=== PATIENT | female | born 1960 | race Caucasian/White ===

== ENCOUNTER → 2017-05-26 | Outpatient (CLI) | payer OTHER ==
--- NOTE | 2017-05-26 08:22 | CT ---
EXAMINATION TYPE: CT abdomen pelvis wo con DATE OF EXAM: 05/26/2017 COMPARISON: NONE HISTORY: Unspecified Abdominal Pain CT DLP: 274.90 mGycm Examination of the solid and hollow viscera is limited given the lack of contrast. FINDINGS: LUNG BASES: No evidence for nodule. No evidence for infiltrate. LIVER/GB: The gallbladder is unremarkable. No space-occupying hepatic lesion. PANCREAS: No pancreatic mass identified. No inflammatory process seen. SPLEEN: No evidence for splenomegaly. No intrasplenic lesions seen. ADRENALS: No adrenal nodules identified. No evidence for thickening. KIDNEYS: No evidence for renal mass. No nephrolithiasis. No hydronephrosis. BOWEL: Appendix has a normal appearance. There is sigmoid diverticulosis. Minimal stranding adjacent to the sigmoid colon may reflect mild diverticulitis versus epiploic appendagitis. No evidence of pe rforation or abscess. Small and large bowel are otherwise unremarkable. Lymph nodes: No evidence for adenopathy greater than 1 cm. Abdominal aorta: Atheromatous changes seen. No evidence for aneurysm. Genital organs: No significant abnormality. Other: No significant abnormality. IMPRESSION: Minimal stranding adjacent to the sigmoid colon may reflect mild diverticulitis versus epiploic appen dagitis.
== END | disposition home or self-care (01) ==
LOC: RADCTMAIN 07:19
PROVIDERS: ATTEND Family Medicine
DX: K63.9 Disease of intestine, unspecified (principal); R10.9 Unspecified abdominal pain
CPT/HCPCS: 74176

== ENCOUNTER → 2023-03-29 | Outpatient (CLI) | payer OTHER ==
[2023-03-30 03:06] LABS: HCT 41.9 % (37.2-46.3); MCHC 33.4 g/dL (32.0-37.0); MCV 95.9 fL (80.0-97.0); Mean Platelet Volume 10.9 fL (9.5-12.2); NRBC Per 100 WBC 0 /100 WBCS (0.0-0.0); Platelet Count 206 X 10*3/uL (140-440); RBC 4.37 X 10*6/uL (4.10-5.20); WBC 5.68 X 10*3/uL (4.50-10.00)
[2023-03-30 03:09] LABS: African American GFR (CKD) 101.3 (60.0-200.0); Anion Gap 12.2 mmol/L (10.00-18.00); Blood Urea Nitrogen 9.9 mg/dL (9.0-27.0); Carbon Dioxide 25.2 mmol/L (20.0-27.5); Non-African American GFR(CKD) 87.4 (60.0-200.0); Potassium 4.4 mmol/L (3.5-5.5)
== END | disposition home or self-care (01) ==
LOC: LABPAT 15:08
PROVIDERS: ATTEND Internal Medicine Cardiovascular Disease
DX: Z01.812 Encounter for preprocedural laboratory examination (principal); I35.0 Nonrheumatic aortic (valve) stenosis
CPT/HCPCS: 80051; 82565; 84520; 85027

== ENCOUNTER → 2023-04-11 | Day surgery (SDC) | payer OTHER ==
[~2023-04-11] MED LIST: ALPRAZolam 0.25 MG TAB PO PRN; ALPRAZolam 0.5 MG TAB PO PRN; ASPIRIN 325 MG TAB PO STA; BENZOCAINE SPRAY 1 CAN MUCOUS MEM ONE; HEPARIN SODIUM 1,000 UN/ML (10ML VL) IVP ONE; HEPARIN SODIUM 1,000 UN/ML (10ML VL) ONE; IOPAMIDOL-370 100ML BTL INJ ONE; IV FLUID CONTINUATION 300 ML IV ONE; LIDOCAINE 1% INJ 10MG/ML (5 ML VIAL-PF) SQ ONE; MIDAZOLAM 2 MG/2 ML VIAL IVP ONE; NITROGLYCERIN SL TABS 0.4 MG TAB SUBLINGUAL PRN; SODIUM CHLORIDE 0.9% 1,000 ML in EMPTY BAG 1 BAG IV SCH; VERAPAMIL 2.5 MG/ML 2 ML AMP ONE; VERAPAMIL SYRINGE (5 MG/10 ML) INTRAARTER ONE; fentaNYL (PF) 50 MCG/ML 2 ML AMP IV ONE; fentaNYL (PF) 50 MCG/ML 2 ML AMP IVP ONE; fentaNYL (PF) 50 MCG/ML 2 ML AMP ONE
[2023-04-11 07:19] VITALS: TEMP 97.9
[2023-04-11] MEDS: BENZOCAINE SPRAY 1 CAN MUCOUS MEM ONE (07:29)
[2023-04-11] MEDS: MIDAZOLAM 2 MG/2 ML VIAL IVP ONE ×2 (07:30→07:33)
--- NOTE | 2023-04-11 08:00 | CA ---
CARDIOLOGY REPORT STUDY PERFORMED: Transesophageal echocardiogram. INDICATION: Aortic stenosis. PROCEDURE NOTE: After obtaining informed consent, transesophageal echocardiogram was performed in left lateral position using an Omniplane probe. Local and IV sedation were obtained with Xylocaine spray, 2 mg of Versed, and 25 mcg of fentanyl. The patient tolerated the procedure well without any obvious immediate complications. Total sedation time was 10 minutes. FINDINGS: 1. Aortic valve is a bicuspid valve that is calcified and shows severe restriction in leaflet mobility with residual valve area of 0.5 square centimeters by planimetry. There is moderate aortic regurgitation noted. Mitral valve is anatomically normal. There is moderate central mitral regurgitation noted. Tricuspid valve appears normal. 2. Left atrium appears enlarged. Right atrium and right ventricle seen, within normal limits. 3. Left ventricle has normal size, shows concentric left ventricular hypertrophy with normal LV systolic function. 4. Interatrial septum, there is evidence of gbcu-ef-fsapw shunt by color-flow Doppler. There is no evidence of nsmyv-pl-wvrw shunt by agitated saline contrast study. 5. Aorta shows mild to moderate atherosclerotic changes. CONCLUSIONS: 1. Severe aortic stenosis involving a bicuspid aortic valve with moderate aortic regurgitation. 2. Moderate mitral regurgitation. 3. Left ventricular hypertrophy with normal LV systolic function. 4. Left atrial enlargement. 5. Moderate mitral regurgitation. 6. PFO with [id number]-xu-nkefv shunt across the interatrial septum. MMODL / IJN: [id number] /
--- NOTE | 2023-04-11 08:36 | CC ---
CARDIAC CATHETERIZATION REPORT INDICATION: Aortic stenosis. PROCEDURE NOTE: After obtaining informed consent, left heart catheterization, coronary angiogram, and aortogram were performed via the right radial artery using standard Seth catheters. The patient tolerated the procedure well without any obvious immediate complications. Received moderate conscious sedation. Total sedation time was 17 minutes. Right radial artery access was obtained using Seldinger technique. A 6-Serbian sheath was placed. Catheters and wires were floated into the ascending aorta under fluoroscopic guidance. The patient received 5 mg of verapamil and heparin per protocol and a TR band was used for hemostasis at the end. FINDINGS: 1. HEMODYNAMICS: Central aortic pressure is 126/76 mm. 2. LEFT VENTRICULOGRAM: Left ventriculogram is not performed. 3. AORTOGRAM: Aortogram was performed to evaluate the ascending aorta in a patient with known bicuspid aortic valve. Ascending aorta appears aneurysmally dilated. ANGIOGRAPHIC DATA: 1. Left main coronary artery: Left main coronary artery is a normal-sized vessel and is free of stenosis. Divides into left anterior descending coronary artery, ramus intermedius, and circumflex coronary artery. LAD shows mild nonobstructive CAD involving mid LAD. 2. Ramus intermedius and circ appears free of significant disease. Right coronary artery is a large dominant vessel and is free of significant stenosis. CONCLUSIONS: 1. Mild nonobstructive coronary artery disease. 2. Aneurysmal dilatation of the ascending aorta. 3. 3+ aortic regurgitation. 4. Severe aortic stenosis based on BRENDA. PLAN: I am going to refer the patient to Dr. Tipton for aortic valve replacement with or without repair of the ascending aorta. MMODL / IJN: [id number] /
--- NOTE | 2023-04-11 08:44 | LTR ---
Dear Karan: I performed a BRENDA and cardiac catheterization on Olamide Moran. Detailed reports are enclosed for your records. The patient has severe aortic stenosis with moderate to severe aortic regurgitation with normal coronary arteries. There is also a PFO. She will need surgical aortic valve replacement with or without repair of the ascending aorta. I am going to refer her to a cardiothoracic surgeon for further evaluation. Thank you for giving me the privilege to participate in the care of this pleasant lady. MMNEO / FREDDYN: [id number] /
[2023-04-11 18:42] VITALS: RESP 16
[2023-04-11 18:45] VITALS: BP 112/62; PULSE 62
== END | disposition home or self-care (01) ==
LOC: CATHCVL 12:13
PROVIDERS: ATTEND Internal Medicine Cardiovascular Disease
DX: I25.10 Atherosclerotic heart disease of native coronary artery without angina pectoris (principal); I08.0 Rheumatic disorders of both mitral and aortic valves; I71.21 Aneurysm of the ascending aorta, without rupture; I70.0 Atherosclerosis of aorta; Q21.12 Patent foramen ovale; E78.2 Mixed hyperlipidemia; Z87.891 Personal history of nicotine dependence; Z82.49 Family history of ischemic heart disease and other diseases of the circulatory system; Z79.899 Other long term (current) drug therapy
CPT/HCPCS: 93454; 93312; 93320; 93325; 99152 ×2; 93567; C1769; C1894; J2250; J2001; J3010; J1644; Q9967

== ENCOUNTER → 2023-04-26 | Outpatient (CLI) | payer OTHER ==
--- NOTE | 2023-04-26 09:42 | US ---
EXAMINATION TYPE: US vein mapping BIL DATE OF EXAM: 04/26/2023 9:04 AM COMPARISON: NONE CLINICAL INDICATION: Female, 62 years old with history of I71.20; open heart surgery SIDE PERFORMED: Bilateral TECHNIQUE: Lower extremity saphenous vein is examined and measured utilizing real time linear array sonography. Patient History: Previous DVT: No Vascular Surgery: No Discoloration: No Hypertension: Yes Diabetes: No Paralysis: No Varicosities: No Edema: No DUPLEX FINDINGS: Greater Saphenous: Color flow seen Lesser Saphenous: Color flow seen Measurements in mm: Right Greater Saphenous: Groin: 4.6 x 3.1 mm High Thigh: 2.1 x 2.0 mm Mid Thigh: 2.2 x 2.0 mm Above Knee: 2.0 x 1.5 mm Knee: 1.9 x 2.1 mm Below Knee: 1.9 x 1.9 mm Mid Calf: 1.6 x 1.6 mm At Ankle: 2.1 x 1.4 mm Left Greater Saphenous: Groin: 5.0 x 3.2 mm High Thigh: 2.6 x 2.2 mm Mid Thigh: 2.6 x 2.5 mm Above Knee: 3.2 x 2.8 mm Knee: 3.5 x 3.7 mm Below Knee: 2.2 x 1.1 mm Mid Calf: 2.1 x 1.3 mm At Ankle: 1.7 x 1.7 mm IMPRESSION: 1. Bilateral GSV measurements listed above. 2. Performing surgeon to determine viability as conduit.
--- NOTE | 2023-04-26 10:02 | CT ---
EXAMINATION TYPE: CT chest wo con DATE OF EXAM: 04/26/2023 COMPARISON: NONE HISTORY: PRE OP heart valve replacement CT DLP: 261.2 mGycm. Automated Exposure Control for Dose Reduction was Utilized. TECHNIQUE: CT scan of the thorax is performed without IV contrast. FINDINGS: LUNGS: The lungs are grossly clear, there is no concerning parenchymal mass or nodule identified. T here is no pleural effusion or pneumothorax seen. The tracheobronchial tree is patent. MEDIASTINUM: Lack of IV contrast is noted to limit evaluation for mediastinal and especially hilar ad enopathy. There are no definitive greater than 1 cm mediastinal lymph nodes. No cardiomegaly or per icardial effusion is seen. Prominent calcification at level of the aortic valve. Coronary artery calc ification is present which is noted marker for underlying coronary artery disease. Ascending aorta me asures up to 3.6 cm in diameter axial image 27. OTHER: Mild haziness in the upper to mid abdominal central mesentery is partially imaged raising conc lucille for mesenteric panniculitis. IMPRESSION: No acute pulmonary process.
== END | disposition home or self-care (01) ==
LOC: RADCTMAIN 08:15
PROVIDERS: ATTEND Surgery
DX: Z01.810 Encounter for preprocedural cardiovascular examination (principal); I71.20 Thoracic aortic aneurysm, without rupture, unspecified; I35.1 Nonrheumatic aortic (valve) insufficiency; I10 Essential (primary) hypertension; Z95.2 Presence of prosthetic heart valve
CPT/HCPCS: 71250; 93970; 94150

== ENCOUNTER → 2023-05-05 | Outpatient (CLI) | payer OTHER ==
[2023-05-05 11:27] LABS: INR 0.9 (<1.2); Partial Thromboplastin Time 23.4 sec (22.0-30.0); Prothrombin Time 9.7 sec (9.0-12.0)
--- NOTE | 2023-05-05 11:32 | P.PN ---
Progress Note - Text Progress Note Date: 05/05/23 5 meter walk completed without difficulty: #1 3.5 sec #2 3.15 sec #3 3.35 sec STS risk score calculated and discussed with the patient
--- NOTE | 2023-05-05 11:46 | XR ---
EXAMINATION TYPE: XR chest 2V DATE OF EXAM: 05/05/2023 11:37 AM COMPARISON: None TECHNIQUE: XR chest 2V Frontal and lateral views of the chest. CLINICAL INDICATION:Female, 62 years old with history of previous surgery planning for open heart yara danna. FINDINGS: Lungs/Pleura: There is no evidence of pleural effusion, focal consolidation, or pneumothorax. Pulmonary vascularity: Unremarkable. Heart/mediastinum: Cardiomediastinal silhouette is unremarkable. Musculoskeletal: No acute osseous pathology. IMPRESSION: No acute cardiopulmonary disease/process.
[2023-05-05 16:31] LABS: HCT 45.3 % (37.2-46.3); HGB 14.8 d/dL (12.0-15.0); MCH 31.4 pg (27.0-32.0); MCHC 32.7 d/dL (32.0-37.0); MCV 96.2 FL (80.0-97.0); Mean Platelet Volume 11.2 FL (9.5-12.2); NRBC Per 100 WBC 0 X 10*3/uL (0.00-0.01); Platelet Count 235 X 10*3/uL (140-440); RBC 4.71 X 10*6/uL (4.10-5.20); WBC 4.86 X 10*3/uL (4.50-10.00)
[2023-05-05 16:39] LABS: Blood Urea Nitrogen 15.6 mg/dL (9.0-27.0); Chol/HDL Ratio 2.56 Ratio; Glucose 116 mg/dL (70-110); LDL Cholesterol,Calculated 97.9 mg/dL (0.0-131.0); Magnesium 2.1 mg/dL (1.5-2.4)
[2023-05-05 16:40] LABS: ALT 33 U/L (8-44); AST 23 U/L (13-35); Albumin/Globulin Ratio 1.79 Ratio (1.60-3.17); Alkaline Phosphatase 62 U/L (41-126); Calcium 10.3 mg/dL (8.7-10.3); Carbon Dioxide 26.2 mmol/L (21.6-31.8); Chloride 102 mmol/L (96-109); Globulin 2.8 d/dL (1.6-3.3); Potassium 5.2 mmol/L (3.5-5.5); Sodium 139 mmol/L (135-145); Total Bilirubin 1.3 mg/dL (0.3-1.2); Total Protein 7.8 d/dL (6.2-8.2)
[2023-05-05 19:42] LABS: Hepatitis A Antibody IgM Nonreactive; Hepatitis B Core IgM Nonreactive; Hepatitis B Surface Antigen Nonreactive; Hepatitis C IgG Antibody Nonreactive
== END | disposition home or self-care (01) ==
LOC: LABWHC1 10:03
PROVIDERS: ATTEND Surgery
DX: Z01.818 Encounter for other preprocedural examination (principal); I35.0 Nonrheumatic aortic (valve) stenosis
CPT/HCPCS: 71046; 80053; 80061; 80074; 83036; 83735; 84443; 85027; 85610; 85730; 87070; 87086

== ENCOUNTER 2023-05-10 08:00 | Inpatient (IN) | payer OTHER ==
[2023-05-16] MEDS ORDERED: MUPIROCIN 2% OINT 22 GM TUBE NASAL ONE (02:30)
[2023-05-16] MEDS ORDERED: MAGNESIUM SULFATE 16.24 MEQ in EMPTY SYRINGE 1 SYR IV ONE (05:00)
[2023-05-16] MEDS ORDERED: LACTATED RINGERS 1,000 ML IV ONE (05:00)
[2023-05-16] MEDS ORDERED: TRANEXAMIC ACID 2,000 MG in SODIUM CHLORIDE 0.9% 80 ML IV ONE (05:00)
[2023-05-16] MEDS ORDERED: ATORVASTATIN 10 MG TAB PO ONE (05:00)
[2023-05-16] MEDS ORDERED: PHENYLEPHRINE 40 MG in SODIUM CHLORIDE 0.9% 250 ML IV ONE (05:00)
[2023-05-16] MEDS ORDERED: CALCIUM CHLORIDE 100 MG/ML 10 ML SYRINGE IV ONE (05:00)
[2023-05-16] MEDS ORDERED: HEPARIN SODIUM 1,000 UN/ML (10ML VL) IV ONE (05:00)
[2023-05-16] MEDS ORDERED: ALBUMIN HUMAN 25% 50 ML IV ONE (05:00)
[2023-05-16] MEDS ORDERED: ELECTROLYTE-A SOLUTION 1,000 ML with POTASSIUM CHLORIDE 100 MEQ, MAGNESIUM SULFATE 16 M... IV ONE ×5 (05:00)
[2023-05-16] MEDS ORDERED: SODIUM BICARB 8.4% 50 ML SYR (1 MEQ/ML) IV ONE (05:00)
[2023-05-16] MEDS ORDERED: CLEVIDIPINE BUTYRATE 25 MG in EMPTY BAG 1 BAG IV ONE (05:00)
[2023-05-16] MEDS ORDERED: ELECTROLYTE-A SOLUTION 1,000 ML with POTASSIUM CHLORIDE 40 MEQ, MAGNESIUM SULFATE 16 ME... IV ONE ×5 (05:00)
[2023-05-16] MEDS ORDERED: MANNITOL 25% 12.5 GM/50 ML VIAL IV ONE (05:00)
[2023-05-16] MEDS ORDERED: INSULIN REGULAR 100 UNIT in SODIUM CHLORIDE 0.9% 100 ML IV ONE (05:00)
[2023-05-16] MEDS ORDERED: PAPAVERINE 360 MG in SODIUM CHLORIDE 0.9% 90 ML IV ONE (05:00)
[2023-05-16] MEDS ORDERED: PHENYLEPHRINE 10 MG/ML VIAL IV ONE (05:00)
[2023-05-16] MEDS ORDERED: PROTAMINE SULFATE 250 MG in EMPTY BAG 1 BAG IV ONE (05:00)
[2023-05-16] MEDS ORDERED: NITROGLYCERIN-D5W PMX 25 MG/250 ML BTL IV ONE (05:00)
[2023-05-16] MEDS ORDERED: NOREPINEPHRINE 4 MG in SODIUM CHLORIDE 0.9% 250 ML IV ONE (05:00)
[2023-05-16] MEDS ORDERED: ceFAZolin 1,000 MG in SODIUM CHLORIDE 0.9% IRRIGATIO 1,000 ML IRRIGATION ONE (05:00)
[2023-05-16] MEDS ORDERED: PROTAMINE SULFATE 10 MG/ML 25 ML VIAL IV ONE (05:00)
[2023-05-16] MEDS ORDERED: ASPIRIN 325 MG TAB PO ONE (05:00)
[2023-05-16] MEDS ORDERED: propofoL 1,000 MG/100 ML VIAL IV ONE (05:00)
[2023-05-16] MEDS ORDERED: CHLORHEXIDINE GLUCONATE 15 ML CUP MUCOUS MEM ONE (05:00)
[2023-05-16] MEDS ORDERED: HEPARIN SODIUM,PORCINE (1 ML) 5,000 UNIT in SODIUM CHLORIDE 0.9% 500 ML 500 ML IV ONE (05:00)
[2023-05-16] MEDS ORDERED: SODIUM CHLORIDE 0.9% 1,000 ML IV ONE (05:00)
[2023-05-16] MEDS ORDERED: METOPROLOL TARTRATE 12.5 MG TAB PO ONE (05:00)
[2023-05-16] MEDS ORDERED: ONDANSETRON 4 MG/2 ML VIAL IVP PRN (05:52)
[2023-05-16] MEDS ORDERED: LACTATED RINGERS 1,000 ML IV SCH (05:52)
[2023-05-16] MEDS ORDERED: DEXAMETHASONE SOD PHOSPHATE 4 MG/ML 1 ML VIAL IV ONE (05:52)
[2023-05-16] MEDS ORDERED: HYDROmorphone 0.5 MG/0.5 ML SYRINGE IVP PRN (05:52)
[2023-05-16] MEDS ORDERED: LIDOCAINE 1% (10MG/ML) FOR IV START INTRADERMA PRN (05:52)
[2023-05-16] MEDS ORDERED: droPERidol 5 MG/2 ML VIAL IVP ONE (05:52)
[2023-05-16] MEDS ORDERED: DEXAMETHASONE SOD PHOSPHATE 10 MG/ML 1 ML VIAL ONE (07:57)
[2023-05-16] MEDS ORDERED: CALCIUM CHLORIDE 100 MG/ML 10 ML SYRINGE ONE (07:57)
[2023-05-16] MEDS ORDERED: diphenhydrAMINE 50 MG/ML 1 ML VIAL ONE (07:57)
[2023-05-16] MEDS ORDERED: MIDAZOLAM HCL 10 MG/10 ML VIAL ONE (07:57)
[2023-05-16] MEDS ORDERED: HEPARIN SODIUM,PORCINE 5,000 UNIT/ML 1 ML VIAL ONE (07:57)
[2023-05-16] MEDS ORDERED: PROPOFOL 10 MG/ML 20 ML VIAL IV ONE (07:57)
[2023-05-16] MEDS ORDERED: HEPARIN SODIUM,PORCINE 10,000 UNIT/ML 1 ML VIAL ONE (07:57)
[2023-05-16] MEDS ORDERED: fentaNYL (PF) 50 MCG/ML 50 ML VIAL ONE (07:57)
[2023-05-16] MEDS ORDERED: VECURONIUM 10 MG VIAL IV ONE (07:57)
[2023-05-16] MEDS ORDERED: TRANEXAMIC 1,000 MG/100ML-NACL PREMIX BAG ONE (07:57)
[2023-05-16] MEDS ORDERED: PROTAMINE SULFATE 10 MG/ML 5 ML VIAL IV ONE (07:57)
[2023-05-16] MEDS ORDERED: PHENYLEPHRINE 10 MG/ML VIAL ONE (07:57)
[2023-05-16] MEDS ORDERED: LIDOCAINE 2% INJ 20 MG/ML (2 ML VIAL) ONE (07:57)
[2023-05-16] MEDS ORDERED: GLYCOPYRROLATE 0.2 MG/ML 2 ML VIAL ONE (07:57)
[2023-05-16 08:50] LABS: ABG Base Excess -2.4 mmol/L; ABG Glucose Whole Blood 122 mg/dL (75-99); ABG HCO3 23 mmol/L (21-25); ABG Hematocrit 38 % (34.0-46.0); ABG Ionized Calcium 4.9 mg/dL (4.5-5.3); ABG Lactic Acid Whole Blood 1.7 mmol/L (0.5-1.6); ABG Oxygen Saturation 99.5 % (94-97); ABG PCO2 43 mmHg (35-45); ABG PH 7.35 (7.35-7.45); ABG Potassium Whole Blood 4.4 mmol/L (3.4-4.5); ABG Sodium Whole Blood 138 mmol/L (135-146); ABG TCO2 25 mmol/L (19-24)
[2023-05-16 09:24] LABS: ABG Base Excess -1.6 mmol/L; ABG Glucose Whole Blood 114 mg/dL (75-99); ABG HCO3 23 mmol/L (21-25); ABG Hematocrit 37 % (34.0-46.0); ABG Ionized Calcium 4.7 mg/dL (4.5-5.3); ABG Lactic Acid Whole Blood 1.3 mmol/L (0.5-1.6); ABG Oxygen Saturation 99.1 % (94-97); ABG PCO2 39 mmHg (35-45); ABG PH 7.39 (7.35-7.45); ABG PO2 266 mmHg (83-108); ABG Potassium Whole Blood 4.5 mmol/L (3.4-4.5); ABG Sodium Whole Blood 138 mmol/L (135-146); ABG TCO2 24 mmol/L (19-24)
[2023-05-16 10:01] LABS: ABG Glucose Whole Blood 139 mg/dL (75-99); ABG HCO3 23 mmol/L (21-25); ABG Hematocrit 25 % (34.0-46.0); ABG Ionized Calcium 3.8 mg/dL (4.5-5.3); ABG Oxygen Saturation 99.6 % (94-97); ABG PCO2 38 mmHg (35-45); ABG PH 7.39 (7.35-7.45); ABG Sodium Whole Blood 132 mmol/L (135-146); ABG TCO2 24 mmol/L (19-24)
[2023-05-16 10:23] LABS: ABG Base Excess -0.7 mmol/L; ABG Glucose Whole Blood 151 mg/dL (75-99); ABG HCO3 24 mmol/L (21-25); ABG Hematocrit 27 % (34.0-46.0); ABG Ionized Calcium 4.1 mg/dL (4.5-5.3); ABG Oxygen Saturation 99.5 % (94-97); ABG PCO2 41 mmHg (35-45); ABG PH 7.38 (7.35-7.45); ABG PO2 377 mmHg (83-108); ABG Potassium Whole Blood 6.1 mmol/L (3.4-4.5); ABG Sodium Whole Blood 134 mmol/L (135-146); ABG TCO2 26 mmol/L (19-24)
--- NOTE | 2023-05-16 10:37 | P.ANPRN ---
Procedure Note - Anesthesia - Invasive Line Right Central Line Time Out Performed: Yes ([id number]) Date of Procedure: 05/16/23 Time of Procedure: 07:50 Location of Patient: PreOp Preparation: Sterile Prep, Sterile Dressing Arterial Line Location: Radial (placed prior) Central Line Location: Internal Jugular (right) Ultrasound Used: Yes Purpose - Visualization and Identification of Vasculature: Yes Needle Guage: 18g angio Image Stored and Saved: Yes Narrative: Central line placement per sterile protocol utilized. +sterile prep +local +angio +jwire +uneventful dilation and introduction right IJ Cordis
--- NOTE | 2023-05-16 10:39 | P.ANPRN ---
Procedure Note - Anesthesia - Invasive Line Right [place] Time Out Performed: Yes ([id number]) Date of Procedure: 05/16/23 Time of Procedure: 07:57 Location of Patient: Phase I Preparation: Sterile Prep, Sterile Dressing [place] Line Location: Internal Jugular Ultrasound Used: No Purpose - Visualization and Identification of Vasculature: No Image Stored and Saved: No Narrative: Central line placement per sterile protocol utilized. swan sterilely floated in sheath in one attempt to wedge at 48cm. b/d. w/d 5cm to 43cm
--- NOTE | 2023-05-16 10:44 | P.ANPRN ---
Procedure Note - Anesthesia - BRENDA Intraop Pre Bypass BRENDA Intraop - Anesthesia Indication: avr Date of Procedure: 05/16/23 Pre-operative Diagnosis: bicuspid aortic stenosis Post-operative Diagnosis: same Surgeon: Dane Tipton Left Ventricle: mild lvh Ejection Fraction: Normal Regional Wall Motion Abnormalities: None Left Ventricle Hypertrophy: Yes R. Ventricle Function: Normal Aortic Valve: bicuspid. peak 91, mean 44. valve area 0.5-0.6cm2 Anatomy: Other (bicuspid) Aortic Stenosis: Severe Aortic Regurgitation: Mild (1+) Mitral Stenosis: None Mitral Regurgitation: Mild Tricuspid Stenosis: None Tricuspid Regurgitation: Trace Pulmonic Stenosis: None Pulmonic Regurgitation: None R. Atrial Dilation: No R. Atrial PFO: Yes (left to right shunt) L. Atrial Dilation: No Aortic Dissection: No Aortic Calcification: Mild Plural Effusion: None
[2023-05-16 10:47] LABS: ABG Base Excess -3.7 mmol/L; ABG Glucose Whole Blood 165 mg/dL (75-99); ABG HCO3 22 mmol/L (21-25); ABG Hematocrit 27 % (34.0-46.0); ABG Ionized Calcium 3.9 mg/dL (4.5-5.3); ABG Oxygen Saturation 99.5 % (94-97); ABG PCO2 41 mmHg (35-45); ABG PH 7.33 (7.35-7.45); ABG PO2 377 mmHg (83-108); ABG Potassium Whole Blood 5.5 mmol/L (3.4-4.5); ABG Sodium Whole Blood 137 mmol/L (135-146); ABG TCO2 23 mmol/L (19-24)
[2023-05-16 11:18] LABS: ABG Glucose Whole Blood 153 mg/dL (75-99); ABG HCO3 25 mmol/L (21-25); ABG Hematocrit 26 % (34.0-46.0); ABG Lactic Acid Whole Blood 1.4 mmol/L (0.5-1.6); ABG Oxygen Saturation 99.4 % (94-97); ABG PCO2 48 mmHg (35-45); ABG PH 7.33 (7.35-7.45); ABG PO2 355 mmHg (83-108); ABG Potassium Whole Blood 5.5 mmol/L (3.4-4.5); ABG Sodium Whole Blood 138 mmol/L (135-146); ABG TCO2 27 mmol/L (19-24)
[2023-05-16] MEDS: NITROGLYCERIN-D5W PMX 50 MG in DEXTROSE/WATER 1 250ML.BAG IV ONE ×2 (11:21→16:56)
[2023-05-16 11:47] LABS: ABG Base Excess -2.4 mmol/L; ABG Glucose Whole Blood 139 mg/dL (75-99); ABG HCO3 23 mmol/L (21-25); ABG Hematocrit 27 % (34.0-46.0); ABG Lactic Acid Whole Blood 1.8 mmol/L (0.5-1.6); ABG Oxygen Saturation 99.4 % (94-97); ABG PCO2 44 mmHg (35-45); ABG PH 7.33 (7.35-7.45); ABG PO2 415 mmHg (83-108); ABG Sodium Whole Blood 140 mmol/L (135-146); ABG TCO2 25 mmol/L (19-24)
[2023-05-16 12:17] LABS: ABG Base Excess -2.3 mmol/L; ABG Glucose Whole Blood 141 mg/dL (75-99); ABG HCO3 23 mmol/L (21-25); ABG Hematocrit 26 % (34.0-46.0); ABG Oxygen Saturation 99.5 % (94-97); ABG PCO2 40 mmHg (35-45); ABG PH 7.37 (7.35-7.45); ABG Potassium Whole Blood 5.1 mmol/L (3.4-4.5); ABG Sodium Whole Blood 140 mmol/L (135-146); ABG TCO2 24 mmol/L (19-24)
[2023-05-16 13:23] LABS: ABG Glucose Whole Blood 337 mg/dL (75-99); ABG HCO3 20 mmol/L (21-25); ABG Hematocrit 25 % (34.0-46.0); ABG Ionized Calcium 4.5 mg/dL (4.5-5.3); ABG Oxygen Saturation 98.2 % (94-97); ABG PCO2 52 mmHg (35-45); ABG PO2 143 mmHg (83-108); ABG Potassium Whole Blood 4.7 mmol/L (3.4-4.5); ABG Sodium Whole Blood 141 mmol/L (135-146); ABG TCO2 21 mmol/L (19-24)
[2023-05-16 13:26] LABS: ABG Base Excess -7.5 mmol/L; ABG Glucose Whole Blood 335 mg/dL (75-99); ABG HCO3 20 mmol/L (21-25); ABG Hematocrit 25 % (34.0-46.0); ABG Ionized Calcium 4.5 mg/dL (4.5-5.3); ABG Oxygen Saturation 98.4 % (94-97); ABG PCO2 48 mmHg (35-45); ABG PH 7.22 (7.35-7.45); ABG PO2 157 mmHg (83-108); ABG Potassium Whole Blood 4.7 mmol/L (3.4-4.5); ABG Sodium Whole Blood 140 mmol/L (135-146); ABG TCO2 21 mmol/L (19-24)
[2023-05-16 14:06] LABS: ABG Base Excess -1.1 mmol/L; ABG Glucose Whole Blood 253 mg/dL (75-99); ABG HCO3 25 mmol/L (21-25); ABG Hematocrit 27 % (34.0-46.0); ABG Ionized Calcium 4.7 mg/dL (4.5-5.3); ABG Oxygen Saturation 97.3 % (94-97); ABG PCO2 49 mmHg (35-45); ABG PH 7.32 (7.35-7.45); ABG PO2 98 mmHg (83-108); ABG Potassium Whole Blood 3.5 mmol/L (3.4-4.5); ABG Sodium Whole Blood 145 mmol/L (135-146); ABG TCO2 27 mmol/L (19-24)
[2023-05-16 14:25] LABS: ABG PO2 >420 mmHg (83-108)
[2023-05-16 14:30] LABS: ABG PO2 >420 mmHg (83-108)
[2023-05-16 14:31] LABS: ABG Potassium Whole Blood 6.2 mmol/L (3.4-4.5)
[2023-05-16 14:42] LABS: ABG Lactic Acid Whole Blood 2.6 mmol/L (0.5-1.6); ABG PO2 >420 mmHg (83-108)
[2023-05-16 14:43] LABS: ABG Lactic Acid Whole Blood 3.9 mmol/L (0.5-1.6); ABG PH 7.19 (7.35-7.45)
[2023-05-16 14:44] LABS: ABG Lactic Acid Whole Blood 3.7 mmol/L (0.5-1.6)
[2023-05-16 14:46] LABS: ABG Lactic Acid Whole Blood 3.2 mmol/L (0.5-1.6)
[2023-05-16 14:46] LABS: ABG Base Excess -3.2 mmol/L; ABG Glucose Whole Blood 209 mg/dL (75-99); ABG HCO3 24 mmol/L (21-25); ABG Hematocrit 33 % (34.0-46.0); ABG Ionized Calcium 4.5 mg/dL (4.5-5.3); ABG Oxygen Saturation 93.3 % (94-97); ABG PCO2 55 mmHg (35-45); ABG PH 7.26 (7.35-7.45); ABG PO2 74 mmHg (83-108); ABG Potassium Whole Blood 5.3 mmol/L (3.4-4.5); ABG Sodium Whole Blood 143 mmol/L (135-146); ABG TCO2 26 mmol/L (19-24)
[2023-05-16 14:51] LABS: ABG Lactic Acid Whole Blood 2.7 mmol/L (0.5-1.6)
[2023-05-16] MEDS ORDERED: Magnesium Replacement Protocol 1 EACH MISC MISCELLANE PRN (14:58)
[2023-05-16] MEDS ORDERED: CALCIUM GLUCONATE IN NACL 2 GM in SALINE 1 100ML.BAG IVPB PRN (14:58)
[2023-05-16] MEDS ORDERED: BENZOCAINE/MENTHOL LOZENG 1 EACH LOZENGE MUCOUS MEM PRN (14:58)
[2023-05-16] MEDS ORDERED: AMIODARONE 450 MG in DEXTROSE 5% IN WATER 250 ML IV PRN ×2 (14:58)
[2023-05-16] MEDS ORDERED: Potassium Replacement Protocol 1 EACH MISC MISCELLANE PRN (14:58)
[2023-05-16] MEDS ORDERED: IPRATROPIUM-ALBUTEROL 3 ML NEB INHALATION PRN (14:58)
[2023-05-16] MEDS ORDERED: hydrALAZINE HCL 20 MG/ML 1 ML VIAL IVP PRN (14:58)
[2023-05-16] MEDS ORDERED: METOCLOPRAMIDE 5 MG/ML 2 ML VIAL IVP PRN (14:58)
[2023-05-16] MEDS ORDERED: DEXTROSE 50% SYRINGE 50 ML IVP PRN ×2 (14:58)
[2023-05-16] MEDS ORDERED: ALBUMIN HUMAN 5% 500 ML IVPB ONE (15:02)
[2023-05-16] MEDS ORDERED: DEXMEDETOMIDINE/0.9% NACL(PMX) 400 MCG in EMPTY BAG 1 BAG IV SCH (15:15)
--- NOTE | 2023-05-16 15:16 | P.ANPRN ---
Procedure Note - Anesthesia - BRENDA Intraop Post Bypass BRENDA Intraop Post Bypass Procedure Performed: avr Left Ventricle: unchanged Ejection Fraction: Normal Regional Wall Motion Abnormalities: None Right Ventricle: wnl R. Ventricle Function: Normal Aortic Valve: peak 12/mean 8. Trileaflet. Opens well. No perivalvular leak. Mitral Valve: Unchanged Mitral Valve: initially post bypass MVR appeared to be increased. After resuscitation with fluids and pressors, MR returned to 1+. Tricuspid: Unchanged Pulmonic: Unchanged Aortic Dissection: No
[2023-05-16] MEDS ORDERED: EPINEPHrine 4 MG in DEXTROSE 5% IN WATER 250 ML IV SCH ×2 (15:30)
[2023-05-16 15:37] LABS: Glucose,Whole Blood 172 mg/dL (70-110)
[2023-05-16] MEDS: IPRATROPIUM-ALBUTEROL 3 ML NEB INHALATION SCH ×2 (15:38→19:49)
[2023-05-16] MEDS: LACTATED RINGERS 1,000 ML IV SCH (15:54)
[2023-05-16] MEDS: INSULIN REGULAR 100 UNIT in SODIUM CHLORIDE 0.9% 100 ML IV SCH (15:55)
[2023-05-16] MEDS: PHENYLEPHRINE 40 MG in SODIUM CHLORIDE 0.9% 250 ML IV SCH (15:57)
[2023-05-16 15:59] LABS: ABG Base Excess -2.5 mmol/L; ABG HCO3 24 mmol/L (21-25); ABG PCO2 48 mmHg (35-45); ABG PO2 86 mmHg (83-108); ABG TCO2 25 mmol/L (19-24)
[2023-05-16 16:03] LABS: Basophils % (A) 0 %; Eosinophils % (A) 0 %; HCT 30.9 % (34.0-46.0); HGB 10.5 gm/dL (11.4-16.0); Lymphocytes # (A) 1.1 k/uL (1.0-4.8); Lymphocytes % (A) 7 %; MCH 33.5 pg (25.0-35.0); MCV 98.5 fL (80.0-100.0); Mean Platelet Volume 8.4; Monocytes # (A) 0.5 k/uL (0-1.0); Monocytes % (A) 3 %; Neutrophils # (A) 14.2 k/uL (1.3-7.7); Neutrophils % (A) 89 %; Platelet Count 109 k/uL (150-450); RBC 3.13 m/uL (3.80-5.40); RDW 12.5 % (11.5-15.5)
[2023-05-16 16:05] LABS: Ionized Calcium 4.7 mg/dL (4.5-5.3)
[2023-05-16] MEDS: MILRINONE-D5W PMX 20 MG in DEXTROSE/WATER 1 100ML.BAG IV SCH (16:05)
--- NOTE | 2023-05-16 16:07 | XR ---
EXAMINATION TYPE: XR chest 1V portable DATE OF EXAM: 05/16/2023 COMPARISON: NONE HISTORY: Post Operative Cardiac Surgery FINDINGS: Endotracheal tube is in place with its distal tip 4 cm from the yehuda. NG tube is noted coursing into the stomach with the side port at the GE junction. This should be adva nced. Left-sided chest tube and mediastinal drain are in place. Left atrial clip is identified. Aortic valvular prosthesis is in place. Sternotomy wires noted. Perihilar and basilar infiltrates noted. Stable appearance of the cardio-mediastinal structures at this time. Pleural effusion unchanged. IMPRESSION: 1. Post Operative Cardiac Surgery changes as noted.
[2023-05-16 16:14] LABS: INR 1.3 (<1.2); Partial Thromboplastin Time 28.5 sec (22.0-30.0); Prothrombin Time 13.6 sec (9.0-12.0)
[2023-05-16 16:44] LABS: ALT 28 U/L (4-34); AST 175 U/L (14-36); African American GFR (CKD) >90 (>60 ml/min/1.73 sqM); Albumin 3.1 g/dL (3.5-5.0); Alkaline Phosphatase 25 U/L (38-126); Anion Gap 4 mmol/L; Blood Urea Nitrogen 14 mg/dL (7-17); Calcium 7.3 mg/dL (8.4-10.2); Carbon Dioxide 24 mmol/L (22-30); Chloride 113 mmol/L (98-107); Glucose 163 mg/dL (74-99); Magnesium 2.6 mg/dL (1.6-2.3); Non-African American GFR(CKD) >90 (>60 ml/min/1.73 sqM); Sodium 141 mmol/L (137-145); Total Bilirubin 1.5 mg/dL (0.2-1.3); Total Protein 4.8 g/dL (6.3-8.2)
[2023-05-16 16:45] LABS: Potassium 4.4 mmol/L (3.5-5.1)
[2023-05-16] MEDS ORDERED: NITROGLYCERIN-D5W PMX 50 MG in DEXTROSE/WATER 1 250ML.BAG IV SCH (16:45)
[2023-05-16 16:56] LABS: Glucose,Whole Blood 166 mg/dL (70-110)
[2023-05-16] MEDS: CLEVIDIPINE BUTYRATE 25 MG in EMPTY BAG 1 BAG IV SCH ×2 (17:03→17:44)
[2023-05-16] MEDS: HEPARIN SODIUM,PORCINE/PF 5,000 UNIT/0.5 ML SYRINGE SQ SCH (17:08)
[2023-05-16 18:03] LABS: Glucose,Whole Blood 176 mg/dL (70-110)
[2023-05-16] MEDS: ACETAMINOPHEN IV (For NPO) 1,000 MG in EMPTY BAG 1 BAG IVPB SCH ×2 (18:45→23:22)
[2023-05-16 18:54] LABS: Basophils % (A) 0 %; Eosinophils # (A) 0.1 k/uL (0-0.7); Eosinophils % (A) 1 %; HCT 33.1 % (34.0-46.0); HGB 11.2 gm/dL (11.4-16.0); Lymphocytes # (A) 0.4 k/uL (1.0-4.8); Lymphocytes % (A) 3 %; MCH 32.2 pg (25.0-35.0); MCHC 33.8 g/dL (31.0-37.0); MCV 95.3 fL (80.0-100.0); Mean Platelet Volume 8.5; Monocytes # (A) 0.5 k/uL (0-1.0); Monocytes % (A) 4 %; Neutrophils # (A) 12.3 k/uL (1.3-7.7); Neutrophils % (A) 92 %; Platelet Count 116 k/uL (150-450); RBC 3.47 m/uL (3.80-5.40); WBC 13.4 k/uL (3.8-10.6)
[2023-05-16 19:11] LABS: Glucose,Whole Blood 194 mg/dL (70-110)
[2023-05-16 19:56] LABS: Glucose,Whole Blood 205 mg/dL (70-110)
[2023-05-16 21:05] LABS: Glucose,Whole Blood 213 mg/dL (70-110)
[2023-05-16] MEDS: MUPIROCIN 2% OINT 22 GM TUBE NASAL SCH (21:15)
[2023-05-16] MEDS: ALBUMIN HUMAN 5% 250 ML in EMPTY BAG 1 BAG IVPB PRN (21:16)
[2023-05-16 21:17] LABS: ABG Base Excess -3.2 mmol/L; ABG HCO3 22 mmol/L (21-25); ABG Oxygen Saturation 99.1 % (94-97); ABG PCO2 38 mmHg (35-45); ABG PH 7.38 (7.35-7.45); ABG PO2 259 mmHg (83-108); ABG TCO2 23 mmol/L (19-24)
[2023-05-16 22:02] LABS: Glucose,Whole Blood 155 mg/dL (70-110)
[2023-05-16] MEDS ORDERED: SODIUM BICARB 8.4% 50 ML SYR (1 MEQ/ML) IV STA (22:05)
[2023-05-16 22:35] LABS: Basophils % (A) 0 %; Eosinophils % (A) 0 %; HCT 30.2 % (34.0-46.0); HGB 10.2 gm/dL (11.4-16.0); Lymphocytes # (A) 0.4 k/uL (1.0-4.8); Lymphocytes % (A) 4 %; MCH 32.4 pg (25.0-35.0); MCV 95.4 fL (80.0-100.0); Mean Platelet Volume 9.2; Monocytes # (A) 0.3 k/uL (0-1.0); Monocytes % (A) 3 %; Neutrophils % (A) 93 %; RBC 3.16 m/uL (3.80-5.40); RDW 12.9 % (11.5-15.5); WBC 8.7 k/uL (3.8-10.6)
[2023-05-16 23:02] LABS: Glucose,Whole Blood 132 mg/dL (70-110)
[2023-05-16 23:03] LABS: Polychromasia Present
[2023-05-16 23:04] LABS: Platelet Count 90 k/uL (150-450)
[2023-05-16 23:05] LABS: Basophilic Stippling Present
[2023-05-16 23:58] LABS: Glucose,Whole Blood 117 mg/dL (70-110)
[2023-05-17] MEDS: MILRINONE-D5W PMX 20 MG in DEXTROSE/WATER 1 100ML.BAG IV SCH ×2 (00:05→14:18)
--- NOTE | 2023-05-17 00:06 | OP ---
OPERATIVE REPORT DATE OF SERVICE : 05/16/2023 PREOPERATIVE DIAGNOSIS: Severe aortic valve stenosis. POSTOPERATIVE DIAGNOSIS: Severe aortic valve stenosis. PROCEDURES: 1. Aortic valve replacement using 23 mm Kent Inspiris bioprosthetic valve and Abdiaziz Islas annular enlargement technique. 2. Ligation of left atrial appendage using 35 mm AtriClip. 3. Epiaortic ultrasound. 4. Transesophageal echocardiogram. ASSISTANTS: 1. DANISH Jernigan. 2. Jayson Ramos NP. ANESTHESIA: General. SPECIMEN: Aortic valve leaflets. COMPLICATIONS: None. INDICATION: The patient is a 62-year-old female with a past medical history significant for psoriatic arthritis, hypercholesterolemia, and heartburn, who reports worsening fatigue and intermittent chest discomfort over the past 1 year. Workup revealed severe aortic valve stenosis. Aortic valve replacement was recommended. The risks, benefits, and alternatives to the procedure were discussed with the patient. All of her questions were answered. Consent was obtained. FINDINGS: The aortic valve was heavily calcified and trileaflet in nature. The aortic root was small and needed to be enlarged to accommodate an appropriate sized bioprosthetic valve. PROCEDURE IN DETAIL: The patient was taken to the operating room and placed supine on the operating table. After the induction of general anesthesia, she was prepped and draped in the usual sterile fashion. Preoperative transesophageal echocardiogram confirmed a preserved ejection fraction with severe aortic valve stenosis. The LV outflow tract measured 1.7 cm. She also had mild to moderate central mitral regurgitation with no structural pathology. A median sternotomy was performed. A pericardial cradle was created. Intravenous heparin was administered. The ascending aorta was palpated. There was no significant calcific plaque noted. Epiaortic ultrasound was then performed on the ascending aorta. Again, no calcific plaque or atheromatous disease was identified in the mid to distal ascending aorta. An arterial cannula was placed in the distal ascending aorta. A venous cannula was placed through the right atrial appendage and directed into the IVC. Both antegrade and retrograde catheters were placed as well. The patient was then placed on cardiopulmonary bypass with good decompression of the heart. The aortic cross- clamp was applied. The LV sump was placed via the right superior pulmonary vein and directed into the LV. Cold blood potassium cardioplegia was delivered in both antegrade and retrograde fashion to achieve arrest of the heart. Of note, cardioplegia was delivered every 15 to 20 minutes while the patient remained under crossclamp. I began by identifying the left atrial appendage. A 35 mm AtriClip was placed across its base to ensure ligation. Next, a standard hockey-stick incision was created in the proximal ascending aorta. Of note, CO2 was delivered across the operative field. Upon initial inspection, the aortic valve appeared to be trileaflet in nature and heavily calcified. Both the left and right coronary ostia were identified. The aortic valve leaflets were then sharply excised using scissors. The leaflets were then sent to Pathology. Residual calcium was removed using a rongeur. The aortic root was copiously irrigated with cold saline solution. Using an Kent Inspiris bioprosthetic valve sizing device, I began with a 19 mm sizing device. This instrument could barely pass through the aortic root. A 21 mm sizing device could not at all. For this reason, I elected to enlarge the aortic annulus. I intended to use the Abdiaziz Islas technique. The aortotomy was continued down through the commissure between the left and non coronary cusps. The incision was carried out beneath the annulus of the left coronary cusp and as well to the right beneath the annulus of the noncoronary cusp. An appropriate sized Hemashield graft was then fashioned. Using a running 4-0 Prolene suture, the graft was placed in the defect to enlarge the root. At this point, I re-sized the annulus and could now fit a 23 mm Sizer comfortably. Interrupted pledget sutures were placed along the annulus of the left and right coronary cusps. The pledget suture was continued up the new patch of the enlarged area. A 23 mm Kent bioprosthetic Inspiris valve was chosen. The sutures were passed through the sewing ring. The valve was then carefully lowered into place. The sutures were tied using Cor knots, taking care to make sure both coronary ostia were not obstructed. The leaflets appear to open and close well. The aortotomy was then closed using a running Prolene suture and the Hemashield patch. 1 L of warm blood was delivered in retrograde fashion. Lidocaine and magnesium were administered as well. The heart was de-aired in the standard fashion. The aortic cross-clamp was removed. Followup transesophageal echocardiogram confirmed no evidence of intracardiac air. There was no obvious perivalvular leak and the leaflets appeared to open and close without difficulty. At this point, the pulmonary artery pressures increased to systolic pressures of approximately 74 mmHg. Upon induction, they were more like 35 to 40 mmHg. The right ventricle appeared to be moving well and did not appear to be hypokinetic. The pre-existing mitral regurgitation that was initially noted did get worse. At this point, we allowed the heart to rest. We started milrinone, epinephrine, and Evaristo- Synephrine. We also inserted a femoral arterial monitoring line via the left common femoral artery using standard Seldinger technique. This monitoring device appeared to work better than the upper extremity line placed preoperatively, which appeared to be dampened. We began to wean the patient off bypass. Her PA pressures started to come down into the 50s. The patient at that point. Followup transesophageal echocardiogram, which was evaluated on many occasions, revealed a preserved ejection fraction. All castillo of the left ventricle were moving well. The right ventricle was moving well. The patient had mild mitral regurgitation, which was her baseline. The mitral valve leaflets were both moving without difficulty. There was no valvular pathology. The anterior leaflet was not restricted. The new bioprosthetic valve was seated nicely. There was no evidence of perivalvular leak. The leaflets opened and closed without difficulty. There was flow noted in the left main coronary artery. Protamine was administered. There were no adverse reactions. The remaining cannulas were removed. The mediastinum was copiously irrigated with warm saline solution. Again, all surgical sites were inspected and appeared to be hemostatic. Soft tissues were reapproximated over the ascending aorta as well as over the apex of the heart. Chest tubes were placed in the left pleural space and mediastinum. A Bairon drain was placed in the right pleural space. These were all secured to the skin using sutures. The sternum was then reapproximated using [place] cables. The cables were placed in a [id number] fashion. At the completion of closure, the sternum was well aligned. The remainder of the wound was closed in layers. A sterile dressing was applied. At the completion of the case, the patient's pulmonary artery pressures were back down to 30 mmHg. There was only trace to mild central mitral regurgitation. Her blood pressure was approximately 90 to 100 mmHg. She did not receive any intraoperative blood products. MMODL / IJN: [id number] / [facility]
[2023-05-17] MEDS: PHENYLEPHRINE 40 MG in SODIUM CHLORIDE 0.9% 250 ML IV SCH (00:45)
[2023-05-17] MEDS: ALBUMIN HUMAN 5% 250 ML in EMPTY BAG 1 BAG IVPB PRN ×4 (00:52→12:51)
[2023-05-17 01:01] LABS: Glucose,Whole Blood 110 mg/dL (70-110)
[2023-05-17] MEDS: HEPARIN SODIUM,PORCINE/PF 5,000 UNIT/0.5 ML SYRINGE SQ SCH ×3 (01:10→16:17)
[2023-05-17 02:11] LABS: Glucose,Whole Blood 154 mg/dL (70-110)
[2023-05-17] MEDS ORDERED: HYDROcodone/APAP 5-325MG 1 EACH TAB PO PRN (02:28)
--- NOTE | 2023-05-17 02:37 | P.CNPUL ---
History of Present Illness Consult date: 05/17/23 Requesting physician: Oksana Richard Reason for consult: other (ICU management post open-heart surgery and aortic valve replacement) Chief complaint: Elective aortic valve replacement History of present illness: I am seeing this patient in consultation today 05/17/2023 status postoperative day #1 following an aortic valve replacement with aortic root enlargement and left atrial appendage ligation. Patient is a 62-year-old white female with past medical history significant for severe aortic stenosis, hyperlipidemia, psoriatic arthritis, GERD, and is a remote ex-smoker. Patient did have a p reoperative spirometry which showed moderate obstructive disease with an FEV1 61% of predicted. FEV1 to FVC ratio was 64%. 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 Patient had been reporting ongoing and intermittent chest discomfort over the last year. She did have a recent heart catheterization and BRENDA on April 11 which showed mild nonobstructive coronary artery disease, aneurysmal dilation of ascending aorta, 3+ aortic regurgitation, and severe aortic stenosis. The patient was scheduled for an elective open-heart which took place yesterday. The patient underwent aortic valve replacement with aortic root enlargement and left atrial appendage ligation. This was complicated by some perioperative hypotension and increased pulmonary artery pressures. The patient was given 2.7 L of crystalloid, 2 albumin, and 450 ML's of Cell Saver intraoperatively. The patient was initially placed on a combination of milrinone, epinephrine, and Evaristo-Synephrine. The patient was then transferred to the intensive care unit. Patient is currently lying in bed, intubated to the mechanical ventilator, and appears fairly comfortable. Current ventilator settings are assist control, respiratory rate 22, tidal volume 400, FiO2 50%, and a PEEP of 10. Postoperatively, the patient had combined respiratory and metabolic acidosis. Respiratory rate was then increased to 22, and the patient was given one amp of sodium bicarb. Most recent ABGs after ventilator changes show a pO2 of 259, pCO2 of 38, and pH of 7.38. This was done on a FiO2 of 80%. Patient is currently synchronous with the mechanical ventilator and sedated on propofol infusing at 10 mcg/kg/m. This is being weaned off. Currently, the patient will open her eyes to verbal stimulation, but does not follow any commands. Peak pressure is 27 and plateau pressure is 20. Postoperative chest x-ray shows endotracheal tube 4 cm from the yehuda, NG tube with a side port at the GE junction and could be advanced approximately 5 cm, bilateral pleural chest tubes, a mediastinal chest tube, and other postsurgical changes. No pneumothoraces. Patient's blood pressure is normotensive, and the Evaristo-Synephrine and epinephrine were weaned off. Actually, clevidipine had to be temporarily started for hypertension. Currently, the patient has milrinone infusing at 0.375 mcg/kg/m. Most recent CO/CI are 3.3 and 2 respectively. PA pressures are 30 /19. Lactate Ringer's is also infusing at 50 ML's per hour. Urine output has been adequate in the order of 80-100 ML's per hour. Insulin is infusing per protocol. Most recent CBC has a WBC count of 8.7, hemoglobin 10.2, hematocrit 30.2, platelets 90. Mediastinal chest tube has 250 ML's of serosanguineous output. There is no air leak. Right and left pleural chest tubes are Y-d together and have 190 ML's of serosanguineous output. There is a small intermittent air leak. Postoperative BMP has sodium 141, potassium 4.4, chloride 113, serum bicarb 24, BUN 14, creatinine 0.64, glucose 163. Currently, we are working on weaning off the sedation in preparation for possible extubation later this morning. The patient is currently too sedated to attempt SBT at this time. Review of Systems ROS unobtainable: due to endotracheal tube Past Medical History Past Medical History: GERD/Reflux, Hyperlipidemia, Rheumatoid Arthritis (RA), Skin Disorder Additional Past Medical History / Comment(s): psoriasis, SOB w/exertion & fatigue, valve problem per pt. History of Any Multi-Drug Resistant Organisms: None Reported Past Surgical History: Heart Catheterization, Hysterectomy, Orthopedic Surgery Additional Past Surgical History / Comment(s): rt knee Past Anesthesia/Blood Transfusion Reactions: No Reported Reaction Smoking Status: Former smoker, Light tobacco smoker - Past Family History Mother Family Medical History: Coronary Artery Disease (CAD) Additional Family Medical History / Comment(s): CABG Brother(s) Family Medical History: Myocardial Infarction (GA) Additional Family Medical History / Comment(s): stents, another brother-stroke Medications and Allergies Home Medications Medication Instructions Recorded Confirmed Type Cholecalciferol [Vitamin D3 (125 125 mcg PO Q7D 03/30/23 05/16/23 History Mcg = 5000 Iu)] Etanercept [Enbrel] 50 mg SQ Q7D 03/30/23 05/16/23 History Rosuvastatin [Crestor] 20 mg PO DAILY 03/30/23 05/16/23 History Otc Pepcid 1 tab PO DAILY PRN 04/06/23 05/16/23 History Mupirocin 2% Oint [Bactroban 2% 1 applic NASAL BID #22 gm 05/10/23 Rx Oint] Mupirocin 2% Oint [Bactroban 2% 1 applic NASAL BID 05/13/23 05/16/23 History Oint] Allergies Allergy/AdvReac Type Severity Reaction Status Date / Time No Known Allergies Allergy Verified 05/16/23 06:20 Physical Exam Vitals: Vital Signs Temp Pulse Pulse Resp BP BP BP 05/17/23 01:00 65 22 05/17/23 00:45 65 22 05/17/23 00:30 65 22 115/63 05/17/23 00:15 65 22 05/17/23 00:00 68 22 05/16/23 23:45 69 22 05/16/23 23:31 05/16/23 23:30 70 22 05/16/23 23:17 69 22 05/16/23 23:15 70 22 05/16/23 23:00 71 05/16/23 22:45 71 22 05/16/23 22:30 71 22 05/16/23 22:15 71 22 123/68 05/16/23 22:00 73 22 05/16/23 21:45 73 22 05/16/23 21:30 75 22 05/16/23 21:20 05/16/23 21:15 72 22 05/16/23 21:00 74 22 05/16/23 20:45 74 22 05/16/23 20:30 73 22 05/16/23 20:15 74 22 05/16/23 20:02 72 05/16/23 20:00 72 22 05/16/23 19:50 71 05/16/23 19:45 72 22 95/58 05/16/23 19:42 05/16/23 19:30 73 22 05/16/23 19:15 73 22 05/16/23 19:00 99.5 F 73 22 05/16/23 18:45 73 22 05/16/23 18:30 73 22 05/16/23 18:15 74 22 05/16/23 18:00 99.1 F 77 22 05/16/23 17:45 75 22 05/16/23 17:30 75 22 05/16/23 17:15 73 22 05/16/23 17:00 98.2 F 74 22 05/16/23 16:45 74 20 05/16/23 16:30 73 20 05/16/23 16:15 78 20 05/16/23 16:00 97.5 F L 80 20 05/16/23 15:49 80 20 05/16/23 15:45 79 20 05/16/23 15:43 05/16/23 15:39 81 20 05/16/23 15:32 05/16/23 15:30 96.8 F L 80 20 05/16/23 06:00 97.5 F L 60 16 145/70 153/74 Pulse Ox FiO2 05/17/23 01:00 97 05/17/23 00:45 97 05/17/23 00:30 98 05/17/23 00:15 98 05/17/23 00:00 98 50 05/16/23 23:45 98 05/16/23 23:31 50 05/16/23 23:30 97 05/16/23 23:17 98 05/16/23 23:15 98 05/16/23 23:00 98 05/16/23 22:45 97 05/16/23 22:30 98 05/16/23 22:15 97 05/16/23 22:00 96 05/16/23 21:45 96 05/16/23 21:30 98 05/16/23 21:20 50 05/16/23 21:15 99 05/16/23 21:00 98 05/16/23 20:45 98 05/16/23 20:30 100 05/16/23 20:15 99 05/16/23 20:02 05/16/23 20:00 99 80 05/16/23 19:50 05/16/23 19:45 98 05/16/23 19:42 80 05/16/23 19:30 97 05/16/23 19:15 96 05/16/23 19:00 96 05/16/23 18:45 96 05/16/23 18:30 94 L 05/16/23 18:15 93 L 05/16/23 18:00 97 05/16/23 17:45 99 05/16/23 17:30 99 05/16/23 17:15 99 05/16/23 17:00 98 05/16/23 16:45 98 05/16/23 16:30 98 05/16/23 16:15 98 05/16/23 16:00 97 100 05/16/23 15:49 05/16/23 15:45 96 05/16/23 15:43 100 05/16/23 15:39 05/16/23 15:32 100 05/16/23 15:30 95 05/16/23 06:00 97 Intake and Output 05/16/23 05/16/23 05/17/23 14:59 22:59 06:59 Intake Total 51 1133.685 658.435 Output Total 3665 272 Balance 51 -2531.315 386.435 Intake: IV 51 642 637 ACETAMINOPHEN IV (For NPO 100 ) 1,000 mg In Empty Bag 1 bag @ 400 mls/hr IVPB Q6HR SANKET Rx#:[id number] Albumin Human 5% 250 ml 250 250 In Empty Bag 1 bag @ 250 mls/hr IVPB Q1HR PRN Rx#: [id number] Lactated Ringers 1,000 ml 150 100 @ 50 mls/hr IV .Q20H SANKET Rx#:[id number] ceFAZolin 2 gm In Sodium 100 Chloride 0.9% 50 ml @ 100 mls/hr IVPB Q8HR SANKET Rx# :[id number] ns cardiac output 180 60 ns pressure bags 62 27 Intake, IV Titration 491.685 21.435 Amount ACETAMINOPHEN IV (For NPO 100 ) 1,000 mg In Empty Bag 1 bag @ 400 mls/hr IVPB Q6HR SANKET Rx#:[id number] Clevidipine Butyrate 25 12.800 mg In Empty Bag 1 bag @ 1 MG/HR 2 mls/hr IV .Q24H SANKET Rx#:[id number] EPINEPHrine 4 mg In 0.889 Dextrose 5% in Water 250 ml @ 0.01 MCG/KG/MIN 2. 321 mls/hr IV .Q24H SANKET Rx#:[id number] Insulin Regular 100 unit 26.631 13.264 In Sodium Chloride 0.9% 100 ml @ Per Protocol IV .Q0M SANKET Rx#:[id number] Lactated Ringers 1,000 ml 200 @ 50 mls/hr IV .Q20H SANKET Rx#:[id number] Milrinone-D5w Pmx 20 mg 9.471 In Dextrose/Water 1 100ml .bag @ Per Protocol IV . Q0M SANKET Rx#:[id number] Nitroglycerin-D5w Pmx 50 1.375 mg In Dextrose/Water 1 250ml.bag @ 5 MCG/MIN 1.5 mls/hr IV .Q24H SANKET Rx#: [id number] Phenylephrine 40 mg In 3.302 Sodium Chloride 0.9% 250 ml @ 1 MCG/KG/MIN 23.584 mls/hr IV .[id number] SANKET Rx #:[id number] ceFAZolin 2 gm In Sodium 50 Chloride 0.9% 50 ml @ 100 mls/hr IVPB Q8HR SANKET Rx# :[id number] propofoL 1,000 mg In 87.217 8.171 Empty Bag 1 bag @ Titrate IV .Q0M SANKET Rx#: [id number] Output: Chest Tube Drainage [address] 254 30 rt and lt pleural 176 42 Urine 5 200 Estimated Blood Loss 1200 Other: Voiding Method Indwelling Catheter Indwelling Catheter ABP, PAP, CO, CI - Last 8 Hours Arterial Blood Pressure 133/59 Arterial Blood Pressure 120/55 Arterial Blood Pressure 120/55 Arterial Blood Pressure 122/56 Arterial Blood Pressure 134/61 Arterial Blood Pressure 149/65 Arterial Blood Pressure 141/61 Arterial Blood Pressure 142/64 Arterial Blood Pressure 132/60 Arterial Blood Pressure 159/66 Arterial Blood Pressure 138/61 Arterial Blood Pressure 148/61 Arterial Blood Pressure 124/56 Arterial Blood Pressure 129/57 Arterial Blood Pressure 151/64 Arterial Blood Pressure 143/64 Arterial Blood Pressure 137/64 Arterial Blood Pressure 119/59 Arterial Blood Pressure 148/66 Arterial Blood Pressure 133/63 Arterial Blood Pressure 116/56 Arterial Blood Pressure 110/54 Arterial Blood Pressure 116/59 Arterial Blood Pressure 114/55 Arterial Blood Pressure 115/56 Arterial Blood Pressure 117/58 Arterial Blood Pressure 115/57 Arterial Blood Pressure 115/57 Arterial Blood Pressure 127/66 Arterial Blood Pressure 137/76 Pulmonary Artery Pressure 34/21 Pulmonary Artery Pressure 28/17 Pulmonary Artery Pressure 26/17 Pulmonary Artery Pressure 27/16 Pulmonary Artery Pressure 25/16 Pulmonary Artery Pressure 28/18 Pulmonary Artery Pressure 30/19 Pulmonary Artery Pressure 27/18 Pulmonary Artery Pressure 27/17 Pulmonary Artery Pressure 28/17 Pulmonary Artery Pressure 29/18 Pulmonary Artery Pressure 32/21 Pulmonary Artery Pressure 29/18 Pulmonary Artery Pressure 33/17 Pulmonary Artery Pressure 33/22 Pulmonary Artery Pressure 34/22 Pulmonary Artery Pressure 31/20 Pulmonary Artery Pressure 29/18 Pulmonary Artery Pressure 29/18 Pulmonary Artery Pressure 32/18 Pulmonary Artery Pressure 31/19 Pulmonary Artery Pressure 30/20 Pulmonary Artery Pressure 31/19 Pulmonary Artery Pressure 37/22 Pulmonary Artery Pressure 38/23 Pulmonary Artery Pressure 37/26 Pulmonary Artery Pressure 36/23 Pulmonary Artery Pressure 36/25 Pulmonary Artery Pressure 38/25 Pulmonary Artery Pressure 40/27 Pulmonary Artery Pressure 38/24 Cardiac Output 3.6 Cardiac Output 3.3 Cardiac Output 3.8 Cardiac Output 3.2 Cardiac Output 3.6 Cardiac Output 3.8 Cardiac Output 4 Cardiac Index 2.2 Cardiac Index 2 Cardiac Index 2.3 Cardiac Index 1.9 Cardiac Index 2.6 Cardiac Index 2.3 Cardiac Index 2.4 GENERAL EXAM: Sedated and synchronous with mechanical ventilator, in no acute distress. HEAD: Normocephalic and atraumatic EYES: Normal reaction of pupils, equal size. NOSE: Clear with pink turbinates. THROAT: No erythema or exudates. NECK: No masses, no JVD. There is a right IJ Cordis with [place]. CHEST: Midsternal surgical incision is clean, dry, and approximated. Bilateral pleural chest tubes and mediastinal chest tube. LUNGS: Equal air entry with no crackles, wheeze, rhonchi or dullness. Intubated to the mechanical ventilator. CVS: S1 and S2 normal with no audible murmur, regular rhythm. There is a soft pericardial friction rub. ABDOMEN: No hepatosplenomegaly, active bowel sounds, no guarding or rigidity. SPINE: No scoliosis or deformity SKIN: No rashes CENTRAL NERVOUS SYSTEM: Neurological examination is limited by sedation. Does open eyes to verbal stimulation, but does not follow commands. EXTREMITIES: There is no peripheral edema, clubbing, or cyanosis. Legs are w rapped with Eloy bandages. Peripheral pulses are intact. There is a right wrist radial arterial line. Results - Laboratory Findings CBC and BMP: 05/16/23 22:00 05/16/23 15:40 ABG ABG pH 7.38 (7.35-7.45) 05/16/23 21:11 ABG pCO2 38 mmHg (35-45) 05/16/23 21:11 ABG pO2 259 mmHg (83-108) H 05/16/23 21:11 ABG O2 Saturation 99.1 % (94-97) H 05/16/23 21:11 PT/INR, D-dimer PT 13.6 sec (9.0-12.0) H 05/16/23 15:40 INR 1.3 (<1.2) H 05/16/23 15:40 Abnormal lab findings: Abnormal Labs 05/05/23 05/16/23 05/16/23 10:35 08:54 10:26 WBC RBC Hgb Hct Plt Count Neutrophils # Lymphocytes # PT INR ABG pH ABG pCO2 ABG pO2 >420 H 377 H ABG HCO3 ABG Total CO2 25 H 26 H ABG O2 Saturation 99.5 H 99.5 H ABG Hematocrit 27 L ABG Sodium 134 L ABG Potassium 6.1 H ABG Ionized Calcium 4.1 L ABG Glucose 122 H 151 H ABG Lactic Acid 1.7 H Hemoglobin 8.7 L Chloride Glucose POC Glucose (mg/dL) Calcium Magnesium Total Bilirubin AST Alkaline Phosphatase Total Protein Albumin Arterial Blood Potassium 6.1 H Arterial Blood Glucose 122 H 151 H Crossmatch See Detail 05/16/23 05/16/23 05/16/23 10:50 11:21 11:51 WBC RBC Hgb Hct Plt Count Neutrophils # Lymphocytes # PT INR ABG pH 7.33 L 7.33 L 7.33 L ABG pCO2 48 H ABG pO2 377 H 355 H 415 H ABG HCO3 ABG Total CO2 27 H 25 H ABG O2 Saturation 99.5 H 99.4 H 99.4 H ABG Hematocrit 27 L 26 L 27 L ABG Sodium ABG Potassium 5.5 H 5.5 H 5.0 H ABG Ionized Calcium 3.9 L 4.0 L 4.0 L ABG Glucose 165 H 153 H 139 H ABG Lactic Acid 1.8 H Hemoglobin 8.9 L 8.5 L 8.8 L Chloride Glucose POC Glucose (mg/dL) Calcium Magnesium Total Bilirubin AST Alkaline Phosphatase Total Protein Albumin Arterial Blood Potassium 5.5 H 5.5 H 5.0 H Arterial Blood Glucose 165 H 153 H 139 H Crossmatch 05/16/23 05/16/23 05/16/23 12:21 13:27 13:30 WBC RBC Hgb Hct Plt Count Neutrophils # Lymphocytes # PT INR ABG pH 7.19 L* 7.22 L ABG pCO2 52 H 48 H ABG pO2 >420 H 143 H 157 H ABG HCO3 20 L 20 L ABG Total CO2 ABG O2 Saturation 99.5 H 98.2 H 98.4 H ABG Hematocrit 26 L 25 L 25 L ABG Sodium ABG Potassium 5.1 H 4.7 H 4.7 H ABG Ionized Calcium 4.0 L ABG Glucose 141 H 337 H 335 H ABG Lactic Acid 2.6 H* 3.9 H* 3.7 H* Hemoglobin 8.5 L 8.3 L 8.2 L Chloride Glucose POC Glucose (mg/dL) Calcium Magnesium Total Bilirubin AST Alkaline Phosphatase Total Protein Albumin Arterial Blood Potassium 5.1 H 4.7 H 4.7 H Arterial Blood Glucose 141 H 337 H 335 H Crossmatch 05/16/23 05/16/23 05/16/23 14:09 14:50 15:35 WBC RBC Hgb Hct Plt Count Neutrophils # Lymphocytes # PT INR ABG pH 7.32 L 7.26 L ABG pCO2 49 H 55 H ABG pO2 74 L ABG HCO3 ABG Total CO2 27 H 26 H ABG O2 Saturation 97.3 H 93.3 L ABG Hematocrit 27 L 33 L ABG Sodium ABG Potassium 5.3 H ABG Ionized Calcium ABG Glucose 253 H 209 H ABG Lactic Acid 3.2 H* 2.7 H* Hemoglobin 8.8 L 10.6 L Chloride Glucose POC Glucose (mg/dL) 172 H Calcium Magnesium Total Bilirubin AST Alkaline Phosphatase Total Protein Albumin Arterial Blood Potassium 5.3 H Arterial Blood Glucose 253 H 209 H Crossmatch 05/16/23 05/16/23 05/16/23 15:40 15:40 15:40 WBC 16.0 H RBC 3.13 L Hgb 10.5 L Hct 30.9 L Plt Count 109 L Neutrophils # 14.2 H Lymphocytes # PT 13.6 H INR 1.3 H ABG pH ABG pCO2 ABG pO2 ABG HCO3 ABG Total CO2 ABG O2 Saturation ABG Hematocrit ABG Sodium ABG Potassium ABG Ionized Calcium ABG Glucose ABG Lactic Acid Hemoglobin Chloride 113 H Glucose 163 H POC Glucose (mg/dL) Calcium 7.3 L Magnesium 2.6 H Total Bilirubin 1.5 H AST 175 H Alkaline Phosphatase 25 L Total Protein 4.8 L Albumin 3.1 L Arterial Blood Potassium Arterial Blood Glucose Crossmatch 05/16/23 05/16/23 05/16/23 15:56 16:55 18:02 WBC RBC Hgb Hct Plt Count Neutrophils # Lymphocytes # PT INR ABG pH 7.30 L ABG pCO2 48 H ABG pO2 ABG HCO3 ABG Total CO2 25 H ABG O2 Saturation ABG Hematocrit ABG Sodium ABG Potassium ABG Ionized Calcium ABG Glucose ABG Lactic Acid Hemoglobin Chloride Glucose POC Glucose (mg/dL) 166 H 176 H Calcium Magnesium Total Bilirubin AST Alkaline Phosphatase Total Protein Albumin Arterial Blood Potassium Arterial Blood Glucose Crossmatch 05/16/23 05/16/23 05/16/23 18:40 19:09 19:55 WBC 13.4 H RBC 3.47 L Hgb 11.2 L Hct 33.1 L Plt Count 116 L Neutrophils # 12.3 H Lymphocytes # 0.4 L PT INR ABG pH ABG pCO2 ABG pO2 ABG HCO3 ABG Total CO2 ABG O2 Saturation ABG Hematocrit ABG Sodium ABG Potassium ABG Ionized Calcium ABG Glucose ABG Lactic Acid Hemoglobin Chloride Glucose POC Glucose (mg/dL) 194 H 205 H Calcium Magnesium Total Bilirubin AST Alkaline Phosphatase Total Protein Albumin Arterial Blood Potassium Arterial Blood Glucose Crossmatch 05/16/23 05/16/23 05/16/23 21:04 21:11 22:00 WBC RBC 3.16 L Hgb 10.2 L Hct 30.2 L Plt Count 90 L Neutrophils # 8.0 H Lymphocytes # 0.4 L PT INR ABG pH ABG pCO2 ABG pO2 259 H ABG HCO3 ABG Total CO2 ABG O2 Saturation 99.1 H ABG Hematocrit ABG Sodium ABG Potassium ABG Ionized Calcium ABG Glucose ABG Lactic Acid Hemoglobin Chloride Glucose POC Glucose (mg/dL) 213 H Calcium Magnesium Total Bilirubin AST Alkaline Phosphatase Total Protein Albumin Arterial Blood Potassium Arterial Blood Glucose Crossmatch 05/16/23 05/16/23 05/16/23 22:01 23:00 23:56 WBC RBC Hgb Hct Plt Count Neutrophils # Lymphocytes # PT INR ABG pH ABG pCO2 ABG pO2 ABG HCO3 ABG Total CO2 ABG O2 Saturation ABG Hematocrit ABG Sodium ABG Potassium ABG Ionized Calcium ABG Glucose ABG Lactic Acid Hemoglobin Chloride Glucose POC Glucose (mg/dL) 155 H 132 H 117 H Calcium Magnesium Total Bilirubin AST Alkaline Phosphatase Total Protein Albumin Arterial Blood Potassium Arterial Blood Glucose Crossmatch - Diagnostic Findings Chest x-ray: image reviewed Assessment and Plan Assessment: Severe aortic stenosis status postoperative day #1 following an aortic valve replacement with bioprosthetic valve, aortic root enlargement, and left atrial appendage ligation. We are currently working on weaning the patient from the mechanical ventilator. Postoperative hypotension, improved, initially required combination of Evaristo-Synep hrine and epinephrine. These have been weaned off. Acute blood loss anemia, an expected outcome of surgery Moderate chronic obstructive pulmonary disease, based on preoperative PFT. Stable Thrombocytopenia, following surgery Hyperlipidemia Psoriatic arthritis GERD Remote ex-smoker Plan: Patient's medications, labs, chest x-ray reviewed Continue to wean patient from mechanical ventilator Hold propofol, and assess readiness to wean May use Precedex if needed Continue chest tubes Continue DuoNeb Continue Primacor infusion Insulin infusion per protocol Pain management Continue Protonix for GI prophylaxis Heparin for DVT prophylaxis We will continue to follow the patient in the intensive care unit, and further recommendations are forthcoming I have personally seen and examined the patient, performed the documentation and the assessment and plan as written. Number of minutes spent on the visit:20 Time with Patient: Greater than 30
[2023-05-17 03:07] LABS: Glucose,Whole Blood 144 mg/dL (70-110)
[2023-05-17 04:10] LABS: Glucose,Whole Blood 130 mg/dL (70-110)
[2023-05-17 04:15] LABS: ABG Base Excess 0.5 mmol/L; ABG HCO3 25 mmol/L (21-25); ABG Oxygen Saturation 98.2 % (94-97); ABG PCO2 37 mmHg (35-45); ABG PH 7.43 (7.35-7.45); ABG PO2 104 mmHg (83-108); ABG TCO2 26 mmol/L (19-24)
[2023-05-17 04:48] LABS: Basophils % (A) 0 %; Eosinophils % (A) 0 %; HCT 28.5 % (34.0-46.0); HGB 9.5 gm/dL (11.4-16.0); Lymphocytes # (A) 0.5 k/uL (1.0-4.8); Lymphocytes % (A) 5 %; MCH 31.5 pg (25.0-35.0); MCHC 33.2 g/dL (31.0-37.0); MCV 95.1 fL (80.0-100.0); Mean Platelet Volume 9.7; Monocytes # (A) 0.4 k/uL (0-1.0); Monocytes % (A) 4 %; Neutrophils # (A) 8.9 k/uL (1.3-7.7); Neutrophils % (A) 90 %; RDW 13.1 % (11.5-15.5); WBC 9.9 k/uL (3.8-10.6)
[2023-05-17 04:50] LABS: Platelet Count 98 k/uL (150-450)
[2023-05-17 05:16] LABS: Ionized Calcium 4.6 mg/dL (4.5-5.3)
[2023-05-17 06:10] LABS: Glucose,Whole Blood 105 mg/dL (70-110)
[2023-05-17 06:14] LABS: ALT 51 U/L (4-34); AST 612 U/L (14-36); African American GFR (CKD) >90 (>60 ml/min/1.73 sqM); Albumin 3.7 g/dL (3.5-5.0); Alkaline Phosphatase 22 U/L (38-126); Anion Gap 6 mmol/L; Blood Urea Nitrogen 13 mg/dL (7-17); Calcium 7.9 mg/dL (8.4-10.2); Carbon Dioxide 25 mmol/L (22-30); Chloride 110 mmol/L (98-107); Glucose 115 mg/dL (74-99); Magnesium 2.1 mg/dL (1.6-2.3); Non-African American GFR(CKD) >90 (>60 ml/min/1.73 sqM); Potassium 3.6 mmol/L (3.5-5.1); Sodium 141 mmol/L (137-145); Total Bilirubin 1.5 mg/dL (0.2-1.3); Total Protein 5.4 g/dL (6.3-8.2)
--- NOTE | 2023-05-17 06:21 | XR ---
EXAM: XR Chest, 1 View CLINICAL HISTORY: ITS.REASON XR Reason: Post Operative Cardiac Surgery TECHNIQUE: Frontal view of the chest. COMPARISON: XR Chest dated 05/16/2023 FINDINGS: See Impression. IMPRESSION: 1. NG tube advanced with the distal tip in the proximal to mid stomach. 2. Rest of the support lines and tubes are stable. 3. Mild bibasilar atelectasis, mildly decreased. 4. Similar small pleural effusions. 5. Stable mediastinal postoperative changes
[2023-05-17] MEDS: CLEVIDIPINE BUTYRATE 25 MG in EMPTY BAG 1 BAG IV SCH (06:53)
[2023-05-17] MEDS ORDERED: POTASSIUM BICARBONATE/CIT AC 20 MEQ TABLET.EFF NG-TUBE SCH (07:00)
[2023-05-17 07:01] LABS: Glucose,Whole Blood 124 mg/dL (70-110)
[2023-05-17] MEDS: IPRATROPIUM-ALBUTEROL 3 ML NEB INHALATION SCH ×5 (07:25→19:48)
--- NOTE | 2023-05-17 07:52 | P.PN ---
Subjective Progress Note Date: 05/17/23 Principal diagnosis: Severe aortic valve stenosis. Previous medical history of hyperlipidemia, rheumatoid arthritis on Enbrel outpatient, previous tobacco dependence, mild COPD, family history heart disease, and preoperative nasal swab positive for MSSA POD #1 aortic valve replacement using 23 mm Kent Inspiris bioprosthetic valve and Abdiaziz Islas annular enlargement technique, ligation of left atrial appendage using a 35 mm AtriClip, epi-aortic ultrasound, intraoperative transesophageal echocardiogram Postoperative acute blood loss anemia and thrombocytopenia, expected given hemodilution and cardiopulmonary bypass pump Postoperative hypotension, unexpected, recovered, weaned off vasopressors The patient was seen and examined this morning laying in bed in the intensive care unit still requiring mechanical ventilation. Remains in sinus rhythm, hemodynamically stable, on and off Cleviprex for hypertension throughout the night. Remains on IV Primacor. Currently on Precedex, does wake up and follow commands and moves all extremities. Labs, chest x-ray reviewed. Right internal jugular [place]/Cordis, right radial arterial line, mediastinal/left/right pleural chest tubes all remain. Does nod her head yes when asked if she is in pain and given pain medication per orders. No other concerns. Objective - Vital Signs Vital signs: Vital Signs Temp 99.5 F 05/16/23 19:00 Pulse 68 05/17/23 07:00 Resp 22 05/17/23 07:00 BP 115/63 05/17/23 00:30 Pulse Ox 98 05/17/23 07:00 FiO2 60 05/17/23 04:19 Intake & Output 05/16/23 05/17/23 05/17/23 18:59 06:59 18:59 Intake Total 969.367 6742.626 59 Output Total 3100 1272 35 Balance -2565.388 476.626 24 Weight 67.4 kg Intake: IV 183 1522 59 ACETAMINOPHEN IV (For NPO 100 ) 1,000 mg In Empty Bag 1 bag @ 400 mls/hr IVPB Q6HR SANKET Rx#:[id number] Albumin Human 5% 250 ml 500 In Empty Bag 1 bag @ 250 mls/hr IVPB Q1HR PRN Rx#: [id number] Lactated Ringers 1,000 ml 500 50 @ 50 mls/hr IV .Q20H SANKET Rx#:[id number] ceFAZolin 2 gm In Sodium 100 Chloride 0.9% 50 ml @ 100 mls/hr IVPB Q8HR SANKET Rx# :[id number] ns cardiac output 100 220 ns pressure bags 32 102 9 Intake, IV Titration 351.612 226.626 0 Amount ACETAMINOPHEN IV (For NPO 100 ) 1,000 mg In Empty Bag 1 bag @ 400 mls/hr IVPB Q6HR SANKET Rx#:[id number] Clevidipine Butyrate 25 7.767 5.033 mg In Empty Bag 1 bag @ 1 MG/HR 2 mls/hr IV .Q24H SANKET Rx#:[id number] Dexmedetomidine/0.9% NaCl 3.999 (Pmx) 400 mcg In Empty Bag 1 bag @ Titrate IV . Q0M SANKET Rx#:[id number] EPINEPHrine 4 mg In 0.889 Dextrose 5% in Water 250 ml @ 0.01 MCG/KG/MIN 2. 321 mls/hr IV .Q24H SANKET Rx#:[id number] Insulin Regular 100 unit 6.060 51.081 0 In Sodium Chloride 0.9% 100 ml @ Per Protocol IV .Q0M SANKET Rx#:[id number] Lactated Ringers 1,000 ml 150 50 @ 50 mls/hr IV .Q20H SANKET Rx#:[id number] Milrinone-D5w Pmx 20 mg 9.471 43.873 In Dextrose/Water 1 100ml .bag @ Per Protocol IV . Q0M SANKET Rx#:[id number] Nitroglycerin-D5w Pmx 50 1.375 mg In Dextrose/Water 1 250ml.bag @ 5 MCG/MIN 1.5 mls/hr IV .Q24H SANKET Rx#: [id number] Phenylephrine 40 mg In 3.302 Sodium Chloride 0.9% 250 ml @ 1 MCG/KG/MIN 23.584 mls/hr IV .A12F25L SANKET Rx #:[id number] ceFAZolin 2 gm In Sodium 50 Chloride 0.9% 50 ml @ 100 mls/hr IVPB Q8HR SANKET Rx# :[id number] propofoL 1,000 mg In 22.748 72.640 Empty Bag 1 bag @ Titrate IV .Q0M SANKET Rx#: [id number] Output: Chest Tube Drainage [address] 150 224 rt and lt pleural 90 158 Urine 1660 890 35 Estimated Blood Loss 1200 Other: Voiding Method Indwelling Catheter Indwelling Catheter ABP, PAP, CO, CI - Last Documented Arterial Blood Pressure 153/66 Pulmonary Artery Pressure 39/23 Cardiac Output 3.3 Cardiac Index 2 - Exam CONSTITUTIONAL: Remains intubated and mechanically ventilated, no acute distress RESPIRATORY: Lungs sounds diminished bilaterally. Respirations even, nonlabored. Currently on assist control mode, FiO2 50%, PEEP 10, tidal volume 400, respiratory rate 22. 8.0 ET tube present, 20 at the lip. CARDIOVASCULAR: S1, S2 present. Regular rate and rhythm, sinus rhythm on telemetry. Sternum stable. Palpable peripheral pulses bilaterally. Trace generalized edema present. No calf pain or tenderness noted. Heart hugger, antiembolism stockings, SCDs present. GASTROINTESTINAL: Abdomen soft, nontender, nondistended. Hypoactive bowel sounds present 4 quadrants. OG tube present to intermittent wall suction with minimal drainage GENITOURINARY: Morrow present draining clear, yellow urine. Output overnight 40-100 mL per hour INTEGUMENTARY: Skin is warm and dry with evidence of good perfusion. Anterior chest incision well approximated and covered with dry intact dressing NEUROLOGIC: Cranial nerves II through XII intact MUSKULOSKELETAL: Able to move all extremities, strength equal bilaterally INVASIVE LINES AND TUBES: Mediastinal/left/right pleural chest tubes present and connected to wall suction, no air leaks present. Mediastinal tube with 120 mL serosanguineous drainage overnight, 350 mL since surgery. Left/right pleural chest tubes with 72 mL serosanguineous drainage overnight, 250 mL since surgery. A/V epicardial pacemaker wires present, connected to generator, VVI mode with backup rate 50 bpm. Right internal jugular [place]/Cordis, right radial arterial line present. Last CO/CI 3.3/2, PA 37/23, CVP 15. - Allied health notes Allied health notes reviewed: nursing - Labs CBC & Chem 7: 05/17/23 04:00 05/17/23 04:00 Labs: Abnormal Lab Results - Last 24 Hours (Table) 05/05/23 05/16/23 05/16/23 Range/Units 10:35 08:54 09:24 WBC (3.8-10.6) k/uL RBC (3.80-5.40) m/uL Hgb (11.4-16.0) gm/dL Hct (34.0-46.0) % Plt Count (150-450) k/uL Neutrophils # (1.3-7.7) k/uL Lymphocytes # (1.0-4.8) k/uL PT (9.0-12.0) sec INR (<1.2) ABG pH (7.35-7.45) ABG pCO2 (35-45) mmHg ABG pO2 >420 H 266 H (83-108) mmHg ABG HCO3 (21-25) mmol/L ABG Total CO2 25 H (19-24) mmol/L ABG O2 Saturation 99.5 H 99.1 H (94-97) % ABG Hematocrit (34.0-46.0) % ABG Sodium (135-146) mmol/L ABG Potassium (3.4-4.5) mmol/L ABG Ionized Calcium (4.5-5.3) mg/dL ABG Glucose 122 H 114 H (75-99) mg/dL ABG Lactic Acid 1.7 H (0.5-1.6) mmol/L Hemoglobin (11.4-16.0) gm/dL Chloride (98-107) mmol/L Glucose (74-99) mg/dL POC Glucose (mg/dL) (70-110) mg/dL Calcium (8.4-10.2) mg/dL Magnesium (1.6-2.3) mg/dL Total Bilirubin (0.2-1.3) mg/dL AST (14-36) U/L ALT (4-34) U/L Alkaline Phosphatase (38-126) U/L Total Protein (6.3-8.2) g/dL Albumin (3.5-5.0) g/dL Arterial Blood Potassium (3.4-4.5) mmol/L Arterial Blood Glucose 122 H 114 H (75-99) mg/dL Crossmatch See Detail 05/16/23 05/16/23 05/16/23 Range/Units 10:05 10:26 10:50 WBC (3.8-10.6) k/uL RBC (3.80-5.40) m/uL Hgb (11.4-16.0) gm/dL Hct (34.0-46.0) % Plt Count (150-450) k/uL Neutrophils # (1.3-7.7) k/uL Lymphocytes # (1.0-4.8) k/uL PT (9.0-12.0) sec INR (<1.2) ABG pH 7.33 L (7.35-7.45) ABG pCO2 (35-45) mmHg ABG pO2 >420 H 377 H 377 H (83-108) mmHg ABG HCO3 (21-25) mmol/L ABG Total CO2 26 H (19-24) mmol/L ABG O2 Saturation 99.6 H 99.5 H 99.5 H (94-97) % ABG Hematocrit 25 L 27 L 27 L (34.0-46.0) % ABG Sodium 132 L 134 L (135-146) mmol/L ABG Potassium 6.2 H* 6.1 H 5.5 H (3.4-4.5) mmol/L ABG Ionized Calcium 3.8 L 4.1 L 3.9 L (4.5-5.3) mg/dL ABG Glucose 139 H 151 H 165 H (75-99) mg/dL ABG Lactic Acid (0.5-1.6) mmol/L Hemoglobin 8.1 L 8.7 L 8.9 L (11.4-16.0) gm/dL Chloride (98-107) mmol/L Glucose (74-99) mg/dL POC Glucose (mg/dL) (70-110) mg/dL Calcium (8.4-10.2) mg/dL Magnesium (1.6-2.3) mg/dL Total Bilirubin (0.2-1.3) mg/dL AST (14-36) U/L ALT (4-34) U/L Alkaline Phosphatase (38-126) U/L Total Protein (6.3-8.2) g/dL Albumin (3.5-5.0) g/dL Arterial Blood Potassium 6.2 H* 6.1 H 5.5 H (3.4-4.5) mmol/L Arterial Blood Glucose 139 H 151 H 165 H (75-99) mg/dL Crossmatch 05/16/23 05/16/23 05/16/23 Range/Units 11:21 11:51 12:21 WBC (3.8-10.6) k/uL RBC (3.80-5.40) m/uL Hgb (11.4-16.0) gm/dL Hct (34.0-46.0) % Plt Count (150-450) k/uL Neutrophils # (1.3-7.7) k/uL Lymphocytes # (1.0-4.8) k/uL PT (9.0-12.0) sec INR (<1.2) ABG pH 7.33 L 7.33 L (7.35-7.45) ABG pCO2 48 H (35-45) mmHg ABG pO2 355 H 415 H >420 H (83-108) mmHg ABG HCO3 (21-25) mmol/L ABG Total CO2 27 H 25 H (19-24) mmol/L ABG O2 Saturation 99.4 H 99.4 H 99.5 H (94-97) % ABG Hematocrit 26 L 27 L 26 L (34.0-46.0) % ABG Sodium (135-146) mmol/L ABG Potassium 5.5 H 5.0 H 5.1 H (3.4-4.5) mmol/L ABG Ionized Calcium 4.0 L 4.0 L 4.0 L (4.5-5.3) mg/dL ABG Glucose 153 H 139 H 141 H (75-99) mg/dL ABG Lactic Acid 1.8 H 2.6 H* (0.5-1.6) mmol/L Hemoglobin 8.5 L 8.8 L 8.5 L (11.4-16.0) gm/dL Chloride (98-107) mmol/L Glucose (74-99) mg/dL POC Glucose (mg/dL) (70-110) mg/dL Calcium (8.4-10.2) mg/dL Magnesium (1.6-2.3) mg/dL Total Bilirubin (0.2-1.3) mg/dL AST (14-36) U/L ALT (4-34) U/L Alkaline Phosphatase (38-126) U/L Total Protein (6.3-8.2) g/dL Albumin (3.5-5.0) g/dL Arterial Blood Potassium 5.5 H 5.0 H 5.1 H (3.4-4.5) mmol/L Arterial Blood Glucose 153 H 139 H 141 H (75-99) mg/dL Crossmatch 05/16/23 05/16/23 05/16/23 Range/Units 13:27 13:30 14:09 WBC (3.8-10.6) k/uL RBC (3.80-5.40) m/uL Hgb (11.4-16.0) gm/dL Hct (34.0-46.0) % Plt Count (150-450) k/uL Neutrophils # (1.3-7.7) k/uL Lymphocytes # (1.0-4.8) k/uL PT (9.0-12.0) sec INR (<1.2) ABG pH 7.19 L* 7.22 L 7.32 L (7.35-7.45) ABG pCO2 52 H 48 H 49 H (35-45) mmHg ABG pO2 143 H 157 H (83-108) mmHg ABG HCO3 20 L 20 L (21-25) mmol/L ABG Total CO2 27 H (19-24) mmol/L ABG O2 Saturation 98.2 H 98.4 H 97.3 H (94-97) % ABG Hematocrit 25 L 25 L 27 L (34.0-46.0) % ABG Sodium (135-146) mmol/L ABG Potassium 4.7 H 4.7 H (3.4-4.5) mmol/L ABG Ionized Calcium (4.5-5.3) mg/dL ABG Glucose 337 H 335 H 253 H (75-99) mg/dL ABG Lactic Acid 3.9 H* 3.7 H* 3.2 H* (0.5-1.6) mmol/L Hemoglobin 8.3 L 8.2 L 8.8 L (11.4-16.0) gm/dL Chloride (98-107) mmol/L Glucose (74-99) mg/dL POC Glucose (mg/dL) (70-110) mg/dL Calcium (8.4-10.2) mg/dL Magnesium (1.6-2.3) mg/dL Total Bilirubin (0.2-1.3) mg/dL AST (14-36) U/L ALT (4-34) U/L Alkaline Phosphatase (38-126) U/L Total Protein (6.3-8.2) g/dL Albumin (3.5-5.0) g/dL Arterial Blood Potassium 4.7 H 4.7 H (3.4-4.5) mmol/L Arterial Blood Glucose 337 H 335 H 253 H (75-99) mg/dL Crossmatch 05/16/23 05/16/23 05/16/23 Range/Units 14:50 15:35 15:40 WBC 16.0 H (3.8-10.6) k/uL RBC 3.13 L (3.80-5.40) m/uL Hgb 10.5 L (11.4-16.0) gm/dL Hct 30.9 L (34.0-46.0) % Plt Count 109 L (150-450) k/uL Neutrophils # 14.2 H (1.3-7.7) k/uL Lymphocytes # (1.0-4.8) k/uL PT (9.0-12.0) sec INR (<1.2) ABG pH 7.26 L (7.35-7.45) ABG pCO2 55 H (35-45) mmHg ABG pO2 74 L (83-108) mmHg ABG HCO3 (21-25) mmol/L ABG Total CO2 26 H (19-24) mmol/L ABG O2 Saturation 93.3 L (94-97) % ABG Hematocrit 33 L (34.0-46.0) % ABG Sodium (135-146) mmol/L ABG Potassium 5.3 H (3.4-4.5) mmol/L ABG Ionized Calcium (4.5-5.3) mg/dL ABG Glucose 209 H (75-99) mg/dL ABG Lactic Acid 2.7 H* (0.5-1.6) mmol/L Hemoglobin 10.6 L (11.4-16.0) gm/dL Chloride (98-107) mmol/L Glucose (74-99) mg/dL POC Glucose (mg/dL) 172 H (70-110) mg/dL Calcium (8.4-10.2) mg/dL Magnesium (1.6-2.3) mg/dL Total Bilirubin (0.2-1.3) mg/dL AST (14-36) U/L ALT (4-34) U/L Alkaline Phosphatase (38-126) U/L Total Protein (6.3-8.2) g/dL Albumin (3.5-5.0) g/dL Arterial Blood Potassium 5.3 H (3.4-4.5) mmol/L Arterial Blood Glucose 209 H (75-99) mg/dL Crossmatch 05/16/23 05/16/23 05/16/23 Range/Units 15:40 15:40 15:56 WBC (3.8-10.6) k/uL RBC (3.80-5.40) m/uL Hgb (11.4-16.0) gm/dL Hct (34.0-46.0) % Plt Count (150-450) k/uL Neutrophils # (1.3-7.7) k/uL Lymphocytes # (1.0-4.8) k/uL PT 13.6 H (9.0-12.0) sec INR 1.3 H (<1.2) ABG pH 7.30 L (7.35-7.45) ABG pCO2 48 H (35-45) mmHg ABG pO2 (83-108) mmHg ABG HCO3 (21-25) mmol/L ABG Total CO2 25 H (19-24) mmol/L ABG O2 Saturation (94-97) % ABG Hematocrit (34.0-46.0) % ABG Sodium (135-146) mmol/L ABG Potassium (3.4-4.5) mmol/L ABG Ionized Calcium (4.5-5.3) mg/dL ABG Glucose (75-99) mg/dL ABG Lactic Acid (0.5-1.6) mmol/L Hemoglobin (11.4-16.0) gm/dL Chloride 113 H (98-107) mmol/L Glucose 163 H (74-99) mg/dL POC Glucose (mg/dL) (70-110) mg/dL Calcium 7.3 L (8.4-10.2) mg/dL Magnesium 2.6 H (1.6-2.3) mg/dL Total Bilirubin 1.5 H (0.2-1.3) mg/dL AST 175 H (14-36) U/L ALT (4-34) U/L Alkaline Phosphatase 25 L (38-126) U/L Total Protein 4.8 L (6.3-8.2) g/dL Albumin 3.1 L (3.5-5.0) g/dL Arterial Blood Potassium (3.4-4.5) mmol/L Arterial Blood Glucose (75-99) mg/dL Crossmatch 05/16/23 05/16/23 05/16/23 Range/Units 16:55 18:02 18:40 WBC 13.4 H (3.8-10.6) k/uL RBC 3.47 L (3.80-5.40) m/uL Hgb 11.2 L (11.4-16.0) gm/dL Hct 33.1 L (34.0-46.0) % Plt Count 116 L (150-450) k/uL Neutrophils # 12.3 H (1.3-7.7) k/uL Lymphocytes # 0.4 L (1.0-4.8) k/uL PT (9.0-12.0) sec INR (<1.2) ABG pH (7.35-7.45) ABG pCO2 (35-45) mmHg ABG pO2 (83-108) mmHg ABG HCO3 (21-25) mmol/L ABG Total CO2 (19-24) mmol/L ABG O2 Saturation (94-97) % ABG Hematocrit (34.0-46.0) % ABG Sodium (135-146) mmol/L ABG Potassium (3.4-4.5) mmol/L ABG Ionized Calcium (4.5-5.3) mg/dL ABG Glucose (75-99) mg/dL ABG Lactic Acid (0.5-1.6) mmol/L Hemoglobin (11.4-16.0) gm/dL Chloride (98-107) mmol/L Glucose (74-99) mg/dL POC Glucose (mg/dL) 166 H 176 H (70-110) mg/dL Calcium (8.4-10.2) mg/dL Magnesium (1.6-2.3) mg/dL Total Bilirubin (0.2-1.3) mg/dL AST (14-36) U/L ALT (4-34) U/L Alkaline Phosphatase (38-126) U/L Total Protein (6.3-8.2) g/dL Albumin (3.5-5.0) g/dL Arterial Blood Potassium (3.4-4.5) mmol/L Arterial Blood Glucose (75-99) mg/dL Crossmatch 05/16/23 05/16/23 05/16/23 Range/Units 19:09 19:55 21:04 WBC (3.8-10.6) k/uL RBC (3.80-5.40) m/uL Hgb (11.4-16.0) gm/dL Hct (34.0-46.0) % Plt Count (150-450) k/uL Neutrophils # (1.3-7.7) k/uL Lymphocytes # (1.0-4.8) k/uL PT (9.0-12.0) sec INR (<1.2) ABG pH (7.35-7.45) ABG pCO2 (35-45) mmHg ABG pO2 (83-108) mmHg ABG HCO3 (21-25) mmol/L ABG Total CO2 (19-24) mmol/L ABG O2 Saturation (94-97) % ABG Hematocrit (34.0-46.0) % ABG Sodium (135-146) mmol/L ABG Potassium (3.4-4.5) mmol/L ABG Ionized Calcium (4.5-5.3) mg/dL ABG Glucose (75-99) mg/dL ABG Lactic Acid (0.5-1.6) mmol/L Hemoglobin (11.4-16.0) gm/dL Chloride (98-107) mmol/L Glucose (74-99) mg/dL POC Glucose (mg/dL) 194 H 205 H 213 H (70-110) mg/dL Calcium (8.4-10.2) mg/dL Magnesium (1.6-2.3) mg/dL Total Bilirubin (0.2-1.3) mg/dL AST (14-36) U/L ALT (4-34) U/L Alkaline Phosphatase (38-126) U/L Total Protein (6.3-8.2) g/dL Albumin (3.5-5.0) g/dL Arterial Blood Potassium (3.4-4.5) mmol/L Arterial Blood Glucose (75-99) mg/dL Crossmatch 05/16/23 05/16/23 05/16/23 Range/Units 21:11 22:00 22:01 WBC (3.8-10.6) k/uL RBC 3.16 L (3.80-5.40) m/uL Hgb 10.2 L (11.4-16.0) gm/dL Hct 30.2 L (34.0-46.0) % Plt Count 90 L (150-450) k/uL Neutrophils # 8.0 H (1.3-7.7) k/uL Lymphocytes # 0.4 L (1.0-4.8) k/uL PT (9.0-12.0) sec INR (<1.2) ABG pH (7.35-7.45) ABG pCO2 (35-45) mmHg ABG pO2 259 H (83-108) mmHg ABG HCO3 (21-25) mmol/L ABG Total CO2 (19-24) mmol/L ABG O2 Saturation 99.1 H (94-97) % ABG Hematocrit (34.0-46.0) % ABG Sodium (135-146) mmol/L ABG Potassium (3.4-4.5) mmol/L ABG Ionized Calcium (4.5-5.3) mg/dL ABG Glucose (75-99) mg/dL ABG Lactic Acid (0.5-1.6) mmol/L Hemoglobin (11.4-16.0) gm/dL Chloride (98-107) mmol/L Glucose (74-99) mg/dL POC Glucose (mg/dL) 155 H (70-110) mg/dL Calcium (8.4-10.2) mg/dL Magnesium (1.6-2.3) mg/dL Total Bilirubin (0.2-1.3) mg/dL AST (14-36) U/L ALT (4-34) U/L Alkaline Phosphatase (38-126) U/L Total Protein (6.3-8.2) g/dL Albumin (3.5-5.0) g/dL Arterial Blood Potassium (3.4-4.5) mmol/L Arterial Blood Glucose (75-99) mg/dL Crossmatch 05/16/23 05/16/23 05/17/23 Range/Units 23:00 23:56 02:10 WBC (3.8-10.6) k/uL RBC (3.80-5.40) m/uL Hgb (11.4-16.0) gm/dL Hct (34.0-46.0) % Plt Count (150-450) k/uL Neutrophils # (1.3-7.7) k/uL Lymphocytes # (1.0-4.8) k/uL PT (9.0-12.0) sec INR (<1.2) ABG pH (7.35-7.45) ABG pCO2 (35-45) mmHg ABG pO2 (83-108) mmHg ABG HCO3 (21-25) mmol/L ABG Total CO2 (19-24) mmol/L ABG O2 Saturation (94-97) % ABG Hematocrit (34.0-46.0) % ABG Sodium (135-146) mmol/L ABG Potassium (3.4-4.5) mmol/L ABG Ionized Calcium (4.5-5.3) mg/dL ABG Glucose (75-99) mg/dL ABG Lactic Acid (0.5-1.6) mmol/L Hemoglobin (11.4-16.0) gm/dL Chloride (98-107) mmol/L Glucose (74-99) mg/dL POC Glucose (mg/dL) 132 H 117 H 154 H (70-110) mg/dL Calcium (8.4-10.2) mg/dL Magnesium (1.6-2.3) mg/dL Total Bilirubin (0.2-1.3) mg/dL AST (14-36) U/L ALT (4-34) U/L Alkaline Phosphatase (38-126) U/L Total Protein (6.3-8.2) g/dL Albumin (3.5-5.0) g/dL Arterial Blood Potassium (3.4-4.5) mmol/L Arterial Blood Glucose (75-99) mg/dL Crossmatch 05/17/23 05/17/23 05/17/23 Range/Units 03:06 04:00 04:00 WBC (3.8-10.6) k/uL RBC 3.00 L (3.80-5.40) m/uL Hgb 9.5 L (11.4-16.0) gm/dL Hct 28.5 L (34.0-46.0) % Plt Count 98 L (150-450) k/uL Neutrophils # 8.9 H (1.3-7.7) k/uL Lymphocytes # 0.5 L (1.0-4.8) k/uL PT (9.0-12.0) sec INR (<1.2) ABG pH (7.35-7.45) ABG pCO2 (35-45) mmHg ABG pO2 (83-108) mmHg ABG HCO3 (21-25) mmol/L ABG Total CO2 (19-24) mmol/L ABG O2 Saturation (94-97) % ABG Hematocrit (34.0-46.0) % ABG Sodium (135-146) mmol/L ABG Potassium (3.4-4.5) mmol/L ABG Ionized Calcium (4.5-5.3) mg/dL ABG Glucose (75-99) mg/dL ABG Lactic Acid (0.5-1.6) mmol/L Hemoglobin (11.4-16.0) gm/dL Chloride 110 H (98-107) mmol/L Glucose 115 H (74-99) mg/dL POC Glucose (mg/dL) 144 H (70-110) mg/dL Calcium 7.9 L (8.4-10.2) mg/dL Magnesium (1.6-2.3) mg/dL Total Bilirubin 1.5 H (0.2-1.3) mg/dL AST 612 H (14-36) U/L ALT 51 H (4-34) U/L Alkaline Phosphatase 22 L (38-126) U/L Total Protein 5.4 L (6.3-8.2) g/dL Albumin (3.5-5.0) g/dL Arterial Blood Potassium (3.4-4.5) mmol/L Arterial Blood Glucose (75-99) mg/dL Crossmatch 05/17/23 05/17/23 05/17/23 Range/Units 04:07 04:09 07:00 WBC (3.8-10.6) k/uL RBC (3.80-5.40) m/uL Hgb (11.4-16.0) gm/dL Hct (34.0-46.0) % Plt Count (150-450) k/uL Neutrophils # (1.3-7.7) k/uL Lymphocytes # (1.0-4.8) k/uL PT (9.0-12.0) sec INR (<1.2) ABG pH (7.35-7.45) ABG pCO2 (35-45) mmHg ABG pO2 (83-108) mmHg ABG HCO3 (21-25) mmol/L ABG Total CO2 26 H (19-24) mmol/L ABG O2 Saturation 98.2 H (94-97) % ABG Hematocrit (34.0-46.0) % ABG Sodium (135-146) mmol/L ABG Potassium (3.4-4.5) mmol/L ABG Ionized Calcium (4.5-5.3) mg/dL ABG Glucose (75-99) mg/dL ABG Lactic Acid (0.5-1.6) mmol/L Hemoglobin (11.4-16.0) gm/dL Chloride (98-107) mmol/L Glucose (74-99) mg/dL POC Glucose (mg/dL) 130 H 124 H (70-110) mg/dL Calcium (8.4-10.2) mg/dL Magnesium (1.6-2.3) mg/dL Total Bilirubin (0.2-1.3) mg/dL AST (14-36) U/L ALT (4-34) U/L Alkaline Phosphatase (38-126) U/L Total Protein (6.3-8.2) g/dL Albumin (3.5-5.0) g/dL Arterial Blood Potassium (3.4-4.5) mmol/L Arterial Blood Glucose (75-99) mg/dL Crossmatch - Imaging and Cardiology Chest x-ray: report reviewed, image reviewed Assessment and Plan Assessment: Severe aortic valve stenosis, status post bioprosthetic aortic valve replacement with annular enlargement History of hyperlipidemia, treated, cholesterol 195, LDL 98, triglycerides 105 Rheumatoid arthritis on Enbrel outpatient Previous tobacco dependence Mild COPD, preoperative FEV1 61% of predicted Family history of heart disease Preoperative nasal swab positive for MSSA, treated Postoperative acute blood loss anemia and thrombocytopenia, expected Postoperative hypotension, unexpected, recovered, weaned off vasopressors Plan: Continue to maximize medical therapy with aspirin, statin, Plavix, beta daniel. Will start afterload reduction today, wean Cleviprex as tolerated Will wean from Primacor when able Wean from mechanical ventilation per pulmonology Once extubated, encourage incentive spirometry is 10 times every hour while awake. Bronchodilators per pulmonology Once extubated Will increase activity as tolerated. PT/OT/cardiac rehab consulted GI/DVT prophylaxis Pain control with current medication regimen Incentive management per internal medicine. Patient is not diabetic, preoperative hemoglobin A1c 6.0% Continue [place]/Cordis, arterial line Continue chest tubes for another 24 hours Continue [place]row catheter for4 hours for strict accurate intake and output Daily weights Will monitor daily labs and x-rays. Electrolyte replacement per protocol More recommendations to follow
[2023-05-17] MEDS ORDERED: IPRATROPIUM-ALBUTEROL 3 ML NEB INHALATION SCH (08:00)
[2023-05-17 08:05] LABS: Glucose,Whole Blood 116 mg/dL (70-110)
[2023-05-17] MEDS: METOPROLOL TARTRATE 12.5 MG TAB PO SCH ×2 (08:15→20:16)
[2023-05-17] MEDS: CHOLECALCIFEROL 125 MCG (5000 IU) TABLET PO SCH (08:15)
[2023-05-17] MEDS: PANTOPRAZOLE 40 MG/10 ML VIAL IVP SCH (08:16)
[2023-05-17] MEDS: MUPIROCIN 2% OINT 22 GM TUBE NASAL SCH ×2 (08:17→20:15)
[2023-05-17 08:58] LABS: Glucose,Whole Blood 117 mg/dL (70-110)
[2023-05-17] MEDS ORDERED: MAGNESIUM HYDROXIDE 2,400 MG/30 ML CUP PO PRN (09:00)
[2023-05-17] MEDS ORDERED: ATORVASTATIN 40 MG TAB PO SCH (09:00)
[2023-05-17] MEDS ORDERED: CLOPIDOGREL 75 MG TAB PO SCH (09:00)
[2023-05-17] MEDS ORDERED: ASPIRIN 325 MG TAB PO SCH (09:00)
[2023-05-17] MEDS ORDERED: bisacodyL 10 MG SUPP RECTAL PRN (09:00)
--- NOTE | 2023-05-17 09:32 | P.CRDCN ---
History of Present Illness History of present illness: HISTORY OF PRESENTING ILLNESS Patient is a pleasant 62-year-old female with history of hyperlipidemia, rheumatoid arthritis, previous tobacco abuse since quit, mild COPD, severe aortic stenosis who presented for elective surgical aortic valve replacement. Patient currently intubated and sedated and history is supplied by chart. Patient normally follows in the office with Dr. Mc. She underwent elective surgical aortic valve replacement with a 23 mm [place] Inspiris with annular en largement and ligation of left atrial appendage. Operatively there was [id number] mitral regurgitation however when patient taken off of pump, PA pressures increased to 74 previously in the 35-40 range and patient did develop some degree of pulmonary edema. Eventually pressures did improve and she has been continued on milrinone at 0.375 with PA pressures this morning . Remains on ventilator at 50% FiO2 with a PEEP of 5 on spontaneous breathing trial and following some commands. REVIEW OF SYSTEMS At the time of my exam: Unable to obtain secondary to being sedated and on vent PHYSICAL EXAMINATION Vital signs reviewed. CONSTITUTIONAL: No apparent distress, on vent HEENT: Head is normocephalic. Pupils are equal, round. Sclerae anicteric. Mucous membranes of the mouth are moist. No JVD. No carotid bruit. CHEST EXAMINATION: Lungs are clear to auscultation. No chest wall tenderness is noted on palpation or with deep breathing. HEART EXAMINATION: Regular rate and rhythm. S1, S2 heard. +2/6 systolic murmur no gallops or rub. ABDOMEN: Soft, nontender. Positive bowel sounds. EXTREMITIES: 2+ peripheral pulses, no lower extremity edema and no calf tenderness. NEUROLOGIC EXAMINATION: Patient is awake, alert and oriented x3. ASSESSMENT 1. Severe aortic stenosis status post surgical bioprosthetic aortic valve replacement 05/16 with a 23mm [place] Inspiris 2. HLD 3. Previous tobacco abuse 4. Mild COPD 5. Intraop increased PA pressures, improved PLAN Patient continues to wean and currently on spontaneous and hopeful extubation today. Continue to wean milrinone as able. Metoprolol as tolerated and monitor blood pressure and response closely. Further recommendations to follow. Past Medical History Past Medical History: GERD/Reflux, Hyperlipidemia, Rheumatoid Arthritis (RA), Skin Disorder Additional Past Medical History / Comment(s): psoriasis, SOB w/exertion & fatigue, valve problem per pt. History of Any Multi-Drug Resistant Organisms: None Reported Past Surgical History: Heart Catheterization, Hysterectomy, Orthopedic Surgery Additional Past Surgical History / Comment(s): rt knee Past Anesthesia/Blood Transfusion Reactions: No Reported Reaction Smoking Status: Former smoker, Light tobacco smoker - Past Family History Mother Family Medical History: Coronary Artery Disease (CAD) Additional Family Medical History / Comment(s): CABG Brother(s) Family Medical History: Myocardial Infarction ([place]) Additional Family Medical History / Comment(s): stents, another brother-stroke Medications and Allergies Home Medications Medication Instructions Recorded Confirmed Type Cholecalciferol [Vitamin D3 (125 125 mcg PO Q7D 03/30/23 05/16/23 History Mcg = 5000 Iu)] Etanercept [Enbrel] 50 mg SQ Q7D 03/30/23 05/16/23 History Rosuvastatin [Crestor] 20 mg PO DAILY 03/30/23 05/16/23 History Otc Pepcid 1 tab PO DAILY PRN 04/06/23 05/16/23 History Mupirocin 2% Oint [Bactroban 2% 1 applic NASAL BID #22 gm 05/10/23 Rx Oint] Mupirocin 2% Oint [Bactroban 2% 1 applic NASAL BID 05/13/23 05/16/23 History Oint] Allergies Allergy/AdvReac Type Severity Reaction Status Date / Time No Known Allergies Allergy Verified 05/16/23 06:20 Physical Exam Vitals: Vital Signs Temp Pulse Resp BP Pulse Ox FiO2 05/17/23 09:03 74 05/17/23 09:00 99.5 F 76 22 96 05/17/23 08:49 68 05/17/23 08:45 75 19 94 L 05/17/23 08:40 50 05/17/23 08:30 98 33 H 90 L 05/17/23 08:20 50 05/17/23 08:15 64 22 96 05/17/23 08:00 99.1 F 73 22 95 50 05/17/23 07:45 61 22 95 05/17/23 07:30 66 22 95 05/17/23 07:15 63 22 95 05/17/23 07:00 68 22 98 05/17/23 06:45 70 22 98 05/17/23 06:30 67 22 97 05/17/23 06:15 65 22 98 05/17/23 06:00 64 22 98 05/17/23 05:45 64 22 97 05/17/23 05:30 66 22 94 L 05/17/23 05:15 67 22 94 L 05/17/23 05:00 68 22 97 05/17/23 04:45 69 22 96 05/17/23 04:30 67 22 95 05/17/23 04:19 60 05/17/23 04:15 67 22 96 05/17/23 04:07 70 05/17/23 04:00 71 22 96 70 05/17/23 03:45 71 22 95 05/17/23 03:30 71 22 95 80 05/17/23 03:15 73 22 94 L 05/17/23 03:00 76 23 95 80 05/17/23 02:45 79 30 H 95 05/17/23 02:30 79 22 97 90 05/17/23 02:15 77 22 97 05/17/23 02:00 73 22 97 100 05/17/23 01:49 100 05/17/23 01:45 74 28 H 88 L 05/17/23 01:30 78 26 H 82 L 50 05/17/23 01:15 67 22 98 05/17/23 01:00 65 22 97 05/17/23 00:45 65 22 97 05/17/23 00:30 65 22 115/63 98 05/17/23 00:15 65 22 98 05/17/23 00:00 68 22 98 50 05/16/23 23:45 69 22 98 05/16/23 23:31 50 05/16/23 23:30 70 22 97 05/16/23 23:17 69 22 98 05/16/23 23:15 70 22 98 05/16/23 23:00 71 22 98 05/16/23 22:45 71 22 97 05/16/23 22:30 71 22 98 05/16/23 22:15 71 22 123/68 97 05/16/23 22:00 73 22 96 05/16/23 21:45 73 22 96 05/16/23 21:30 75 22 98 05/16/23 21:20 50 05/16/23 21:15 72 22 99 05/16/23 21:00 74 22 98 05/16/23 20:45 74 22 98 05/16/23 20:30 73 22 100 05/16/23 20:15 74 22 99 05/16/23 20:02 72 05/16/23 20:00 72 22 99 80 05/16/23 19:50 71 05/16/23 19:45 72 22 95/58 98 05/16/23 19:42 80 05/16/23 19:30 73 22 97 05/16/23 19:15 73 22 96 05/16/23 19:00 99.5 F 73 22 96 05/16/23 18:45 73 22 96 05/16/23 18:30 73 22 94 L 05/16/23 18:15 74 22 93 L 05/16/23 18:00 99.1 F 77 22 97 05/16/23 17:45 75 22 99 05/16/23 17:30 75 22 99 05/16/23 17:15 73 22 99 05/16/23 17:00 98.2 F 74 22 98 05/16/23 16:45 74 20 98 05/16/23 16:30 73 20 98 05/16/23 16:15 78 20 98 05/16/23 16:00 97.5 F L 80 20 97 100 05/16/23 15:49 80 20 05/16/23 15:45 79 20 96 05/16/23 15:43 100 05/16/23 15:39 81 20 05/16/23 15:32 100 05/16/23 15:30 96.8 F L 80 20 95 Intake and Output 05/16/23 05/17/23 05/17/23 22:59 06:59 14:59 Intake Total 9979.463 0693.553 333.766 Output Total 3665 707 145 Balance -2531.315 391.553 188.766 Intake: IV 642 1012 247 ACETAMINOPHEN IV (For NPO 100 ) 1,000 mg In Empty Bag 1 bag @ 400 mls/hr IVPB Q6HR SANKET Rx#:[id number] Albumin Human 5% 250 ml 250 250 In Empty Bag 1 bag @ 250 mls/hr IVPB Q1HR PRN Rx#: [id number] Lactated Ringers 1,000 ml 150 350 150 @ 50 mls/hr IV .Q20H SANKET Rx#:[id number] ceFAZolin 2 gm In Sodium 100 50 Chloride 0.9% 50 ml @ 100 mls/hr IVPB Q8HR SANKET Rx# :[id number] ns cardiac output 180 140 20 ns pressure bags 62 72 27 Intake, IV Titration 491.685 86.553 6.766 Amount ACETAMINOPHEN IV (For NPO 100 ) 1,000 mg In Empty Bag 1 bag @ 400 mls/hr IVPB Q6HR SANKET Rx#:[id number] Clevidipine Butyrate 25 12.800 0 4.767 mg In Empty Bag 1 bag @ 1 MG/HR 2 mls/hr IV .Q24H SANKET Rx#:[id number] Dexmedetomidine/0.9% NaCl 3.999 1.999 (Pmx) 400 mcg In Empty Bag 1 bag @ Titrate IV . Q0M SANKET Rx#:[id number] EPINEPHrine 4 mg In 0.889 Dextrose 5% in Water 250 ml @ 0.01 MCG/KG/MIN 2. 321 mls/hr IV .Q24H SANKET Rx#:[id number] Insulin Regular 100 unit 26.631 30.510 0 In Sodium Chloride 0.9% 100 ml @ Per Protocol IV .Q0M SANKET Rx#:[id number] Lactated Ringers 1,000 ml 200 @ 50 mls/hr IV .Q20H SANKET Rx#:[id number] Milrinone-D5w Pmx 20 mg 9.471 43.873 In Dextrose/Water 1 100ml .bag @ Per Protocol IV . Q0M SANKET Rx#:[id number] Nitroglycerin-D5w Pmx 50 1.375 mg In Dextrose/Water 1 250ml.bag @ 5 MCG/MIN 1.5 mls/hr IV .Q24H SANKET Rx#: [id number] Phenylephrine 40 mg In 3.302 Sodium Chloride 0.9% 250 ml @ 1 MCG/KG/MIN 23.584 mls/hr IV .[id number] SANKET Rx #:[id number] ceFAZolin 2 gm In Sodium 50 Chloride 0.9% 50 ml @ 100 mls/hr IVPB Q8HR SANKET Rx# :[id number] propofoL 1,000 mg In 87.217 8.171 Empty Bag 1 bag @ Titrate IV .Q0M SANKET Rx#: [id number] Other 80 Output: Chest Tube Drainage [address] 254 120 20 rt and lt pleural 176 72 0 Urine 5 515 125 Estimated Blood Loss 1200 Other: Voiding Method Indwelling Catheter Indwelling Catheter Indwelling Catheter Weight 67.4 kg ABP, PAP, CO, CI - Last 8 Hours Arterial Blood Pressure 109/51 Arterial Blood Pressure 125/54 Arterial Blood Pressure 166/72 Arterial Blood Pressure 140/59 Arterial Blood Pressure 134/57 Arterial Blood Pressure 119/53 Arterial Blood Pressure 117/52 Arterial Blood Pressure 120/52 Arterial Blood Pressure 153/66 Arterial Blood Pressure 155/64 Arterial Blood Pressure 132/58 Arterial Blood Pressure 114/58 Arterial Blood Pressure 123/55 Arterial Blood Pressure 109/52 Arterial Blood Pressure 104/51 Arterial Blood Pressure 132/51 Arterial Blood Pressure 113/50 Arterial Blood Pressure 118/54 Arterial Blood Pressure 110/51 Arterial Blood Pressure 120/54 Arterial Blood Pressure 110/50 Arterial Blood Pressure 109/50 Arterial Blood Pressure 117/53 Arterial Blood Pressure 120/55 Arterial Blood Pressure 120/60 Arterial Blood Pressure 136/61 Arterial Blood Pressure 130/56 Arterial Blood Pressure 143/60 Arterial Blood Pressure 154/65 Arterial Blood Pressure 120/54 Arterial Blood Pressure 131/60 Pulmonary Artery Pressure 32/17 Pulmonary Artery Pressure 41/21 Pulmonary Artery Pressure 53/33 Pulmonary Artery Pressure 35/21 Pulmonary Artery Pressure 35/22 Pulmonary Artery Pressure 32/20 Pulmonary Artery Pressure 32/20 Pulmonary Artery Pressure 37/22 Pulmonary Artery Pressure 39/23 Pulmonary Artery Pressure 36/22 Pulmonary Artery Pressure 29/18 Pulmonary Artery Pressure 30/20 Pulmonary Artery Pressure 30/19 Pulmonary Artery Pressure 28/19 Pulmonary Artery Pressure 32/22 Pulmonary Artery Pressure 37/24 Pulmonary Artery Pressure 35/22 Pulmonary Artery Pressure 32/20 Pulmonary Artery Pressure 31/19 Pulmonary Artery Pressure 34/21 Pulmonary Artery Pressure 32/20 Pulmonary Artery Pressure 31/20 Pulmonary Artery Pressure 33/21 Pulmonary Artery Pressure 36/23 Pulmonary Artery Pressure 38/24 Pulmonary Artery Pressure 44/25 Pulmonary Artery Pressure 40/22 Pulmonary Artery Pressure 39/23 Pulmonary Artery Pressure 37/22 Pulmonary Artery Pressure 44/25 Pulmonary Artery Pressure 59/30 Cardiac Output 3.6 Cardiac Output 3.3 Cardiac Output 3.8 Cardiac Output 4.4 Cardiac Output 4.4 Cardiac Index 2.2 Cardiac Index 2 Cardiac Index 2.3 Cardiac Index 2.6 Cardiac Index 2.6 Results 05/17/23 04:00 05/17/23 04:00 Cardiac Enzymes 05/16/23 05/17/23 Range/Units 15:40 04:00 AST 175 H 612 H (14-36) U/L Coagulation 05/16/23 Range/Units 15:40 PT 13.6 H (9.0-12.0) sec APTT 28.5 (22.0-30.0) sec CBC 05/16/23 05/16/23 05/16/23 Range/Units 15:40 18:40 22:00 WBC 16.0 H 13.4 H 8.7 (3.8-10.6) k/uL RBC 3.13 L 3.47 L 3.16 L (3.80-5.40) m/uL Hgb 10.5 L 11.2 L 10.2 L (11.4-16.0) gm/dL Hct 30.9 L 33.1 L 30.2 L (34.0-46.0) % Plt Count 109 L 116 L 90 L (150-450) k/uL 05/17/23 Range/Units 04:00 WBC 9.9 (3.8-10.6) k/uL RBC 3.00 L (3.80-5.40) m/uL Hgb 9.5 L (11.4-16.0) gm/dL Hct 28.5 L (34.0-46.0) % Plt Count 98 L (150-450) k/uL Comprehensive Metabolic Panel 05/16/23 05/17/23 Range/Units 15:40 04:00 Sodium 141 141 (137-145) mmol/L Potassium 4.4 3.6 (3.5-5.1) mmol/L Chloride 113 H 110 H (98-107) mmol/L Carbon Dioxide 24 25 (22-30) mmol/L BUN 14 13 (7-17) mg/dL Creatinine 0.64 0.54 (0.52-1.04) mg/dL Glucose 163 H 115 H (74-99) mg/dL Calcium 7.3 L 7.9 L (8.4-10.2) mg/dL AST 175 H 612 H (14-36) U/L ALT 28 51 H (4-34) U/L Alkaline Phosphatase 25 L 22 L (38-126) U/L Total Protein 4.8 L 5.4 L (6.3-8.2) g/dL Albumin 3.1 L 3.7 (3.5-5.0) g/dL Current Medications Generic Name Dose Route Start Last Admin Trade Name Freq PRN Reason Stop Dose Admin Hydrocodone Bitart/Acetaminophen 1 each 05/17/23 02:28 05/17/23 07:49 Hydrocodone/Apap 5-325mg 1 Each Tab PO 1 each Q4HR PRN Administration Moderate Pain (Scale 4 to 6) Hydrocodone Bitart/Acetaminophen 1 each 05/17/23 02:30 Hydrocodone/Apap 10-325mg 1 Each Tab PO Q4HR PRN Severe Pain (Scale 7 to 10) Albuterol/Ipratropium 3 ml 05/16/23 14:58 Ipratropium-Albuterol 3 Ml Neb INHALATION RT-Q2H PRN Shortness Of Breath Or Wheezing Albuterol/Ipratropium 3 ml 05/17/23 04:00 05/17/23 08:49 Ipratropium-Albuterol 3 Ml Neb INHALATION 3 ml RT-Q4H SANKET Administration Aspirin 325 mg 05/17/23 09:00 05/17/23 08:15 Aspirin 325 Mg Tab PO 325 mg DAILY SANKET Administration Atorvastatin Calcium 40 mg 05/17/23 09:00 05/17/23 08:15 Atorvastatin 40 Mg Tab PO 40 mg DAILY SANKET Administration Benzocaine/Menthol 1 each 05/16/23 14:58 Benzocaine/Menthol Lozeng 1 Each Lozenge MUCOUS MEM Q2H PRN Sore Throat Bisacodyl 10 mg 05/17/23 09:00 Bisacodyl 10 Mg Supp RECTAL DAILY PRN Constipation Cholecalciferol 125 mcg 05/17/23 09:00 05/17/23 08:15 Cholecalciferol 125 Mcg (5000 Iu) Tablet PO 125 mcg Q7D SANKET Administration Clopidogrel Bisulfate 75 mg 05/17/23 09:00 05/17/23 08:15 Clopidogrel 75 Mg Tab PO 75 mg DAILY SANKET Administration Dextrose/Water 25 ml 05/16/23 14:58 Dextrose 50% Syringe 50 Ml IVP PER PROTOCOL PRN Hypoglycemia Protocol Dextrose/Water 50 ml 05/16/23 14:58 Dextrose 50% Syringe 50 Ml IVP PER PROTOCOL PRN Hypoglycemia Protocol Heparin Sodium (Porcine) 5,000 unit 05/16/23 16:00 05/17/23 08:15 Heparin Sodium,Porcine/Pf 5,000 Unit/0.5 Ml Syringe SQ 5,000 unit Q8HR SANKET Administration Hydralazine HCl 10 mg 05/16/23 14:58 Hydralazine Hcl 20 Mg/Ml 1 Ml Vial IVP Q1H PRN Blood Pressure - High Clevidipine 25 mg/ IV Solution 50 mls @ 2 mls/hr 05/16/23 15:15 05/17/23 08:34 IV 0 mg/hr .Q24H SANKET 0 mls/hr Titration Protocol 1 MG/HR Amiodarone HCl 150 mg/ 103 mls @ 618 mls/hr 05/16/23 14:58 Dextrose/Water IV .Q10M PRN A.FIB/FLUTTER Protocol Amiodarone HCl 360 mg/ 207.2 mls @ 34.533 mls/hr 05/16/23 14:58 Dextrose/Water IV .Q6H PRN A.FIB/FLUTTER Protocol 1 MG/MIN Amiodarone HCl 450 mg/ 250 mls @ 16.667 mls/hr 05/16/23 14:58 Dextrose/Water IV .Q15H PRN A.FIB/FLUTTER Protocol 0.5 MG/MIN Albumin Human 250 ml/ IV 250 mls @ 250 mls/hr 05/16/23 14:58 05/17/23 00:52 Solution IVPB 05/18/23 14:59 250 mls/hr Q1HR PRN Administration For Volume Protocol Dexmedetomidine HCl 400 mcg/ 100 mls @ 0 mls/hr 05/16/23 15:15 05/17/23 08:35 IV Solution IV 05/17/23 15:16 0.4 mcg/kg/hr .Q0M SANKET 6.19 mls/hr Titration Protocol Titrate Calcium Gluconate/Sodium 100 mls @ 100 mls/hr 05/16/23 14:58 Chloride 2 gm/ IV Solution IVPB 05/23/23 14:59 ONCE PRN Ionized Calcium less than 4.4 Insulin Human Regular 100 unit 101 mls @ 0 mls/hr 05/16/23 15:30 05/17/23 07:02 / Sodium Chloride IV 3 unit/hr .Q0M SANKET 3.03 mls/hr Titration Protocol Per Protocol Milrinone Lactate/Dextrose 20 100 mls @ 0 mls/hr 05/16/23 15:30 05/17/23 00:05 mg/ IV Solution IV 0.375 mcg/kg/min .Q0M SANKET 6.964 mls/hr Administration Protocol Per Protocol Lactated Ringer's 1,000 mls @ 50 mls/hr 05/16/23 14:58 05/16/23 15:54 Lactated Ringers IV 50 mls/hr .Q20H SANKET Administration Propofol 1,000 mg/ IV Solution 100 mls @ 0 mls/hr 05/16/23 15:15 05/16/23 23:45 IV 0 mcg/kg/min .Q0M SANKET 0 mls/hr Titration Protocol Titrate Magnesium Hydroxide 2,400 mg 05/17/23 09:00 Magnesium Hydroxide 2,400 Mg/30 Ml Cup PO BID PRN Constipation Metoclopramide HCl 10 mg 05/16/23 14:58 Metoclopramide 5 Mg/Ml 2 Ml Vial IVP Q4H PRN Nausea And Vomiting Metoprolol Tartrate 12.5 mg 05/17/23 09:00 05/17/23 08:15 Metoprolol Tartrate 12.5 Mg Tab PO 12.5 mg BID SANKET Administration Miscellaneous Information 1 each 05/16/23 14:58 Potassium Replacement Protocol 1 Each Misc MISCELLANE DAILY PRN Per Protocol Protocol Miscellaneous Information 1 each 05/16/23 14:58 Magnesium Replacement Protocol 1 Each Misc MISCELLANE DAILY PRN Per Protocol Protocol Mupirocin 1 applic 05/16/23 21:00 05/17/23 08:17 Mupirocin 2% Oint 22 Gm Tube NASAL 1 applic BID SANKET Administration Protocol Ondansetron HCl 4 mg 05/16/23 14:58 Ondansetron 4 Mg/2 Ml Vial IVP Q6HR PRN Nausea And Vomiting Pantoprazole Sodium 40 mg 05/17/23 09:00 05/17/23 08:16 Pantoprazole 40 Mg/10 Ml Vial IVP 40 mg DAILY SANKET Administration Senna/Docusate Sodium 2 each 05/17/23 21:00 Sennosides-Docusate Sodium 1 Each Tab PO HS SANKET Sodium Chloride 10 ml 05/16/23 21:00 05/17/23 08:16 Sodium Chloride 0.9% Flush 10 Ml Syringe IV 10 ml BID SANKET Administration Intake and Output 0705/17/23 05/17/23 22:59 06:59 14:59 Intake Total 8813.334 5401.553 333.766 Output Total 3665 707 145 Balance -2531.315 391.553 188.766 Intake: IV 642 1012 247 ACETAMINOPHEN IV (For NPO 100 ) 1,000 mg In Empty Bag 1 bag @ 400 mls/hr IVPB Q6HR SANKET Rx#:[id number] Albumin Human 5% 250 ml 250 250 In Empty Bag 1 bag @ 250 mls/hr IVPB Q1HR PRN Rx#: [id number] Lactated Ringers 1,000 ml 150 350 150 @ 50 mls/hr IV .Q20H SANKET Rx#:[id number] ceFAZolin 2 gm In Sodium 100 50 Chloride 0.9% 50 ml @ 100 mls/hr IVPB Q8HR SANKET Rx# :[id number] ns cardiac output 180 140 20 ns pressure bags 62 72 27 Intake, IV Titration 491.685 86.553 6.766 Amount ACETAMINOPHEN IV (For NPO 100 ) 1,000 mg In Empty Bag 1 bag @ 400 mls/hr IVPB Q6HR SANKET Rx#:[id number] Clevidipine Butyrate 25 12.800 0 4.767 mg In Empty Bag 1 bag @ 1 MG/HR 2 mls/hr IV .Q24H SANKET Rx#:[id number] Dexmedetomidine/0.9% NaCl 3.999 1.999 (Pmx) 400 mcg In Empty Bag 1 bag @ Titrate IV . Q0M SANKET Rx#:[id number] EPINEPHrine 4 mg In 0.889 Dextrose 5% in Water 250 ml @ 0.01 MCG/KG/MIN 2. 321 mls/hr IV .Q24H SANKET Rx#:[id number] Insulin Regular 100 unit 26.631 30.510 0 In Sodium Chloride 0.9% 100 ml @ Per Protocol IV .Q0M SANKET Rx#:[id number] Lactated Ringers 1,000 ml 200 @ 50 mls/hr IV .Q20H SANKET Rx#:[id number] Milrinone-D5w Pmx 20 mg 9.471 43.873 In Dextrose/Water 1 100ml .bag @ Per Protocol IV . Q0M SANKET Rx#:[id number] Nitroglycerin-D5w Pmx 50 1.375 mg In Dextrose/Water 1 250ml.bag @ 5 MCG/MIN 1.5 mls/hr IV .Q24H SANKET Rx#: [id number] Phenylephrine 40 mg In 3.302 Sodium Chloride 0.9% 250 ml @ 1 MCG/KG/MIN 23.584 mls/hr IV .[id number] SANKET Rx #:[id number] ceFAZolin 2 gm In Sodium 50 Chloride 0.9% 50 ml @ 100 mls/hr IVPB Q8HR SANKET Rx# :[id number] propofoL 1,000 mg In 87.217 8.171 Empty Bag 1 bag @ Titrate IV .Q0M SANKET Rx#: [id number] Other 80 Output: Chest Tube Drainage [address] 254 120 20 rt and lt pleural 176 72 0 Urine 2035 515 125 Estimated Blood Loss 1200 Other: Voiding Method Indwelling Catheter Indwelling Catheter Indwelling Catheter Weight 67.4 kg 05/17/23 04:00 05/17/23 04:00
[2023-05-17 09:47] LABS: ABG Base Excess 0.5 mmol/L; ABG HCO3 25 mmol/L (21-25); ABG Oxygen Saturation 97.8 % (94-97); ABG PCO2 37 mmHg (35-45); ABG PH 7.43 (7.35-7.45); ABG PO2 93 mmHg (83-108); ABG TCO2 26 mmol/L (19-24); Allen Test Performed? Yes
[2023-05-17 10:14] LABS: Glucose,Whole Blood 101 mg/dL (70-110)
[2023-05-17] MEDS: LACTATED RINGERS 1,000 ML IV SCH (10:34)
[2023-05-17 11:01] LABS: Glucose,Whole Blood 122 mg/dL (70-110)
[2023-05-17 12:01] LABS: Glucose,Whole Blood 123 mg/dL (70-110)
[2023-05-17] MEDS: HYDROcodone/APAP 10-325MG 1 EACH TAB PO PRN ×3 (12:03→20:15)
[2023-05-17] MEDS: KETOROLAC 15 MG/ML 1 ML VIAL IVP SCH ×2 (12:16→18:14)
[2023-05-17 13:39] LABS: Glucose,Whole Blood 120 mg/dL (70-110)
[2023-05-17] MEDS ORDERED: hydrALAZINE HCL 20 MG/ML 1 ML VIAL IVP PRN (14:20)
[2023-05-17 15:00] LABS: Glucose,Whole Blood 113 mg/dL (70-110)
[2023-05-17 15:59] LABS: Glucose,Whole Blood 132 mg/dL (70-110)
[2023-05-17 17:06] LABS: Glucose,Whole Blood 127 mg/dL (70-110)
[2023-05-17 18:14] LABS: Glucose,Whole Blood 121 mg/dL (70-110)
[2023-05-17] MEDS: INSULIN REGULAR 100 UNIT in SODIUM CHLORIDE 0.9% 100 ML IV SCH (18:15)
[2023-05-17 20:10] LABS: Glucose,Whole Blood 117 mg/dL (70-110)
[2023-05-17] MEDS: SENNOSIDES-DOCUSATE SODIUM 1 EACH TAB PO SCH (20:16)
[2023-05-17 21:11] LABS: Glucose,Whole Blood 138 mg/dL (70-110)
[2023-05-17 22:59] LABS: Glucose,Whole Blood 118 mg/dL (70-110)
--- NOTE | 2023-05-17 23:29 | P.CONS ---
History of Present Illness - Reason for Consult Consult date: 05/16/23 Medical management - Chief Complaint Status post aortic valve placement - History of Present Illness Patient is a 62-year-old female with a past medical history of hyperlipidemia, rheumatoid arthritis, GERD and prior history of smoking was admitted to the hospital for elective aortic valve replacement with a bioprosthetic valve. Patient is status post aortic valve replacement with aortic root enlargement and left atrial appendage ligation. Perioperatively patient was intubated and was transferred to MICU. Patient was also hypotensive and was started on milrinone and epinephrine drips. ABG showed pH 7.26, PCO2 35 PO2 74. Laboratory pressure WBC 16.0, hemoglobin 10.5 and platelets 109 Sodium 141 potassium 4.4 chloride 113 bicarb is 24 BUN 14 and creatinine 0.64 and blood sugar 163. Magnesium 2.6 and total bilirubin level is 1.5 and AST 175 ALT 28 and alk phos 25. Albumin 3.1. Chest x-ray showed postoperative changes.. Review of Systems ROS unobtainable: due to endotracheal tube Past Medical History Past Medical History: GERD/Reflux, Hyperlipidemia, Rheumatoid Arthritis (RA), Skin Disorder Additional Past Medical History / Comment(s): psoriasis, SOB w/exertion & fatigue, valve problem per pt. History of Any Multi-Drug Resistant Organisms: None Reported Past Surgical History: Heart Catheterization, Hysterectomy, Orthopedic Surgery Additional Past Surgical History / Comment(s): rt knee Past Anesthesia/Blood Transfusion Reactions: No Reported Reaction Smoking Status: Former smoker, Light tobacco smoker - Past Family History Mother Family Medical History: Coronary Artery Disease (CAD) Additional Family Medical History / Comment(s): CABG Brother(s) Family Medical History: Myocardial Infarction ([place]) Additional Family Medical History / Comment(s): stents, another brother-stroke Medications and Allergies Home Medications Medication Instructions Recorded Confirmed Type Cholecalciferol [Vitamin D3 (125 125 mcg PO Q7D 03/30/23 05/16/23 History Mcg = 5000 Iu)] Etanercept [Enbrel] 50 mg SQ Q7D 03/30/23 05/16/23 History Rosuvastatin [Crestor] 20 mg PO DAILY 03/30/23 05/16/23 History Otc Pepcid 1 tab PO DAILY PRN 04/06/23 05/16/23 History Acetaminophen Tab [Tylenol] 650 mg PO Q6HR PRN tab 05/25/23 Rx Aspirin 81 mg PO DAILY #30 tab 05/25/23 Rx Clopidogrel [Plavix] 75 mg PO DAILY #30 tab 05/25/23 Rx Docusate [Colace] 100 mg PO BID PRN cap 05/25/23 Rx Furosemide [Lasix] 20 mg PO DAILY #7 tab 05/25/23 Rx Metoprolol Tartrate [Lopressor] 12.5 mg PO BID #60 tab 05/25/23 Rx Midodrine [ProAmatine] 5 mg PO AC-BID #60 tab 05/25/23 Rx Potassium Chloride ER [K-Dur 10] 10 meq PO DAILY #7 tab 05/25/23 Rx Allergies Allergy/AdvReac Type Severity Reaction Status Date / Time No Known Allergies Allergy Verified 05/16/23 06:20 Physical Exam Vitals: Vital Signs Temp Pulse Resp BP Pulse Ox FiO2 05/17/23 20:15 99 21 94 L 05/17/23 20:09 95 05/17/23 20:00 93 27 H 97 05/17/23 19:48 86 05/17/23 19:45 86 20 94 L 05/17/23 19:30 89 22 95 05/17/23 19:15 85 23 94 L 05/17/23 19:00 99.5 F 90 18 94 L 05/17/23 18:45 90 18 95 05/17/23 18:30 87 20 94 L 05/17/23 18:15 89 18 96 05/17/23 18:00 99.5 F 89 16 94 L 05/17/23 17:45 90 18 94 L 05/17/23 17:30 85 20 117/59 93 L 05/17/23 17:15 89 20 93 L 05/17/23 17:00 99.5 F 92 18 96 05/17/23 16:45 90 18 95 05/17/23 16:30 90 22 96 05/17/23 16:15 86 20 94 L 05/17/23 16:05 80 05/17/23 16:00 99.5 F 86 21 95 05/17/23 15:53 80 05/17/23 15:45 80 22 95 05/17/23 15:30 80 20 95 05/17/23 15:15 80 20 95 05/17/23 15:00 99.1 F 80 18 95 05/17/23 14:45 80 20 95 05/17/23 14:30 80 18 95 05/17/23 14:15 80 22 95 05/17/23 14:00 98.8 F 80 16 94 L 05/17/23 13:45 80 18 94 L 05/17/23 13:30 80 20 93 L 05/17/23 13:15 80 17 93 L 05/17/23 13:00 98.8 F 80 18 92 L 05/17/23 12:45 80 18 90 L 05/17/23 12:30 86 20 90 L 05/17/23 12:15 85 20 91 L 05/17/23 12:00 99.3 F 86 18 91 L 05/17/23 11:51 80 05/17/23 11:45 80 20 96 05/17/23 11:42 79 05/17/23 11:30 80 16 93 L 05/17/23 11:15 80 20 95 05/17/23 11:00 99.3 F 80 14 94 L 05/17/23 10:45 80 18 95 05/17/23 10:30 80 15 108/53 92 L 05/17/23 10:15 62 21 95 05/17/23 10:06 93 L 05/17/23 10:00 99.1 F 73 22 99 05/17/23 09:45 67 15 97 05/17/23 09:30 61 17 96 05/17/23 09:15 67 18 95 05/17/23 09:03 74 05/17/23 09:00 99.5 F 76 22 96 05/17/23 08:49 68 05/17/23 08:45 75 19 94 L 05/17/23 08:40 50 05/17/23 08:30 98 33 H 90 L 05/17/23 08:20 50 05/17/23 08:15 64 22 96 05/17/23 08:00 99.1 F 73 22 95 50 05/17/23 07:45 61 22 95 05/17/23 07:30 66 22 95 05/17/23 07:15 63 22 95 05/17/23 07:00 68 22 98 05/17/23 06:45 70 22 98 05/17/23 06:30 67 22 97 05/17/23 06:15 65 22 98 05/17/23 06:00 64 22 98 05/17/23 05:45 64 22 97 05/17/23 05:30 66 22 94 L 05/17/23 05:15 67 22 94 L 05/17/23 05:00 68 22 97 05/17/23 04:45 69 22 96 05/17/23 04:30 67 22 95 05/17/23 04:19 60 05/17/23 04:15 67 22 96 05/17/23 04:07 70 05/17/23 04:00 71 22 96 70 05/17/23 03:45 71 22 95 05/17/23 03:30 71 22 95 80 05/17/23 03:15 73 22 94 L 05/17/23 03:00 76 23 95 80 05/17/23 02:45 79 30 H 95 05/17/23 02:30 79 22 97 90 05/17/23 02:15 77 22 97 05/17/23 02:00 73 22 97 100 05/17/23 01:49 100 05/17/23 01:45 74 28 H 88 L 05/17/23 01:30 78 26 H 82 L 50 05/17/23 01:15 67 22 98 05/17/23 01:00 65 22 97 05/17/23 00:45 65 22 97 05/17/23 00:30 65 22 115/63 98 05/17/23 00:15 65 22 98 05/17/23 00:00 68 22 98 50 05/16/23 23:45 69 22 98 05/16/23 23:31 50 05/16/23 23:30 70 22 97 05/16/23 23:17 69 22 98 05/16/23 23:15 70 22 98 05/16/23 23:00 71 22 98 05/16/23 22:45 71 22 97 05/16/23 22:30 71 22 98 05/16/23 22:15 71 22 123/68 97 05/16/23 22:00 73 22 96 05/16/23 21:45 73 22 96 05/16/23 21:30 75 22 98 Intake and Output 05/17/23 05/17/23 05/17/23 06:59 14:59 22:59 Intake Total 4657.418 2274.630 735.816 Output Total 707 335 285 Balance 997.170 7774.630 450.816 Intake: IV 1012 602 414 ACETAMINOPHEN IV (For NPO 100 ) 1,000 mg In Empty Bag 1 bag @ 400 mls/hr IVPB Q6HR SANKET Rx#:[id number] Albumin Human 5% 250 ml 250 In Empty Bag 1 bag @ 250 mls/hr IVPB Q1HR PRN Rx#: [id number] Lactated Ringers 1,000 ml 350 400 300 @ 50 mls/hr IV .Q20H SANKET Rx#:[id number] ceFAZolin 2 gm In Sodium 100 50 Chloride 0.9% 50 ml @ 100 mls/hr IVPB Q8HR SANKET Rx# :[id number] ns cardiac output 140 80 60 ns pressure bags 72 72 54 Intake, IV Titration 86.553 869.630 21.816 Amount Albumin Human 5% 250 ml 750 In Empty Bag 1 bag @ 250 mls/hr IVPB Q1HR PRN Rx#: [id number] Clevidipine Butyrate 25 0 4.767 mg In Empty Bag 1 bag @ 1 MG/HR 2 mls/hr IV .Q24H SANKET Rx#:[id number] Dexmedetomidine/0.9% NaCl 3.999 6.616 (Pmx) 400 mcg In Empty Bag 1 bag @ Titrate IV . Q0M SANKET Rx#:[id number] Insulin Regular 100 unit 30.510 9.242 21.816 In Sodium Chloride 0.9% 100 ml @ Per Protocol IV .Q0M SANKET Rx#:[id number] Milrinone-D5w Pmx 20 mg 43.873 99.005 In Dextrose/Water 1 100ml .bag @ Per Protocol IV . Q0M SANKET Rx#:[id number] propofoL 1,000 mg In 8.171 Empty Bag 1 bag @ Titrate IV .Q0M SANKET Rx#: [id number] Oral 300 Other 80 Output: Chest Tube Drainage [address] 120 40 30 rt and lt pleural 72 40 130 Urine 515 255 125 Other: Voiding Method Indwelling Catheter Indwelling Catheter Indwelling Catheter Weight 67.4 kg ABP, PAP, CO, CI - Last 8 Hours Arterial Blood Pressure 144/56 Arterial Blood Pressure 142/58 Arterial Blood Pressure 158/63 Arterial Blood Pressure 141/60 Arterial Blood Pressure 148/61 Arterial Blood Pressure 140/58 Arterial Blood Pressure 126/56 Arterial Blood Pressure 127/53 Arterial Blood Pressure 133/54 Arterial Blood Pressure 139/58 Arterial Blood Pressure 118/48 Arterial Blood Pressure 140/60 Arterial Blood Pressure 149/61 Arterial Blood Pressure 152/63 Arterial Blood Pressure 145/57 Arterial Blood Pressure 131/54 Arterial Blood Pressure 136/59 Arterial Blood Pressure 125/53 Arterial Blood Pressure 122/53 Arterial Blood Pressure 118/52 Arterial Blood Pressure 116/51 Arterial Blood Pressure 117/51 Arterial Blood Pressure 119/51 Arterial Blood Pressure 110/49 Arterial Blood Pressure 108/48 Arterial Blood Pressure 110/48 Arterial Blood Pressure 106/48 Pulmonary Artery Pressure 43/14 Pulmonary Artery Pressure 41/16 Pulmonary Artery Pressure 40/18 Pulmonary Artery Pressure 42/17 Pulmonary Artery Pressure 41/18 Pulmonary Artery Pressure 39/17 Pulmonary Artery Pressure 40/17 Pulmonary Artery Pressure 39/16 Pulmonary Artery Pressure 39/17 Pulmonary Artery Pressure 41/21 Pulmonary Artery Pressure 44/14 Pulmonary Artery Pressure 45/23 Pulmonary Artery Pressure 46/21 Pulmonary Artery Pressure 46/22 Pulmonary Artery Pressure 46/21 Pulmonary Artery Pressure 46/26 Pulmonary Artery Pressure 47/21 Pulmonary Artery Pressure 45/22 Pulmonary Artery Pressure 46/25 Pulmonary Artery Pressure 45/24 Pulmonary Artery Pressure 42/25 Pulmonary Artery Pressure 43/21 Pulmonary Artery Pressure 44/21 Pulmonary Artery Pressure 42/23 Pulmonary Artery Pressure 44/20 Pulmonary Artery Pressure 42/24 Pulmonary Artery Pressure 43/23 Cardiac Output 4.5 Cardiac Output 4.5 Cardiac Output 4.7 Cardiac Output 4 Cardiac Output 4 Cardiac Index 2.7 Cardiac Index 2.7 Cardiac Index 2.8 Cardiac Index 2.4 Cardiac Index 2.4 PHYSICAL EXAMINATION: Patient is currently sedated and on mechanical ventilator... HEENT: Normocephalic. Neck is supple. Pupils reactive. Nostrils clear. Oral cavity is moist. Neck reveals no JVD, carotid bruits, or thyromegaly. CHEST EXAMINATION: Trachea is central. Symmetrical expansion. Bibasilar diminished sounds. ET tube in place.. CARDIAC: Normal S1, S2 with no gallops. No murmurs ABDOMEN: Soft. Bowel sounds present. Nontender. No organomegaly. No abdominal bruits. Extremities: reveal no edema. No clubbing or cyanosis Neurologically patient is sedated and intubated. No gross focal deficits noted Skin: No rash or skin lesions. Psychiatric: Could not be assessed at this time., Musculoskeletal: No joint swelling or deformity. Results CBC & Chem 7: 05/25/23 07:09 05/25/23 07:09 Labs: Abnormal Lab Results - Last 24 Hours (Table) 05/05/23 05/16/23 05/16/23 Range/Units 10:35 09:24 10:05 RBC (3.80-5.40) m/uL Hgb (11.4-16.0) gm/dL Hct (34.0-46.0) % Plt Count (150-450) k/uL Neutrophils # (1.3-7.7) k/uL Lymphocytes # (1.0-4.8) k/uL ABG pO2 266 H >420 H (83-108) mmHg ABG Total CO2 (19-24) mmol/L ABG O2 Saturation 99.1 H 99.6 H (94-97) % ABG Hematocrit 25 L (34.0-46.0) % ABG Sodium 132 L (135-146) mmol/L ABG Potassium 6.2 H* (3.4-4.5) mmol/L ABG Ionized Calcium 3.8 L (4.5-5.3) mg/dL ABG Glucose 114 H 139 H (75-99) mg/dL Hemoglobin 8.1 L (11.4-16.0) gm/dL Chloride (98-107) mmol/L Glucose (74-99) mg/dL POC Glucose (mg/dL) (70-110) mg/dL Calcium (8.4-10.2) mg/dL Total Bilirubin (0.2-1.3) mg/dL AST (14-36) U/L ALT (4-34) U/L Alkaline Phosphatase (38-126) U/L Total Protein (6.3-8.2) g/dL Arterial Blood Potassium 6.2 H* (3.4-4.5) mmol/L Arterial Blood Glucose 114 H 139 H (75-99) mg/dL Crossmatch See Detail 05/16/23 05/16/23 05/16/23 Range/Units 21:11 22:00 22:01 RBC 3.16 L (3.80-5.40) m/uL Hgb 10.2 L (11.4-16.0) gm/dL Hct 30.2 L (34.0-46.0) % Plt Count 90 L (150-450) k/uL Neutrophils # 8.0 H (1.3-7.7) k/uL Lymphocytes # 0.4 L (1.0-4.8) k/uL ABG pO2 259 H (83-108) mmHg ABG Total CO2 (19-24) mmol/L ABG O2 Saturation 99.1 H (94-97) % ABG Hematocrit (34.0-46.0) % ABG Sodium (135-146) mmol/L ABG Potassium (3.4-4.5) mmol/L ABG Ionized Calcium (4.5-5.3) mg/dL ABG Glucose (75-99) mg/dL Hemoglobin (11.4-16.0) gm/dL Chloride (98-107) mmol/L Glucose (74-99) mg/dL POC Glucose (mg/dL) 155 H (70-110) mg/dL Calcium (8.4-10.2) mg/dL Total Bilirubin (0.2-1.3) mg/dL AST (14-36) U/L ALT (4-34) U/L Alkaline Phosphatase (38-126) U/L Total Protein (6.3-8.2) g/dL Arterial Blood Potassium (3.4-4.5) mmol/L Arterial Blood Glucose (75-99) mg/dL Crossmatch 05/16/23 05/16/23 05/17/23 Range/Units 23:00 23:56 02:10 RBC (3.80-5.40) m/uL Hgb (11.4-16.0) gm/dL Hct (34.0-46.0) % Plt Count (150-450) k/uL Neutrophils # (1.3-7.7) k/uL Lymphocytes # (1.0-4.8) k/uL ABG pO2 (83-108) mmHg ABG Total CO2 (19-24) mmol/L ABG O2 Saturation (94-97) % ABG Hematocrit (34.0-46.0) % ABG Sodium (135-146) mmol/L ABG Potassium (3.4-4.5) mmol/L ABG Ionized Calcium (4.5-5.3) mg/dL ABG Glucose (75-99) mg/dL Hemoglobin (11.4-16.0) gm/dL Chloride (98-107) mmol/L Glucose (74-99) mg/dL POC Glucose (mg/dL) 132 H 117 H 154 H (70-110) mg/dL Calcium (8.4-10.2) mg/dL Total Bilirubin (0.2-1.3) mg/dL AST (14-36) U/L ALT (4-34) U/L Alkaline Phosphatase (38-126) U/L Total Protein (6.3-8.2) g/dL Arterial Blood Potassium (3.4-4.5) mmol/L Arterial Blood Glucose (75-99) mg/dL Crossmatch 05/17/23 05/17/23 05/17/23 Range/Units 03:06 04:00 04:00 RBC 3.00 L (3.80-5.40) m/uL Hgb 9.5 L (11.4-16.0) gm/dL Hct 28.5 L (34.0-46.0) % Plt Count 98 L (150-450) k/uL Neutrophils # 8.9 H (1.3-7.7) k/uL Lymphocytes # 0.5 L (1.0-4.8) k/uL ABG pO2 (83-108) mmHg ABG Total CO2 (19-24) mmol/L ABG O2 Saturation (94-97) % ABG Hematocrit (34.0-46.0) % ABG Sodium (135-146) mmol/L ABG Potassium (3.4-4.5) mmol/L ABG Ionized Calcium (4.5-5.3) mg/dL ABG Glucose (75-99) mg/dL Hemoglobin (11.4-16.0) gm/dL Chloride 110 H (98-107) mmol/L Glucose 115 H (74-99) mg/dL POC Glucose (mg/dL) 144 H (70-110) mg/dL Calcium 7.9 L (8.4-10.2) mg/dL Total Bilirubin 1.5 H (0.2-1.3) mg/dL AST 612 H (14-36) U/L ALT 51 H (4-34) U/L Alkaline Phosphatase 22 L (38-126) U/L Total Protein 5.4 L (6.3-8.2) g/dL Arterial Blood Potassium (3.4-4.5) mmol/L Arterial Blood Glucose (75-99) mg/dL Crossmatch 05/17/23 05/17/23 05/17/23 Range/Units 04:07 04:09 07:00 RBC (3.80-5.40) m/uL Hgb (11.4-16.0) gm/dL Hct (34.0-46.0) % Plt Count (150-450) k/uL Neutrophils # (1.3-7.7) k/uL Lymphocytes # (1.0-4.8) k/uL ABG pO2 (83-108) mmHg ABG Total CO2 26 H (19-24) mmol/L ABG O2 Saturation 98.2 H (94-97) % ABG Hematocrit (34.0-46.0) % ABG Sodium (135-146) mmol/L ABG Potassium (3.4-4.5) mmol/L ABG Ionized Calcium (4.5-5.3) mg/dL ABG Glucose (75-99) mg/dL Hemoglobin (11.4-16.0) gm/dL Chloride (98-107) mmol/L Glucose (74-99) mg/dL POC Glucose (mg/dL) 130 H 124 H (70-110) mg/dL Calcium (8.4-10.2) mg/dL Total Bilirubin (0.2-1.3) mg/dL AST (14-36) U/L ALT (4-34) U/L Alkaline Phosphatase (38-126) U/L Total Protein (6.3-8.2) g/dL Arterial Blood Potassium (3.4-4.5) mmol/L Arterial Blood Glucose (75-99) mg/dL Crossmatch 05/17/23 05/17/23 05/17/23 Range/Units 07:58 08:56 09:44 RBC (3.80-5.40) m/uL Hgb (11.4-16.0) gm/dL Hct (34.0-46.0) % Plt Count (150-450) k/uL Neutrophils # (1.3-7.7) k/uL Lymphocytes # (1.0-4.8) k/uL ABG pO2 (83-108) mmHg ABG Total CO2 26 H (19-24) mmol/L ABG O2 Saturation 97.8 H (94-97) % ABG Hematocrit (34.0-46.0) % ABG Sodium (135-146) mmol/L ABG Potassium (3.4-4.5) mmol/L ABG Ionized Calcium (4.5-5.3) mg/dL ABG Glucose (75-99) mg/dL Hemoglobin (11.4-16.0) gm/dL Chloride (98-107) mmol/L Glucose (74-99) mg/dL POC Glucose (mg/dL) 116 H 117 H (70-110) mg/dL Calcium (8.4-10.2) mg/dL Total Bilirubin (0.2-1.3) mg/dL AST (14-36) U/L ALT (4-34) U/L Alkaline Phosphatase (38-126) U/L Total Protein (6.3-8.2) g/dL Arterial Blood Potassium (3.4-4.5) mmol/L Arterial Blood Glucose (75-99) mg/dL Crossmatch 05/17/23 05/17/23 05/17/23 Range/Units 11:00 11:59 13:37 RBC (3.80-5.40) m/uL Hgb (11.4-16.0) gm/dL Hct (34.0-46.0) % Plt Count (150-450) k/uL Neutrophils # (1.3-7.7) k/uL Lymphocytes # (1.0-4.8) k/uL ABG pO2 (83-108) mmHg ABG Total CO2 (19-24) mmol/L ABG O2 Saturation (94-97) % ABG Hematocrit (34.0-46.0) % ABG Sodium (135-146) mmol/L ABG Potassium (3.4-4.5) mmol/L ABG Ionized Calcium (4.5-5.3) mg/dL ABG Glucose (75-99) mg/dL Hemoglobin (11.4-16.0) gm/dL Chloride (98-107) mmol/L Glucose (74-99) mg/dL POC Glucose (mg/dL) 122 H 123 H 120 H (70-110) mg/dL Calcium (8.4-10.2) mg/dL Total Bilirubin (0.2-1.3) mg/dL AST (14-36) U/L ALT (4-34) U/L Alkaline Phosphatase (38-126) U/L Total Protein (6.3-8.2) g/dL Arterial Blood Potassium (3.4-4.5) mmol/L Arterial Blood Glucose (75-99) mg/dL Crossmatch 05/17/23 05/17/23 05/17/23 Range/Units 14:59 15:57 17:04 RBC (3.80-5.40) m/uL Hgb (11.4-16.0) gm/dL Hct (34.0-46.0) % Plt Count (150-450) k/uL Neutrophils # (1.3-7.7) k/uL Lymphocytes # (1.0-4.8) k/uL ABG pO2 (83-108) mmHg ABG Total CO2 (19-24) mmol/L ABG O2 Saturation (94-97) % ABG Hematocrit (34.0-46.0) % ABG Sodium (135-146) mmol/L ABG Potassium (3.4-4.5) mmol/L ABG Ionized Calcium (4.5-5.3) mg/dL ABG Glucose (75-99) mg/dL Hemoglobin (11.4-16.0) gm/dL Chloride (98-107) mmol/L Glucose (74-99) mg/dL POC Glucose (mg/dL) 113 H 132 H 127 H (70-110) mg/dL Calcium (8.4-10.2) mg/dL Total Bilirubin (0.2-1.3) mg/dL AST (14-36) U/L ALT (4-34) U/L Alkaline Phosphatase (38-126) U/L Total Protein (6.3-8.2) g/dL Arterial Blood Potassium (3.4-4.5) mmol/L Arterial Blood Glucose (75-99) mg/dL Crossmatch 05/17/23 05/17/23 05/17/23 Range/Units 18:12 20:09 21:10 RBC (3.80-5.40) m/uL Hgb (11.4-16.0) gm/dL Hct (34.0-46.0) % Plt Count (150-450) k/uL Neutrophils # (1.3-7.7) k/uL Lymphocytes # (1.0-4.8) k/uL ABG pO2 (83-108) mmHg ABG Total CO2 (19-24) mmol/L ABG O2 Saturation (94-97) % ABG Hematocrit (34.0-46.0) % ABG Sodium (135-146) mmol/L ABG Potassium (3.4-4.5) mmol/L ABG Ionized Calcium (4.5-5.3) mg/dL ABG Glucose (75-99) mg/dL Hemoglobin (11.4-16.0) gm/dL Chloride (98-107) mmol/L Glucose (74-99) mg/dL POC Glucose (mg/dL) 121 H 117 H 138 H (70-110) mg/dL Calcium (8.4-10.2) mg/dL Total Bilirubin (0.2-1.3) mg/dL AST (14-36) U/L ALT (4-34) U/L Alkaline Phosphatase (38-126) U/L Total Protein (6.3-8.2) g/dL Arterial Blood Potassium (3.4-4.5) mmol/L Arterial Blood Glucose (75-99) mg/dL Crossmatch Assessment and Plan Assessment: Severe aortic valve stenosis status post aortic valve replacement with bioprosthetic valve and ligation of left atrial appendage. Patient is s/p surgery on 05/16/2023. Perioperative hypotension requiring pressor support. Currently on milrinone drip. Was also on norepinephrine. Hyperlipidemia History of rheumatoid arthritis History of psoriasis GERD Prior history of smoking DVT prophylaxis. Plan: Patient is currently in the MICU. Intubated and on mechanical ventilator perioperatively. Patient is also on pressor support. Patient is on insulin drip for better blood sugar control. GI and DVT prophylaxis. Patient will be continued on aspirin and statins. CT surgery and pulmonary is on board. We will continue to follow and further recommendations based on clinical course. Thank you for your consult. Time with Patient: Greater than 30
[2023-05-17 23:52] LABS: Glucose,Whole Blood 117 mg/dL (70-110)
[2023-05-18] MEDS: IPRATROPIUM-ALBUTEROL 3 ML NEB INHALATION SCH ×6 (00:51→19:47)
[2023-05-18 01:52] LABS: Glucose,Whole Blood 135 mg/dL (70-110)
[2023-05-18] MEDS: MILRINONE-D5W PMX 20 MG in DEXTROSE/WATER 1 100ML.BAG IV SCH ×3 (03:00→21:48)
[2023-05-18 04:09] LABS: Glucose,Whole Blood 114 mg/dL (70-110)
[2023-05-18 04:26] LABS: Basophils % (A) 0 %; Eosinophils % (A) 0 %; HCT 25.9 % (34.0-46.0); HGB 8.6 gm/dL (11.4-16.0); Ionized Calcium 4.8 mg/dL (4.5-5.3); Lymphocytes # (A) 1.4 k/uL (1.0-4.8); Lymphocytes % (A) 11 %; MCH 31.5 pg (25.0-35.0); MCHC 33.1 g/dL (31.0-37.0); MCV 95.3 fL (80.0-100.0); Mean Platelet Volume 11.4; Monocytes # (A) 0.5 k/uL (0-1.0); Monocytes % (A) 4 %; Neutrophils # (A) 10.9 k/uL (1.3-7.7); Neutrophils % (A) 84 %; RBC 2.72 m/uL (3.80-5.40); RDW 13.3 % (11.5-15.5)
[2023-05-18 04:30] LABS: Platelet Count 78 k/uL (150-450)
[2023-05-18 04:35] LABS: ALT 125 U/L (4-34); AST 398 U/L (14-36); African American GFR (CKD) >90 (>60 ml/min/1.73 sqM); Albumin 3.5 g/dL (3.5-5.0); Alkaline Phosphatase 23 U/L (38-126); Anion Gap 6 mmol/L; Blood Urea Nitrogen 21 mg/dL (7-17); Calcium 8.2 mg/dL (8.4-10.2); Carbon Dioxide 25 mmol/L (22-30); Chloride 106 mmol/L (98-107); Glucose 94 mg/dL (74-99); Non-African American GFR(CKD) >90 (>60 ml/min/1.73 sqM); Potassium 3.9 mmol/L (3.5-5.1); Sodium 137 mmol/L (137-145); Total Protein 5.3 g/dL (6.3-8.2)
[2023-05-18 06:09] LABS: Glucose,Whole Blood 69 mg/dL (70-110)
[2023-05-18] MEDS: KETOROLAC 15 MG/ML 1 ML VIAL IVP SCH ×4 (06:21→17:36)
[2023-05-18 06:26] LABS: Glucose,Whole Blood 142 mg/dL (70-110)
[2023-05-18] MEDS ORDERED: traMADol 50 MG TAB PO PRN (06:44)
[2023-05-18] MEDS ORDERED: POTASSIUM BICARBONATE/CIT AC 20 MEQ TABLET.EFF NG-TUBE SCH (07:00)
[2023-05-18 07:07] LABS: Glucose,Whole Blood 172 mg/dL (70-110)
[2023-05-18] MEDS: LACTATED RINGERS 1,000 ML IV SCH (07:08)
[2023-05-18] MEDS: ALBUMIN HUMAN 5% 250 ML in EMPTY BAG 1 BAG IVPB PRN (07:08)
[2023-05-18 08:16] LABS: Glucose,Whole Blood 204 mg/dL (70-110)
--- NOTE | 2023-05-18 08:16 | XR ---
EXAMINATION TYPE: XR chest 1V portable DATE OF EXAM: 05/18/2023 COMPARISON: 05/17/2020 HISTORY: Postop TECHNIQUE: Single frontal view of the chest is obtained. FINDINGS: ET tube and NG tube have been removed. Mediastinal drain, chest tubes and [place] cathet ers are stable. Epicardial leads suggested. Postoperative change with aortic valve replacement. Heart is enlarged and there is bilateral consolid ation and small right effusion. Mild central venous congestion. No pneumothorax. IMPRESSION: 1. Postoperative changes stable bilateral consolidation, small effusion and reducing mild venous georgi estion
[2023-05-18] MEDS: HEPARIN SODIUM,PORCINE/PF 5,000 UNIT/0.5 ML SYRINGE SQ SCH ×3 (08:43→15:29)
[2023-05-18] MEDS: METOPROLOL TARTRATE 12.5 MG TAB PO SCH ×2 (08:46→20:31)
--- NOTE | 2023-05-18 08:55 | P.PN ---
Subjective HISTORY OF PRESENTING ILLNESS Patient is a pleasant 62-year-old female with history of hyperlipidemia, rheumatoid arthritis, previous tobacco abuse since quit, mild COPD, severe aortic stenosis who presented for elective surgical aortic valve replacement. Patient currently intubated and sedated and history is supplied by chart. Patient normally follows in the office with Dr. Mc. She underwent elective surgical aortic valve replacement with a 23 mm [place] Inspiris with annular enlargement and ligation of left atrial appendage. Operatively there was [id number] mitral regurgitation however when patient taken off of pump, PA pressures increased to 74 previously in the 35-40 range and patient did develop some degree of pulmonary edema. Eventually pressures did improve and she has been continued on milrinone at 0.375 with PA pressures this morning . Remains on ventilator at 50% FiO2 with a PEEP of 5 on spontaneous breathing trial and following some commands. 05/18 Patient seen and examined. Milrinone has been decreased to 0.3 and blood pressures somewhat labile however mainly in the 100s over 50s. At home she is n ot on any antihypertensive medications. PA pressures in the 30s over 15 and CVP of 8. Liver enzymes elevated however improving. Admits to fatigue and chest pain around her incision however no significant dyspnea. She did get lightheaded with standing up however somewhat improved after giving albumin. PHYSICAL EXAMINATION Vital signs reviewed. CONSTITUTIONAL: No apparent distress, awake and alert HEENT: Head is normocephalic. Pupils are equal, round. Sclerae anicteric. Mucous membranes of the mouth are moist. No JVD. No carotid bruit. CHEST EXAMINATION: Lungs are clear to auscultation. No chest wall tenderness is noted on palpation or with deep breathing. HEART EXAMINATION: Regular rate and rhythm. S1, S2 heard. +1/6 systolic murmur no gallops or rub. ABDOMEN: Soft, nontender. Positive bowel sounds. EXTREMITIES: 2+ peripheral pulses, no lower extremity edema and no calf tenderness. NEUROLOGIC EXAMINATION: Patient is awake, alert and oriented x3. ASSESSMENT 1. Severe aortic stenosis status post surgical bioprosthetic aortic valve replacement 05/16 with a 23mm [place] Inspiris 2. HLD 3. Previous tobacco abuse 4. Mild COPD 5. Intraop increased PA pressures, improved 6. Elevated AST/ALT 7. Thrombocytopenia PLAN Patient appears to be improving with discontinuation of ventilator and able to come down somewhat on milrinone. Continue to wean as tolerated. The Toprol as tolerated however not on any BP meds at home and may not be able to tolerate. Monitor liver enzymes. Further recs to follow. Objective - Vital Signs Vital signs: Vital Signs Temp 37.5 F L 05/18/23 08:00 Pulse 87 05/18/23 08:15 Resp 30 H 05/18/23 08:15 BP 117/59 05/18/23 01:45 Pulse Ox 91 L 05/18/23 08:15 FiO2 50 05/17/23 08:40 Intake & Output 05/17/23 05/18/23 05/18/23 18:59 06:59 18:59 Intake Total 2143.453 1378.622 340.929 Output Total 505 420 70 Balance 1638.453 958.622 270.929 Weight 70.4 kg Intake: IV 878 768 178 Lactated Ringers 1,000 ml 600 600 100 @ 50 mls/hr IV .Q20H SANKET Rx#:[id number] ceFAZolin 2 gm In Sodium 50 Chloride 0.9% 50 ml @ 100 mls/hr IVPB Q8HR SANKET Rx# :[id number] ns cardiac output 120 60 60 ns pressure bags 108 108 18 Intake, IV Titration 885.453 110.622 44.929 Amount Albumin Human 5% 250 ml 750 In Empty Bag 1 bag @ 250 mls/hr IVPB Q1HR PRN Rx#: [id number] Clevidipine Butyrate 25 4.767 mg In Empty Bag 1 bag @ 1 MG/HR 2 mls/hr IV .Q24H SANKET Rx#:[id number] Dexmedetomidine/0.9% NaCl 6.616 (Pmx) 400 mcg In Empty Bag 1 bag @ Titrate IV . Q0M SANKET Rx#:[id number] Insulin Regular 100 unit 25.065 22.179 4.654 In Sodium Chloride 0.9% 100 ml @ Per Protocol IV .Q0M SANKET Rx#:[id number] Milrinone-D5w Pmx 20 mg 99.005 88.443 40.275 In Dextrose/Water 1 100ml .bag @ Per Protocol IV . Q0M SANKET Rx#:[id number] Oral 300 500 118 Other 80 Output: Chest Tube Drainage [address] 50 30 0 rt and lt pleural 130 130 40 Urine 325 260 30 Other: Voiding Method Indwelling Catheter Indwelling Catheter ABP, PAP, CO, CI - Last Documented Arterial Blood Pressure 54/54 Pulmonary Artery Pressure 46/19 Cardiac Output 4.4 Cardiac Index 2.6 - Labs CBC & Chem 7: 05/18/23 04:00 05/18/23 04:00 Labs: Abnormal Lab Results - Last 24 Hours (Table) 05/17/23 05/17/23 05/17/23 Range/Units 08:56 09:44 11:00 WBC (3.8-10.6) k/uL RBC (3.80-5.40) m/uL Hgb (11.4-16.0) gm/dL Hct (34.0-46.0) % Plt Count (150-450) k/uL Neutrophils # (1.3-7.7) k/uL ABG Total CO2 26 H (19-24) mmol/L ABG O2 Saturation 97.8 H (94-97) % BUN (7-17) mg/dL POC Glucose (mg/dL) 117 H 122 H (70-110) mg/dL Calcium (8.4-10.2) mg/dL Total Bilirubin (0.2-1.3) mg/dL AST (14-36) U/L ALT (4-34) U/L Alkaline Phosphatase (38-126) U/L Total Protein (6.3-8.2) g/dL 05/17/23 05/17/23 05/17/23 Range/Units 11:59 13:37 14:59 WBC (3.8-10.6) k/uL RBC (3.80-5.40) m/uL Hgb (11.4-16.0) gm/dL Hct (34.0-46.0) % Plt Count (150-450) k/uL Neutrophils # (1.3-7.7) k/uL ABG Total CO2 (19-24) mmol/L ABG O2 Saturation (94-97) % BUN (7-17) mg/dL POC Glucose (mg/dL) 123 H 120 H 113 H (70-110) mg/dL Calcium (8.4-10.2) mg/dL Total Bilirubin (0.2-1.3) mg/dL AST (14-36) U/L ALT (4-34) U/L Alkaline Phosphatase (38-126) U/L Total Protein (6.3-8.2) g/dL 05/17/23 05/17/23 05/17/23 Range/Units 15:57 17:04 18:12 WBC (3.8-10.6) k/uL RBC (3.80-5.40) m/uL Hgb (11.4-16.0) gm/dL Hct (34.0-46.0) % Plt Count (150-450) k/uL Neutrophils # (1.3-7.7) k/uL ABG Total CO2 (19-24) mmol/L ABG O2 Saturation (94-97) % BUN (7-17) mg/dL POC Glucose (mg/dL) 132 H 127 H 121 H (70-110) mg/dL Calcium (8.4-10.2) mg/dL Total Bilirubin (0.2-1.3) mg/dL AST (14-36) U/L ALT (4-34) U/L Alkaline Phosphatase (38-126) U/L Total Protein (6.3-8.2) g/dL 05/17/23 05/17/23 05/17/23 Range/Units 20:09 21:10 22:57 WBC (3.8-10.6) k/uL RBC (3.80-5.40) m/uL Hgb (11.4-16.0) gm/dL Hct (34.0-46.0) % Plt Count (150-450) k/uL Neutrophils # (1.3-7.7) k/uL ABG Total CO2 (19-24) mmol/L ABG O2 Saturation (94-97) % BUN (7-17) mg/dL POC Glucose (mg/dL) 117 H 138 H 118 H (70-110) mg/dL Calcium (8.4-10.2) mg/dL Total Bilirubin (0.2-1.3) mg/dL AST (14-36) U/L ALT (4-34) U/L Alkaline Phosphatase (38-126) U/L Total Protein (6.3-8.2) g/dL 05/17/23 05/18/23 05/18/23 Range/Units 23:52 01:50 04:00 WBC 13.0 H (3.8-10.6) k/uL RBC 2.72 L (3.80-5.40) m/uL Hgb 8.6 L (11.4-16.0) gm/dL Hct 25.9 L (34.0-46.0) % Plt Count 78 L (150-450) k/uL Neutrophils # 10.9 H (1.3-7.7) k/uL ABG Total CO2 (19-24) mmol/L ABG O2 Saturation (94-97) % BUN (7-17) mg/dL POC Glucose (mg/dL) 117 H 135 H (70-110) mg/dL Calcium (8.4-10.2) mg/dL Total Bilirubin (0.2-1.3) mg/dL AST (14-36) U/L ALT (4-34) U/L Alkaline Phosphatase (38-126) U/L Total Protein (6.3-8.2) g/dL 05/18/23 05/18/23 05/18/23 Range/Units 04:00 04:07 06:07 WBC (3.8-10.6) k/uL RBC (3.80-5.40) m/uL Hgb (11.4-16.0) gm/dL Hct (34.0-46.0) % Plt Count (150-450) k/uL Neutrophils # (1.3-7.7) k/uL ABG Total CO2 (19-24) mmol/L ABG O2 Saturation (94-97) % BUN 21 H (7-17) mg/dL POC Glucose (mg/dL) 114 H 69 L (70-110) mg/dL Calcium 8.2 L (8.4-10.2) mg/dL Total Bilirubin 2.0 H (0.2-1.3) mg/dL AST 398 H (14-36) U/L ALT 125 H (4-34) U/L Alkaline Phosphatase 23 L (38-126) U/L Total Protein 5.3 L (6.3-8.2) g/dL 05/18/23 05/18/23 05/18/23 Range/Units 06:24 07:05 08:15 WBC (3.8-10.6) k/uL RBC (3.80-5.40) m/uL Hgb (11.4-16.0) gm/dL Hct (34.0-46.0) % Plt Count (150-450) k/uL Neutrophils # (1.3-7.7) k/uL ABG Total CO2 (19-24) mmol/L ABG O2 Saturation (94-97) % BUN (7-17) mg/dL POC Glucose (mg/dL) 142 H 172 H 204 H (70-110) mg/dL Calcium (8.4-10.2) mg/dL Total Bilirubin (0.2-1.3) mg/dL AST (14-36) U/L ALT (4-34) U/L Alkaline Phosphatase (38-126) U/L Total Protein (6.3-8.2) g/dL
--- NOTE | 2023-05-18 09:20 | P.PN ---
Subjective Progress Note Date: 05/18/23 Principal diagnosis: Severe aortic valve stenosis. Previous medical history of hyperlipidemia, rheumatoid arthritis on Enbrel outpatient, previous tobacco dependence, mild COPD, family history heart disease, and preoperative nasal swab positive for MSSA POD #2 aortic valve replacement using 23 mm Kent Inspiris bioprosthetic valve and Abdiaziz Islas annular enlargement technique, ligation of left atrial appendage using a 35 mm AtriClip, epi-aortic ultrasound, intraoperative transesophageal echocardiogram Postoperative acute blood loss anemia and thrombocytopenia, expected given hemodilution and cardiopulmonary bypass pump Postoperative hypotension, unexpected, recovered, weaned off vasopressors The patient was seen and examined this morning sitting up in a recliner in the intensive care unit in no acute distress. She was successfully extubated yesterday morning at 10 AM. Remains in sinus rhythm, blood pressure has been labile as high as 160s systolic and as low as 70s systolic. Patient has been given IV fluid resuscitation which she responds to nicely, has received low-dose IV hydralazine for afterload reduction. She does complain of postoperative pain with movement although states her pain is well-controlled when she sitting and not moving. Hemoglobin 8.6, platelet count 78,000, creatinine 0.59, AST 398, ALT 125, total bili 2.0. Primacor still infusing at 0.375 mcg/kg/hr. Right internal jugular [place]/Cordis, right radial arterial line, mediastinal/right/left pleural chest tubes all remain. Chest x-ray, labs reviewed with Dr. Jacob. Objective - Vital Signs Vital signs: Vital Signs Temp 37.5 F L 05/18/23 08:00 Pulse 87 05/18/23 08:15 Resp 30 H 05/18/23 08:15 BP 117/59 05/18/23 01:45 Pulse Ox 91 L 05/18/23 08:15 FiO2 50 05/17/23 08:40 Intake & Output 05/17/23 05/18/23 05/18/23 18:59 06:59 18:59 Intake Total 2143.453 1378.622 340.929 Output Total 505 420 70 Balance 1638.453 958.622 270.929 Weight 70.4 kg Intake: IV 878 768 178 Lactated Ringers 1,000 ml 600 600 100 @ 50 mls/hr IV .Q20H SANKET Rx#:[id number] ceFAZolin 2 gm In Sodium 50 Chloride 0.9% 50 ml @ 100 mls/hr IVPB Q8HR SANKET Rx# :[id number] ns cardiac output 120 60 60 ns pressure bags 108 108 18 Intake, IV Titration 885.453 110.622 44.929 Amount Albumin Human 5% 250 ml 750 In Empty Bag 1 bag @ 250 mls/hr IVPB Q1HR PRN Rx#: [id number] Clevidipine Butyrate 25 4.767 mg In Empty Bag 1 bag @ 1 MG/HR 2 mls/hr IV .Q24H SANKET Rx#:[id number] Dexmedetomidine/0.9% NaCl 6.616 (Pmx) 400 mcg In Empty Bag 1 bag @ Titrate IV . Q0M SANKET Rx#:[id number] Insulin Regular 100 unit 25.065 22.179 4.654 In Sodium Chloride 0.9% 100 ml @ Per Protocol IV .Q0M SANKET Rx#:[id number] Milrinone-D5w Pmx 20 mg 99.005 88.443 40.275 In Dextrose/Water 1 100ml .bag @ Per Protocol IV . Q0M SANKET Rx#:[id number] Oral 300 500 118 Other 80 Output: Chest Tube Drainage [address] 50 30 0 rt and lt pleural 130 130 40 Urine 325 260 30 Other: Voiding Method Indwelling Catheter Indwelling Catheter ABP, PAP, CO, CI - Last Documented Arterial Blood Pressure 54/54 Pulmonary Artery Pressure 46/19 Cardiac Output 4.4 Cardiac Index 2.6 - Exam CONSTITUTIONAL: Appears comfortable, cooperative, no acute distress RESPIRATORY: Lungs sounds diminished bilaterally. Respirations even, nonlabored. Currently on 4 L nasal cannula with oxygen saturation 93%. Able to achieve 750 mL on incentive spirometry. Strong cough. CARDIOVASCULAR: S1, S2 present. Regular rate and rhythm, sinus rhythm on telemetry. Sternum stable. Palpable peripheral pulses bilaterally. No edema present. No calf pain or tenderness noted. Heart hugger, antiembolism stockin gs, SCDs present. GASTROINTESTINAL: Abdomen soft, nontender, nondistended. Active bowel sounds present 4 quadrants. Tolerating clear liquids GENITOURINARY: Morrow present draining clear, yellow urine. Output overnight 10-25 mL per hour INTEGUMENTARY: Skin is warm and dry with evidence of good perfusion. Anterior chest incision well approximated and covered with dry intact dressing NEUROLOGIC: Cranial nerves II through XII intact MUSKULOSKELETAL: Able to move all extremities, strength equal bilaterally PSYCHIATRIC: Alert and oriented to person place and time, appropriate affect, intact judgment and insight INVASIVE LINES AND TUBES: Mediastinal/left/right pleural chest tubes present and connected to wall suction, no air leaks present. Mediastinal tube with 10 mL serosanguineous drainage overnight, 100 mL in the last 24 hours. Left/right pleural chest tubes with 110 mL serosanguineous drainage overnight, 300 mL in the last 24 hours. A/V epicardial pacemaker wires present, connected to generator, AAI mode with rate 80 bpm. Right internal jugular [place]/Cordis, right radial arterial line present. Last CO/CI 4.4/2.6, PA 46/19, CVP 12. - Allied health notes Allied health notes reviewed: nursing - Labs CBC & Chem 7: 05/18/23 04:00 05/18/23 04:00 Labs: Abnormal Lab Results - Last 24 Hours (Table) 05/17/23 05/17/23 05/17/23 Range/Units 08:56 09:44 11:00 WBC (3.8-10.6) k/uL RBC (3.80-5.40) m/uL Hgb (11.4-16.0) gm/dL Hct (34.0-46.0) % Plt Count (150-450) k/uL Neutrophils # (1.3-7.7) k/uL ABG Total CO2 26 H (19-24) mmol/L ABG O2 Saturation 97.8 H (94-97) % BUN (7-17) mg/dL POC Glucose (mg/dL) 117 H 122 H (70-110) mg/dL Calcium (8.4-10.2) mg/dL Total Bilirubin (0.2-1.3) mg/dL AST (14-36) U/L ALT (4-34) U/L Alkaline Phosphatase (38-126) U/L Total Protein (6.3-8.2) g/dL 05/17/23 05/17/23 05/17/23 Range/Units 11:59 13:37 14:59 WBC (3.8-10.6) k/uL RBC (3.80-5.40) m/uL Hgb (11.4-16.0) gm/dL Hct (34.0-46.0) % Plt Count (150-450) k/uL Neutrophils # (1.3-7.7) k/uL ABG Total CO2 (19-24) mmol/L ABG O2 Saturation (94-97) % BUN (7-17) mg/dL POC Glucose (mg/dL) 123 H 120 H 113 H (70-110) mg/dL Calcium (8.4-10.2) mg/dL Total Bilirubin (0.2-1.3) mg/dL AST (14-36) U/L ALT (4-34) U/L Alkaline Phosphatase (38-126) U/L Total Protein (6.3-8.2) g/dL 05/17/23 05/17/23 05/17/23 Range/Units 15:57 17:04 18:12 WBC (3.8-10.6) k/uL RBC (3.80-5.40) m/uL Hgb (11.4-16.0) gm/dL Hct (34.0-46.0) % Plt Count (150-450) k/uL Neutrophils # (1.3-7.7) k/uL ABG Total CO2 (19-24) mmol/L ABG O2 Saturation (94-97) % BUN (7-17) mg/dL POC Glucose (mg/dL) 132 H 127 H 121 H (70-110) mg/dL Calcium (8.4-10.2) mg/dL Total Bilirubin (0.2-1.3) mg/dL AST (14-36) U/L ALT (4-34) U/L Alkaline Phosphatase (38-126) U/L Total Protein (6.3-8.2) g/dL 05/17/23 05/17/23 05/17/23 Range/Units 20:09 21:10 22:57 WBC (3.8-10.6) k/uL RBC (3.80-5.40) m/uL Hgb (11.4-16.0) gm/dL Hct (34.0-46.0) % Plt Count (150-450) k/uL Neutrophils # (1.3-7.7) k/uL ABG Total CO2 (19-24) mmol/L ABG O2 Saturation (94-97) % BUN (7-17) mg/dL POC Glucose (mg/dL) 117 H 138 H 118 H (70-110) mg/dL Calcium (8.4-10.2) mg/dL Total Bilirubin (0.2-1.3) mg/dL AST (14-36) U/L ALT (4-34) U/L Alkaline Phosphatase (38-126) U/L Total Protein (6.3-8.2) g/dL 05/17/23 05/18/23 05/18/23 Range/Units 23:52 01:50 04:00 WBC 13.0 H (3.8-10.6) k/uL RBC 2.72 L (3.80-5.40) m/uL Hgb 8.6 L (11.4-16.0) gm/dL Hct 25.9 L (34.0-46.0) % Plt Count 78 L (150-450) k/uL Neutrophils # 10.9 H (1.3-7.7) k/uL ABG Total CO2 (19-24) mmol/L ABG O2 Saturation (94-97) % BUN (7-17) mg/dL POC Glucose (mg/dL) 117 H 135 H (70-110) mg/dL Calcium (8.4-10.2) mg/dL Total Bilirubin (0.2-1.3) mg/dL AST (14-36) U/L ALT (4-34) U/L Alkaline Phosphatase (38-126) U/L Total Protein (6.3-8.2) g/dL 05/18/23 05/18/23 05/18/23 Range/Units 04:00 04:07 06:07 WBC (3.8-10.6) k/uL RBC (3.80-5.40) m/uL Hgb (11.4-16.0) gm/dL Hct (34.0-46.0) % Plt Count (150-450) k/uL Neutrophils # (1.3-7.7) k/uL ABG Total CO2 (19-24) mmol/L ABG O2 Saturation (94-97) % BUN 21 H (7-17) mg/dL POC Glucose (mg/dL) 114 H 69 L (70-110) mg/dL Calcium 8.2 L (8.4-10.2) mg/dL Total Bilirubin 2.0 H (0.2-1.3) mg/dL AST 398 H (14-36) U/L ALT 125 H (4-34) U/L Alkaline Phosphatase 23 L (38-126) U/L Total Protein 5.3 L (6.3-8.2) g/dL 05/18/23 05/18/23 05/18/23 Range/Units 06:24 07:05 08:15 WBC (3.8-10.6) k/uL RBC (3.80-5.40) m/uL Hgb (11.4-16.0) gm/dL Hct (34.0-46.0) % Plt Count (150-450) k/uL Neutrophils # (1.3-7.7) k/uL ABG Total CO2 (19-24) mmol/L ABG O2 Saturation (94-97) % BUN (7-17) mg/dL POC Glucose (mg/dL) 142 H 172 H 204 H (70-110) mg/dL Calcium (8.4-10.2) mg/dL Total Bilirubin (0.2-1.3) mg/dL AST (14-36) U/L ALT (4-34) U/L Alkaline Phosphatase (38-126) U/L Total Protein (6.3-8.2) g/dL - Imaging and Cardiology Chest x-ray: report reviewed, image reviewed Assessment and Plan Assessment: Severe aortic valve stenosis, status post bioprosthetic aortic valve replacement with annular enlargement History of hyperlipidemia, treated, cholesterol 195, LDL 98, triglycerides 105 Rheumatoid arthritis on Enbrel outpatient Previous tobacco dependence Mild COPD, preoperative FEV1 61% of predicted Family history of heart disease Preoperative nasal swab positive for MSSA, treated Postoperative acute blood loss anemia and thrombocytopenia, expected Postoperative hypotension, unexpected, weaned off vasopressors Elevated liver enzymes, unexpected, likely due to hypoperfusion Plan: Continue to maximize medical therapy with low-dose aspirin, beta daniel. Will start afterload reduction as able. Hold Plavix due to thrombocytopenia, hold statin due to elevated liver enzymes Will wean from Primacor as able Wean oxygen as tolerated. Encourage incentive spirometry is 10 times every hour while awake. Bronchodilators per pulmonology Increase activity as tolerated. PT/OT/cardiac rehab consulted GI/DVT prophylaxis Pain control with current medication regimen, Toradol added yesterday, oral narcotics switched to tramadol to reduce acetaminophen Insulin management per internal medicine. Patient is not diabetic, preoperative hemoglobin A1c 6.0% Continue [place]/Cordis, arterial line Will discontinue mediastinal chest tube, continue pleural chest tubes for another 24 hours Continue Morrow catheter for 24 hours for strict accurate intake and output Daily weights Will monitor daily labs and x-rays. Electrolyte replacement per protocol. No Lasix today More recommendations to follow
[2023-05-18 09:21] LABS: Glucose,Whole Blood 188 mg/dL (70-110)
[2023-05-18] MEDS: PANTOPRAZOLE 40 MG/10 ML VIAL IVP SCH (09:39)
[2023-05-18] MEDS: ASPIRIN 81 MG PO SCH (09:39)
[2023-05-18] MEDS: MUPIROCIN 2% OINT 22 GM TUBE NASAL SCH ×2 (09:40→20:32)
[2023-05-18 10:06] LABS: Glucose,Whole Blood 167 mg/dL (70-110)
[2023-05-18 11:25] LABS: Glucose,Whole Blood 142 mg/dL (70-110)
[2023-05-18 12:08] VITALS: BMI 26.6
[2023-05-18 12:12] LABS: Glucose,Whole Blood 147 mg/dL (70-110)
--- NOTE | 2023-05-18 12:54 | P.PN ---
Subjective Progress Note Date: 05/18/23 Principal diagnosis: POD #2 aortic valve replacement using 23 mm Kent Inspiris bioprosthetic valve and Abdiaziz Islas annular enlargement technique, ligation of left atrial appendage us ing a 35 mm AtriClip, epi-aortic ultrasound, intraoperative transesophageal echocardiogram I am seeing this patient in consultation today 05/17/2023 status postoperative day #1 following an aortic valve replacement with aortic root enlargement and left atrial appendage ligation. Patient is a 62-year-old white female with past medical history significant for severe aortic stenosis, hyperlipidemia, psoriatic arthritis, GERD, and is a remote ex-smoker. Patient did have a preoperative spirometry which showed moderate obstructive disease with an FEV1 61% of predicted. FEV1 to FVC ratio was 64%. 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 Patient had been reporting ongoing and intermittent chest discomfort over the last year. She did have a recent heart catheterization and BRENDA on April 11 which showed mild nonobstructive coronary artery disease, aneurysmal dilation of ascending aorta, 3+ aortic regurgitation, and severe aortic stenosis. The patient was scheduled for an elective open-heart which took place yesterday. The patient underwent aortic valve replacement with aortic root enlargement and left atrial appendage ligation. This was complicated by some perioperative hypotension and increased pulmonary artery pressures. The patient was given 2.7 L of crystalloid, 2 albumin, and 450 ML's of Cell Saver intraoperatively. The patient was initially placed on a combination of mil rinone, epinephrine, and Evaristo-Synephrine. The patient was then transferred to the intensive care unit. Patient is currently lying in bed, intubated to the mechanical ventilator, and appears fairly comfortable. Current ventilator settings are assist control, respiratory rate 22, tidal volume 400, FiO2 50%, and a PEEP of 10. Postoperatively, the patient had combined respiratory and metabolic acidosis. Respiratory rate was then increased to 22, and the patient was given one amp of sodium bicarb. Most recent ABGs after ventilator changes show a pO2 of 259, pCO2 of 38, and pH of 7.38. This was done on a FiO2 of 80%. Patient is currently synchronous with the mechanical ventilator and sedated on propofol infusing at 10 mcg/kg/m. This is being weaned off. Currently, the patient will open her eyes to verbal stimulation, but does not follow any commands. Peak pressure is 27 and plateau pressure is 20. Postoperative chest x-ray shows endotracheal tube 4 cm from the yehuda, NG tube with a side port at the GE junction and could be advanced approximately 5 cm, bilateral pleural chest tubes, a mediastinal chest tube, and other postsurgical changes. No pneumothoraces. Patient's blood pressure is normotensive, and the Evaristo-Synephrine and epinephrine were weaned off. Actually, clevidipine had to be temporarily started for hypertension. Currently, the patient has milrinone infusing at 0.375 mcg/kg/m. Most recent CO/CI are 3.3 and 2 respectively. PA pressures are 30/19. Lactate Ringer's is also infusing at 50 ML's per hour. Urine output has been adequate in the order of 80-100 ML's per hour. Insulin is infusing per protocol. Most recent CBC has a WBC count of 8.7, hemoglobin 10.2, hematocrit 30.2, platelets 90. Mediastinal chest tube has 250 ML's of serosanguineous output. There is no air leak. Right and left pleural chest tubes are Y-d together and have 190 ML's of serosanguineous output. There is a small intermittent air leak. Postoperative BMP has sodium 141, potassium 4.4, chloride 113, serum bicarb 24, BUN 14, creatinine 0.64, glucose 163. Currently, we are working on weaning off the sedation in preparation for possible extubation later this morning. The patient is currently too sedated to attempt SBT at this time. Patient was reevaluated today on 05/18/2023, patient is sitting in her recliner at a bedside chair, she was successfully extubated yesterday at 10 AM. Pulmonary-nixon, the patient seems to be doing well, she is on few liters nasal cannula, does not seem to be in any distress. Her cardiac index today is 2.4, continues to have internal jugular [place]/cor this in the right IJ, she continues to have a right radial arterial line, mediastinal right and left pleural chest tubes also remained.chest x-ray showed mostly postoperative change s and bibasilar atelectasis with small pleural effusions. Labs were reviewed WBC count is 13.0 hemoglobin is 8. Platelets are 78,000.basic metabolic profile is normal renal profile is normal liver enzymes are elevated but improving compared to yesterday. Objective - Vital Signs Vital signs: Vital Signs Temp 99.1 F 07/19/23 12:00 Pulse 87 05/18/23 12:00 Resp 22 05/18/23 12:00 BP 117/59 05/18/23 01:45 Pulse Ox 90 L 05/18/23 12:00 FiO2 50 05/17/23 08:40 Intake & Output 05/17/23 05/18/23 05/18/23 18:59 06:59 18:59 Intake Total 2143.453 1378.622 470.544 Output Total 505 420 125 Balance 1638.453 958.622 345.544 Weight 70.4 kg 70.4 kg Intake: IV 878 768 296 Lactated Ringers 1,000 ml 600 600 200 @ 20 mls/hr IV .Q24H [facility] Rx#:[id number] ceFAZolin 2 gm In Sodium 50 Chloride 0.9% 50 ml @ 100 mls/hr IVPB Q8HR [facility] Rx# :[id number] ns cardiac output 120 60 60 ns pressure bags 108 108 36 Intake, IV Titration 885.453 110.622 56.544 Amount Albumin Human 5% 250 ml 750 In Empty Bag 1 bag @ 250 mls/hr IVPB Q1HR PRN Rx#: [id number] Clevidipine Butyrate 25 4.767 mg In Empty Bag 1 bag @ 1 MG/HR 2 mls/hr IV .Q24H [facility] Rx#:[id number] Dexmedetomidine/0.9% NaCl 6.616 (Pmx) 400 mcg In Empty Bag 1 bag @ Titrate IV . Q0M [facility] Rx#:[id number] Insulin Regular 100 unit 25.065 22.179 16.269 In Sodium Chloride 0.9% 100 ml @ Per Protocol IV .Q0M [facility] Rx#:[id number] Milrinone-D5w Pmx 20 mg 99.005 88.443 40.275 In Dextrose/Water 1 100ml .bag @ Per Protocol IV . Q0M [facility] Rx#:[id number] Oral 300 500 118 Other 80 Output: Chest Tube Drainage [address] 50 30 0 rt and lt pleural 130 130 60 Urine 325 260 65 Other: Voiding Method Indwelling Catheter Indwelling Catheter ABP, PAP, CO, CI - Last Documented Arterial Blood Pressure 125/52 Pulmonary Artery Pressure 40/13 Cardiac Output 4.4 Cardiac Index 2.6 - Exam Physical Exam: Revealed a 62-year-old female in no distress.on 4 L nasal cannula. Head: Atraumatic, normocephalic. HEENT:[Neck is supple.] [No neck masses.] [No thyromegaly.] [No JVD.]right IJ central line/cordis this noted. Chest: symmetrical chest expansion, diminished breath sounds at the bases no rhonchi and no wheezes.Mediastinal/left/right pleural chest tubes present and connected to wall suction, no air leaks present. Mediastinal tube with 10 mL serosanguineous drainage overnight, 100 mL in the last 24 hours. Left/right pleural chest tubes with 110 mL serosanguineous drainage overnight, 300 mL in the last 24 hours. A/V epicardial pacemaker wires present, connected to generator, AAI mode with rate 80 bpm Cardiac Exam: [Normal S1 and S2, no S3 gallop, 2/6 systolic murmur thought the precordium.cardiac index this morning is 2.6. Her cardiac output was 4.4. CVP is 12. Abdomen: [Soft, nontender, no megaly, no rebound, no guarding, normal bowel sounds.] Extremities: [No clubbing, no edema, no cyanosis.] Neurological Exam: [No focal neurologic deficit.]alert and oriented 3. Psychiatric: Normal mood, affect and normal mental status examination. Skin: No rashes. - Labs CBC & Chem 7: 05/18/23 04:00 05/18/23 04:00 Labs: Abnormal Lab Results - Last 24 Hours (Table) 05/17/23 05/17/23 05/17/23 Range/Units 13:37 14:59 15:57 WBC (3.8-10.6) k/uL RBC (3.80-5.40) m/uL Hgb (11.4-16.0) gm/dL Hct (34.0-46.0) % Plt Count (150-450) k/uL Neutrophils # (1.3-7.7) k/uL BUN (7-17) mg/dL POC Glucose (mg/dL) 120 H 113 H 132 H (70-110) mg/dL Calcium (8.4-10.2) mg/dL Total Bilirubin (0.2-1.3) mg/dL AST (14-36) U/L ALT (4-34) U/L Alkaline Phosphatase (38-126) U/L Total Protein (6.3-8.2) g/dL 05/17/23 05/17/23 05/17/23 Range/Units 17:04 18:12 20:09 WBC (3.8-10.6) k/uL RBC (3.80-5.40) m/uL Hgb (11.4-16.0) gm/dL Hct (34.0-46.0) % Plt Count (150-450) k/uL Neutrophils # (1.3-7.7) k/uL BUN (7-17) mg/dL POC Glucose (mg/dL) 127 H 121 H 117 H (70-110) mg/dL Calcium (8.4-10.2) mg/dL Total Bilirubin (0.2-1.3) mg/dL AST (14-36) U/L ALT (4-34) U/L Alkaline Phosphatase (38-126) U/L Total Protein (6.3-8.2) g/dL 05/17/23 05/17/23 05/17/23 Range/Units 21:10 22:57 23:52 WBC (3.8-10.6) k/uL RBC (3.80-5.40) m/uL Hgb (11.4-16.0) gm/dL Hct (34.0-46.0) % Plt Count (150-450) k/uL Neutrophils # (1.3-7.7) k/uL BUN (7-17) mg/dL POC Glucose (mg/dL) 138 H 118 H 117 H (70-110) mg/dL Calcium (8.4-10.2) mg/dL Total Bilirubin (0.2-1.3) mg/dL AST (14-36) U/L ALT (4-34) U/L Alkaline Phosphatase (38-126) U/L Total Protein (6.3-8.2) g/dL 05/18/23 05/18/23 05/18/23 Range/Units 01:50 04:00 04:00 WBC 13.0 H (3.8-10.6) k/uL RBC 2.72 L (3.80-5.40) m/uL Hgb 8.6 L (11.4-16.0) gm/dL Hct 25.9 L (34.0-46.0) % Plt Count 78 L (150-450) k/uL Neutrophils # 10.9 H (1.3-7.7) k/uL BUN 21 H (7-17) mg/dL POC Glucose (mg/dL) 135 H (70-110) mg/dL Calcium 8.2 L (8.4-10.2) mg/dL Total Bilirubin 2.0 H (0.2-1.3) mg/dL AST 398 H (14-36) U/L ALT 125 H (4-34) U/L Alkaline Phosphatase 23 L (38-126) U/L Total Protein 5.3 L (6.3-8.2) g/dL 05/18/23 05/18/23 05/18/23 Range/Units 04:07 06:07 06:24 WBC (3.8-10.6) k/uL RBC (3.80-5.40) m/uL Hgb (11.4-16.0) gm/dL Hct (34.0-46.0) % Plt Count (150-450) k/uL Neutrophils # (1.3-7.7) k/uL BUN (7-17) mg/dL POC Glucose (mg/dL) 114 H 69 L 142 H (70-110) mg/dL Calcium (8.4-10.2) mg/dL Total Bilirubin (0.2-1.3) mg/dL AST (14-36) U/L ALT (4-34) U/L Alkaline Phosphatase (38-126) U/L Total Protein (6.3-8.2) g/dL 05/18/23 05/18/23 05/18/23 Range/Units 07:05 08:15 09:20 WBC (3.8-10.6) k/uL RBC (3.80-5.40) m/uL Hgb (11.4-16.0) gm/dL Hct (34.0-46.0) % Plt Count (150-450) k/uL Neutrophils # (1.3-7.7) k/uL BUN (7-17) mg/dL POC Glucose (mg/dL) 172 H 204 H 188 H (70-110) mg/dL Calcium (8.4-10.2) mg/dL Total Bilirubin (0.2-1.3) mg/dL AST (14-36) U/L ALT (4-34) U/L Alkaline Phosphatase (38-126) U/L Total Protein (6.3-8.2) g/dL 05/18/23 05/18/23 05/18/23 Range/Units 10:04 11:24 11:59 WBC (3.8-10.6) k/uL RBC (3.80-5.40) m/uL Hgb (11.4-16.0) gm/dL Hct (34.0-46.0) % Plt Count (150-450) k/uL Neutrophils # (1.3-7.7) k/uL BUN (7-17) mg/dL POC Glucose (mg/dL) 167 H 142 H 147 H (70-110) mg/dL Calcium (8.4-10.2) mg/dL Total Bilirubin (0.2-1.3) mg/dL AST (14-36) U/L ALT (4-34) U/L Alkaline Phosphatase (38-126) U/L Total Protein (6.3-8.2) g/dL Assessment and Plan Assessment: impression: Severe aortic stenosis status postoperative day #2 following an aortic valve replacement with bioprosthetic valve, aortic root enlargement, and left atrial appendage ligation. Postoperative hypotension, improved, initially required combination of Evaristo-Synephrine and epinephrine. These have been weaned off. Acute blood loss anemia, an expected outcome of surgery Moderate chronic obstructive pulmonary disease, based on preoperative PFT. Stable Thrombocytopenia, following surgery, expected. Hyperlipidemia Psoriatic arthritis GERD Remote ex-smoker Recommendation: continue to maximize medical therapy including beta blockers and aspirin, continue to hold statin for now because of elevated liver enzymes. Holding Plavix because of thrombocytopenia. Continue incentive spirometry Continue GI and DVT prophylaxis Continue insulin Discontinue unnecessary catheters and tubes , possibly today by thoracic surgery on the case. continue to monitor strictly I's and O's and daily weights. ambulation when possible. We'll continue to follow Time with Patient: Less than 30
[2023-05-18 13:14] LABS: Glucose,Whole Blood 152 mg/dL (70-110)
[2023-05-18] MEDS ORDERED: ALBUMIN HUMAN 25% 50 ML in EMPTY BAG 1 BAG IVPB ONE (14:51)
[2023-05-18] MEDS: LOSARTAN 25 MG TAB PO SCH (14:51)
[2023-05-18] MEDS: ONDANSETRON 4 MG/2 ML VIAL IVP PRN (15:40)
[2023-05-18] MEDS: traMADol 50 MG TAB PO PRN (16:23)
[2023-05-18 16:27] LABS: Glucose,Whole Blood 218 mg/dL (70-110)
[2023-05-18] MEDS: DEXTROSE/WATER 1 250ML.BAG with DOPamine DRIP 800 MG IV SCH (16:41)
[2023-05-18] MEDS: INSULIN ASPART (NovoLOG) 100 UNIT/ML VIAL SQ SCH ×2 (16:41→20:31)
[2023-05-18 19:54] LABS: Glucose,Whole Blood 198 mg/dL (70-110)
[2023-05-18] MEDS: SENNOSIDES-DOCUSATE SODIUM 1 EACH TAB PO SCH (20:31)
[2023-05-18] MEDS: INSULIN DETEMIR (LEVEMIR) 100 UNIT/ML SYR SQ SCH (20:31)
[2023-05-19] MEDS: HEPARIN SODIUM,PORCINE/PF 5,000 UNIT/0.5 ML SYRINGE SQ SCH ×5 (00:01→23:51)
[2023-05-19] MEDS: KETOROLAC 15 MG/ML 1 ML VIAL IVP SCH ×5 (00:04→23:47)
[2023-05-19] MEDS: IPRATROPIUM-ALBUTEROL 3 ML NEB INHALATION SCH ×6 (00:30→21:02)
[2023-05-19 04:25] LABS: Basophils % (A) 0 %; Eosinophils # (A) 0.1 k/uL (0-0.7); Eosinophils % (A) 1 %; HCT 24.7 % (34.0-46.0); HGB 8.3 gm/dL (11.4-16.0); Lymphocytes # (A) 0.9 k/uL (1.0-4.8); Lymphocytes % (A) 8 %; MCH 32.1 pg (25.0-35.0); MCHC 33.7 g/dL (31.0-37.0); MCV 95.1 fL (80.0-100.0); Mean Platelet Volume 10.3; Monocytes # (A) 0.4 k/uL (0-1.0); Monocytes % (A) 4 %; Neutrophils # (A) 9.6 k/uL (1.3-7.7); Neutrophils % (A) 87 %; RDW 13.1 % (11.5-15.5)
[2023-05-19 04:28] LABS: Platelet Count 82 k/uL (150-450)
[2023-05-19 04:32] LABS: ALT 223 U/L (4-34); AST 355 U/L (14-36); African American GFR (CKD) >90 (>60 ml/min/1.73 sqM); Albumin 3.4 g/dL (3.5-5.0); Alkaline Phosphatase 41 U/L (38-126); Anion Gap 4 mmol/L; Blood Urea Nitrogen 26 mg/dL (7-17); Calcium 8.2 mg/dL (8.4-10.2); Carbon Dioxide 25 mmol/L (22-30); Chloride 102 mmol/L (98-107); Glucose 142 mg/dL (74-99); Non-African American GFR(CKD) >90 (>60 ml/min/1.73 sqM); Potassium 4.4 mmol/L (3.5-5.1); Sodium 131 mmol/L (137-145); Total Bilirubin 2.6 mg/dL (0.2-1.3); Total Protein 5.3 g/dL (6.3-8.2)
[2023-05-19 06:38] LABS: Glucose,Whole Blood 141 mg/dL (70-110)
[2023-05-19] MEDS: INSULIN ASPART (NovoLOG) 100 UNIT/ML VIAL SQ SCH ×4 (06:56→19:59)
[2023-05-19] MEDS: PANTOPRAZOLE 40 MG TABLET PO SCH (07:00)
[2023-05-19] MEDS: MILRINONE-D5W PMX 20 MG in DEXTROSE/WATER 1 100ML.BAG IV SCH (07:05)
[2023-05-19] MEDS: LACTATED RINGERS 1,000 ML IV SCH ×2 (07:45→15:29)
--- NOTE | 2023-05-19 08:36 | P.PN ---
Subjective Progress Note Date: 05/19/23 Principal diagnosis: Severe aortic valve stenosis. Previous medical history of hyperlipidemia, rheumatoid arthritis on Enbrel outpatient, previous tobacco dependence, mild COPD, family history heart disease, and preoperative nasal swab positive for MSSA POD #3 aortic valve replacement using 23 mm Kent Inspiris bioprosthetic valve and Abdiaziz Islas annular enlargement technique, ligation of left atrial appendage using a 35 mm AtriClip, epi-aortic ultrasound, intraoperative transesophageal echocardiogram Postoperative acute blood loss anemia and thrombocytopenia, expected given hemodilution and cardiopulmonary bypass pump Postoperative hypotension, unexpected Transaminitis, unexpected, likely due to hypoperfusion The patient was seen and examined this morning sitting up in a recliner in the intensive care unit in no acute distress. She states postoperative pain cont rolled on current medication regimen. Remains in sinus rhythm, blood pressure stable although does tend to drop when patient gets up. Attempted to start low- dose afterload reduction which patient was unable to get due to hypotension. Primacor still infusing at 0.2 mcg/kg/hr. Low-dose dopamine was added yesterday evening for urine output. Patient diuresed 1.3 L of serosanguineous fluid through her pleural chest tubes in the last 24 hours. Oxygen requirements increased, was on 3 L nasal cannula yesterday, this morning she is on 6 L nasal cannula. Right internal jugular [place]/Cordis, right radial arterial line, right/left pleural chest tubes all remain. Chest x-ray, labs reviewed. Objective - Vital Signs Vital signs: Vital Signs Temp 98.6 F 05/19/23 04:00 Pulse 88 05/19/23 07:51 Resp 28 H 05/19/23 07:00 BP 93/48 05/19/23 02:30 Pulse Ox 93 L 05/19/23 07:41 FiO2 50 05/17/23 08:40 Intake & Output 05/18/23 05/19/23 05/19/23 18:59 06:59 18:59 Intake Total 5220.500 5108.101 49 Output Total 752 1465 60 Balance 798.544 -254.899 -11 Weight 70.4 kg 71.4 kg Intake: IV 768 639 49 Lactated Ringers 1,000 ml 550 400 40 @ 20 mls/hr IV .Q24H [facility] Rx#:[id number] ns cardiac output 110 140 ns pressure bags 108 99 9 Intake, IV Titration 56.544 81.101 Amount Insulin Regular 100 unit 16.269 In Sodium Chloride 0.9% 100 ml @ Per Protocol IV .Q0M [facility] Rx#:[id number] Milrinone-D5w Pmx 20 mg 81.101 In Dextrose/Water 1 100ml .bag @ 0.1 MCG/KG/MIN 2. 112 mls/hr IV .Q24H [facility] Rx#:[id number] Milrinone-D5w Pmx 20 mg 40.275 In Dextrose/Water 1 100ml .bag @ Per Protocol IV . Q0M [facility] Rx#:[id number] Oral 726 490 Output: Chest Tube Drainage [address] 0 rt and lt pleural 540 830 0 Urine 212 635 60 Other: Voiding Method Indwelling Catheter Indwelling Catheter ABP, PAP, CO, CI - Last Documented Arterial Blood Pressure 117/57 Pulmonary Artery Pressure 40/18 Cardiac Output 5.3 Cardiac Index 3.2 - Exam CONSTITUTIONAL: Appears comfortable, cooperative, no acute distress RESPIRATORY: Lungs sounds diminished bilaterally. Respirations even, nonlabored. Currently on 6 L nasal cannula with oxygen saturation 93%. Able to achieve 750 mL on incentive spirometry. Strong nonproductive cough. CARDIOVASCULAR: S1, S2 present. Regular rate and rhythm, sinus rhythm on telemetry. Sternum stable. Palpable peripheral pulses bilaterally. Trace generalized edema present. No calf pain or tenderness noted. Heart hugger, antiembolism stockings, SCDs present. GASTROINTESTINAL: Abdomen soft, nontender, nondistended. Active bowel sounds present 4 quadrants. Tolerating diet. Positive flatus GENITOURINARY: Morrow present draining clear, yellow urine. Output overnight 30-75 mL per hour, 800 mL last 24 hours INTEGUMENTARY: Skin is warm and dry with evidence of good perfusion. Anterior chest incision well approximated and covered with dry intact dressing NEUROLOGIC: Cranial nerves II through XII intact MUSKULOSKELETAL: Able to move all extremities, strength equal bilaterally PSYCHIATRIC: Alert and oriented to person place and time, appropriate affect, intact judgment and insight INVASIVE LINES AND TUBES: Left/right pleural chest tubes present and connected to wall suction, no air leaks present, 240 mL serosanguineous drainage overnight, 1300 mL in the last 24 hours. A/V epicardial pacemaker wires present, connected to generator, AAI mode with rate 80 bpm. Right internal jugular [place]/Cordis, right radial arterial line present. Last CO/CI 5.3/3.2, PA 41/18, CVP 10. - Allied health notes Allied health notes reviewed: nursing - Labs CBC & Chem 7: 05/19/23 04:02 05/19/23 04:02 Labs: Abnormal Lab Results - Last 24 Hours (Table) 05/18/23 05/18/23 05/18/23 Range/Units 09:20 10:04 11:24 WBC (3.8-10.6) k/uL RBC (3.80-5.40) m/uL Hgb (11.4-16.0) gm/dL Hct (34.0-46.0) % Plt Count (150-450) k/uL Neutrophils # (1.3-7.7) k/uL Lymphocytes # (1.0-4.8) k/uL Sodium (137-145) mmol/L BUN (7-17) mg/dL Glucose (74-99) mg/dL POC Glucose (mg/dL) 188 H 167 H 142 H (70-110) mg/dL Calcium (8.4-10.2) mg/dL Total Bilirubin (0.2-1.3) mg/dL AST (14-36) U/L ALT (4-34) U/L Total Protein (6.3-8.2) g/dL Albumin (3.5-5.0) g/dL 05/18/23 05/18/23 05/18/23 Range/Units 11:59 13:13 16:26 WBC (3.8-10.6) k/uL RBC (3.80-5.40) m/uL Hgb (11.4-16.0) gm/dL Hct (34.0-46.0) % Plt Count (150-450) k/uL Neutrophils # (1.3-7.7) k/uL Lymphocytes # (1.0-4.8) k/uL Sodium (137-145) mmol/L BUN (7-17) mg/dL Glucose (74-99) mg/dL POC Glucose (mg/dL) 147 H 152 H 218 H (70-110) mg/dL Calcium (8.4-10.2) mg/dL Total Bilirubin (0.2-1.3) mg/dL AST (14-36) U/L ALT (4-34) U/L Total Protein (6.3-8.2) g/dL Albumin (3.5-5.0) g/dL 05/18/23 05/19/23 05/19/23 Range/Units 19:52 04:02 04:02 WBC 11.0 H (3.8-10.6) k/uL RBC 2.60 L (3.80-5.40) m/uL Hgb 8.3 L (11.4-16.0) gm/dL Hct 24.7 L (34.0-46.0) % Plt Count 82 L (150-450) k/uL Neutrophils # 9.6 H (1.3-7.7) k/uL Lymphocytes # 0.9 L (1.0-4.8) k/uL Sodium 131 L (137-145) mmol/L BUN 26 H (7-17) mg/dL Glucose 142 H (74-99) mg/dL POC Glucose (mg/dL) 198 H (70-110) mg/dL Calcium 8.2 L (8.4-10.2) mg/dL Total Bilirubin 2.6 H (0.2-1.3) mg/dL AST 355 H (14-36) U/L ALT 223 H (4-34) U/L Total Protein 5.3 L (6.3-8.2) g/dL Albumin 3.4 L (3.5-5.0) g/dL 05/19/23 Range/Units 06:36 WBC (3.8-10.6) k/uL RBC (3.80-5.40) m/uL Hgb (11.4-16.0) gm/dL Hct (34.0-46.0) % Plt Count (150-450) k/uL Neutrophils # (1.3-7.7) k/uL Lymphocytes # (1.0-4.8) k/uL Sodium (137-145) mmol/L BUN (7-17) mg/dL Glucose (74-99) mg/dL POC Glucose (mg/dL) 141 H (70-110) mg/dL Calcium (8.4-10.2) mg/dL Total Bilirubin (0.2-1.3) mg/dL AST (14-36) U/L ALT (4-34) U/L Total Protein (6.3-8.2) g/dL Albumin (3.5-5.0) g/dL - Imaging and Cardiology Chest x-ray: image reviewed Assessment and Plan Assessment: Severe aortic valve stenosis, status post bioprosthetic aortic valve replacement with annular enlargement History of hyperlipidemia, treated, cholesterol 195, LDL 98, triglycerides 105 Rheumatoid arthritis on Enbrel outpatient Previous tobacco dependence Mild COPD, preoperative FEV1 61% of predicted Family history of heart disease Preoperative nasal swab positive for MSSA, treated Postoperative acute blood loss anemia and thrombocytopenia, expected Postoperative hypotension, unexpected Elevated liver enzymes, unexpected, likely due to hypoperfusion Plan: Continue to maximize medical therapy with low-dose aspirin, beta daniel. Will start afterload reduction when able. Hold Plavix due to thrombocytopenia, hold statin due to elevated liver enzymes Will wean from Primacor as able, decreased to 0.1 mcg/kg/h today, continue at that rate for another 24 hours Wean oxygen as tolerated. Encourage incentive spirometry is 10 times every hour while awake. Bronchodilators per pulmonology Increase activity as tolerated. PT/OT/cardiac rehab consulted GI/DVT prophylaxis Pain control with current medication regimen Insulin management per internal medicine. Patient is not diabetic, preoperative hemoglobin A1c 6.0% Likely will discontinue [place] this afternoon if CO/CI stays stable, continue cordis, arterial line Will separate right and left pleural chest tubes, monitor output Likely will discontinue Morrow catheter later today, may bladder scan and straight cath for greater then 300 mL residual Strict accurate intake and output Daily weights Will monitor daily labs and x-rays. Electrolyte replacement per protocol. Likely will give IV Lasix today, continue low-dose IV dopamine for now More recommendations to follow
--- NOTE | 2023-05-19 09:06 | XR ---
EXAMINATION TYPE: XR chest 1V portable DATE OF EXAM: 05/19/2023 COMPARISON: 05/18/2023 HISTORY: post cardiac surgery FINDINGS: Indwelling tubes and catheters are unchanged except for removal of mediastinal drain. No evidence for pneumothorax. No change in bibasilar opacities. Stable appearance of the cardio-mediastinal structures at this time. IMPRESSION: 1. Stable portable chest. Clinical correlation and follow up until resolution is recommended.
[2023-05-19] MEDS: ASPIRIN 81 MG PO SCH (09:10)
[2023-05-19] MEDS: LOSARTAN 25 MG TAB PO SCH (09:10)
[2023-05-19] MEDS: MUPIROCIN 2% OINT 22 GM TUBE NASAL SCH ×2 (09:10→20:03)
[2023-05-19] MEDS: METOPROLOL TARTRATE 12.5 MG TAB PO SCH ×2 (09:10→22:42)
[2023-05-19] MEDS: INSULIN DETEMIR (LEVEMIR) 100 UNIT/ML SYR SQ SCH ×2 (09:10→20:02)
--- NOTE | 2023-05-19 11:36 | P.PN ---
Subjective HISTORY OF PRESENTING ILLNESS Patient is a pleasant 62-year-old female with history of hyperlipidemia, rheumatoid arthritis, previous tobacco abuse since quit, mild COPD, severe aortic stenosis who presented for elective surgical aortic valve replacement. Patient currently intubated and sedated and history is supplied by chart. Patient normally follows in the office with Dr. Mc. She underwent elective surgical aortic valve replacement with a 23 mm Kent Inspiris with annular enlargement and ligation of left atrial appendage. Operatively there was lalk-oy-afssnruw mitral regurgitation however when patient taken off of pump, PA pressures increased to 74 previously in the 35-40 range and patient did develop some degree of pulmonary edema. Eventually pressures did improve and she has been continued on milrinone at 0.375 with PA pressures this morning . Remains on ventilator at 50% FiO2 with a PEEP of 5 on spontaneous breathing trial and following some commands. 05/18 Patient seen and examined. Milrinone has been decreased to 0.3 and blood pressures somewhat labile however mainly in the 100s over 50s. At home she is n ot on any antihypertensive medications. PA pressures in the 30s over 15 and CVP of 8. Liver enzymes elevated however improving. Admits to fatigue and chest pain around her incision however no significant dyspnea. She did get lightheaded with standing up however somewhat improved after giving albumin. 05/19 Patient seen and examined. Patient states overall doing okay however still fairly fatigued. No significant chest pain. She was started dopamine secondary decreased urine output which has improved and remains on low dose milrinone. PHYSICAL EXAMINATION Vital signs reviewed. CONSTITUTIONAL: No apparent distress, awake and alert HEENT: Head is normocephalic. Pupils are equal, round. Sclerae anicteric. Mucous membranes of the mouth are moist. No JVD. No carotid bruit. CHEST EXAMINATION: Lungs are clear to auscultation. No chest wall tenderness is noted on palpation or with deep breathing. HEART EXAMINATION: Regular rate and rhythm. S1, S2 heard. +1/6 systolic murmur no gallops or rub. ABDOMEN: Soft, nontender. Positive bowel sounds. EXTREMITIES: 2+ peripheral pulses, no lower extremity edema and no calf tenderness. NEUROLOGIC EXAMINATION: Patient is awake, alert and oriented x3. ASSESSMENT 1. Severe aortic stenosis status post surgical bioprosthetic aortic valve repl acement 05/16 with a 23mm Kent Inspiris 2. HLD 3. Previous tobacco abuse 4. Mild COPD 5. Intraop increased PA pressures, improved 6. Elevated AST/ALT 7. Thrombocytopenia PLAN Urine output has increased and continue dopamine at attempt to wean milrinone as able. Appears to be slowly progressing. Platelets appears stable at 82. AST and ALT mildly decreased. Further recs to follow. Objective - Vital Signs Vital signs: Vital Signs Temp 98.2 F 05/19/23 08:00 Pulse 84 05/19/23 11:00 Resp 18 05/19/23 11:00 BP 93/48 05/19/23 11:00 Pulse Ox 95 05/19/23 11:00 FiO2 50 05/17/23 08:40 Intake & Output 05/18/23 05/19/23 05/19/23 18:59 06:59 18:59 Intake Total 9079.069 2433.101 314.421 Output Total 752 1465 507 Balance 798.544 -254.899 -192.579 Weight 70.4 kg 71.4 kg Intake: IV 768 639 265 Lactated Ringers 1,000 ml 550 400 200 @ 20 mls/hr IV .Q24H SANKET Rx#:[id number] ns cardiac output 110 140 20 ns pressure bags 108 99 45 Intake, IV Titration 56.544 81.101 49.421 Amount Insulin Regular 100 unit 16.269 In Sodium Chloride 0.9% 100 ml @ Per Protocol IV .Q0M SANKET Rx#:[id number] Milrinone-D5w Pmx 20 mg 81.101 49.421 In Dextrose/Water 1 100ml .bag @ 0.1 MCG/KG/MIN 2. 112 mls/hr IV .Q24H SANKET Rx#:[id number] Milrinone-D5w Pmx 20 mg 40.275 In Dextrose/Water 1 100ml .bag @ Per Protocol IV . Q0M SANKET Rx#:[id number] Oral 726 490 Output: Chest Tube Drainage [address] 0 rt and lt pleural 540 830 242 Urine 212 635 265 Other: Voiding Method Indwelling Catheter Indwelling Catheter Indwelling Catheter ABP, PAP, CO, CI - Last Documented Arterial Blood Pressure 90/48 Pulmonary Artery Pressure 33/15 Cardiac Output 4.6 Cardiac Index 2.8 - Labs CBC & Chem 7: 05/19/23 04:02 05/19/23 04:02 Labs: Abnormal Lab Results - Last 24 Hours (Table) 05/18/23 05/18/23 05/18/23 Range/Units 11:59 13:13 16:26 WBC (3.8-10.6) k/uL RBC (3.80-5.40) m/uL Hgb (11.4-16.0) gm/dL Hct (34.0-46.0) % Plt Count (150-450) k/uL Neutrophils # (1.3-7.7) k/uL Lymphocytes # (1.0-4.8) k/uL Sodium (137-145) mmol/L BUN (7-17) mg/dL Glucose (74-99) mg/dL POC Glucose (mg/dL) 147 H 152 H 218 H (70-110) mg/dL Calcium (8.4-10.2) mg/dL Total Bilirubin (0.2-1.3) mg/dL AST (14-36) U/L ALT (4-34) U/L Total Protein (6.3-8.2) g/dL Albumin (3.5-5.0) g/dL 05/18/23 05/19/23 05/19/23 Range/Units 19:52 04:02 04:02 WBC 11.0 H (3.8-10.6) k/uL RBC 2.60 L (3.80-5.40) m/uL Hgb 8.3 L (11.4-16.0) gm/dL Hct 24.7 L (34.0-46.0) % Plt Count 82 L (150-450) k/uL Neutrophils # 9.6 H (1.3-7.7) k/uL Lymphocytes # 0.9 L (1.0-4.8) k/uL Sodium 131 L (137-145) mmol/L BUN 26 H (7-17) mg/dL Glucose 142 H (74-99) mg/dL POC Glucose (mg/dL) 198 H (70-110) mg/dL Calcium 8.2 L (8.4-10.2) mg/dL Total Bilirubin 2.6 H (0.2-1.3) mg/dL AST 355 H (14-36) U/L ALT 223 H (4-34) U/L Total Protein 5.3 L (6.3-8.2) g/dL Albumin 3.4 L (3.5-5.0) g/dL 05/19/23 Range/Units 06:36 WBC (3.8-10.6) k/uL RBC (3.80-5.40) m/uL Hgb (11.4-16.0) gm/dL Hct (34.0-46.0) % Plt Count (150-450) k/uL Neutrophils # (1.3-7.7) k/uL Lymphocytes # (1.0-4.8) k/uL Sodium (137-145) mmol/L BUN (7-17) mg/dL Glucose (74-99) mg/dL POC Glucose (mg/dL) 141 H (70-110) mg/dL Calcium (8.4-10.2) mg/dL Total Bilirubin (0.2-1.3) mg/dL AST (14-36) U/L ALT (4-34) U/L Total Protein (6.3-8.2) g/dL Albumin (3.5-5.0) g/dL
[2023-05-19 11:44] LABS: Glucose,Whole Blood 149 mg/dL (70-110)
--- NOTE | 2023-05-19 12:41 | P.PN ---
Subjective Progress Note Date: 05/19/23 Principal diagnosis: POD #3 aortic valve replacement using 23 mm Kent Inspiris bioprosthetic valve and Abdiaziz Islas annular enlargement technique, ligation of left atrial appendage us ing a 35 mm AtriClip, epi-aortic ultrasound, intraoperative transesophageal echocardiogram I am seeing this patient in consultation today 05/17/2023 status postoperative day #1 following an aortic valve replacement with aortic root enlargement and left atrial appendage ligation. Patient is a 62-year-old white female with past medical history significant for severe aortic stenosis, hyperlipidemia, psoriatic arthritis, GERD, and is a remote ex-smoker. Patient did have a preoperative spirometry which showed moderate obstructive disease with an FEV1 61% of predicted. FEV1 to FVC ratio was 64%. 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 Patient had been reporting ongoing and intermittent chest discomfort over the last year. She did have a recent heart catheterization and BRENDA on April 11 which showed mild nonobstructive coronary artery disease, aneurysmal dilation of ascending aorta, 3+ aortic regurgitation, and severe aortic stenosis. The patient was scheduled for an elective open-heart which took place yesterday. The patient underwent aortic valve replacement with aortic root enlargement and left atrial appendage ligation. This was complicated by some perioperative hypotension and increased pulmonary artery pressures. The patient was given 2.7 L of crystalloid, 2 albumin, and 450 ML's of Cell Saver intraoperatively. The patient was initially placed on a combination of mil rinone, epinephrine, and Evaristo-Synephrine. The patient was then transferred to the intensive care unit. Patient is currently lying in bed, intubated to the mechanical ventilator, and appears fairly comfortable. Current ventilator settings are assist control, respiratory rate 22, tidal volume 400, FiO2 50%, and a PEEP of 10. Postoperatively, the patient had combined respiratory and metabolic acidosis. Respiratory rate was then increased to 22, and the patient was given one amp of sodium bicarb. Most recent ABGs after ventilator changes show a pO2 of 259, pCO2 of 38, and pH of 7.38. This was done on a FiO2 of 80%. Patient is currently synchronous with the mechanical ventilator and sedated on propofol infusing at 10 mcg/kg/m. This is being weaned off. Currently, the patient will open her eyes to verbal stimulation, but does not follow any commands. Peak pressure is 27 and plateau pressure is 20. Postoperative chest x-ray shows endotracheal tube 4 cm from the yehuda, NG tube with a side port at the GE junction and could be advanced approximately 5 cm, bilateral pleural chest tubes, a mediastinal chest tube, and other postsurgical changes. No pneumothoraces. Patient's blood pressure is normotensive, and the Evaristo-Synephrine and epinephrine were weaned off. Actually, clevidipine had to be temporarily started for hypertension. Currently, the patient has milrinone infusing at 0.375 mcg/kg/m. Most recent CO/CI are 3.3 and 2 respectively. PA pressures are 30/19. Lactate Ringer's is also infusing at 50 ML's per hour. Urine output has been adequate in the order of 80-100 ML's per hour. Insulin is infusing per protocol. Most recent CBC has a WBC count of 8.7, hemoglobin 10.2, hematocrit 30.2, platelets 90. Mediastinal chest tube has 250 ML's of serosanguineous output. There is no air leak. Right and left pleural chest tubes are Y-d together and have 190 ML's of serosanguineous output. There is a small intermittent air leak. Postoperative BMP has sodium 141, potassium 4.4, chloride 113, serum bicarb 24, BUN 14, creatinine 0.64, glucose 163. Currently, we are working on weaning off the sedation in preparation for possible extubation later this morning. The patient is currently too sedated to attempt SBT at this time. Patient was reevaluated today on 05/18/2023, patient is sitting in her recliner at a bedside chair, she was successfully extubated yesterday at 10 AM. Pulmonary-nixon, the patient seems to be doing well, she is on few liters nasal cannula, does not seem to be in any distress. Her cardiac index today is 2.4, continues to have internal jugular [place]/cor this in the right IJ, she continues to have a right radial arterial line, mediastinal right and left pleural chest tubes also remained.chest x-ray showed mostly postoperative change s and bibasilar atelectasis with small pleural effusions. Labs were reviewed WBC count is 13.0 hemoglobin is 8. Platelets are 78,000.basic metabolic profile is normal renal profile is normal liver enzymes are elevated but improving compared to yesterday. Patient was reevaluated today on 05/19/2023, patient is doing fairly well, does not seem to be in any distress, she does have some postoperative pain but fairly well controlled. She is hemodynamically stable, remains in sinus rhythm, Primacor still infusing at 0.2 mcg/kg/h, she is also on a low-dose dopamine for orthostatic hypotension and poor urine output she did have significant amount of serosanguineous drainage from her left-sided chest tube over the last 24 hours roughly about 1.3 L. She remains on 6 L nasal cannula, O2 saturation is in the low 90s. There is scant is 11 hemoglobin is 8.3 left first are normal renal profile is normal liver enzymes are elevated. Chest x-ray showed cardiomegaly and postoperative changes, otherwise unremarkable Objective - Vital Signs Vital signs: Vital Signs Temp 98.6 F 05/19/23 12:00 Pulse 85 05/19/23 12:00 Resp 27 H 05/19/23 12:00 BP 93/48 05/19/23 12:00 Pulse Ox 84 L 05/19/23 12:00 FiO2 50 05/17/23 08:40 Intake & Output 05/18/23 05/19/23 05/19/23 18:59 06:59 18:59 Intake Total 2117.821 9688.101 363.421 Output Total 752 1465 662 Balance 798.544 -254.899 -298.579 Weight 70.4 kg 71.4 kg Intake: IV 768 639 314 Lactated Ringers 1,000 ml 550 400 240 @ 20 mls/hr IV .Q24H SANKET Rx#:[id number] ns cardiac output 110 140 20 ns pressure bags 108 99 54 Intake, IV Titration 56.544 81.101 49.421 Amount Insulin Regular 100 unit 16.269 In Sodium Chloride 0.9% 100 ml @ Per Protocol IV .Q0M SANKET Rx#:[id number] Milrinone-D5w Pmx 20 mg 81.101 49.421 In Dextrose/Water 1 100ml .bag @ 0.1 MCG/KG/MIN 2. 112 mls/hr IV .Q24H SANKET Rx#:[id number] Milrinone-D5w Pmx 20 mg 40.275 In Dextrose/Water 1 100ml .bag @ Per Protocol IV . Q0M SANKET Rx#:[id number] Oral 726 490 Output: Chest Tube Drainage [address] 0 rt and lt pleural 540 830 352 Urine 212 635 310 Other: Voiding Method Indwelling Catheter Indwelling Catheter Indwelling Catheter ABP, PAP, CO, CI - Last Documented Arterial Blood Pressure 107/56 Pulmonary Artery Pressure 47/25 Cardiac Output 5.3 Cardiac Index 3.2 - Exam Physical Exam: Revealed a 62-year-old female in no distress.on 6 L nasal cannula. Head: Atraumatic, normocephalic. HEENT:[Neck is supple.] [No neck masses.] [No thyromegaly.] [No JVD.]right IJ central line/cordis this noted. Chest: symmetrical chest expansion, diminished breath sounds at the bases no rhonchi and no wheezes. Cardiac Exam: [Normal S1 and S2, no S3 gallop, 2/6 systolic murmur thought the precordium. Cardiac index is 3.2 this morning. CVP is 10 Abdomen: [Soft, nontender, no megaly, no rebound, no guarding, normal bowel ирина nds.] Extremities: [No clubbing, no edema, no cyanosis.] Neurological Exam: [No focal neurologic deficit.]alert and oriented 3. Psychiatric: Normal mood, affect and normal mental status examination. Skin: No rashes. - Labs CBC & Chem 7: 05/19/23 04:02 05/19/23 04:02 Labs: Abnormal Lab Results - Last 24 Hours (Table) 05/18/23 05/18/23 05/18/23 Range/Units 13:13 16:26 19:52 WBC (3.8-10.6) k/uL RBC (3.80-5.40) m/uL Hgb (11.4-16.0) gm/dL Hct (34.0-46.0) % Plt Count (150-450) k/uL Neutrophils # (1.3-7.7) k/uL Lymphocytes # (1.0-4.8) k/uL Sodium (137-145) mmol/L BUN (7-17) mg/dL Glucose (74-99) mg/dL POC Glucose (mg/dL) 152 H 218 H 198 H (70-110) mg/dL Calcium (8.4-10.2) mg/dL Total Bilirubin (0.2-1.3) mg/dL AST (14-36) U/L ALT (4-34) U/L Total Protein (6.3-8.2) g/dL Albumin (3.5-5.0) g/dL 05/19/23 05/19/23 05/19/23 Range/Units 04:02 04:02 06:36 WBC 11.0 H (3.8-10.6) k/uL RBC 2.60 L (3.80-5.40) m/uL Hgb 8.3 L (11.4-16.0) gm/dL Hct 24.7 L (34.0-46.0) % Plt Count 82 L (150-450) k/uL Neutrophils # 9.6 H (1.3-7.7) k/uL Lymphocytes # 0.9 L (1.0-4.8) k/uL Sodium 131 L (137-145) mmol/L BUN 26 H (7-17) mg/dL Glucose 142 H (74-99) mg/dL POC Glucose (mg/dL) 141 H (70-110) mg/dL Calcium 8.2 L (8.4-10.2) mg/dL Total Bilirubin 2.6 H (0.2-1.3) mg/dL AST 355 H (14-36) U/L ALT 223 H (4-34) U/L Total Protein 5.3 L (6.3-8.2) g/dL Albumin 3.4 L (3.5-5.0) g/dL 05/19/23 Range/Units 11:43 WBC (3.8-10.6) k/uL RBC (3.80-5.40) m/uL Hgb (11.4-16.0) gm/dL Hct (34.0-46.0) % Plt Count (150-450) k/uL Neutrophils # (1.3-7.7) k/uL Lymphocytes # (1.0-4.8) k/uL Sodium (137-145) mmol/L BUN (7-17) mg/dL Glucose (74-99) mg/dL POC Glucose (mg/dL) 149 H (70-110) mg/dL Calcium (8.4-10.2) mg/dL Total Bilirubin (0.2-1.3) mg/dL AST (14-36) U/L ALT (4-34) U/L Total Protein (6.3-8.2) g/dL Albumin (3.5-5.0) g/dL Assessment and Plan Assessment: impression: Severe aortic stenosis status postoperative day #3 following an aortic valve replacement with bioprosthetic valve, aortic root enlargement, and left atrial appendage ligation. Postoperative hypotension, improving. Acute blood loss anemia, an expected outcome of surgery Moderate chronic obstructive pulmonary disease, based on preoperative PFT. Stable Thrombocytopenia, following surgery, expected. Platelets count is better today compared to yesterday 82,000 Hyperlipidemia Psoriatic arthritis GERD Remote ex-smoker Recommendation: continue to maximize medical therapy including beta blockers and aspirin, continue to hold statin for now because of elevated liver enzymes. Holding Plavix because of thrombocytopenia. Continue incentive spirometry Continue GI and DVT prophylaxis Continue insulin Continue Primacor and dopamine for now continue to monitor strictly I's and O's and daily weights. ambulation when possible. We'll continue to follow Time with Patient: Less than 30
[2023-05-19 17:14] LABS: Glucose,Whole Blood 153 mg/dL (70-110)
[2023-05-19] MEDS: DEXTROSE/WATER 1 250ML.BAG with DOPamine DRIP 800 MG IV SCH (19:35)
[2023-05-19 19:56] LABS: Glucose,Whole Blood 146 mg/dL (70-110)
[2023-05-19] MEDS: SENNOSIDES-DOCUSATE SODIUM 1 EACH TAB PO SCH (20:02)
--- NOTE | 2023-05-19 22:40 | P.PN ---
Subjective Progress Note Date: 05/17/23 Patient is a 62-year-old female with a past medical history of hyperlipidemia, rheumatoid arthritis, GERD and prior history of smoking was admitted to the hospital for elective aortic valve replacement with a bioprosthetic valve. Patient is status post aortic valve replacement with aortic root enlargement and left atrial appendage ligation. Perioperatively patient was intubated and was transferred to MICU. Patient was also hypotensive and was started on milrinone and epinephrine drips. ABG showed pH 7.26, PCO2 35 PO2 74. Laboratory pressure WBC 16.0, hemoglobin 10.5 and platelets 109 Sodium 141 potassium 4.4 chloride 113 bicarb is 24 BUN 14 and creatinine 0.64 and blood sugar 163. Magnesium 2.6 and total bilirubin level is 1.5 and AST 175 ALT 28 and alk phos 25. Albumin 3.1. Chest x-ray showed postoperative changes.. 05/17/2023 Patient is postoperative day 1. Currently lying in the bed. Awake alert and oriented x3. Patient was extubated this morning. Patient was on Cleviprex on and off overnight for hypotension. Patient is currently on milrinone drip. Also on insulin drip. Chest x-ray showed NG tube advanced with distal tip in the proximal to mid stomach. Mild basilar bibasilar atelectasis, mildly decreased. Stable mediastinal postoperative changes. Laboratory data showed WBC 9.9 hemoglobin 9.5 and platelets 98 Sodium 141 potassium 3.6 chloride 110 bicarb is 25 BUN 13 and creatinine 0.54 Blood sugar is 115. AST 612 ALT 51 and alk phos 22. Pulmonary and cardiology is on board. Current medications reviewed. Objective - Vital Signs Vital signs: Vital Signs Temp 99.5 F 05/17/23 19:00 Pulse 99 05/17/23 20:15 Resp 21 05/17/23 20:15 BP 117/59 05/17/23 17:30 Pulse Ox 94 L 05/17/23 20:15 FiO2 50 05/17/23 08:40 Intake & Output 05/17/23 05/17/23 05/18/23 06:59 18:59 06:59 Intake Total 7922.188 0879.453 143.993 Output Total 1272 505 115 Balance 886.962 9813.453 28.993 Weight 67.4 kg Intake: IV 1522 878 138 ACETAMINOPHEN IV (For NPO 100 ) 1,000 mg In Empty Bag 1 bag @ 400 mls/hr IVPB Q6HR SANKET Rx#:[id number] Albumin Human 5% 250 ml 500 In Empty Bag 1 bag @ 250 mls/hr IVPB Q1HR PRN Rx#: [id number] Lactated Ringers 1,000 ml 500 600 100 @ 50 mls/hr IV .Q20H SANKET Rx#:[id number] ceFAZolin 2 gm In Sodium 100 50 Chloride 0.9% 50 ml @ 100 mls/hr IVPB Q8HR SANKET Rx# :[id number] ns cardiac output 220 120 20 ns pressure bags 102 108 18 Intake, IV Titration 226.626 885.453 5.993 Amount Albumin Human 5% 250 ml 750 In Empty Bag 1 bag @ 250 mls/hr IVPB Q1HR PRN Rx#: [id number] Clevidipine Butyrate 25 5.033 4.767 mg In Empty Bag 1 bag @ 1 MG/HR 2 mls/hr IV .Q24H SANKET Rx#:[id number] Dexmedetomidine/0.9% NaCl 3.999 6.616 (Pmx) 400 mcg In Empty Bag 1 bag @ Titrate IV . Q0M SANKET Rx#:[id number] Insulin Regular 100 unit 51.081 25.065 5.993 In Sodium Chloride 0.9% 100 ml @ Per Protocol IV .Q0M SANKET Rx#:[id number] Lactated Ringers 1,000 ml 50 @ 50 mls/hr IV .Q20H SANKET Rx#:[id number] Milrinone-D5w Pmx 20 mg 43.873 99.005 In Dextrose/Water 1 100ml .bag @ Per Protocol IV . Q0M SANKET Rx#:[id number] propofoL 1,000 mg In 72.640 Empty Bag 1 bag @ Titrate IV .Q0M SANKET Rx#: [id number] Oral 300 Other 80 Output: Chest Tube Drainage [address] 224 50 20 rt and lt pleural 158 130 40 Urine 890 325 55 Other: Voiding Method Indwelling Catheter Indwelling Catheter Indwelling Catheter ABP, PAP, CO, CI - Last Documented Arterial Blood Pressure 144/56 Pulmonary Artery Pressure 43/14 Cardiac Output 4.5 Cardiac Index 2.7 - Exam PHYSICAL EXAMINATION: Patient is lying in the bed no acute distress, awake alert and oriented.. HEENT: Normocephalic. Neck is supple. Pupils reactive. Nostrils clear. Oral cavity is moist. Neck reveals no JVD, carotid bruits, or thyromegaly. CHEST EXAMINATION: Trachea is central. Symmetrical expansion. Bibasilar diminished sounds. No wheezing.. Chest tubes in place. Mediastinal and pleural. CARDIAC: Normal S1, S2 with no gallops. No murmurs ABDOMEN: Soft. Bowel sounds present. Nontender. No organomegaly. No abdominal bruits. Extremities: reveal no edema. No clubbing or cyanosis Neurologically awake, alert, oriented x3. Able to move extremities.. No gross focal neurological deficits noted Skin: No rash or skin lesions. Psychiatric: Coperative. Could not be assessed completely., Musculoskeletal: No joint swelling or deformity. - Labs CBC & Chem 7: 05/19/23 04:02 05/19/23 04:02 Labs: Abnormal Lab Results - Last 24 Hours (Table) 05/05/23 05/16/23 05/16/23 Range/Units 10:35 09:24 10:05 RBC (3.80-5.40) m/uL Hgb (11.4-16.0) gm/dL Hct (34.0-46.0) % Plt Count (150-450) k/uL Neutrophils # (1.3-7.7) k/uL Lymphocytes # (1.0-4.8) k/uL ABG pO2 266 H >420 H (83-108) mmHg ABG Total CO2 (19-24) mmol/L ABG O2 Saturation 99.1 H 99.6 H (94-97) % ABG Hematocrit 25 L (34.0-46.0) % ABG Sodium 132 L (135-146) mmol/L ABG Potassium 6.2 H* (3.4-4.5) mmol/L ABG Ionized Calcium 3.8 L (4.5-5.3) mg/dL ABG Glucose 114 H 139 H (75-99) mg/dL Hemoglobin 8.1 L (11.4-16.0) gm/dL Chloride (98-107) mmol/L Glucose (74-99) mg/dL POC Glucose (mg/dL) (70-110) mg/dL Calcium (8.4-10.2) mg/dL Total Bilirubin (0.2-1.3) mg/dL AST (14-36) U/L ALT (4-34) U/L Alkaline Phosphatase (38-126) U/L Total Protein (6.3-8.2) g/dL Arterial Blood Potassium 6.2 H* (3.4-4.5) mmol/L Arterial Blood Glucose 114 H 139 H (75-99) mg/dL Crossmatch See Detail 05/16/23 05/16/23 05/16/23 Range/Units 22:00 22:01 23:00 RBC 3.16 L (3.80-5.40) m/uL Hgb 10.2 L (11.4-16.0) gm/dL Hct 30.2 L (34.0-46.0) % Plt Count 90 L (150-450) k/uL Neutrophils # 8.0 H (1.3-7.7) k/uL Lymphocytes # 0.4 L (1.0-4.8) k/uL ABG pO2 (83-108) mmHg ABG Total CO2 (19-24) mmol/L ABG O2 Saturation (94-97) % ABG Hematocrit (34.0-46.0) % ABG Sodium (135-146) mmol/L ABG Potassium (3.4-4.5) mmol/L ABG Ionized Calcium (4.5-5.3) mg/dL ABG Glucose (75-99) mg/dL Hemoglobin (11.4-16.0) gm/dL Chloride (98-107) mmol/L Glucose (74-99) mg/dL POC Glucose (mg/dL) 155 H 132 H (70-110) mg/dL Calcium (8.4-10.2) mg/dL Total Bilirubin (0.2-1.3) mg/dL AST (14-36) U/L ALT (4-34) U/L Alkaline Phosphatase (38-126) U/L Total Protein (6.3-8.2) g/dL Arterial Blood Potassium (3.4-4.5) mmol/L Arterial Blood Glucose (75-99) mg/dL Crossmatch 05/16/23 05/17/23 05/17/23 Range/Units 23:56 02:10 03:06 RBC (3.80-5.40) m/uL Hgb (11.4-16.0) gm/dL Hct (34.0-46.0) % Plt Count (150-450) k/uL Neutrophils # (1.3-7.7) k/uL Lymphocytes # (1.0-4.8) k/uL ABG pO2 (83-108) mmHg ABG Total CO2 (19-24) mmol/L ABG O2 Saturation (94-97) % ABG Hematocrit (34.0-46.0) % ABG Sodium (135-146) mmol/L ABG Potassium (3.4-4.5) mmol/L ABG Ionized Calcium (4.5-5.3) mg/dL ABG Glucose (75-99) mg/dL Hemoglobin (11.4-16.0) gm/dL Chloride (98-107) mmol/L Glucose (74-99) mg/dL POC Glucose (mg/dL) 117 H 154 H 144 H (70-110) mg/dL Calcium (8.4-10.2) mg/dL Total Bilirubin (0.2-1.3) mg/dL AST (14-36) U/L ALT (4-34) U/L Alkaline Phosphatase (38-126) U/L Total Protein (6.3-8.2) g/dL Arterial Blood Potassium (3.4-4.5) mmol/L Arterial Blood Glucose (75-99) mg/dL Crossmatch 05/17/23 05/17/23 05/17/23 Range/Units 04:00 04:00 04:07 RBC 3.00 L (3.80-5.40) m/uL Hgb 9.5 L (11.4-16.0) gm/dL Hct 28.5 L (34.0-46.0) % Plt Count 98 L (150-450) k/uL Neutrophils # 8.9 H (1.3-7.7) k/uL Lymphocytes # 0.5 L (1.0-4.8) k/uL ABG pO2 (83-108) mmHg ABG Total CO2 26 H (19-24) mmol/L ABG O2 Saturation 98.2 H (94-97) % ABG Hematocrit (34.0-46.0) % ABG Sodium (135-146) mmol/L ABG Potassium (3.4-4.5) mmol/L ABG Ionized Calcium (4.5-5.3) mg/dL ABG Glucose (75-99) mg/dL Hemoglobin (11.4-16.0) gm/dL Chloride 110 H (98-107) mmol/L Glucose 115 H (74-99) mg/dL POC Glucose (mg/dL) (70-110) mg/dL Calcium 7.9 L (8.4-10.2) mg/dL Total Bilirubin 1.5 H (0.2-1.3) mg/dL AST 612 H (14-36) U/L ALT 51 H (4-34) U/L Alkaline Phosphatase 22 L (38-126) U/L Total Protein 5.4 L (6.3-8.2) g/dL Arterial Blood Potassium (3.4-4.5) mmol/L Arterial Blood Glucose (75-99) mg/dL Crossmatch 05/17/23 05/17/23 05/17/23 Range/Units 04:09 07:00 07:58 RBC (3.80-5.40) m/uL Hgb (11.4-16.0) gm/dL Hct (34.0-46.0) % Plt Count (150-450) k/uL Neutrophils # (1.3-7.7) k/uL Lymphocytes # (1.0-4.8) k/uL ABG pO2 (83-108) mmHg ABG Total CO2 (19-24) mmol/L ABG O2 Saturation (94-97) % ABG Hematocrit (34.0-46.0) % ABG Sodium (135-146) mmol/L ABG Potassium (3.4-4.5) mmol/L ABG Ionized Calcium (4.5-5.3) mg/dL ABG Glucose (75-99) mg/dL Hemoglobin (11.4-16.0) gm/dL Chloride (98-107) mmol/L Glucose (74-99) mg/dL POC Glucose (mg/dL) 130 H 124 H 116 H (70-110) mg/dL Calcium (8.4-10.2) mg/dL Total Bilirubin (0.2-1.3) mg/dL AST (14-36) U/L ALT (4-34) U/L Alkaline Phosphatase (38-126) U/L Total Protein (6.3-8.2) g/dL Arterial Blood Potassium (3.4-4.5) mmol/L Arterial Blood Glucose (75-99) mg/dL Crossmatch 05/17/23 05/17/23 05/17/23 Range/Units 08:56 09:44 11:00 RBC (3.80-5.40) m/uL Hgb (11.4-16.0) gm/dL Hct (34.0-46.0) % Plt Count (150-450) k/uL Neutrophils # (1.3-7.7) k/uL Lymphocytes # (1.0-4.8) k/uL ABG pO2 (83-108) mmHg ABG Total CO2 26 H (19-24) mmol/L ABG O2 Saturation 97.8 H (94-97) % ABG Hematocrit (34.0-46.0) % ABG Sodium (135-146) mmol/L ABG Potassium (3.4-4.5) mmol/L ABG Ionized Calcium (4.5-5.3) mg/dL ABG Glucose (75-99) mg/dL Hemoglobin (11.4-16.0) gm/dL Chloride (98-107) mmol/L Glucose (74-99) mg/dL POC Glucose (mg/dL) 117 H 122 H (70-110) mg/dL Calcium (8.4-10.2) mg/dL Total Bilirubin (0.2-1.3) mg/dL AST (14-36) U/L ALT (4-34) U/L Alkaline Phosphatase (38-126) U/L Total Protein (6.3-8.2) g/dL Arterial Blood Potassium (3.4-4.5) mmol/L Arterial Blood Glucose (75-99) mg/dL Crossmatch 05/17/23 05/17/23 05/17/23 Range/Units 11:59 13:37 14:59 RBC (3.80-5.40) m/uL Hgb (11.4-16.0) gm/dL Hct (34.0-46.0) % Plt Count (150-450) k/uL Neutrophils # (1.3-7.7) k/uL Lymphocytes # (1.0-4.8) k/uL ABG pO2 (83-108) mmHg ABG Total CO2 (19-24) mmol/L ABG O2 Saturation (94-97) % ABG Hematocrit (34.0-46.0) % ABG Sodium (135-146) mmol/L ABG Potassium (3.4-4.5) mmol/L ABG Ionized Calcium (4.5-5.3) mg/dL ABG Glucose (75-99) mg/dL Hemoglobin (11.4-16.0) gm/dL Chloride (98-107) mmol/L Glucose (74-99) mg/dL POC Glucose (mg/dL) 123 H 120 H 113 H (70-110) mg/dL Calcium (8.4-10.2) mg/dL Total Bilirubin (0.2-1.3) mg/dL AST (14-36) U/L ALT (4-34) U/L Alkaline Phosphatase (38-126) U/L Total Protein (6.3-8.2) g/dL Arterial Blood Potassium (3.4-4.5) mmol/L Arterial Blood Glucose (75-99) mg/dL Crossmatch 05/17/23 05/17/23 05/17/23 Range/Units 15:57 17:04 18:12 RBC (3.80-5.40) m/uL Hgb (11.4-16.0) gm/dL Hct (34.0-46.0) % Plt Count (150-450) k/uL Neutrophils # (1.3-7.7) k/uL Lymphocytes # (1.0-4.8) k/uL ABG pO2 (83-108) mmHg ABG Total CO2 (19-24) mmol/L ABG O2 Saturation (94-97) % ABG Hematocrit (34.0-46.0) % ABG Sodium (135-146) mmol/L ABG Potassium (3.4-4.5) mmol/L ABG Ionized Calcium (4.5-5.3) mg/dL ABG Glucose (75-99) mg/dL Hemoglobin (11.4-16.0) gm/dL Chloride (98-107) mmol/L Glucose (74-99) mg/dL POC Glucose (mg/dL) 132 H 127 H 121 H (70-110) mg/dL Calcium (8.4-10.2) mg/dL Total Bilirubin (0.2-1.3) mg/dL AST (14-36) U/L ALT (4-34) U/L Alkaline Phosphatase (38-126) U/L Total Protein (6.3-8.2) g/dL Arterial Blood Potassium (3.4-4.5) mmol/L Arterial Blood Glucose (75-99) mg/dL Crossmatch 05/17/23 05/17/23 Range/Units 20:09 21:10 RBC (3.80-5.40) m/uL Hgb (11.4-16.0) gm/dL Hct (34.0-46.0) % Plt Count (150-450) k/uL Neutrophils # (1.3-7.7) k/uL Lymphocytes # (1.0-4.8) k/uL ABG pO2 (83-108) mmHg ABG Total CO2 (19-24) mmol/L ABG O2 Saturation (94-97) % ABG Hematocrit (34.0-46.0) % ABG Sodium (135-146) mmol/L ABG Potassium (3.4-4.5) mmol/L ABG Ionized Calcium (4.5-5.3) mg/dL ABG Glucose (75-99) mg/dL Hemoglobin (11.4-16.0) gm/dL Chloride (98-107) mmol/L Glucose (74-99) mg/dL POC Glucose (mg/dL) 117 H 138 H (70-110) mg/dL Calcium (8.4-10.2) mg/dL Total Bilirubin (0.2-1.3) mg/dL AST (14-36) U/L ALT (4-34) U/L Alkaline Phosphatase (38-126) U/L Total Protein (6.3-8.2) g/dL Arterial Blood Potassium (3.4-4.5) mmol/L Arterial Blood Glucose (75-99) mg/dL Crossmatch Assessment and Plan Assessment: Severe aortic valve stenosis status post aortic valve replacement with bioprosthetic valve and ligation of left atrial appendage. Patient is s/p surgery on 05/16/2023.Postoperative day 1. Perioperative hypotension requiring pressor support. Currently on milrinone drip. Was also on norepinephrine. Hyperlipidemia History of rheumatoid arthritis History of psoriasis GERD Prior history of smoking DVT prophylaxis. Plan: Patient is currently in the MICU. Patient was extubated currently.. Patient is On milrinone drip.. Patient is on insulin drip for better blood sugar control. GI and DVT prophylaxis. Patient will be continued on aspirin and statins. CT surgery and pulmonary is on board. We will continue to follow and further recommendations based on clinical course. Time with Patient: Greater than 30
--- NOTE | 2023-05-19 22:43 | P.PN ---
Subjective Progress Note Date: 05/18/23 Patient is a 62-year-old female with a past medical history of hyperlipidemia, rheumatoid arthritis, GERD and prior history of smoking was admitted to the hospital for elective aortic valve replacement with a bioprosthetic valve. Patient is status post aortic valve replacement with aortic root enlargement and left atrial appendage ligation. Perioperatively patient was intubated and was transferred to MICU. Patient was also hypotensive and was started on milrinone and epinephrine drips. ABG showed pH 7.26, PCO2 35 PO2 74. Laboratory pressure WBC 16.0, hemoglobin 10.5 and platelets 109 Sodium 141 potassium 4.4 chloride 113 bicarb is 24 BUN 14 and creatinine 0.64 and blood sugar 163. Magnesium 2.6 and total bilirubin level is 1.5 and AST 175 ALT 28 and alk phos 25. Albumin 3.1. Chest x-ray showed postoperative changes.. 05/17/2023 Patient is postoperative day 1. Currently lying in the bed. Awake alert and oriented x3. Patient was extubated this morning. Patient was on Cleviprex on and off overnight for hypotension. Patient is currently on milrinone drip. Also on insulin drip. Chest x-ray showed NG tube advanced with distal tip in the proximal to mid stomach. Mild basilar bibasilar atelectasis, mildly decreased. Stable mediastinal postoperative changes. Laboratory data showed WBC 9.9 hemoglobin 9.5 and platelets 98 Sodium 141 potassium 3.6 chloride 110 bicarb is 25 BUN 13 and creatinine 0.54 Blood sugar is 115. AST 612 ALT 51 and alk phos 22. Pulmonary and cardiology is on board. 05/18/2023 Patient is currently sitting in the chair. Postoperative day 2. No complaints of chest pain. Soreness at the surgical site. No complaints of worsening shortness of breath. Currently on oxygen via nasal cannula. Patient does complain of dizziness when she gets up. No nausea or vomiting. Patient is being continued milrinone drip. Chest x-ray showed postoperative changes stable bilateral consolidation, small effusion and reducing mild venous congestion. Laboratory data showed WBC 13.0 hemoglobin 8.6 and platelets 78. Sodium 138 potassium 3.9 chloride 106 bicarb is 25 BUN 21 creatinine 0.59. AST 398 ALT 125 alk phos 23. Lasix on hold due to thrombocytopenia. Current medications reviewed. Objective - Vital Signs Vital signs: Vital Signs Temp 99.1 F 05/18/23 20:00 Pulse 82 05/18/23 21:30 Resp 22 05/18/23 21:30 BP 93/48 05/18/23 15:00 Pulse Ox 92 L 05/18/23 21:30 FiO2 50 05/17/23 08:40 Intake & Output 05/18/23 05/18/23 05/19/23 06:59 18:59 06:59 Intake Total 3954.764 6412.544 640.101 Output Total 420 752 300 Balance 958.622 798.544 340.101 Weight 70.4 kg 70.4 kg Intake: IV 768 768 69 Lactated Ringers 1,000 ml 600 550 40 @ 20 mls/hr IV .Q24H SANKET Rx#:[id number] ns cardiac output 60 110 20 ns pressure bags 108 108 9 Intake, IV Titration 110.622 56.544 81.101 Amount Insulin Regular 100 unit 22.179 16.269 In Sodium Chloride 0.9% 100 ml @ Per Protocol IV .Q0M SANKET Rx#:[id number] Milrinone-D5w Pmx 20 mg 81.101 In Dextrose/Water 1 100ml .bag @ 0.2 MCG/KG/MIN 4. 224 mls/hr IV .T26P21C SANKET Rx#:[id number] Milrinone-D5w Pmx 20 mg 88.443 40.275 In Dextrose/Water 1 100ml .bag @ Per Protocol IV . Q0M SANKET Rx#:[id number] Oral 500 726 490 Output: Chest Tube Drainage [address] 30 0 rt and lt pleural 130 540 200 Urine 260 212 100 Other: Voiding Method Indwelling Catheter Indwelling Catheter ABP, PAP, CO, CI - Last Documented Arterial Blood Pressure 106/54 Pulmonary Artery Pressure 42/20 Cardiac Output 4.4 Cardiac Index 2.6 - Exam PHYSICAL EXAMINATION: Patient is lying in the bed no acute distress, awake alert and oriented.. HEENT: Normocephalic. Neck is supple. Pupils reactive. Nostrils clear. Oral cavity is moist. Neck reveals no JVD, carotid bruits, or thyromegaly. CHEST EXAMINATION: Trachea is central. Symmetrical expansion. Bibasilar diminished sounds. No wheezing.. Chest tubes in place. Mediastinal and pleural. CARDIAC: Normal S1, S2 with no gallops. No murmurs ABDOMEN: Soft. Bowel sounds present. Nontender. No organomegaly. No abdominal bruits. Extremities: reveal no edema. No clubbing or cyanosis Neurologically awake, alert, oriented x3. Able to move extremities.. No gross focal neurological deficits noted Skin: No rash or skin lesions. Psychiatric: Coperative. Could not be assessed completely., Musculoskeletal: No joint swelling or deformity. - Labs CBC & Chem 7: 05/19/23 04:02 05/19/23 04:02 Labs: Abnormal Lab Results - Last 24 Hours (Table) 05/17/23 05/17/23 05/18/23 Range/Units 22:57 23:52 01:50 WBC (3.8-10.6) k/uL RBC (3.80-5.40) m/uL Hgb (11.4-16.0) gm/dL Hct (34.0-46.0) % Plt Count (150-450) k/uL Neutrophils # (1.3-7.7) k/uL BUN (7-17) mg/dL POC Glucose (mg/dL) 118 H 117 H 135 H (70-110) mg/dL Calcium (8.4-10.2) mg/dL Total Bilirubin (0.2-1.3) mg/dL AST (14-36) U/L ALT (4-34) U/L Alkaline Phosphatase (38-126) U/L Total Protein (6.3-8.2) g/dL 05/18/23 05/18/23 05/18/23 Range/Units 04:00 04:00 04:07 WBC 13.0 H (3.8-10.6) k/uL RBC 2.72 L (3.80-5.40) m/uL Hgb 8.6 L (11.4-16.0) gm/dL Hct 25.9 L (34.0-46.0) % Plt Count 78 L (150-450) k/uL Neutrophils # 10.9 H (1.3-7.7) k/uL BUN 21 H (7-17) mg/dL POC Glucose (mg/dL) 114 H (70-110) mg/dL Calcium 8.2 L (8.4-10.2) mg/dL Total Bilirubin 2.0 H (0.2-1.3) mg/dL AST 398 H (14-36) U/L ALT 125 H (4-34) U/L Alkaline Phosphatase 23 L (38-126) U/L Total Protein 5.3 L (6.3-8.2) g/dL 05/18/23 05/18/23 05/18/23 Range/Units 06:07 06:24 07:05 WBC (3.8-10.6) k/uL RBC (3.80-5.40) m/uL Hgb (11.4-16.0) gm/dL Hct (34.0-46.0) % Plt Count (150-450) k/uL Neutrophils # (1.3-7.7) k/uL BUN (7-17) mg/dL POC Glucose (mg/dL) 69 L 142 H 172 H (70-110) mg/dL Calcium (8.4-10.2) mg/dL Total Bilirubin (0.2-1.3) mg/dL AST (14-36) U/L ALT (4-34) U/L Alkaline Phosphatase (38-126) U/L Total Protein (6.3-8.2) g/dL 05/18/23 05/18/23 05/18/23 Range/Units 08:15 09:20 10:04 WBC (3.8-10.6) k/uL RBC (3.80-5.40) m/uL Hgb (11.4-16.0) gm/dL Hct (34.0-46.0) % Plt Count (150-450) k/uL Neutrophils # (1.3-7.7) k/uL BUN (7-17) mg/dL POC Glucose (mg/dL) 204 H 188 H 167 H (70-110) mg/dL Calcium (8.4-10.2) mg/dL Total Bilirubin (0.2-1.3) mg/dL AST (14-36) U/L ALT (4-34) U/L Alkaline Phosphatase (38-126) U/L Total Protein (6.3-8.2) g/dL 05/18/23 05/18/23 05/18/23 Range/Units 11:24 11:59 13:13 WBC (3.8-10.6) k/uL RBC (3.80-5.40) m/uL Hgb (11.4-16.0) gm/dL Hct (34.0-46.0) % Plt Count (150-450) k/uL Neutrophils # (1.3-7.7) k/uL BUN (7-17) mg/dL POC Glucose (mg/dL) 142 H 147 H 152 H (70-110) mg/dL Calcium (8.4-10.2) mg/dL Total Bilirubin (0.2-1.3) mg/dL AST (14-36) U/L ALT (4-34) U/L Alkaline Phosphatase (38-126) U/L Total Protein (6.3-8.2) g/dL 05/18/23 05/18/23 Range/Units 16:26 19:52 WBC (3.8-10.6) k/uL RBC (3.80-5.40) m/uL Hgb (11.4-16.0) gm/dL Hct (34.0-46.0) % Plt Count (150-450) k/uL Neutrophils # (1.3-7.7) k/uL BUN (7-17) mg/dL POC Glucose (mg/dL) 218 H 198 H (70-110) mg/dL Calcium (8.4-10.2) mg/dL Total Bilirubin (0.2-1.3) mg/dL AST (14-36) U/L ALT (4-34) U/L Alkaline Phosphatase (38-126) U/L Total Protein (6.3-8.2) g/dL Assessment and Plan Assessment: Severe aortic valve stenosis status post aortic valve replacement with bioprosthetic valve and ligation of left atrial appendage. Patient is s/p surgery on 05/16/2023.Postoperative day 2. Perioperative hypotension requiring pressor support. Currently on milrinone dr dunaway. Was also on norepinephrine.Currently weaned off. Hyperlipidemia History of rheumatoid arthritis History of psoriasis GERD Prior history of smoking DVT prophylaxis. Plan: Patient is currently in the MICU. Patient was extubated currently.. Weaning off pressor support... Patient is on insulin drip for better blood sugar control. GI and DVT prophylaxis. Patient will be continued on BB aspirin and statins. CT surgery and pulmonary is on board. We will continue to follow and further recommendations based on clinical course. Time with Patient: Greater than 30
--- NOTE | 2023-05-19 22:47 | P.PN ---
Subjective Progress Note Date: 05/19/23 Patient is a 62-year-old female with a past medical history of hyperlipidemia, rheumatoid arthritis, GERD and prior history of smoking was admitted to the hospital for elective aortic valve replacement with a bioprosthetic valve. Patient is status post aortic valve replacement with aortic root enlargement and left atrial appendage ligation. Perioperatively patient was intubated and was transferred to MICU. Patient was also hypotensive and was started on milrinone and epinephrine drips. ABG showed pH 7.26, PCO2 35 PO2 74. Laboratory pressure WBC 16.0, hemoglobin 10.5 and platelets 109 Sodium 141 potassium 4.4 chloride 113 bicarb is 24 BUN 14 and creatinine 0.64 and blood sugar 163. Magnesium 2.6 and total bilirubin level is 1.5 and AST 175 ALT 28 and alk phos 25. Albumin 3.1. Chest x-ray showed postoperative changes.. 05/17/2023 Patient is postoperative day 1. Currently lying in the bed. Awake alert and oriented x3. Patient was extubated this morning. Patient was on Cleviprex on and off overnight for hypotension. Patient is currently on milrinone drip. Also on insulin drip. Chest x-ray showed NG tube advanced with distal tip in the proximal to mid stomach. Mild basilar bibasilar atelectasis, mildly decreased. Stable mediastinal postoperative changes. Laboratory data showed WBC 9.9 hemoglobin 9.5 and platelets 98 Sodium 141 potassium 3.6 chloride 110 bicarb is 25 BUN 13 and creatinine 0.54 Blood sugar is 115. AST 612 ALT 51 and alk phos 22. Pulmonary and cardiology is on board. 05/18/2023 Patient is currently sitting in the chair. Postoperative day 2. No complaints of chest pain. Soreness at the surgical site. No complaints of worsening shortness of breath. Currently on oxygen via nasal cannula. Patient does complain of dizziness when she gets up. No nausea or vomiting. Patient is being continued milrinone drip. Chest x-ray showed postoperative changes stable bilateral consolidation, small effusion and reducing mild venous congestion. Laboratory data showed WBC 13.0 hemoglobin 8.6 and platelets 78. Sodium 138 potassium 3.9 chloride 106 bicarb is 25 BUN 21 creatinine 0.59. AST 398 ALT 125 alk phos 23. Lasix on hold due to thrombocytopenia. 05/19/2023 Patient is currently sitting in a chair. Awake alert and oriented x3. Dizziness is better compared to yesterday. Currently on oxygen via nasal cannula. No complaints of chest pain or tightness. No nausea vomiting abdominal pain. Also able to tolerate oral diet. Patient was started on dobutamine drip due to decreased cardiac output and is also on milrinone drip. Chest x-ray showed cardiomegaly and postoperative changes without any significant change. Laboratory data showed WBC 11.0 hemoglobin 8.3 and platelets 82 Sodium 131 potassium 4.4 chloride 102 bicarb is 25 BUN 26 and creatinine 0.62. Calcium 8.2. AST 355 ALT 223 and alk phos 41. Cardiology and pulmonary and CT surgery is on board. Current medications reviewed. Objective - Vital Signs Vital signs: Vital Signs Temp 98.7 F 05/19/23 20:00 Pulse 98 05/19/23 22:30 Resp 22 05/19/23 22:30 BP 93/48 05/19/23 19:00 Pulse Ox 93 L 05/19/23 22:30 FiO2 50 05/17/23 08:40 Intake & Output 05/19/23 05/19/23 05/20/23 06:59 18:59 06:59 Intake Total 1210.101 697.421 157 Output Total 1465 1222 315 Balance -254.899 -524.579 -158 Weight 71.4 kg Intake: IV 639 648 157 Lactated Ringers 1,000 ml 400 480 130 @ 20 mls/hr IV .Q24H [facility] Rx#:[id number] ns cardiac output 140 60 ns pressure bags 99 108 27 Intake, IV Titration 81.101 49.421 Amount Milrinone-D5w Pmx 20 mg 81.101 49.421 In Dextrose/Water 1 100ml .bag @ 0.1 MCG/KG/MIN 2. 112 mls/hr IV .Q24H [facility] Rx#:[id number] Oral 490 Output: Chest Tube Drainage 830 647 80 Chest Tube Left Lateral 110 40 Chest Chest Tube Right Anterior 35 40 Chest rt and lt pleural 830 502 Urine 635 575 235 Other: Voiding Method Indwelling Catheter Indwelling Catheter Indwelling Catheter ABP, PAP, CO, CI - Last Documented Arterial Blood Pressure 127/62 Pulmonary Artery Pressure 36/20 Cardiac Output 4.1 Cardiac Index 2.1 - Exam PHYSICAL EXAMINATION: Patient is lying in the bed no acute distress, awake alert and oriented.. HEENT: Normocephalic. Neck is supple. Pupils reactive. Nostrils clear. Oral cavity is moist. Neck reveals no JVD, carotid bruits, or thyromegaly. CHEST EXAMINATION: Trachea is central. Symmetrical expansion. Bibasilar diminished sounds. No wheezing.. Chest tubes in place. Mediastinal and pleural. CARDIAC: Normal S1, S2 with no gallops. No murmurs ABDOMEN: Soft. Bowel sounds present. Nontender. No organomegaly. No abdominal bruits. Extremities: reveal no edema. No clubbing or cyanosis Neurologically awake, alert, oriented x3. Able to move extremities.. No gross focal neurological deficits noted Skin: No rash or skin lesions. Psychiatric: Coperative. Could not be assessed completely., Musculoskeletal: No joint swelling or deformity. - Labs CBC & Chem 7: 05/19/23 04:02 05/19/23 04:02 Labs: Abnormal Lab Results - Last 24 Hours (Table) 05/19/23 05/19/23 05/19/23 Range/Units 04:02 04:02 06:36 WBC 11.0 H (3.8-10.6) k/uL RBC 2.60 L (3.80-5.40) m/uL Hgb 8.3 L (11.4-16.0) gm/dL Hct 24.7 L (34.0-46.0) % Plt Count 82 L (150-450) k/uL Neutrophils # 9.6 H (1.3-7.7) k/uL Lymphocytes # 0.9 L (1.0-4.8) k/uL Sodium 131 L (137-145) mmol/L BUN 26 H (7-17) mg/dL Glucose 142 H (74-99) mg/dL POC Glucose (mg/dL) 141 H (70-110) mg/dL Calcium 8.2 L (8.4-10.2) mg/dL Total Bilirubin 2.6 H (0.2-1.3) mg/dL AST 355 H (14-36) U/L ALT 223 H (4-34) U/L Total Protein 5.3 L (6.3-8.2) g/dL Albumin 3.4 L (3.5-5.0) g/dL 05/19/23 05/19/23 05/19/23 Range/Units 11:43 17:13 19:54 WBC (3.8-10.6) k/uL RBC (3.80-5.40) m/uL Hgb (11.4-16.0) gm/dL Hct (34.0-46.0) % Plt Count (150-450) k/uL Neutrophils # (1.3-7.7) k/uL Lymphocytes # (1.0-4.8) k/uL Sodium (137-145) mmol/L BUN (7-17) mg/dL Glucose (74-99) mg/dL POC Glucose (mg/dL) 149 H 153 H 146 H (70-110) mg/dL Calcium (8.4-10.2) mg/dL Total Bilirubin (0.2-1.3) mg/dL AST (14-36) U/L ALT (4-34) U/L Total Protein (6.3-8.2) g/dL Albumin (3.5-5.0) g/dL Assessment and Plan Assessment: Severe aortic valve stenosis status post aortic valve replacement with bioprosthetic valve and ligation of left atrial appendage. Patient is s/p surgery on 05/16/2023.Postoperative day 3. Perioperative hypotension requiring pressor support. Currently on milrinone drip. Start dobutamine drip on 05/19/2023. Was also on norepinephrine and Evaristo- Synephrine. Hyperlipidemia History of rheumatoid arthritis History of psoriasis GERD Prior history of smoking DVT prophylaxis. Plan: Patient is currently in the MICU. Patient was extubated on day 1..Patient was started on dobutamine drip due to decreased cardiac output. Also low-dose milrinone drip... Patient is on insulin drip for better blood sugar control.Will be changed to insulin sliding scale. GI and DVT prophylaxis. Patient will be continued on BB aspirin and statins. CT surgery and pulmonary is on board. We will continue to follow and further recommendations based on clinical course. Time with Patient: Greater than 30
[2023-05-20] MEDS: IPRATROPIUM-ALBUTEROL 3 ML NEB INHALATION SCH ×5 (00:24→19:23)
[2023-05-20 04:14] LABS: HCT 23.7 % (34.0-46.0); HGB 8.3 gm/dL (11.4-16.0); MCH 33.8 pg (25.0-35.0); MCHC 35.1 g/dL (31.0-37.0); MCV 96.4 fL (80.0-100.0); Mean Platelet Volume 10.3; RBC 2.46 m/uL (3.80-5.40); RDW 13.3 % (11.5-15.5); WBC 9.6 k/uL (3.8-10.6)
[2023-05-20 04:15] LABS: Platelet Count 92 k/uL (150-450)
[2023-05-20 04:23] LABS: Potassium 4.3 mmol/L (3.5-5.1)
[2023-05-20 04:24] LABS: ALT 239 U/L (4-34); AST 207 U/L (14-36); African American GFR (CKD) >90 (>60 ml/min/1.73 sqM); Alkaline Phosphatase 105 U/L (38-126); Anion Gap 5 mmol/L; Blood Urea Nitrogen 23 mg/dL (7-17); Carbon Dioxide 24 mmol/L (22-30); Chloride 102 mmol/L (98-107); Glucose 110 mg/dL (74-99); Magnesium 2.4 mg/dL (1.6-2.3); Non-African American GFR(CKD) >90 (>60 ml/min/1.73 sqM); Sodium 131 mmol/L (137-145); Total Protein 5.1 g/dL (6.3-8.2)
[2023-05-20] MEDS: MILRINONE-D5W PMX 20 MG in DEXTROSE/WATER 1 100ML.BAG IV SCH (06:25)
[2023-05-20] MEDS: KETOROLAC 15 MG/ML 1 ML VIAL IVP SCH ×3 (06:28→17:40)
[2023-05-20] MEDS: PANTOPRAZOLE 40 MG TABLET PO SCH (06:35)
[2023-05-20] MEDS: traMADol 50 MG TAB PO PRN (06:35)
[2023-05-20] MEDS: INSULIN ASPART (NovoLOG) 100 UNIT/ML VIAL SQ SCH ×4 (06:52→20:14)
[2023-05-20 06:53] LABS: Glucose,Whole Blood 116 mg/dL (70-110)
[2023-05-20] MEDS: LACTATED RINGERS 1,000 ML IV SCH (06:59)
[2023-05-20] MEDS: ONDANSETRON 4 MG/2 ML VIAL IVP PRN (07:28)
[2023-05-20] MEDS: HEPARIN SODIUM,PORCINE/PF 5,000 UNIT/0.5 ML SYRINGE SQ SCH ×2 (07:46→15:48)
[2023-05-20] MEDS ORDERED: FUROSEMIDE 10 MG/ML 2 ML VIAL IV STA (07:46)
[2023-05-20] MEDS: CLOPIDOGREL 75 MG TAB PO SCH (08:05)
[2023-05-20] MEDS: METOPROLOL TARTRATE 12.5 MG TAB PO SCH ×3 (08:05→21:06)
[2023-05-20] MEDS: INSULIN DETEMIR (LEVEMIR) 100 UNIT/ML SYR SQ SCH (08:06)
[2023-05-20] MEDS: ASPIRIN 81 MG PO SCH (08:06)
[2023-05-20] MEDS: MUPIROCIN 2% OINT 22 GM TUBE NASAL SCH ×2 (08:11→21:06)
--- NOTE | 2023-05-20 08:37 | XR ---
EXAMINATION TYPE: XR chest 1V portable DATE OF EXAM: 05/20/2023 COMPARISON: 05/19/2023 HISTORY: Postop TECHNIQUE: Single frontal view of the chest is obtained. FINDINGS: [place] catheter is been removed. No sizable pneumothorax. Cardiomegaly with bilateral c onsolidation small effusion. Mild venous congestion. Chest tube is stable. Posterior neck pain and ao rtic valve replacement IMPRESSION: 1. Bilateral infiltrate and small effusion correlate for CHF.
--- NOTE | 2023-05-20 11:17 | P.PN ---
Subjective Progress Note Date: 05/20/23 Principal diagnosis: POD #4, status post aortic valve replacement using 23 mm Kent Inspiris bioprosthetic valve and Abdiaziz Islas annular enlargement technique, ligation of left atrial appendage using a 35 mm AtriClip, epi-aortic ultrasound, intraoperative transesophageal echocardiogram I am seeing this patient in consultation today 05/17/2023 status postoperative day #1 following an aortic valve replacement with aortic root enlargement and left atrial appendage ligation. Patient is a 62-year-old white female with past medical history significant for severe aortic stenosis, hyperlipidemia, psoriatic arthritis, GERD, and is a remote ex-smoker. Patient did have a preoperative spirometry which showed moderate obstructive disease with an FEV1 61% of predicted. FEV1 to FVC ratio was 64%. 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 Patient had been reporting ongoing and intermittent chest discomfort over the last year. She did have a recent heart catheterization and BRENDA on April 11 which showed mild nonobstructive coronary artery disease, aneurysmal dilation of ascending aorta, 3+ aortic regurgitation, and severe aortic stenosis. The patient was scheduled for an elective open-heart which took place yesterday. The patient underwent aortic valve replacement with aortic root enlargement and left atrial appendage ligation. This was complicated by some perioperative hypotension and increased pulmonary artery pressures. The patient was given 2.7 L of crystalloid, 2 albumin, and 450 ML's of Cell Saver intraoperatively. The patient was initially placed on a combination of milrinone, epinephrine, and Evaristo-Synephrine. The patient was then transferred to the intensive care unit. Patient is currently lying in bed, intubated to the mechanical ventilator, and appears fairly comfortable. Current ventilator settings are assist control, respiratory rate 22, tidal volume 400, FiO2 50%, and a PEEP of 10. Postoperatively, the patient had combined respiratory and m etabolic acidosis. Respiratory rate was then increased to 22, and the patient was given one amp of sodium bicarb. Most recent ABGs after ventilator changes show a pO2 of 259, pCO2 of 38, and pH of 7.38. This was done on a FiO2 of 80%. Patient is currently synchronous with the mechanical ventilator and sedated on propofol infusing at 10 mcg/kg/m. This is being weaned off. Currently, the patient will open her eyes to verbal stimulation, but does not follow any commands. Peak pressure is 27 and plateau pressure is 20. Postoperative chest x-ray shows endotracheal tube 4 cm from the yehuda, NG tube with a side port at the GE junction and could be advanced approximately 5 cm, bilateral pleural chest tubes, a mediastinal chest tube, and other postsurgical changes. No pneumothoraces. Patient's blood pressure is normotensive, and the Evaristo-Synephrine and epinephrine were weaned off. Actually, clevidipine had to be temporarily started for hypertension. Currently, the patient has milrinone infusing at 0.375 mcg/kg/m. Most recent CO/CI are 3.3 and 2 respectively. PA pressures are 30/19. Lactate Ringer's is also infusing at 50 ML's per hour. Urine output has been adequate in the order of 80-100 ML's per hour. Insulin is infusing per protocol. Most recent CBC has a WBC count of 8.7, hemoglobin 10.2, hematocrit 30.2, platelets 90. Mediastinal chest tube has 250 ML's of serosanguineous output. There is no air leak. Right and left pleural chest tubes are Y-d together and have 190 ML's of serosanguineous output. There is a small intermittent air leak. Postoperative BMP has sodium 141, potassium 4.4, chloride 113, serum bicarb 24, BUN 14, creatinine 0.64, glucose 163. Currently, we are working on weaning off the sedation in preparation for possible extubation later this morning. The patient is currently too sedated to attempt SBT at this time. Patient was reevaluated today on 05/18/2023, patient is sitting in her recliner at a bedside chair, she was successfully extubated yesterday at 10 AM. Pulmonary-nixon, the patient seems to be doing well, she is on few liters nasal cannula, does not seem to be in any distress. Her cardiac index today is 2.4, continues to have internal jugular [place]/cor this in the right IJ, she continues to have a right radial arterial line, mediastinal right and left pleural chest tubes also remained.chest x-ray showed mostly postoperative changes and bibasilar atelectasis with small pleural effusions. Labs were reviewed WBC count is 13.0 hemoglobin is 8. Platelets are 78,000.basic metabolic profile is normal renal profile is normal liver enzymes are elevated but improving compared to yesterday. Patient was reevaluated today on 05/19/2023, patient is doing fairly well, does not seem to be in any distress, she does have some postoperative pain but fairly well controlled. She is hemodynamically stable, remains in sinus rhythm, Primacor still infusing at 0.2 mcg/kg/h, she is also on a low-dose dopamine for orthostatic hypotension and poor urine output she did have significant amount of serosanguineous drainage from her left-sided chest tube over the last 24 hours roughly about 1.3 L. She remains on 6 L nasal cannula, O2 saturation is in the low 90s. There is scant is 11 hemoglobin is 8.3 left first are normal renal profile is normal liver enzymes are elevated. Chest x-ray showed cardiomegaly and postoperative changes, otherwise unremarkable 3 today on 05/20/2023, patient remains in the ICU, remains on 2 L nasal cannula, she is still requiring Primacor at 0.1 mcg/kg/m, her IV fluids at KVO, patient is hemodynamically stable she does have a paced rhythm, doing better with incentive spirometry, does not seem to be in any distress. She seems to be generally weak. WBC count is 9.6 hemoglobin 8.3 electrolytes are normal renal profile is normal, liver enzymes are a bit elevated , chest x-ray showed small areas of atelectasis and small pleural effusions Objective - Vital Signs Vital signs: Vital Signs Temp 98.4 F 05/20/23 08:00 Pulse 80 05/20/23 10:00 Resp 19 05/20/23 10:00 BP 112/74 05/20/23 08:00 Pulse Ox 92 L 05/20/23 10:00 FiO2 50 05/17/23 08:40 Intake & Output 05/19/23 05/20/23 05/20/23 18:59 06:59 18:59 Intake Total 697.421 445 364 Output Total 1222 1031 1006 Balance -524.579 -586 -642 Weight 72.4 kg Intake: IV 648 445 114 Lactated Ringers 1,000 ml 480 370 90 @ 20 mls/hr IV .Q24H REPLACED BY [facility] Rx#:[id number] ns cardiac output 60 ns pressure bags 108 75 24 Intake, IV Titration 49.421 Amount Milrinone-D5w Pmx 20 mg 49.421 In Dextrose/Water 1 100ml .bag @ 0.1 MCG/KG/MIN 2. 112 mls/hr IV .Q24H REPLACED BY [facility] Rx#:[id number] Oral 250 Output: Chest Tube Drainage 647 201 76 Chest Tube Left Lateral 110 56 2 Chest Chest Tube Right Anterior 35 145 74 Chest rt and lt pleural 502 Urine 575 830 930 Other: Voiding Method Indwelling Catheter Indwelling Catheter Indwelling Catheter ABP, PAP, CO, CI - Last Documented Arterial Blood Pressure 104/53 Pulmonary Artery Pressure 36/20 Cardiac Output 4.1 Cardiac Index 2.1 - Exam Physical Exam: Revealed a 62-year-old female in no distress.on 2 L nasal cannula. Head: Atraumatic, normocephalic. HEENT:[Neck is supple.] [No neck masses.] [No thyromegaly.] [No JVD.]right IJ central line/cordis this noted. Chest: symmetrical chest expansion, diminished breath sounds at the bases no rhonchi and no wheezes. Cardiac Exam: [Normal S1 and S2, no S3 gallop, 2/6 systolic murmur thought the precordium. Abdomen: [Soft, nontender, no megaly, no rebound, no guarding, normal bowel sounds.] Extremities: [No clubbing, no edema, no cyanosis.] Neurological Exam: [No focal neurologic deficit.]alert and oriented 3. Psychiatric: Normal mood, affect and normal mental status examination. Skin: No rashes. - Labs CBC & Chem 7: 05/20/23 03:59 05/20/23 03:59 Labs: Abnormal Lab Results - Last 24 Hours (Table) 05/19/23 05/19/23 05/19/23 Range/Units 11:43 17:13 19:54 RBC (3.80-5.40) m/uL Hgb (11.4-16.0) gm/dL Hct (34.0-46.0) % Plt Count (150-450) k/uL Sodium (137-145) mmol/L BUN (7-17) mg/dL Creatinine (0.52-1.04) mg/dL Glucose (74-99) mg/dL POC Glucose (mg/dL) 149 H 153 H 146 H (70-110) mg/dL Calcium (8.4-10.2) mg/dL Magnesium (1.6-2.3) mg/dL Total Bilirubin (0.2-1.3) mg/dL AST (14-36) U/L ALT (4-34) U/L Total Protein (6.3-8.2) g/dL Albumin (3.5-5.0) g/dL 05/20/23 05/20/23 05/20/23 Range/Units 03:59 03:59 06:51 RBC 2.46 L (3.80-5.40) m/uL Hgb 8.3 L (11.4-16.0) gm/dL Hct 23.7 L (34.0-46.0) % Plt Count 92 L (150-450) k/uL Sodium 131 L (137-145) mmol/L BUN 23 H (7-17) mg/dL Creatinine 0.48 L (0.52-1.04) mg/dL Glucose 110 H (74-99) mg/dL POC Glucose (mg/dL) 116 H (70-110) mg/dL Calcium 8.0 L (8.4-10.2) mg/dL Magnesium 2.4 H (1.6-2.3) mg/dL Total Bilirubin 2.0 H (0.2-1.3) mg/dL AST 207 H (14-36) U/L ALT 239 H (4-34) U/L Total Protein 5.1 L (6.3-8.2) g/dL Albumin 3.0 L (3.5-5.0) g/dL Assessment and Plan Assessment: impression: Severe aortic stenosis status postoperative day #4 aortic valve replacement with bioprosthetic valve, aortic root enlargement, and left atrial appendage ligation. Postoperative hypotension, improving. Expected Acute blood loss anemia, an expected outcome of surgery Moderate chronic obstructive pulmonary disease, based on preoperative PFT. Stable Thrombocytopenia, following surgery, expected. Platelets count is better today compared to yesterday 82,000 Hyperlipidemia Psoriatic arthritis GERD Remote ex-smoker Recommendation: continue to maximize medical therapy including beta blockers and aspirin, continue to hold statin for now because of elevated liver enzymes. Holding Plavix because of thrombocytopenia. Continue incentive spirometry Continue GI and DVT prophylaxis Continue insulin Continue Primacor, titrate as tolerated. ambulation We'll continue to follow Time with Patient: Less than 30
[2023-05-20 11:20] LABS: Glucose,Whole Blood 110 mg/dL (70-110)
[2023-05-20] MEDS: LOSARTAN 25 MG TAB PO SCH (11:21)
[2023-05-20] MEDS: ACETAMINOPHEN TAB 325 MG TAB PO PRN ×2 (11:22→18:18)
[2023-05-20] MEDS ORDERED: ALBUMIN HUMAN 25% 50 ML in EMPTY BAG 1 BAG IVPB ONE (11:30)
[2023-05-20] MEDS: MIDODRINE 5 MG TAB PO SCH ×2 (11:35→17:40)
--- NOTE | 2023-05-20 12:20 | P.PN ---
Subjective Patient is a 62-year-old female with a past medical history of hyperlipidemia, rheumatoid arthritis, GERD and prior history of smoking was admitted to the hospital for elective aortic valve replacement with a bioprosthetic valve. Patient is status post aortic valve replacement with aortic root enlargement and left atrial appendage ligation. Perioperatively patient was intubated and was transferred to MICU. Patient was also hypotensive and was started on milrinone and epinephrine drips. ABG showed pH 7.26, PCO2 35 PO2 74. Laboratory pressure WBC 16.0, hemoglobin 10.5 and platelets 109 Sodium 141 potassium 4.4 chloride 113 bicarb is 24 BUN 14 and creatinine 0.64 and blood sugar 163. Magnesium 2.6 and total bilirubin level is 1.5 and AST 175 ALT 28 and alk phos 25. Albumin 3.1. Chest x-ray showed postoperative changes.. 05/17/2023 Patient is postoperative day 1. Currently lying in the bed. Awake alert and oriented x3. Patient was extubated this morning. Patient was on Cleviprex on and off overnight for hypotension. Patient is currently on milrinone drip. Also on insulin drip. Chest x-ray showed NG tube advanced with distal tip in the proximal to mid stomach. Mild basilar bibasilar atelectasis, mildly decreased. Stable mediastinal postoperative changes. Laboratory data showed WBC 9.9 hemoglobin 9.5 and platelets 98 Sodium 141 potassium 3.6 chloride 110 bicarb is 25 BUN 13 and creatinine 0.54 Blood sugar is 115. AST 612 ALT 51 and alk phos 22. Pulmonary and cardiology is on board. 05/18/2023 Patient is currently sitting in the chair. Postoperative day 2. No complaints of chest pain. Soreness at the surgical site. No complaints of worsening shortness of breath. Currently on oxygen via nasal cannula. Patient does complain of dizziness when she gets up. No nausea or vomiting. Patient is being continued milrinone drip. Chest x-ray showed postoperative changes stable bilateral consolidation, small effusion and reducing mild venous congestion. Laboratory data showed WBC 13.0 hemoglobin 8.6 and platelets 78. Sodium 138 potassium 3.9 chloride 106 bicarb is 25 BUN 21 creatinine 0.59. AST 398 ALT 125 alk phos 23. Lasix on hold due to thrombocytopenia. 05/19/2023 Patient is currently sitting in a chair. Awake alert and oriented x3. Dizziness is better compared to yesterday. Currently on oxygen via nasal cannula. No complaints of chest pain or tightness. No nausea vomiting abdominal pain. Also able to tolerate oral diet. Patient was started on dobutamine drip due to decreased cardiac output and is also on milrinone drip. Chest x-ray showed cardiomegaly and postoperative changes without any significant change. Laboratory data showed WBC 11.0 hemoglobin 8.3 and platelets 82 Sodium 131 potassium 4.4 chloride 102 bicarb is 25 BUN 26 and creatinine 0.62. Calcium 8.2. AST 355 ALT 223 and alk phos 41. Cardiology and pulmonary and CT surgery is on board. Current medications reviewed. 05/20/2023 patient looks comfortable, she is walking in her room. 1 chest tube output She is eating little bit but no abdominal complaints or diarrhea. She is hemodynamically stable, heart rate is controlled. Hemoglobin 8.3. Liver enzymes improving. She remains on aspirin 81 mg, metoprolol and midodrine 5 mg 3 times a day Hemoglobin A1c was 6% on 05/05/2023. We will lower her Levemir 5 units twice a day and twice daily Objective - Vital Signs Vital signs: Vital Signs Temp 98.4 F 05/20/23 08:00 Pulse 84 05/20/23 11:47 Resp 24 05/20/23 11:00 BP 112/74 05/20/23 08:00 Pulse Ox 96 05/20/23 11:00 FiO2 50 05/17/23 08:40 Intake & Output 05/19/23 05/20/23 05/20/23 18:59 06:59 18:59 Intake Total 697.421 445 390 Output Total 1222 1031 1081 Balance -524.579 -586 -691 Weight 72.4 kg Intake: IV 648 445 140 Lactated Ringers 1,000 ml 480 370 110 @ 20 mls/hr IV .Q24H SANKET Rx#:[id number] ns cardiac output 60 ns pressure bags 108 75 30 Intake, IV Titration 49.421 Amount Milrinone-D5w Pmx 20 mg 49.421 In Dextrose/Water 1 100ml .bag @ 0.1 MCG/KG/MIN 2. 112 mls/hr IV .Q24H SANKET Rx#:[id number] Oral 250 Output: Chest Tube Drainage 647 201 76 Chest Tube Left Lateral 110 56 2 Chest Chest Tube Right Anterior 35 145 74 Chest rt and lt pleural 502 Urine 155 158 0667 Other: Voiding Method Indwelling Catheter Indwelling Catheter Indwelling Catheter ABP, PAP, CO, CI - Last Documented Arterial Blood Pressure 101/53 Pulmonary Artery Pressure 36/20 Cardiac Output 4.1 Cardiac Index 2.1 - Exam GENERAL: The patient is alert and oriented x3, not in any acute distress. Well developed, well nourished. HEENT: Pupils are round and equally reacting to light. EOMI. No scleral icterus. No conjunctival pallor. Normocephalic, atraumatic. No pharyngeal erythema. No thyromegaly. CARDIOVASCULAR: S1 and S2 present. No murmurs, rubs, or gallops. PULMONARY: Chest is clear to auscultation, no wheezing , no crackles. ABDOMEN: Soft, nontender, nondistended, normoactive bowel sounds. No palpable organomegaly. MUSCULOSKELETAL: No joint swelling or deformity. EXTREMITIES: No cyanosis, clubbing, or pedal edema. NEUROLOGICAL: Gross neurological examination did not reveal any focal deficits. SKIN: No rashes. no petechiae. - Labs CBC & Chem 7: 05/20/23 03:59 05/20/23 03:59 Labs: Abnormal Lab Results - Last 24 Hours (Table) 05/19/23 05/19/23 05/20/23 Range/Units 17:13 19:54 03:59 RBC 2.46 L (3.80-5.40) m/uL Hgb 8.3 L (11.4-16.0) gm/dL Hct 23.7 L (34.0-46.0) % Plt Count 92 L (150-450) k/uL Sodium (137-145) mmol/L BUN (7-17) mg/dL Creatinine (0.52-1.04) mg/dL Glucose (74-99) mg/dL POC Glucose (mg/dL) 153 H 146 H (70-110) mg/dL Calcium (8.4-10.2) mg/dL Magnesium (1.6-2.3) mg/dL Total Bilirubin (0.2-1.3) mg/dL AST (14-36) U/L ALT (4-34) U/L Total Protein (6.3-8.2) g/dL Albumin (3.5-5.0) g/dL 05/20/23 05/20/23 Range/Units 03:59 06:51 RBC (3.80-5.40) m/uL Hgb (11.4-16.0) gm/dL Hct (34.0-46.0) % Plt Count (150-450) k/uL Sodium 131 L (137-145) mmol/L BUN 23 H (7-17) mg/dL Creatinine 0.48 L (0.52-1.04) mg/dL Glucose 110 H (74-99) mg/dL POC Glucose (mg/dL) 116 H (70-110) mg/dL Calcium 8.0 L (8.4-10.2) mg/dL Magnesium 2.4 H (1.6-2.3) mg/dL Total Bilirubin 2.0 H (0.2-1.3) mg/dL AST 207 H (14-36) U/L ALT 239 H (4-34) U/L Total Protein 5.1 L (6.3-8.2) g/dL Albumin 3.0 L (3.5-5.0) g/dL Assessment and Plan Assessment: Severe aortic valve stenosis status post aortic valve replacement with bioprosthetic valve and ligation of left atrial appendage. Patient is s/p surgery on 05/16/2023.Postoperative day 3. Perioperative hypotension requiring pressor support. Currently on milrinone drip. Start dobutamine drip on 05/19/2023. Was also on norepinephrine and Evaristo- Synephrine. Hyperlipidemia History of rheumatoid arthritis History of psoriasis GERD Prior history of smoking DVT prophylaxis. Plan: Patient is currently in the MICU. Sugar control, continue with insulin coverage. Monitor hemoglobin and blood pressure. GI and DVT prophylaxis. Patient will be continued on BB aspirin and statins. CT surgery and pulmonary is on board. We will continue to follow and further recommendations based on clinical course.
--- NOTE | 2023-05-20 16:05 | P.PN ---
Subjective Progress Note Date: 05/20/23 Principal diagnosis: Severe aortic valve stenosis. Previous medical history of hyperlipidemia, rheumatoid arthritis on Enbrel outpatient, previous tobacco dependence, mild COPD, family history heart disease, and preoperative nasal swab positive for MSSA POD #4 aortic valve replacement using 23 mm Kent Inspiris bioprosthetic valve and Abdiaziz Islas annular enlargement technique, ligation of left atrial appendage using a 35 mm AtriClip, epi-aortic ultrasound, intraoperative transesophageal echocardiogram Postoperative acute blood loss anemia and thrombocytopenia, expected given hemodilution and cardiopulmonary bypass pump Postoperative orthostatic hypotension, unexpected. Transaminitis, unexpected, likely due to hypoperfusion. The patient was seen and examined this morning sitting up in a recliner in the intensive care unit in no acute distress. The patient is awake, alert, oriented 3 and in no acute apparent distress. Denies any complaints of pain at this time, or shortness of breath, although she complaining of some nausea and some episodes of dizziness with ambulating. The nurse reports she was having some hypotension with ambulating but results quickly with sitting and rest. Primacor drip remained infusing at 0.1 mcg/kg/m. Dopamine drip has been turned off. Oxygen saturations are 97% on 2 L nasal cannula and she is achieving 750 20,000 mL on her incentive spirometry with encouragement. Chest x-ray and laboratory results reviewed. Morrow catheter remains in place with 595 mL of urine output in the last 8 hours. Left and right pleural chest tubes remain in place to low continuous wall suction -20 cm H2O. Draining thin serosanguineous drainage. Left pleural chest tube drained 105 mL of thin serosanguineous drainage in the last 8 hours and 160 mL in the last 24 hours. Right pleural chest tube drained 15 mL output in the last 8 hours and 160 mL output in the last 24 hours. Right IJ cordis remains in place with continuous CVP monitoring, current CVP pressure 11 mmHg. Objective - Vital Signs Vital signs: Vital Signs Temp 98.2 F 05/20/23 12:00 Pulse 90 05/20/23 12:00 Resp 20 05/20/23 12:00 BP 112/74 05/20/23 08:00 Pulse Ox 95 05/20/23 12:00 FiO2 50 05/17/23 08:40 Intake & Output 05/19/23 05/20/23 05/20/23 18:59 06:59 18:59 Intake Total 697.421 445 416 Output Total 1222 1031 1121 Balance -524.579 -586 -705 Weight 72.4 kg Intake: IV 648 445 166 Lactated Ringers 1,000 ml 480 370 130 @ 20 mls/hr IV .Q24H SANKET Rx#:[id number] ns cardiac output 60 ns pressure bags 108 75 36 Intake, IV Titration 49.421 Amount Milrinone-D5w Pmx 20 mg 49.421 In Dextrose/Water 1 100ml .bag @ 0.1 MCG/KG/MIN 2. 112 mls/hr IV .Q24H SANKET Rx#:[id number] Oral 250 Output: Chest Tube Drainage 647 201 76 Chest Tube Left Lateral 110 56 2 Chest Chest Tube Right Anterior 35 145 74 Chest rt and lt pleural 502 Urine 148 219 9371 Other: Voiding Method Indwelling Catheter Indwelling Catheter Indwelling Catheter ABP, PAP, CO, CI - Last Documented Arterial Blood Pressure 110/61 Pulmonary Artery Pressure 36/20 Cardiac Output 4.1 Cardiac Index 2.1 - Exam CONSTITUTIONAL: Appears comfortable, cooperative, no acute distress RESPIRATORY: Lungs sounds diminished bilaterally. Respirations are symmetrical, nonlabored. Currently on 2 L nasal cannula with oxygen saturation 97%. Able to achieve 750-1000 mL on incentive spirometry. Strong nonproductive cough. CARDIOVASCULAR: S1, S2 present. Regular rate and rhythm, sinus rhythm on telemetry. Sternum stable. Palpable peripheral pulses bilaterally. Trace generalized edema present. No calf pain or tenderness noted. Heart hugger, antiembolism stockings, SCDs present. GASTROINTESTINAL: Abdomen soft, nontender, nondistended. Active bowel sounds present 4 quadrants. Tolerating diet. Positive flatus. GENITOURINARY: Morrow present draining clear, yellow urine. Urine output 595 mL in the last 8 hours. INTEGUMENTARY: Skin is warm and dry with evidence of good perfusion. Midline sternal chest incision well approximated and covered with dry intact dressing. NEUROLOGIC: Cranial nerves II through XII intact. No focal deficits. MUSKULOSKELETAL: Able to move all extremities, strength equal bilaterally, generalized weakness. PSYCHIATRIC: Alert and oriented to person place and time, appropriate affect, intact judgment and insight. INVASIVE LINES AND TUBES: Left/right pleural chest tubes present and connected to wall suction, no air leaks present, no air leak present. Left pleural chest tube drained 105 mL output in the last 8 hours and 160 mL output in the last 24 hours. Right pleural chest tube drained 15 mL output in the last 8 hours and 160 mL output in the last 24 hours. A/V epicardial pacemaker wires present, connected to generator, VVI mode with rate 50 bpm. Right internal jugular Cordis, with continuous CVP monitoring, Cassidy CVP pressure 11 mmHg. - Allied health notes Allied health notes reviewed: nursing - Labs CBC & Chem 7: 05/20/23 03:59 05/20/23 03:59 Labs: Abnormal Lab Results - Last 24 Hours (Table) 05/19/23 05/19/23 05/20/23 Range/Units 17:13 19:54 03:59 RBC 2.46 L (3.80-5.40) m/uL Hgb 8.3 L (11.4-16.0) gm/dL Hct 23.7 L (34.0-46.0) % Plt Count 92 L (150-450) k/uL Sodium (137-145) mmol/L BUN (7-17) mg/dL Creatinine (0.52-1.04) mg/dL Glucose (74-99) mg/dL POC Glucose (mg/dL) 153 H 146 H (70-110) mg/dL Calcium (8.4-10.2) mg/dL Magnesium (1.6-2.3) mg/dL Total Bilirubin (0.2-1.3) mg/dL AST (14-36) U/L ALT (4-34) U/L Total Protein (6.3-8.2) g/dL Albumin (3.5-5.0) g/dL 05/20/23 05/20/23 Range/Units 03:59 06:51 RBC (3.80-5.40) m/uL Hgb (11.4-16.0) gm/dL Hct (34.0-46.0) % Plt Count (150-450) k/uL Sodium 131 L (137-145) mmol/L BUN 23 H (7-17) mg/dL Creatinine 0.48 L (0.52-1.04) mg/dL Glucose 110 H (74-99) mg/dL POC Glucose (mg/dL) 116 H (70-110) mg/dL Calcium 8.0 L (8.4-10.2) mg/dL Magnesium 2.4 H (1.6-2.3) mg/dL Total Bilirubin 2.0 H (0.2-1.3) mg/dL AST 207 H (14-36) U/L ALT 239 H (4-34) U/L Total Protein 5.1 L (6.3-8.2) g/dL Albumin 3.0 L (3.5-5.0) g/dL - Imaging and Cardiology Chest x-ray: report reviewed, image reviewed Assessment and Plan Assessment: Severe aortic valve stenosis, status post bioprosthetic aortic valve replacement with annular enlargement History of hyperlipidemia, treated, cholesterol 195, LDL 98, triglycerides 105 Rheumatoid arthritis on Enbrel outpatient Previous tobacco dependence Mild COPD, preoperative FEV1 61% of predicted Family history of heart disease Preoperative nasal swab positive for MSSA, treated Postoperative acute blood loss anemia and thrombocytopenia, expected Postoperative hypotension, unexpected Elevated liver enzymes, unexpected, likely due to hypoperfusion Plan: Continue to maximize medical therapy with low-dose aspirin, Plavix, and beta daniel. Will start afterload reduction when able. Continue to hold statin due to elevated liver enzymes. Continue Primacor at 0.1 mcg/kg/h today, continue at that rate for another 24 hours. Wean oxygen as tolerated. Encourage incentive spirometry is 10 times every hour while awake. Bronchodilators per pulmonology. Increase activity as tolerated. PT/OT/cardiac rehab following. GI/DVT prophylaxis. Pain control with current medication regimen. Discontinue tramadol per patient's request as she feels like it is making her dizzy. Start acetaminophen 650 mg by mouth every 6 hours when necessary pain. Insulin management per internal medicine. Patient is not diabetic, preoperative hemoglobin A1c 6.0%. Continue cordis with continuous CVP monitoring. Remove right pleural chest tube, keep left pleural chest tube in place to low continuous wall suction -20 cm H2O. Likely remove left pleural chest tube tomorrow. Discontinue Morrow catheter may bladder scan and straight cath for greater then 300 mL residual. Strict accurate intake and output. Daily weights. Will monitor daily labs and chest x-rays. Electrolyte replacement per protocol. Discontinue dopamine drip. Lasix 20 mg IV 1 now. 25% Albumin 50 mL IV piggyback 1 now. More recommendations to follow based on patient's clinical course. Time with Patient: Greater than 30
--- NOTE | 2023-05-20 16:58 | P.PN ---
Subjective HISTORY OF PRESENTING ILLNESS Patient is a pleasant 62-year-old female with history of hyperlipidemia, rheumatoid arthritis, previous tobacco abuse since quit, mild COPD, severe aortic stenosis who presented for elective surgical aortic valve replacement. Patient currently intubated and sedated and history is supplied by chart. Patient normally follows in the office with Dr. Mc. She underwent elective surgical aortic valve replacement with a 23 mm Kent Inspiris with annular enlargement and ligation of left atrial appendage. Operatively there was [id number] mitral regurgitation however when patient taken off of pump, PA pressures increased to 74 previously in the 35-40 range and patient did develop some degree of pulmonary edema. Eventually pressures did improve and she has been continued on milrinone at 0.375 with PA pressures this morning 32/17. Remains on ventilator at 50% FiO2 with a PEEP of 5 on spontaneous breathing trial and following some commands. 05/18 Patient seen and examined. Milrinone has been decreased to 0.3 and blood pressures somewhat labile however mainly in the 100s over 50s. At home she is n ot on any antihypertensive medications. PA pressures in the 30s over 15 and CVP of 8. Liver enzymes elevated however improving. Admits to fatigue and chest pain around her incision however no significant dyspnea. She did get lightheaded with standing up however somewhat improved after giving albumin. 05/19 Patient seen and examined. Patient states overall doing okay however still fairly fatigued. No significant chest pain. She was started dopamine secondary decreased urine output which has improved and remains on low dose milrinone. 05/20 Patient seen and examined. Patient has been decreased on milrinone to 0.1 mcg/kg/m. Dopamine drip has been discontinued. Blood pressures remain borderline however not previously on any antihypertensives. Has been able to stand up and walk the halls without any lightheadedness. PHYSICAL EXAMINATION Vital signs reviewed. CONSTITUTIONAL: No apparent distress, awake and alert HEENT: Head is normocephalic. Pupils are equal, round. Sclerae anicteric. Mucous membranes of the mouth are moist. No JVD. No carotid bruit. CHEST EXAMINATION: Lungs are clear to auscultation. No chest wall tenderness is noted on palpation or with deep breathing. HEART EXAMINATION: Regular rate and rhythm. S1, S2 heard. +1/6 systolic murmur no gallops or rub. ABDOMEN: Soft, nontender. Positive bowel sounds. EXTREMITIES: 2+ peripheral pulses, no lower extremity edema and no calf tenderness. NEUROLOGIC EXAMINATION: Patient is awake, alert and oriented x3. ASSESSMENT 1. Severe aortic stenosis status post surgical bioprosthetic aortic valve replacement 05/16 with a 23mm Kent Inspiris 2. HLD 3. Previous tobacco abuse 4. Mild COPD 5. Intraop increased PA pressures, improved 6. Elevated AST/ALT 7. Thrombocytopenia PLAN Liver enzymes are slowly trending down, AST 207, ALT 239 and creatinine stable. Hemoglobin 8.3 as well as platelets 92 and appears to be slowly progressing. Objective - Vital Signs Vital signs: Vital Signs Temp 98.2 F 05/20/23 12:00 Pulse 85 05/20/23 16:19 Resp 17 05/20/23 16:00 BP 93/62 05/20/23 14:30 Pulse Ox 97 05/20/23 16:00 FiO2 50 05/17/23 08:40 Intake & Output 05/19/23 05/20/23 05/20/23 18:59 06:59 18:59 Intake Total 697.972 988 0353 Output Total 1222 1031 1451 Balance -524.579 -586 -61 Weight 72.4 kg Intake: IV 648 445 270 Lactated Ringers 1,000 ml 480 370 210 @ 20 mls/hr IV .Q24H SANKET Rx#:[id number] ns cardiac output 60 ns pressure bags 108 75 60 Intake, IV Titration 49.421 Amount Milrinone-D5w Pmx 20 mg 49.421 In Dextrose/Water 1 100ml .bag @ 0.1 MCG/KG/MIN 2. 112 mls/hr IV .Q24H SANKET Rx#:[id number] Oral 1120 Output: Chest Tube Drainage 647 201 116 Chest Tube Left Lateral 110 56 12 Chest Chest Tube Right Anterior 35 145 104 Chest rt and lt pleural 502 Urine 432 096 0276 Other: Voiding Method Indwelling Catheter Indwelling Catheter Indwelling Catheter ABP, PAP, CO, CI - Last Documented Arterial Blood Pressure 110/59 Pulmonary Artery Pressure 36/20 Cardiac Output 4.1 Cardiac Index 2.1 - Labs CBC & Chem 7: 05/20/23 03:59 05/20/23 03:59 Labs: Abnormal Lab Results - Last 24 Hours (Table) 05/19/23 05/19/23 05/20/23 Range/Units 17:13 19:54 03:59 RBC 2.46 L (3.80-5.40) m/uL Hgb 8.3 L (11.4-16.0) gm/dL Hct 23.7 L (34.0-46.0) % Plt Count 92 L (150-450) k/uL Sodium (137-145) mmol/L BUN (7-17) mg/dL Creatinine (0.52-1.04) mg/dL Glucose (74-99) mg/dL POC Glucose (mg/dL) 153 H 146 H (70-110) mg/dL Calcium (8.4-10.2) mg/dL Magnesium (1.6-2.3) mg/dL Total Bilirubin (0.2-1.3) mg/dL AST (14-36) U/L ALT (4-34) U/L Total Protein (6.3-8.2) g/dL Albumin (3.5-5.0) g/dL 05/20/23 05/20/23 Range/Units 03:59 06:51 RBC (3.80-5.40) m/uL Hgb (11.4-16.0) gm/dL Hct (34.0-46.0) % Plt Count (150-450) k/uL Sodium 131 L (137-145) mmol/L BUN 23 H (7-17) mg/dL Creatinine 0.48 L (0.52-1.04) mg/dL Glucose 110 H (74-99) mg/dL POC Glucose (mg/dL) 116 H (70-110) mg/dL Calcium 8.0 L (8.4-10.2) mg/dL Magnesium 2.4 H (1.6-2.3) mg/dL Total Bilirubin 2.0 H (0.2-1.3) mg/dL AST 207 H (14-36) U/L ALT 239 H (4-34) U/L Total Protein 5.1 L (6.3-8.2) g/dL Albumin 3.0 L (3.5-5.0) g/dL
[2023-05-20 17:34] LABS: Glucose,Whole Blood 136 mg/dL (70-110)
[2023-05-20 20:12] LABS: Glucose,Whole Blood 121 mg/dL (70-110)
[2023-05-20] MEDS: SENNOSIDES-DOCUSATE SODIUM 1 EACH TAB PO SCH (20:54)
[2023-05-20] MEDS: DEXTROSE 5% IN WATER 100 ML with AMIODARONE 150 MG IV PRN (23:13)
[2023-05-21] MEDS: AMIODARONE 360 MG in DEXTROSE 5% IN WATER 200 ML IV PRN ×4 (00:13→05:30)
[2023-05-21] MEDS: ACETAMINOPHEN TAB 325 MG TAB PO PRN ×3 (00:16→21:01)
[2023-05-21] MEDS: HEPARIN SODIUM,PORCINE/PF 5,000 UNIT/0.5 ML SYRINGE SQ SCH ×3 (00:16→17:42)
[2023-05-21] MEDS: DEXTROSE 5% IN WATER 100 ML with AMIODARONE 150 MG IV PRN (00:21)
[2023-05-21] MEDS: KETOROLAC 15 MG/ML 1 ML VIAL IVP SCH ×4 (01:02→17:16)
[2023-05-21] MEDS: NOREPINEPHRINE 4 MG in SODIUM CHLORIDE 0.9% 250 ML IV SCH (01:21)
[2023-05-21] MEDS: MILRINONE-D5W PMX 20 MG in DEXTROSE/WATER 1 100ML.BAG IV SCH (01:22)
[2023-05-21 01:34] LABS: ALT 219 U/L (4-34); AST 133 U/L (14-36); African American GFR (CKD) >90 (>60 ml/min/1.73 sqM); Albumin 2.9 g/dL (3.5-5.0); Alkaline Phosphatase 111 U/L (38-126); Anion Gap 5 mmol/L; Blood Urea Nitrogen 20 mg/dL (7-17); Carbon Dioxide 25 mmol/L (22-30); Chloride 99 mmol/L (98-107); Glucose 168 mg/dL (74-99); Magnesium 2.2 mg/dL (1.6-2.3); Non-African American GFR(CKD) >90 (>60 ml/min/1.73 sqM); Sodium 129 mmol/L (137-145); Total Bilirubin 2.1 mg/dL (0.2-1.3)
[2023-05-21 05:18] LABS: Basophils % (A) 0 %; Eosinophils # (A) 0.2 k/uL (0-0.7); Eosinophils % (A) 2 %; HCT 24.3 % (34.0-46.0); HGB 8.6 gm/dL (11.4-16.0); Lymphocytes # (A) 1.1 k/uL (1.0-4.8); Lymphocytes % (A) 11 %; MCH 34.2 pg (25.0-35.0); MCHC 35.4 g/dL (31.0-37.0); MCV 96.6 fL (80.0-100.0); Mean Platelet Volume 9.6; Monocytes # (A) 0.6 k/uL (0-1.0); Monocytes % (A) 6 %; Neutrophils # (A) 7.8 k/uL (1.3-7.7); Neutrophils % (A) 80 %; RBC 2.52 m/uL (3.80-5.40); RDW 13.9 % (11.5-15.5); WBC 9.8 k/uL (3.8-10.6)
[2023-05-21 05:19] LABS: Platelet Count 143 k/uL (150-450)
[2023-05-21 05:41] LABS: ALT 247 U/L (4-34); AST 165 U/L (14-36); African American GFR (CKD) >90 (>60 ml/min/1.73 sqM); Alkaline Phosphatase 116 U/L (38-126); Anion Gap 6 mmol/L; Blood Urea Nitrogen 19 mg/dL (7-17); Carbon Dioxide 26 mmol/L (22-30); Chloride 99 mmol/L (98-107); Glucose 124 mg/dL (74-99); Non-African American GFR(CKD) >90 (>60 ml/min/1.73 sqM); Potassium 4.1 mmol/L (3.5-5.1); Sodium 131 mmol/L (137-145); Total Bilirubin 2.3 mg/dL (0.2-1.3); Total Protein 5.2 g/dL (6.3-8.2)
--- NOTE | 2023-05-21 06:43 | XR ---
EXAMINATION TYPE: XR chest 1V portable DATE OF EXAM: 05/21/2023 5:46 AM COMPARISON: Chest radiographs from TECHNIQUE: XR chest 1V portable Portable AP radiograph of the chest. CLINICAL INDICATION:Female, 62 years old with history of S/P aortic valve replacement/aortic root enl argement; FINDINGS: Lungs/Pleura: Small bilateral pleural effusions redemonstrated. No sizable pneumothorax. Pulmonary vascularity: Pulmonary vascular congestion. Heart/mediastinum: Cardiomediastinal silhouette is enlarged and stable. Aortic valve replacement. Le ft atrial appendage occlusion devices present. Musculoskeletal: No acute osseous pathology. Midline sternotomy wires are noted and stable. Other findings: None Lines/Tubes: Left chest tube in stable position. IMPRESSION: Postsurgical changes with cardiomegaly, pulmonary vascular congestion, small bilateral pleural effusi ons are demonstrated.
[2023-05-21 06:56] LABS: Glucose,Whole Blood 124 mg/dL (70-110)
[2023-05-21] MEDS: MIDODRINE 5 MG TAB PO SCH ×3 (06:56→17:45)
[2023-05-21] MEDS: INSULIN ASPART (NovoLOG) 100 UNIT/ML VIAL SQ SCH ×4 (08:51→23:20)
[2023-05-21] MEDS: ONDANSETRON 4 MG/2 ML VIAL IVP PRN (08:56)
[2023-05-21] MEDS: METOPROLOL TARTRATE 12.5 MG TAB PO SCH ×2 (08:57→23:20)
[2023-05-21] MEDS ORDERED: INSULIN DETEMIR (LEVEMIR) 100 UNIT/ML SYR SQ SCH (09:00)
[2023-05-21] MEDS: IPRATROPIUM-ALBUTEROL 3 ML NEB INHALATION SCH ×4 (09:06→21:53)
[2023-05-21] MEDS ORDERED: bisacodyL 10 MG SUPP RECTAL STA (10:03)
--- NOTE | 2023-05-21 10:27 | P.PN ---
Subjective Progress Note Date: 05/21/23 Principal diagnosis: Severe aortic valve stenosis. Previous medical history of hyperlipidemia, rheumatoid arthritis on Enbrel outpatient, previous tobacco dependence, mild COPD, family history heart disease, and preoperative nasal swab positive for MSSA POD #5 aortic valve replacement using 23 mm Kent Inspiris bioprosthetic valve and Abdiaziz Islas annular enlargement technique, ligation of left atrial appendage using a 35 mm AtriClip, epi-aortic ultrasound, intraoperative transesophageal echocardiogram Postoperative acute blood loss anemia and thrombocytopenia, expected given hemodilution and cardiopulmonary bypass pump Postoperative orthostatic hypotension, unexpected. Transaminitis, unexpected, likely due to hypoperfusion. The patient was seen and examined at her bedside today 05/21/2023 in the intensive care unit. Currently she is sitting up to bedside chair, is awake, alert, oriented 3 and is in no acute apparent distress. She denies any complaints of shortness of breath or pain at this time, continues to complain of episodes of dizziness and occasional nausea. Denies any emesis. Oxygen saturation are 95% on room air and she is achieving 1000 mL on her incentive spirometry with encouragement. Last evening it was reported the patient had an episode of atrial flutter heart rate in the 140s, and was started on an amiodarone drip per protocol. Currently the bedside telemetry is showing a paced rhythm AAI of 80. Underlying rhythm is sinus bradycardia with first- degree heart block heart rate in the 50s. She remained hemodynamically stable and is currently on no pressor support. Primacor drip has been discontinued. Left pleural chest tube remains in place to low continuous wall suction -20 cm H2O. No air leak is present. Draining thin serosanguineous drainage with 50 mL output in the last 8 hours and 300 mL output in the last 24 hours. The patient reports she has been up ambulating in the intensive care unit hallway with standby assistance from nursing staff and went 4 for walks total yesterday. Laboratory results this morning show a WBC count of 9.8, hemoglobin 8.6, hematocrit 24.3, platelets have trended up to 143, sodium 131, potassium 4.1, BUN 19, creatinine 0.50, calcium 8.0, total bilirubin 2.3, AST 165, and ALT 247. Chest x-ray was reviewed. She is been afebrile the last 24 hours. Her Morrow catheter was removed yesterday and since her Morrow catheter has been removed she has had to be straight cath 2 due to some urinary retention. Objective - Vital Signs Vital signs: Vital Signs Temp 97.9 F 05/21/23 04:45 Pulse 80 05/21/23 07:30 Resp 48 H 05/21/23 07:30 BP 101/75 05/21/23 07:30 Pulse Ox 95 05/21/23 07:30 FiO2 50 05/17/23 08:40 Intake & Output 05/20/23 05/21/23 05/21/23 18:59 06:59 18:59 Intake Total 1518.579 635.045 26 Output Total 1621 895 0 Balance -102.421 -259.955 26 Weight 71.2 kg Intake: IV 348 286 26 Lactated Ringers 1,000 ml 270 220 20 @ 20 mls/hr IV .Q24H [facility] Rx#:[id number] ns pressure bags 78 66 6 Intake, IV Titration 50.579 199.045 Amount Amiodarone 360 mg In 182.449 Dextrose 5% in Water 200 ml @ 1 MG/MIN 34.533 mls/ hr IV .Q6H PRN Rx#: [id number] Milrinone-D5w Pmx 20 mg 50.579 In Dextrose/Water 1 100ml .bag @ 0.1 MCG/KG/MIN 2. 112 mls/hr IV .Q24H [facility] Rx#:[id number] Norepinephrine 4 mg In 16.596 Sodium Chloride 0.9% 250 ml @ 0.03 MCG/KG/MIN 8. 275 mls/hr IV .Q24H [facility] Rx#:[id number] Oral 1120 150 Output: Chest Tube Drainage 126 50 Chest Tube Left Lateral 22 50 Chest Chest Tube Right Anterior 104 Chest Urine 1495 845 0 Other: Voiding Method Indwelling Catheter Bedside Commode ABP, PAP, CO, CI - Last Documented Arterial Blood Pressure 111/61 Pulmonary Artery Pressure 36/20 Cardiac Output 4.1 Cardiac Index 2.1 - Exam CONSTITUTIONAL: Appears comfortable, cooperative, no acute distress RESPIRATORY: Lungs sounds clear throughout, diminished to her bilateral bases. Respirations are symmetrical, nonlabored. Currently on room air with oxygen saturation 95%. Able to achieve 1000 mL on incentive spirometry. Strong nonproductive cough. CARDIOVASCULAR: S1, S2 present. Regular rate and rhythm, sinus rhythm on telemetry. Sternum stable. Palpable peripheral pulses bilaterally. Trace generalized edema present. No calf pain or tenderness noted. Heart hugger, ant iembolism stockings, SCDs present. GASTROINTESTINAL: Abdomen soft, nontender, nondistended. Active bowel sounds present 4 quadrants. Tolerating diet. Passing flatus. GENITOURINARY: Urine retention requiring straight catheterization. Urine output 845 mL in the last 8 hours with straight catheterization. INTEGUMENTARY: Skin is warm and dry with evidence of good perfusion. Midline sternal chest incision well approximated and covered with dry intact dressing. NEUROLOGIC: Cranial nerves II through XII intact. No focal deficits. MUSKULOSKELETAL: Able to move all extremities, strength equal bilaterally, generalized weakness. PSYCHIATRIC: Alert and oriented to person place and time, appropriate affect, intact judgment and insight. INVASIVE LINES AND TUBES: Left pleural chest tube drained 50 mL output in the last 8 hours and 300 mL output in the last 24 hours. A/V epicardial pacemaker wires present, connected to generator, AAI mode with rate 80 bpm. Right internal jugular Cordis, with continuous CVP monitoring, current CVP pressure 10 mmHg. - Allied health notes Allied health notes reviewed: nursing - Labs CBC & Chem 7: 05/21/23 05:00 05/21/23 05:00 Labs: Abnormal Lab Results - Last 24 Hours (Table) 05/20/23 05/20/23 05/21/23 Range/Units 17:33 20:11 00:30 RBC (3.80-5.40) m/uL Hgb (11.4-16.0) gm/dL Hct (34.0-46.0) % Plt Count (150-450) k/uL Neutrophils # (1.3-7.7) k/uL Sodium 129 L (137-145) mmol/L BUN 20 H (7-17) mg/dL Creatinine (0.52-1.04) mg/dL Glucose 168 H (74-99) mg/dL POC Glucose (mg/dL) 136 H 121 H (70-110) mg/dL Calcium 8.0 L (8.4-10.2) mg/dL Total Bilirubin 2.1 H (0.2-1.3) mg/dL AST 133 H (14-36) U/L ALT 219 H (4-34) U/L Total Protein 5.0 L (6.3-8.2) g/dL Albumin 2.9 L (3.5-5.0) g/dL 05/21/23 05/21/23 05/21/23 Range/Units 05:00 05:00 06:55 RBC 2.52 L (3.80-5.40) m/uL Hgb 8.6 L (11.4-16.0) gm/dL Hct 24.3 L (34.0-46.0) % Plt Count 143 L D (150-450) k/uL Neutrophils # 7.8 H (1.3-7.7) k/uL Sodium 131 L (137-145) mmol/L BUN 19 H (7-17) mg/dL Creatinine 0.50 L (0.52-1.04) mg/dL Glucose 124 H (74-99) mg/dL POC Glucose (mg/dL) 124 H (70-110) mg/dL Calcium 8.0 L (8.4-10.2) mg/dL Total Bilirubin 2.3 H (0.2-1.3) mg/dL AST 165 H (14-36) U/L ALT 247 H (4-34) U/L Total Protein 5.2 L (6.3-8.2) g/dL Albumin 3.0 L (3.5-5.0) g/dL - Imaging and Cardiology Chest x-ray: report reviewed, image reviewed Assessment and Plan Assessment: Severe aortic valve stenosis, status post bioprosthetic aortic valve replacement with annular enlargement History of hyperlipidemia, treated, cholesterol 195, LDL 98, triglycerides 105 Rheumatoid arthritis on Enbrel outpatient Previous tobacco dependence Mild COPD, preoperative FEV1 61% of predicted Family history of heart disease Preoperative nasal swab positive for MSSA, treated Postoperative acute blood loss anemia and thrombocytopenia, expected Postoperative hypotension, unexpected Elevated liver enzymes, unexpected, likely due to hypoperfusion Paroxysmal atrial fibrillation/atrial flutter, a known common occurrence after cardiac surgery, currently sinus rhythm Plan: Continue to maximize medical therapy with low-dose aspirin, Plavix, and beta daniel. Will start afterload reduction when able. Continue to hold statin due to elevated liver enzymes. Discontinue Primacor at 0.1 mcg/kg/h. Encourage incentive spirometry is 10 times every hour while awake. Bronchodilators per pulmonology. Increase activity as tolerated. PT/OT/cardiac rehab following. GI/DVT prophylaxis. Pain control with current medication regimen. Insulin management per internal medicine. Patient is not diabetic, preoperative hemoglobin A1c 6.0%. Continue cordis with continuous CVP monitoring. Remove left pleural chest tube. Continue to record strict and accurate I's and O's. May bladder scan and straight cath for greater then 300 mL residual. Send urinalysis with reflex culture. Keep atrial and ventricular epicardial pacemaker wires in place. Place pacema ker mode VVI backup of 50. Discontinue amiodarone drip. Daily weights. Will monitor daily labs and chest x-rays. Electrolyte replacement per protocol. More recommendations to follow based on patient's clinical course. Time with Patient: Greater than 30
[2023-05-21] MEDS: CLOPIDOGREL 75 MG TAB PO SCH (10:28)
[2023-05-21] MEDS: ASPIRIN 81 MG PO SCH (10:28)
[2023-05-21] MEDS: PANTOPRAZOLE 40 MG TABLET PO SCH (10:28)
--- NOTE | 2023-05-21 10:31 | P.PN ---
Subjective Progress Note Date: 05/21/23 Principal diagnosis: POD #5, status post aortic valve replacement using 23 mm Kent Inspiris bioprosthetic valve and Abdiaziz Islas annular enlargement technique, ligation of left atrial appendage using a 35 mm AtriClip, epi-aortic ultrasound, intraoperative transesophageal echocardiogram I am seeing this patient in consultation today 05/17/2023 status postoperative day #1 following an aortic valve replacement with aortic root enlargement and left atrial appendage ligation. Patient is a 62-year-old white female with past medical history significant for severe aortic stenosis, hyperlipidemia, psoriatic arthritis, GERD, and is a remote ex-smoker. Patient did have a preoperative spirometry which showed moderate obstructive disease with an FEV1 61% of predicted. FEV1 to FVC ratio was 64%. 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 Patient had been reporting ongoing and intermittent chest discomfort over the last year. She did have a recent heart catheterization and BRENDA on April 11 which showed mild nonobstructive coronary artery disease, aneurysmal dilation of ascending aorta, 3+ aortic regurgitation, and severe aortic stenosis. The patient was scheduled for an elective open-heart which took place yesterday. The patient underwent aortic valve replacement with aortic root enlargement and left atrial appendage ligation. This was complicated by some perioperative hypotension and increased pulmonary artery pressures. The patient was given 2.7 L of crystalloid, 2 albumin, and 450 ML's of Cell Saver intraoperatively. The patient was initially placed on a combination of milrinone, epinephrine, and Evaristo-Synephrine. The patient was then transferred to the intensive care unit. Patient is currently lying in bed, intubated to the mechanical ventilator, and appears fairly comfortable. Current ventilator settings are assist control, respiratory rate 22, tidal volume 400, FiO2 50%, and a PEEP of 10. Postoperatively, the patient had combined respiratory and m etabolic acidosis. Respiratory rate was then increased to 22, and the patient was given one amp of sodium bicarb. Most recent ABGs after ventilator changes show a pO2 of 259, pCO2 of 38, and pH of 7.38. This was done on a FiO2 of 80%. Patient is currently synchronous with the mechanical ventilator and sedated on propofol infusing at 10 mcg/kg/m. This is being weaned off. Currently, the patient will open her eyes to verbal stimulation, but does not follow any commands. Peak pressure is 27 and plateau pressure is 20. Postoperative chest x-ray shows endotracheal tube 4 cm from the yehuda, NG tube with a side port at the GE junction and could be advanced approximately 5 cm, bilateral pleural chest tubes, a mediastinal chest tube, and other postsurgical changes. No pneumothoraces. Patient's blood pressure is normotensive, and the Evaristo-Synephrine and epinephrine were weaned off. Actually, clevidipine had to be temporarily started for hypertension. Currently, the patient has milrinone infusing at 0.375 mcg/kg/m. Most recent CO/CI are 3.3 and 2 respectively. PA pressures are 30/19. Lactate Ringer's is also infusing at 50 ML's per hour. Urine output has been adequate in the order of 80-100 ML's per hour. Insulin is infusing per protocol. Most recent CBC has a WBC count of 8.7, hemoglobin 10.2, hematocrit 30.2, platelets 90. Mediastinal chest tube has 250 ML's of serosanguineous output. There is no air leak. Right and left pleural chest tubes are Y-d together and have 190 ML's of serosanguineous output. There is a small intermittent air leak. Postoperative BMP has sodium 141, potassium 4.4, chloride 113, serum bicarb 24, BUN 14, creatinine 0.64, glucose 163. Currently, we are working on weaning off the sedation in preparation for possible extubation later this morning. The patient is currently too sedated to attempt SBT at this time. Patient was reevaluated today on 05/18/2023, patient is sitting in her recliner at a bedside chair, she was successfully extubated yesterday at 10 AM. Pulmonary-nixon, the patient seems to be doing well, she is on few liters nasal cannula, does not seem to be in any distress. Her cardiac index today is 2.4, continues to have internal jugular [place]/cor this in the right IJ, she continues to have a right radial arterial line, mediastinal right and left pleural chest tubes also remained.chest x-ray showed mostly postoperative changes and bibasilar atelectasis with small pleural effusions. Labs were reviewed WBC count is 13.0 hemoglobin is 8. Platelets are 78,000.basic metabolic profile is normal renal profile is normal liver enzymes are elevated but improving compared to yesterday. Patient was reevaluated today on 05/19/2023, patient is doing fairly well, does not seem to be in any distress, she does have some postoperative pain but fairly well controlled. She is hemodynamically stable, remains in sinus rhythm, Primacor still infusing at 0.2 mcg/kg/h, she is also on a low-dose dopamine for orthostatic hypotension and poor urine output she did have significant amount of serosanguineous drainage from her left-sided chest tube over the last 24 hours roughly about 1.3 L. She remains on 6 L nasal cannula, O2 saturation is in the low 90s. There is scant is 11 hemoglobin is 8.3 left first are normal renal profile is normal liver enzymes are elevated. Chest x-ray showed cardiomegaly and postoperative changes, otherwise unremarkable seen today on 05/20/2023, patient remains in the ICU, remains on 2 L nasal cannula, she is still requiring Primacor at 0.1 mcg/kg/m, her IV fluids at KVO, patient is hemodynamically stable she does have a paced rhythm, doing better with incentive spirometry, does not seem to be in any distress. She seems to be generally weak. WBC count is 9.6 hemoglobin 8.3 electrolytes are normal renal profile is normal, liver enzymes are a bit elevated , chest x-ray showed small areas of atelectasis and small pleural effusions patient was reevaluated today on 05/21/2023, remains marginal at best, remains in the ICU, patient developed atrial fibrillation and RVR, patient was given 2 boluses of amiodarone last night. Then she had a bradycardia, she was also hypotensive requiring 2 hours of norepinephrine. Patient remains on Primacor at 0.1 mcg/kg/m, her IV fluids at KVO, her urine output is marginal. Patient had to have straight cathed 2 last night. Presently sitting at a bedside chair, does not seem to be in any distress, she seems to be hemodynamically stable.she is on 2 L nasal cannula O2 sats at 95%, blood pressure is 111/61. CVP is 10.WBC count is 9.8 hemoglobin is 8.6, electrodes are normal renal profile is normal.chest x-ray showed mostly postsurgical changes, mild pulmonary vascular congestion and small bilateral pleural effusions. Objective - Vital Signs Vital signs: Vital Signs Temp 97.9 F 05/21/23 04:45 Pulse 80 07/22/23 07:30 Resp 48 H 05/21/23 07:30 BP 101/75 05/21/23 07:30 Pulse Ox 95 05/21/23 07:30 FiO2 50 05/17/23 08:40 Intake & Output 05/20/23 05/21/23 05/21/23 18:59 06:59 18:59 Intake Total 1518.579 635.045 26 Output Total 1621 895 0 Balance -102.421 -259.955 26 Weight 71.2 kg Intake: IV 348 286 26 Lactated Ringers 1,000 ml 270 220 20 @ 20 mls/hr IV .Q24H [facility] Rx#:[id number] ns pressure bags 78 66 6 Intake, IV Titration 50.579 199.045 Amount Amiodarone 360 mg In 182.449 Dextrose 5% in Water 200 ml @ 1 MG/MIN 34.533 mls/ hr IV .Q6H PRN Rx#: [id number] Milrinone-D5w Pmx 20 mg 50.579 In Dextrose/Water 1 100ml .bag @ 0.1 MCG/KG/MIN 2. 112 mls/hr IV .Q24H [facility] Rx#:[id number] Norepinephrine 4 mg In 16.596 Sodium Chloride 0.9% 250 ml @ 0.03 MCG/KG/MIN 8. 275 mls/hr IV .Q24H [facility] Rx#:[id number] Oral 1120 150 Output: Chest Tube Drainage 126 50 Chest Tube Left Lateral 22 50 Chest Chest Tube Right Anterior 104 Chest Urine 1495 845 0 Other: Voiding Method Indwelling Catheter Bedside Commode ABP, PAP, CO, CI - Last Documented Arterial Blood Pressure 111/61 Pulmonary Artery Pressure 36/20 Cardiac Output 4.1 Cardiac Index 2.1 - Exam Physical Exam: Revealed a 62-year-old female in no distress.on 2 L nasal cannula. Head: Atraumatic, normocephalic. HEENT:[Neck is supple.] [No neck masses.] [No thyromegaly.] [No JVD.]right IJ central line/cordis this noted. Chest: symmetrical chest expansion, diminished breath sounds at the bases no rhonchi and no wheezes. Cardiac Exam: [Normal S1 and S2, no S3 gallop, 2/6 systolic murmur thought the precordium. Abdomen: [Soft, nontender, no megaly, no rebound, no guarding, normal bowel so unds.] Extremities: [No clubbing, no edema, no cyanosis.] Neurological Exam: [No focal neurologic deficit.]alert and oriented 3. Psychiatric: Normal mood, affect and normal mental status examination. Skin: No rashes. - Labs CBC & Chem 7: 05/21/23 05:00 05/21/23 05:00 Labs: Abnormal Lab Results - Last 24 Hours (Table) 05/20/23 05/20/23 05/21/23 Range/Units 17:33 20:11 00:30 RBC (3.80-5.40) m/uL Hgb (11.4-16.0) gm/dL Hct (34.0-46.0) % Plt Count (150-450) k/uL Neutrophils # (1.3-7.7) k/uL Sodium 129 L (137-145) mmol/L BUN 20 H (7-17) mg/dL Creatinine (0.52-1.04) mg/dL Glucose 168 H (74-99) mg/dL POC Glucose (mg/dL) 136 H 121 H (70-110) mg/dL Calcium 8.0 L (8.4-10.2) mg/dL Total Bilirubin 2.1 H (0.2-1.3) mg/dL AST 133 H (14-36) U/L ALT 219 H (4-34) U/L Total Protein 5.0 L (6.3-8.2) g/dL Albumin 2.9 L (3.5-5.0) g/dL 05/21/23 05/21/23 05/21/23 Range/Units 05:00 05:00 06:55 RBC 2.52 L (3.80-5.40) m/uL Hgb 8.6 L (11.4-16.0) gm/dL Hct 24.3 L (34.0-46.0) % Plt Count 143 L D (150-450) k/uL Neutrophils # 7.8 H (1.3-7.7) k/uL Sodium 131 L (137-145) mmol/L BUN 19 H (7-17) mg/dL Creatinine 0.50 L (0.52-1.04) mg/dL Glucose 124 H (74-99) mg/dL POC Glucose (mg/dL) 124 H (70-110) mg/dL Calcium 8.0 L (8.4-10.2) mg/dL Total Bilirubin 2.3 H (0.2-1.3) mg/dL AST 165 H (14-36) U/L ALT 247 H (4-34) U/L Total Protein 5.2 L (6.3-8.2) g/dL Albumin 3.0 L (3.5-5.0) g/dL Assessment and Plan Assessment: impression: Severe aortic stenosis status postoperative day #5 aortic valve replacement with bioprosthetic valve, aortic root enlargement, and left atrial appendage ligation. Postoperative hypotension, improving. Expected Acute blood loss anemia, an expected outcome of surgery Moderate chronic obstructive pulmonary disease, based on preoperative PFT. Stable Thrombocytopenia, following surgery, expected.resolved, platelets today are 143,000 Hyperlipidemia Psoriatic arthritis GERD Remote ex-smoker Recommendation: continue to maximize medical therapy including beta blockers and aspirin, continue to hold statin for now because of elevated liver enzymes. Plavix was restarted noted platelets are back to normal. Continue incentive spirometry Continue GI and DVT prophylaxis Continue insulin Continue Primacor, titrate as tolerated. ambulation We'll continue to follow Time with Patient: Less than 30
[2023-05-21 10:32] LABS: Glucose,Whole Blood 142 mg/dL (70-110)
[2023-05-21] MEDS ORDERED: CALCIUM GLUCONATE IN NACL 1 GM in SALINE 1 100ML.BAG IVPB ONE (11:56)
[2023-05-21 11:59] LABS: Glucose,Whole Blood 111 mg/dL (70-110)
--- NOTE | 2023-05-21 15:05 | P.PN ---
Subjective HISTORY OF PRESENTING ILLNESS Patient is a pleasant 62-year-old female with history of hyperlipidemia, rheumatoid arthritis, previous tobacco abuse since quit, mild COPD, severe aortic stenosis who presented for elective surgical aortic valve replacement. Patient currently intubated and sedated and history is supplied by chart. Patient normally follows in the office with Dr. Mc. She underwent elective surgical aortic valve replacement with a 23 mm Kent Inspiris with annular enlargement and ligation of left atrial appendage. Operatively there was [id number] mitral regurgitation however when patient taken off of pump, PA pressures increased to 74 previously in the 35-40 range and patient did develop some degree of pulmonary edema. Eventually pressures did improve and she has been continued on milrinone at 0.375 with PA pressures this morning /17. Remains on ventilator at 50% FiO2 with a PEEP of 5 on spontaneous breathing trial and following some commands. 05/18 Patient seen and examined. Milrinone has been decreased to 0.3 and blood pressures somewhat labile however mainly in the 100s over 50s. At home she is n ot on any antihypertensive medications. PA pressures in the 30s over 15 and CVP of 8. Liver enzymes elevated however improving. Admits to fatigue and chest pain around her incision however no significant dyspnea. She did get lightheaded with standing up however somewhat improved after giving albumin. 05/19 Patient seen and examined. Patient states overall doing okay however still fairly fatigued. No significant chest pain. She was started dopamine secondary decreased urine output which has improved and remains on low dose milrinone. 05/20 Patient seen and examined. Patient has been decreased on milrinone to 0.1 mcg/kg/m. Dopamine drip has been discontinued. Blood pressures remain borderline however not previously on any antihypertensives. Has been able to stand up and walk the halls without any lightheadedness. 05/21 Patient seen and examined. Patient did have 2 episodes of A. flutter with HR in the 140's overnight and was significantly short of breath with this. She denies any chest pain or pressure however. Did have a bowel movement today. Admits her appetite is slowly improving. Has been weaned off milrinone. Hemoglobin 8.6, platelets increased to 143, total bilirubin 2.3, AST 165, ALT 247, albumin 3.0. PHYSICAL EXAMINATION Vital signs reviewed. CONSTITUTIONAL: No apparent distress, awake and alert HEENT: Head is normocephalic. Pupils are equal, round. Sclerae anicteric. Mucous membranes of the mouth are moist. No JVD. No carotid bruit. CHEST EXAMINATION: Lungs are clear to auscultation. No chest wall tenderness is noted on palpation or with deep breathing. HEART EXAMINATION: Regular rate and rhythm. S1, S2 heard. +1/6 systolic murmur no gallops or rub. ABDOMEN: Soft, nontender. Positive bowel sounds. EXTREMITIES: 2+ peripheral pulses, no lower extremity edema and no calf tenderness. NEUROLOGIC EXAMINATION: Patient is awake, alert and oriented x3. ASSESSMENT 1. Severe aortic stenosis status post surgical bioprosthetic aortic valve replacement 05/16 with a 23mm Kent Inspiris 2. HLD 3. Previous tobacco abuse 4. Mild COPD 5. Intraop increased PA pressures, improved 6. Elevated AST/ALT 7. Thrombocytopenia 8. Postoperative atrial flutter PLAN Liver enzymes continue to be similar to prior. Continue to hold statin. Episode of atrial flutter and was given amiodarone. Continue with amiodarone with boluses as needed. Patient with slow progress however appears to be slowly improving. Continue with current regimen. Objective - Vital Signs Vital signs: Vital Signs Temp 97.9 F 05/21/23 04:45 Pulse 80 05/21/23 07:30 Resp 48 H 05/21/23 07:30 BP 101/75 05/21/23 07:30 Pulse Ox 95 05/21/23 07:30 FiO2 50 05/17/23 08:40 Intake & Output 05/20/23 05/21/23 05/21/23 18:59 06:59 18:59 Intake Total 1518.579 635.045 26 Output Total 1621 895 0 Balance -102.421 -259.955 26 Weight 71.2 kg Intake: IV 348 286 26 Lactated Ringers 1,000 ml 270 220 20 @ 20 mls/hr IV .Q24H SANKET Rx#:[id number] ns pressure bags 78 66 6 Intake, IV Titration 50.579 199.045 Amount Amiodarone 360 mg In 182.449 Dextrose 5% in Water 200 ml @ 1 MG/MIN 34.533 mls/ hr IV .Q6H PRN Rx#: [id number] Milrinone-D5w Pmx 20 mg 50.579 In Dextrose/Water 1 100ml .bag @ 0.1 MCG/KG/MIN 2. 112 mls/hr IV .Q24H SANKET Rx#:[id number] Norepinephrine 4 mg In 16.596 Sodium Chloride 0.9% 250 ml @ 0.03 MCG/KG/MIN 8. 275 mls/hr IV .Q24H SANKET Rx#:[id number] Oral 1120 150 Output: Chest Tube Drainage 126 50 Chest Tube Left Lateral 22 50 Chest Chest Tube Right Anterior 104 Chest Urine 1495 845 0 Other: Voiding Method Indwelling Catheter Bedside Commode ABP, PAP, CO, CI - Last Documented Arterial Blood Pressure 111/61 Pulmonary Artery Pressure 36/20 Cardiac Output 4.1 Cardiac Index 2.1 - Labs CBC & Chem 7: 05/21/23 05:00 05/21/23 05:00 Labs: Abnormal Lab Results - Last 24 Hours (Table) 05/20/23 05/20/23 05/21/23 Range/Units 17:33 20:11 00:30 RBC (3.80-5.40) m/uL Hgb (11.4-16.0) gm/dL Hct (34.0-46.0) % Plt Count (150-450) k/uL Neutrophils # (1.3-7.7) k/uL Sodium 129 L (137-145) mmol/L BUN 20 H (7-17) mg/dL Creatinine (0.52-1.04) mg/dL Glucose 168 H (74-99) mg/dL POC Glucose (mg/dL) 136 H 121 H (70-110) mg/dL Calcium 8.0 L (8.4-10.2) mg/dL Total Bilirubin 2.1 H (0.2-1.3) mg/dL AST 133 H (14-36) U/L ALT 219 H (4-34) U/L Total Protein 5.0 L (6.3-8.2) g/dL Albumin 2.9 L (3.5-5.0) g/dL 05/21/23 05/21/23 05/21/23 Range/Units 05:00 05:00 06:55 RBC 2.52 L (3.80-5.40) m/uL Hgb 8.6 L (11.4-16.0) gm/dL Hct 24.3 L (34.0-46.0) % Plt Count 143 L D (150-450) k/uL Neutrophils # 7.8 H (1.3-7.7) k/uL Sodium 131 L (137-145) mmol/L BUN 19 H (7-17) mg/dL Creatinine 0.50 L (0.52-1.04) mg/dL Glucose 124 H (74-99) mg/dL POC Glucose (mg/dL) 124 H (70-110) mg/dL Calcium 8.0 L (8.4-10.2) mg/dL Total Bilirubin 2.3 H (0.2-1.3) mg/dL AST 165 H (14-36) U/L ALT 247 H (4-34) U/L Total Protein 5.2 L (6.3-8.2) g/dL Albumin 3.0 L (3.5-5.0) g/dL 05/21/23 Range/Units 10:31 RBC (3.80-5.40) m/uL Hgb (11.4-16.0) gm/dL Hct (34.0-46.0) % Plt Count (150-450) k/uL Neutrophils # (1.3-7.7) k/uL Sodium (137-145) mmol/L BUN (7-17) mg/dL Creatinine (0.52-1.04) mg/dL Glucose (74-99) mg/dL POC Glucose (mg/dL) 142 H (70-110) mg/dL Calcium (8.4-10.2) mg/dL Total Bilirubin (0.2-1.3) mg/dL AST (14-36) U/L ALT (4-34) U/L Total Protein (6.3-8.2) g/dL Albumin (3.5-5.0) g/dL
[2023-05-21 17:15] LABS: Glucose,Whole Blood 99 mg/dL (70-110)
--- NOTE | 2023-05-21 18:54 | P.PN ---
Subjective Patient is a 62-year-old female with a past medical history of hyperlipidemia, rheumatoid arthritis, GERD and prior history of smoking was admitted to the hospital for elective aortic valve replacement with a bioprosthetic valve. Patient is status post aortic valve replacement with aortic root enlargement and left atrial appendage ligation. Perioperatively patient was intubated and was transferred to MICU. Patient was also hypotensive and was started on milrinone and epinephrine drips. ABG showed pH 7.26, PCO2 35 PO2 74. Laboratory pressure WBC 16.0, hemoglobin 10.5 and platelets 109 Sodium 141 potassium 4.4 chloride 113 bicarb is 24 BUN 14 and creatinine 0.64 and blood sugar 163. Magnesium 2.6 and total bilirubin level is 1.5 and AST 175 ALT 28 and alk phos 25. Albumin 3.1. Chest x-ray showed postoperative changes.. 05/17/2023 Patient is postoperative day 1. Currently lying in the bed. Awake alert and oriented x3. Patient was extubated this morning. Patient was on Cleviprex on and off overnight for hypotension. Patient is currently on milrinone drip. Also on insulin drip. Chest x-ray showed NG tube advanced with distal tip in the proximal to mid stomach. Mild basilar bibasilar atelectasis, mildly decreased. Stable mediastinal postoperative changes. Laboratory data showed WBC 9.9 hemoglobin 9.5 and platelets 98 Sodium 141 potassium 3.6 chloride 110 bicarb is 25 BUN 13 and creatinine 0.54 Blood sugar is 115. AST 612 ALT 51 and alk phos 22. Pulmonary and cardiology is on board. 05/18/2023 Patient is currently sitting in the chair. Postoperative day 2. No complaints of chest pain. Soreness at the surgical site. No complaints of worsening shortness of breath. Currently on oxygen via nasal cannula. Patient does complain of dizziness when she gets up. No nausea or vomiting. Patient is being continued milrinone drip. Chest x-ray showed postoperative changes stable bilateral consolidation, small effusion and reducing mild venous congestion. Laboratory data showed WBC 13.0 hemoglobin 8.6 and platelets 78. Sodium 138 potassium 3.9 chloride 106 bicarb is 25 BUN 21 creatinine 0.59. AST 398 ALT 125 alk phos 23. Lasix on hold due to thrombocytopenia. 05/19/2023 Patient is currently sitting in a chair. Awake alert and oriented x3. Dizziness is better compared to yesterday. Currently on oxygen via nasal cannula. No complaints of chest pain or tightness. No nausea vomiting abdominal pain. Also able to tolerate oral diet. Patient was started on dobutamine drip due to decreased cardiac output and is also on milrinone drip. Chest x-ray showed cardiomegaly and postoperative changes without any significant change. Laboratory data showed WBC 11.0 hemoglobin 8.3 and platelets 82 Sodium 131 potassium 4.4 chloride 102 bicarb is 25 BUN 26 and creatinine 0.62. Calcium 8.2. AST 355 ALT 223 and alk phos 41. Cardiology and pulmonary and CT surgery is on board. Current medications reviewed. 05/20/2023 patient looks comfortable, she is walking in her room. 1 chest tube output She is eating little bit but no abdominal complaints or diarrhea. She is hemodynamically stable, heart rate is controlled. Hemoglobin 8.3. Liver enzymes improving. She remains on aspirin 81 mg, metoprolol and midodrine 5 mg 3 times a day Hemoglobin A1c was 6% on 05/05/2023. We will lower her Levemir 5 units twice a day and twice daily 05/19/2023 Patient looks comfortable with no new complaints Glucose is improving and is a stable after lowering the dose of Levemir 10 mg down to 5 mg, with North 5 mg tomorrow Hemoglobin stable at 8.6, vital stable Liver enzymes are the same as of yesterday. Patient is on aspirin, midodrine Objective - Vital Signs Vital signs: Vital Signs Temp 98.3 F 05/21/23 16:00 Pulse 65 05/21/23 16:00 Resp 21 05/21/23 16:00 BP 98/66 05/21/23 16:00 Pulse Ox 92 L 05/21/23 16:00 FiO2 50 05/17/23 08:40 Intake & Output 05/20/23 05/21/23 05/21/23 18:59 06:59 18:59 Intake Total 1518.579 635.045 340 Output Total 1621 895 750 Balance -102.421 -259.955 -410 Weight 71.2 kg Intake: IV 348 286 340 Calcium Gluconate in NaCl 100 1 gm In Saline 1 100ml. bag @ 100 mls/hr IVPB ONCE ONE Rx#:[id number] Lactated Ringers 1,000 ml 270 220 180 @ 20 mls/hr IV .Q24H SANKET Rx#:[id number] ns pressure bags 78 66 60 Intake, IV Titration 50.579 199.045 Amount Amiodarone 360 mg In 182.449 Dextrose 5% in Water 200 ml @ 1 MG/MIN 34.533 mls/ hr IV .Q6H PRN Rx#: [id number] Milrinone-D5w Pmx 20 mg 50.579 In Dextrose/Water 1 100ml .bag @ 0.1 MCG/KG/MIN 2. 112 mls/hr IV .Q24H SANKET Rx#:[id number] Norepinephrine 4 mg In 16.596 Sodium Chloride 0.9% 250 ml @ 0.03 MCG/KG/MIN 8. 275 mls/hr IV .Q24H SANKET Rx#:[id number] Oral 1120 150 Output: Chest Tube Drainage 126 50 Chest Tube Left Lateral 22 50 Chest Chest Tube Right Anterior 104 Chest Urine 1495 845 750 Other: Voiding Method Indwelling Catheter Bedside Commode Bedside Commode # Voids 1 # Bowel Movements 1 ABP, PAP, CO, CI - Last Documented Arterial Blood Pressure 124/55 Pulmonary Artery Pressure 36/20 Cardiac Output 4.1 Cardiac Index 2.1 - Exam GENERAL: The patient is alert and oriented x3, not in any acute distress. Well developed, well nourished. HEENT: Pupils are round and equally reacting to light. EOMI. No scleral icterus. No conjunctival pallor. Normocephalic, atraumatic. No pharyngeal erythema. No thyromegaly. CARDIOVASCULAR: S1 and S2 present. No murmurs, rubs, or gallops. PULMONARY: Chest is clear to auscultation, no wheezing , no crackles. ABDOMEN: Soft, nontender, nondistended, normoactive bowel sounds. No palpable organomegaly. MUSCULOSKELETAL: No joint swelling or deformity. EXTREMITIES: No cyanosis, clubbing, or pedal edema. NEUROLOGICAL: Gross neurological examination did not reveal any focal deficits. SKIN: No rashes. no petechiae. - Labs CBC & Chem 7: 05/21/23 05:00 05/21/23 05:00 Labs: Abnormal Lab Results - Last 24 Hours (Table) 05/20/23 05/20/23 05/21/23 Range/Units 17:33 20:11 00:30 RBC (3.80-5.40) m/uL Hgb (11.4-16.0) gm/dL Hct (34.0-46.0) % Plt Count (150-450) k/uL Neutrophils # (1.3-7.7) k/uL Sodium 129 L (137-145) mmol/L BUN 20 H (7-17) mg/dL Creatinine (0.52-1.04) mg/dL Glucose 168 H (74-99) mg/dL POC Glucose (mg/dL) 136 H 121 H (70-110) mg/dL Calcium 8.0 L (8.4-10.2) mg/dL Total Bilirubin 2.1 H (0.2-1.3) mg/dL AST 133 H (14-36) U/L ALT 219 H (4-34) U/L Total Protein 5.0 L (6.3-8.2) g/dL Albumin 2.9 L (3.5-5.0) g/dL 05/21/23 05/21/23 05/21/23 Range/Units 05:00 05:00 06:55 RBC 2.52 L (3.80-5.40) m/uL Hgb 8.6 L (11.4-16.0) gm/dL Hct 24.3 L (34.0-46.0) % Plt Count 143 L D (150-450) k/uL Neutrophils # 7.8 H (1.3-7.7) k/uL Sodium 131 L (137-145) mmol/L BUN 19 H (7-17) mg/dL Creatinine 0.50 L (0.52-1.04) mg/dL Glucose 124 H (74-99) mg/dL POC Glucose (mg/dL) 124 H (70-110) mg/dL Calcium 8.0 L (8.4-10.2) mg/dL Total Bilirubin 2.3 H (0.2-1.3) mg/dL AST 165 H (14-36) U/L ALT 247 H (4-34) U/L Total Protein 5.2 L (6.3-8.2) g/dL Albumin 3.0 L (3.5-5.0) g/dL 05/21/23 05/21/23 Range/Units 10:31 11:58 RBC (3.80-5.40) m/uL Hgb (11.4-16.0) gm/dL Hct (34.0-46.0) % Plt Count (150-450) k/uL Neutrophils # (1.3-7.7) k/uL Sodium (137-145) mmol/L BUN (7-17) mg/dL Creatinine (0.52-1.04) mg/dL Glucose (74-99) mg/dL POC Glucose (mg/dL) 142 H 111 H (70-110) mg/dL Calcium (8.4-10.2) mg/dL Total Bilirubin (0.2-1.3) mg/dL AST (14-36) U/L ALT (4-34) U/L Total Protein (6.3-8.2) g/dL Albumin (3.5-5.0) g/dL Assessment and Plan Assessment: Severe aortic valve stenosis status post aortic valve replacement with bioprosthetic valve and ligation of left atrial appendage. Patient is s/p surgery on 05/16/2023.Postoperative day 3. Perioperative hypotension requiring pressor support. Currently on milrinone drip. Start dobutamine drip on 05/19/2023. Was also on norepinephrine and Evaristo-S ynephrine. Hyperlipidemia History of rheumatoid arthritis History of psoriasis GERD Prior history of smoking DVT prophylaxis. Plan: Patient is currently in the MICU. Sugar control, continue with insulin coverage. Monitor hemoglobin and blood pressure. GI and DVT prophylaxis. Patient will be continued on BB aspirin and statins. CT surgery and pulmonary is on board. We will continue to follow and further recommendations based on clinical course.
[2023-05-21 20:15] LABS: Glucose,Whole Blood 98 mg/dL (70-110)
[2023-05-21] MEDS: SENNOSIDES-DOCUSATE SODIUM 1 EACH TAB PO SCH (21:00)
[2023-05-22] MEDS: HEPARIN SODIUM,PORCINE/PF 5,000 UNIT/0.5 ML SYRINGE SQ SCH ×4 (01:18→23:07)
[2023-05-22] MEDS: KETOROLAC 15 MG/ML 1 ML VIAL IVP SCH ×2 (02:23→06:42)
[2023-05-22] MEDS: NOREPINEPHRINE 4 MG in SODIUM CHLORIDE 0.9% 250 ML IV SCH (02:25)
[2023-05-22 05:20] LABS: Basophils % (A) 0 %; Eosinophils # (A) 0.3 k/uL (0-0.7); Eosinophils % (A) 2 %; HCT 26.9 % (34.0-46.0); HGB 8.9 gm/dL (11.4-16.0); Lymphocytes # (A) 1.5 k/uL (1.0-4.8); Lymphocytes % (A) 13 %; MCH 31.8 pg (25.0-35.0); MCHC 32.9 g/dL (31.0-37.0); MCV 96.7 fL (80.0-100.0); Mean Platelet Volume 8.9; Monocytes # (A) 0.6 k/uL (0-1.0); Monocytes % (A) 5 %; Neutrophils # (A) 8.8 k/uL (1.3-7.7); Neutrophils % (A) 78 %; Platelet Count 203 k/uL (150-450); RBC 2.78 m/uL (3.80-5.40); RDW 13.7 % (11.5-15.5); WBC 11.2 k/uL (3.8-10.6)
[2023-05-22 05:31] LABS: ALT 440 U/L (4-34); AST 424 U/L (14-36); African American GFR (CKD) >90 (>60 ml/min/1.73 sqM); Alkaline Phosphatase 114 U/L (38-126); Anion Gap 8 mmol/L; Blood Urea Nitrogen 18 mg/dL (7-17); Calcium 8.1 mg/dL (8.4-10.2); Carbon Dioxide 22 mmol/L (22-30); Chloride 100 mmol/L (98-107); Glucose 84 mg/dL (74-99); Non-African American GFR(CKD) >90 (>60 ml/min/1.73 sqM); Sodium 130 mmol/L (137-145); Total Bilirubin 2.2 mg/dL (0.2-1.3); Total Protein 5.3 g/dL (6.3-8.2)
--- NOTE | 2023-05-22 06:21 | XR ---
EXAMINATION TYPE: XR chest 2V DATE OF EXAM: 05/22/2023 5:27 AM COMPARISON: Chest radiographs from 05/21/2023 TECHNIQUE: XR chest 2V Frontal and lateral views of the chest. CLINICAL INDICATION:Female, 62 years old with history of Postoperative cardiac surgery; FINDINGS: Lungs/Pleura: Small bilateral pleural effusions redemonstrated. No sizable pneumothorax. Bibasilar at electasis. Pulmonary vascularity: Slight improvement in pulmonary vascular congestion. Heart/mediastinum: Cardiomediastinal silhouette is enlarged and stable. Aortic valve replacement. Le ft atrial appendage occlusion devices present. Musculoskeletal: No acute osseous pathology. Midline sternotomy wires are noted and stable. Other findings: None Lines/Tubes: Left chest tube in stable position. Right IJ sheath suggested. IMPRESSION: Postsurgical changes with cardiomegaly, slightly improved pulmonary vascular congestion, and small bi lateral pleural effusions are demonstrated.
[2023-05-22 06:46] LABS: Glucose,Whole Blood 95 mg/dL (70-110)
[2023-05-22] MEDS: INSULIN ASPART (NovoLOG) 100 UNIT/ML VIAL SQ SCH ×4 (06:46→21:52)
[2023-05-22] MEDS: PANTOPRAZOLE 40 MG TABLET PO SCH (06:48)
[2023-05-22] MEDS ORDERED: INSULIN DETEMIR (LEVEMIR) 100 UNIT/ML SYR SQ SCH (07:00)
[2023-05-22] MEDS ORDERED: MIDODRINE 5 MG TAB PO SCH (07:30)
[2023-05-22] MEDS: IPRATROPIUM-ALBUTEROL 3 ML NEB INHALATION SCH ×4 (07:58→19:19)
[2023-05-22] MEDS ORDERED: POTASSIUM CHLORIDE ER 10 MEQ TAB.ER.PRT PO STA (08:20)
[2023-05-22] MEDS ORDERED: FUROSEMIDE 10 MG/ML 2 ML VIAL IV STA (08:20)
[2023-05-22] MEDS: ACETAMINOPHEN TAB 325 MG TAB PO PRN ×2 (09:13→19:19)
--- NOTE | 2023-05-22 09:14 | P.PN ---
Subjective Progress Note Date: 05/22/23 Principal diagnosis: Severe aortic valve stenosis. Previous medical history of hyperlipidemia, rheumatoid arthritis on Enbrel outpatient, previous tobacco dependence, mild COPD, family history heart disease, and preoperative nasal swab positive for MSSA POD #6 aortic valve replacement using 23 mm Kent Inspiris bioprosthetic valve and Abdiaziz Islas annular enlargement technique, ligation of left atrial appendage using a 35 mm AtriClip, epi-aortic ultrasound, intraoperative transesophageal echocardiogram Postoperative acute blood loss anemia and thrombocytopenia, expected given hemodilution and cardiopulmonary bypass pump Postoperative orthostatic hypotension, unexpected. Transaminitis, unexpected, likely due to hypoperfusion. The patient was seen and examined in follow-up today 05/22/2023 year bedside in the intensive care unit. She is sitting up to the bedside chair, is awake, alert, oriented 3 and is in no acute distress. Denies any complaints of shortness of breath or pain at this time, and reports she feels much improved today than from yesterday. She was having some complaints of urinary retention yesterday which has resolved since having a bowel movement yesterday afternoon. Oxygen saturation are 93% on room air and she is achieving 1000 mL on her incentive spirometry with encouragement. She remains hemodynamically stable and is currently on no inotropic or pressor support. Bedside telemetry showing normal sinus rhythm heart rate 85 BPM. She reports she is has been up ambulating in the intensive care unit hallway with standby assistance with nursing staff and walked in the hallway around 4-5 times yesterday and tolerated well. Right IJ cordis remains in place with current CVP pressure showing 11 mmHg. Laboratory results this morning show a WBC count of 11.2, hemoglobin 8.9, hematocrit 26.9, platelets 203, sodium 130, potassium 4.0, chloride 100, CO2 22, BUN 18, creatinine 0.50, glucose 84, calcium 8.1, and magnesium 2.0. Chest x- ray was reviewed. Atrial and ventricular epicardial pacemaker wires remained in place and are connected to bedside backup pacemaker generator on a VVI 50. Objective - Vital Signs Vital signs: Vital Signs Temp 99.1 F 05/22/23 08:00 Pulse 90 05/22/23 08:09 Resp 30 H 05/22/23 08:00 BP 140/75 05/22/23 08:00 Pulse Ox 93 L 05/22/23 08:00 FiO2 50 07/18/23 08:40 Intake & Output 05/21/23 05/22/23 05/22/23 18:59 06:59 18:59 Intake Total 443.8 1212 302 Output Total 1150 1201 0 Balance -706.2 11 302 Weight 71 kg Intake: IV 392 312 52 Calcium Gluconate in NaCl 100 1 gm In Saline 1 100ml. bag @ 100 mls/hr IVPB ONCE ONE Rx#:[id number] Lactated Ringers 1,000 ml 220 240 40 @ 20 mls/hr IV .Q24H SANKET Rx#:[id number] ns pressure bags 72 72 12 Intake, IV Titration 51.8 Amount Amiodarone 360 mg In 51.8 Dextrose 5% in Water 200 ml @ 1 MG/MIN 34.533 mls/ hr IV .Q6H PRN Rx#: [id number] Oral 900 250 Output: Urine 1150 1200 0 Stool 1 Other: Voiding Method Bedside Commode Bedside Commode # Voids 1 1 # Bowel Movements 1 1 ABP, PAP, CO, CI - Last Documented Arterial Blood Pressure 128/57 Pulmonary Artery Pressure 36/20 Cardiac Output 4.1 Cardiac Index 2.1 - Exam CONSTITUTIONAL: Appears comfortable, cooperative, no acute distress, sitting up to the bedside chair in the intensive care unit. RESPIRATORY: Lungs sounds clear throughout, diminished to her bilateral bases. Respirations are symmetrical, nonlabored. Currently on room air with oxygen saturation 93%. Able to achieve 1000 mL on incentive spirometry. Strong nonproductive cough. CARDIOVASCULAR: S1, S2 present. Regular rate and rhythm, sinus rhythm on telemetry, heart rate 85 bpm. Sternum stable. Palpable peripheral pulses bilaterally. Trace generalized edema present. No calf pain or tenderness noted. Heart hugger, antiembolism stockings, SCDs present. GASTROINTESTINAL: Abdomen soft, nontender, nondistended. Active bowel sounds present 4 quadrants. Tolerating diet. Passing flatus. Bowel movement yesterday 05/21/2023. GENITOURINARY: Continues to void. Urine output 800 mL in the last 8 hours. INTEGUMENTARY: Skin is warm and dry with evidence of good perfusion. Midline sternal chest incision well approximated and covered with dry intact dressing. NEUROLOGIC: Cranial nerves II through XII intact. No focal deficits. MUSKULOSKELETAL: Able to move all extremities, strength equal bilaterally, generalized weakness. PSYCHIATRIC: Alert and oriented to person place and time, appropriate affect, intact judgment and insight. INVASIVE LINES AND TUBES: A/V epicardial pacemaker wires present, connected to generator, VVI mode with rate 50 bpm. Right internal jugular Cordis, with continuous CVP monitoring, current CVP pressure 11 mmHg, right radial arterial line in place. - Allied health notes Allied health notes reviewed: nursing - Labs CBC & Chem 7: 05/22/23 05:00 05/22/23 05:00 Labs: Abnormal Lab Results - Last 24 Hours (Table) 05/21/23 05/21/23 05/22/23 Range/Units 10:31 11:58 05:00 WBC 11.2 H (3.8-10.6) k/uL RBC 2.78 L (3.80-5.40) m/uL Hgb 8.9 L (11.4-16.0) gm/dL Hct 26.9 L (34.0-46.0) % Neutrophils # 8.8 H (1.3-7.7) k/uL Sodium (137-145) mmol/L BUN (7-17) mg/dL Creatinine (0.52-1.04) mg/dL POC Glucose (mg/dL) 142 H 111 H (70-110) mg/dL Calcium (8.4-10.2) mg/dL Total Bilirubin (0.2-1.3) mg/dL AST (14-36) U/L ALT (4-34) U/L Total Protein (6.3-8.2) g/dL Albumin (3.5-5.0) g/dL 05/22/23 Range/Units 05:00 WBC (3.8-10.6) k/uL RBC (3.80-5.40) m/uL Hgb (11.4-16.0) gm/dL Hct (34.0-46.0) % Neutrophils # (1.3-7.7) k/uL Sodium 130 L (137-145) mmol/L BUN 18 H (7-17) mg/dL Creatinine 0.50 L (0.52-1.04) mg/dL POC Glucose (mg/dL) (70-110) mg/dL Calcium 8.1 L (8.4-10.2) mg/dL Total Bilirubin 2.2 H (0.2-1.3) mg/dL AST 424 H (14-36) U/L ALT 440 H (4-34) U/L Total Protein 5.3 L (6.3-8.2) g/dL Albumin 3.0 L (3.5-5.0) g/dL - Imaging and Cardiology Chest x-ray: report reviewed, image reviewed Assessment and Plan Assessment: Severe aortic valve stenosis, status post bioprosthetic aortic valve replacement with annular enlargement History of hyperlipidemia, treated, cholesterol 195, LDL 98, triglycerides 105 Rheumatoid arthritis on Enbrel outpatient Previous tobacco dependence Mild COPD, preoperative FEV1 61% of predicted Family history of heart disease Preoperative nasal swab positive for MSSA, treated Postoperative acute blood loss anemia and thrombocytopenia, expected Postoperative hypotension, unexpected Elevated liver enzymes, unexpected, likely due to hypoperfusion Paroxysmal atrial fibrillation/atrial flutter, a known common occurrence after cardiac surgery, currently sinus rhythm Plan: Continue to maximize medical therapy with low-dose aspirin, Plavix, and beta daniel. Will start afterload reduction when able. Continue to hold statin due to elevated liver enzymes. Decrease Midorine 25 mg by mouth twice a day with hold parameters for systolic blood pressure greater than 120 mmHg. Encourage incentive spirometry is 10 times every hour while awake. Bronchodilators per pulmonology. Increase activity as tolerated. PT/OT/cardiac rehab following. GI/DVT prophylaxis. Pain control with current medication regimen. Insulin management per internal medicine. Patient is not diabetic, preoperative hemoglobin A1c 6.0%. Remove right IJ cordis. Remove right radial arterial line. Continue to record strict and accurate I's and O's. May bladder scan and straight cath for greater then 300 mL residual. Send urinalysis with reflex culture. Keep atrial and ventricular epicardial pacemaker wires in place. Place pacemake r mode VVI backup of 50. Likely remove epicardial pacemaker wires tomorrow morning 05/23/2023. Daily weights. Will monitor daily labs and chest x-rays. Electrolyte replacement per protocol. Lasix 20 mg IV 1 now and potassium chloride 10 mEq by mouth 1 now. More recommendations to follow based on patient's clinical course. Time with Patient: Greater than 30
[2023-05-22] MEDS: CLOPIDOGREL 75 MG TAB PO SCH (09:16)
[2023-05-22] MEDS: ASPIRIN 81 MG PO SCH (09:16)
[2023-05-22] MEDS: METOPROLOL TARTRATE 12.5 MG TAB PO SCH ×2 (09:16→20:32)
[2023-05-22] MEDS: MIDODRINE 5 MG TAB PO SCH ×2 (09:16→19:11)
--- NOTE | 2023-05-22 11:32 | P.PN ---
Subjective Progress Note Date: 05/22/23 Principal diagnosis: POD #6 status post aortic valve replacement using 23 mm Kent Inspiris bioprosthetic valve and Abdiaziz Islas annular enlargement technique, ligation of left atrial appendage using a 35 mm AtriClip, epi-aortic ultrasound, intraoperative transesophageal echocardiogram I am seeing this patient in consultation today 05/17/2023 status postoperative day #1 following an aortic valve replacement with aortic root enlargement and left atrial appendage ligation. Patient is a 62-year-old white female with past medical history significant for severe aortic stenosis, hyperlipidemia, psoriatic arthritis, GERD, and is a remote ex-smoker. Patient did have a preoperative spirometry which showed moderate obstructive disease with an FEV1 61% of predicted. FEV1 to FVC ratio was 64%. 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 Patient had been reporting ongoing and intermittent chest discomfort over the last year. She did have a recent heart catheterization and BRENDA on April 11 which showed mild nonobstructive coronary artery disease, aneurysmal dilation of ascending aorta, 3+ aortic regurgitation, and severe aortic stenosis. The patient was scheduled for an elective open-heart which took place yesterday. The patient underwent aortic valve replacement with aortic root enlargement and left atrial appendage ligation. This was complicated by some perioperative hypotension and increased pulmonary artery pressures. The patient was given 2.7 L of crystalloid, 2 albumin, and 450 ML's of Cell Saver intraoperatively. The patient was initially placed on a combination of milrinone, epinephrine, and Evaristo-Synephrine. The patient was then transferred to the intensive care unit. Patient is currently lying in bed, intubated to the mechanical ventilator, and appears fairly comfortable. Current ventilator settings are assist control, respiratory rate 22, tidal volume 400, FiO2 50%, and a PEEP of 10. Postoperatively, the patient had combined respiratory and me tabolic acidosis. Respiratory rate was then increased to 22, and the patient was given one amp of sodium bicarb. Most recent ABGs after ventilator changes show a pO2 of 259, pCO2 of 38, and pH of 7.38. This was done on a FiO2 of 80%. Patient is currently synchronous with the mechanical ventilator and sedated on propofol infusing at 10 mcg/kg/m. This is being weaned off. Currently, the patient will open her eyes to verbal stimulation, but does not follow any commands. Peak pressure is 27 and plateau pressure is 20. Postoperative chest x-ray shows endotracheal tube 4 cm from the yehuda, NG tube with a side port at the GE junction and could be advanced approximately 5 cm, bilateral pleural c hest tubes, a mediastinal chest tube, and other postsurgical changes. No pneumothoraces. Patient's blood pressure is normotensive, and the Evaristo-Synephrine and epinephrine were weaned off. Actually, clevidipine had to be temporarily started for hypertension. Currently, the patient has milrinone infusing at 0.375 mcg/kg/m. Most recent CO/CI are 3.3 and 2 respectively. PA pressures are 30/19. Lactate Ringer's is also infusing at 50 ML's per hour. Urine output has been adequate in the order of 80-100 ML's per hour. Insulin is infusing per protocol. Most recent CBC has a WBC count of 8.7, hemoglobin 10.2, hematocrit 30.2, platelets 90. Mediastinal chest tube has 250 ML's of serosanguineous output. There is no air leak. Right and left pleural chest tubes are Y-d together and have 190 ML's of serosanguineous output. There is a small intermittent air leak. Postoperative BMP has sodium 141, potassium 4.4, chloride 113, serum bicarb 24, BUN 14, creatinine 0.64, glucose 163. Currently, we are working on weaning off the sedation in preparation for possible extubation later this morning. The patient is currently too sedated to attempt SBT at this time. Patient was reevaluated today on 05/18/2023, patient is sitting in her recliner at a bedside chair, she was successfully extubated yesterday at 10 AM. Pulmonary-nixon, the patient seems to be doing well, she is on few liters nasal cannula, does not seem to be in any distress. Her cardiac index today is 2.4, continues to have internal jugular [place]/cor this in the right IJ, she continues to have a right radial arterial line, mediastinal right and left pleural chest tubes also remained.chest x-ray showed mostly postoperative changes and bibasilar atelectasis with small pleural effusions. Labs were reviewed WBC count is 13.0 hemoglobin is 8. Platelets are 78,000.basic metabolic profile is normal renal profile is normal liver enzymes are elevated but improving compared to yesterday. Patient was reevaluated today on 05/19/2023, patient is doing fairly well, does not seem to be in any distress, she does have some postoperative pain but fairly well controlled. She is hemodynamically stable, remains in sinus rhythm, Primacor still infusing at 0.2 mcg/kg/h, she is also on a low-dose dopamine for orthostatic hypotension and poor urine output she did have significant amount of serosanguineous drainage from her left-sided chest tube over the last 24 hours roughly about 1.3 L. She remains on 6 L nasal cannula, O2 saturation is in the low 90s. There is scant is 11 hemoglobin is 8.3 left first are normal renal profile is normal liver enzymes are elevated. Chest x-ray showed cardiomegaly and postoperative changes, otherwise unremarkable seen today on 05/20/2023, patient remains in the ICU, remains on 2 L nasal cannula, she is still requiring Primacor at 0.1 mcg/kg/m, her IV fluids at KVO, patient is hemodynamically stable she does have a paced rhythm, doing better with incentive spirometry, does not seem to be in any distress. She seems to be generally weak. WBC count is 9.6 hemoglobin 8.3 electrolytes are normal renal profile is normal, liver enzymes are a bit elevated , chest x-ray showed small areas of atelectasis and small pleural effusions patient was reevaluated today on 05/21/2023, remains marginal at best, remains in the ICU, patient developed atrial fibrillation and RVR, patient was given 2 boluses of amiodarone last night. Then she had a bradycardia, she was also hypotensive requiring 2 hours of norepinephrine. Patient remains on Primacor at 0.1 mcg/kg/m, her IV fluids at KVO, her urine output is marginal. Patient had to have straight cathed 2 last night. Presently sitting at a bedside chair, does not seem to be in any distress, she seems to be hemodynamically stable.she is on 2 L nasal cannula O2 sats at 95%, blood pressure is 111/61. CVP is 10.WBC count is 9.8 hemoglobin is 8.6, electrodes are normal renal profile is normal.chest x-ray showed mostly postsurgical changes, mild pulmonary vascular congestion and small bilateral pleural effusions. Reevaluated today on 05/22/2023, patient remains in the ICU, doing fairly well, not in any distress, on room air and O2 sats is 93%, doing well with incentive spirometry achieving 1000 mL, hemodynamically stable, not receiving any more inotropes. No pressors. Patient is ambulating in the intensive care unit [facility], CVP is 11. Labs were all reviewed, basically unremarkable. Chest x-ray showed small bilateral pleural effusions and atelectasis in the left lower lobe area. Chest tubes have been removed. Objective - Vital Signs Vital signs: Vital Signs Temp 99.1 F 05/22/23 08:00 Pulse 81 05/22/23 11:22 Resp 31 H 05/22/23 10:00 BP 116/72 05/22/23 10:00 Pulse Ox 94 L 05/22/23 10:00 FiO2 50 05/17/23 08:40 Intake & Output 05/21/23 05/22/23 05/22/23 18:59 06:59 18:59 Intake Total 443.8 1212 302 Output Total 1150 1201 1025 Balance -706.2 11 -723 Weight 71 kg Intake: IV 392 312 52 Calcium Gluconate in NaCl 100 1 gm In Saline 1 100ml. bag @ 100 mls/hr IVPB ONCE ONE Rx#:[id number] Lactated Ringers 1,000 ml 220 240 40 @ 20 mls/hr IV .Q24H SANKET Rx#:[id number] ns pressure bags 72 72 12 Intake, IV Titration 51.8 Amount Amiodarone 360 mg In 51.8 Dextrose 5% in Water 200 ml @ 1 MG/MIN 34.533 mls/ hr IV .Q6H PRN Rx#: [id number] Oral 900 250 Output: Urine 1150 1200 1025 Stool 1 Other: Voiding Method Bedside Commode Bedside Commode Bedside Commode # Voids 1 1 # Bowel Movements 1 1 1 ABP, PAP, CO, CI - Last Documented Arterial Blood Pressure 128/57 Pulmonary Artery Pressure 36/20 Cardiac Output 4.1 Cardiac Index 2.1 - Exam Physical Exam: Revealed a 62-year-old female in no distress.on room air. Head: Atraumatic, normocephalic. HEENT:[Neck is supple.] [No neck masses.] [No thyromegaly.] [No JVD.]right IJ central line/cordis this noted. Chest: symmetrical chest expansion, diminished breath sounds at the bases no rhonchi and no wheezes. Cardiac Exam: [Normal S1 and S2, no S3 gallop, 2/6 systolic murmur thought the precordium. Abdomen: [Soft, nontender, no megaly, no rebound, no guarding, normal bowel sounds.] Extremities: [No clubbing, no edema, no cyanosis.] Neurological Exam: [No focal neurologic deficit.]alert and oriented 3. Psychiatric: Normal mood, affect and normal mental status examination. Skin: No rashes. - Labs CBC & Chem 7: 05/22/23 05:00 05/22/23 05:00 Labs: Abnormal Lab Results - Last 24 Hours (Table) 05/21/23 05/22/23 05/22/23 Range/Units 11:58 05:00 05:00 WBC 11.2 H (3.8-10.6) k/uL RBC 2.78 L (3.80-5.40) m/uL Hgb 8.9 L (11.4-16.0) gm/dL Hct 26.9 L (34.0-46.0) % Neutrophils # 8.8 H (1.3-7.7) k/uL Sodium 130 L (137-145) mmol/L BUN 18 H (7-17) mg/dL Creatinine 0.50 L (0.52-1.04) mg/dL POC Glucose (mg/dL) 111 H (70-110) mg/dL Calcium 8.1 L (8.4-10.2) mg/dL Total Bilirubin 2.2 H (0.2-1.3) mg/dL AST 424 H (14-36) U/L ALT 440 H (4-34) U/L Total Protein 5.3 L (6.3-8.2) g/dL Albumin 3.0 L (3.5-5.0) g/dL Assessment and Plan Assessment: impression: Severe aortic stenosis status postoperative day #6 aortic valve replacement with bioprosthetic valve, aortic root enlargement, and left atrial appendage ligation. Postoperative hypotension, improving. Expected Acute blood loss anemia, an expected outcome of surgery Moderate chronic obstructive pulmonary disease, based on preoperative PFT. Stable Thrombocytopenia, following surgery, expected.resolved, platelets today are 143,000 Hyperlipidemia Psoriatic arthritis GERD Remote ex-smoker Recommendation: continue to maximize medical therapy including beta blockers and aspirin, continue to hold statin for now because of elevated liver enzymes. Plavix was restarted noted platelets are back to normal. Continue incentive spirometry Continue GI and DVT prophylaxis Continue insulin Patient is now off Primacor. ambulation We'll continue to follow Time with Patient: Less than 30
[2023-05-22 12:01] LABS: Glucose,Whole Blood 114 mg/dL (70-110)
--- NOTE | 2023-05-22 15:05 | P.PN ---
Subjective HISTORY OF PRESENTING ILLNESS Patient is a pleasant 62-year-old female with history of hyperlipidemia, rheumatoid arthritis, previous tobacco abuse since quit, mild COPD, severe aortic stenosis who presented for elective surgical aortic valve replacement. Patient currently intubated and sedated and history is supplied by chart. Patient normally follows in the office with Dr. Mc. She underwent elective surgical aortic valve replacement with a 23 mm Kent Inspiris with annular enlargement and ligation of left atrial appendage. Operatively there was [id number] mitral regurgitation however when patient taken off of pump, PA pressures increased to 74 previously in the 35-40 range and patient did develop some degree of pulmonary edema. Eventually pressures did improve and she has been continued on milrinone at 0.375 with PA pressures this morning /. Remains on ventilator at 50% FiO2 with a PEEP of 5 on spontaneous breathing trial and following some commands. 05/18 Patient seen and examined. Milrinone has been decreased to 0.3 and blood pressures somewhat labile however mainly in the 100s over 50s. At home she is n ot on any antihypertensive medications. PA pressures in the 30s over 15 and CVP of 8. Liver enzymes elevated however improving. Admits to fatigue and chest pain around her incision however no significant dyspnea. She did get lightheaded with standing up however somewhat improved after giving albumin. 05/19 Patient seen and examined. Patient states overall doing okay however still fairly fatigued. No significant chest pain. She was started dopamine secondary decreased urine output which has improved and remains on low dose milrinone. 05/20 Patient seen and examined. Patient has been decreased on milrinone to 0.1 mcg/kg/m. Dopamine drip has been discontinued. Blood pressures remain borderline however not previously on any antihypertensives. Has been able to stand up and walk the halls without any lightheadedness. 05/21 Patient seen and examined. Patient did have 2 episodes of A. flutter with HR in the 140's overnight and was significantly short of breath with this. She denies any chest pain or pressure however. Did have a bowel movement today. Admits her appetite is slowly improving. Has been weaned off milrinone. Hemoglobin 8.6, platelets increased to 143, total bilirubin 2.3, AST 165, ALT 247, albumin 3.0. 05/22 Patient seen and examined. Patient overall states she is feeling fairly well however still gets fatigued and short of breath with minimal exertion which is fairly stable over the last few days. Sodium still low at 130, AST and ALT increased to 424/440. Denies any chest pain. Did receive IV Lasix this morning with good urine output. Does have a small appetite. PHYSICAL EXAMINATION Vital signs reviewed. CONSTITUTIONAL: No apparent distress, awake and alert HEENT: Head is normocephalic. Pupils are equal, round. Sclerae anicteric. Mucous membranes of the mouth are moist. No JVD. No carotid bruit. CHEST EXAMINATION: Lungs are clear to auscultation. No chest wall tenderness is noted on palpation or with deep breathing. HEART EXAMINATION: Regular rate and rhythm. S1, S2 heard. +1/6 systolic murmur no gallops or rub. ABDOMEN: Soft, nontender. Positive bowel sounds. EXTREMITIES: 2+ peripheral pulses, no lower extremity edema and no calf tenderness. NEUROLOGIC EXAMINATION: Patient is awake, alert and oriented x3. ASSESSMENT 1. Severe aortic stenosis status post surgical bioprosthetic aortic valve replacement 05/16 with a 23mm Kent Inspiris 2. HLD 3. Previous tobacco abuse 4. Mild COPD 5. Intraop increased PA pressures, improved 6. Elevated AST/ALT 7. Thrombocytopenia 8. Postoperative atrial flutter PLAN Liver enzymes again increased which may be related to ischemic episode from hypotension and atrial flutter however also may be related to amiodarone. Continue to walk monitor. Agree with Lasix today and monitor response. Further recommendations to follow. Objective - Vital Signs Vital signs: Vital Signs Temp 99 F 05/22/23 12:00 Pulse 73 05/22/23 14:00 Resp 11 L 05/22/23 14:00 BP 94/59 05/22/23 14:00 Pulse Ox 95 05/22/23 14:00 FiO2 50 05/17/23 08:40 Intake & Output 05/21/23 05/22/23 05/22/23 18:59 06:59 18:59 Intake Total 443.8 1212 302 Output Total 1150 1201 1425 Balance -706.2 Weight 71 kg Intake: IV 392 312 52 Calcium Gluconate in NaCl 100 1 gm In Saline 1 100ml. bag @ 100 mls/hr IVPB ONCE ONE Rx#:[id number] Lactated Ringers 1,000 ml 220 240 40 @ 20 mls/hr IV .Q24H [facility] Rx#:[id number] ns pressure bags 72 72 12 Intake, IV Titration 51.8 Amount Amiodarone 360 mg In 51.8 Dextrose 5% in Water 200 ml @ 1 MG/MIN 34.533 mls/ hr IV .Q6H PRN Rx#: [id number] Oral 900 250 Output: Urine 1150 1200 1425 Stool 1 Other: Voiding Method Bedside Commode Bedside Commode Bedside Commode # Voids 1 1 # Bowel Movements 1 1 1 ABP, PAP, CO, CI - Last Documented Arterial Blood Pressure 128/57 Pulmonary Artery Pressure 36/20 Cardiac Output 4.1 Cardiac Index 2.1 - Labs CBC & Chem 7: 05/22/23 05:00 05/22/23 05:00 Labs: Abnormal Lab Results - Last 24 Hours (Table) 05/22/23 05/22/23 05/22/23 Range/Units 05:00 05:00 11:59 WBC 11.2 H (3.8-10.6) k/uL RBC 2.78 L (3.80-5.40) m/uL Hgb 8.9 L (11.4-16.0) gm/dL Hct 26.9 L (34.0-46.0) % Neutrophils # 8.8 H (1.3-7.7) k/uL Sodium 130 L (137-145) mmol/L BUN 18 H (7-17) mg/dL Creatinine 0.50 L (0.52-1.04) mg/dL POC Glucose (mg/dL) 114 H (70-110) mg/dL Calcium 8.1 L (8.4-10.2) mg/dL Total Bilirubin 2.2 H (0.2-1.3) mg/dL AST 424 H (14-36) U/L ALT 440 H (4-34) U/L Total Protein 5.3 L (6.3-8.2) g/dL Albumin 3.0 L (3.5-5.0) g/dL
[2023-05-22 16:25] LABS: Glucose,Whole Blood 131 mg/dL (70-110)
[2023-05-22] MEDS ORDERED: NOREPINEPHRINE 4 MG in SODIUM CHLORIDE 0.9% 250 ML IV SCH (20:00)
[2023-05-22 20:23] LABS: Glucose,Whole Blood 98 mg/dL (70-110)
--- NOTE | 2023-05-22 23:58 | P.PN ---
Subjective Patient is a 62-year-old female with a past medical history of hyperlipidemia, rheumatoid arthritis, GERD and prior history of smoking was admitted to the hospital for elective aortic valve replacement with a bioprosthetic valve. Patient is status post aortic valve replacement with aortic root enlargement and left atrial appendage ligation. Perioperatively patient was intubated and was transferred to MICU. Patient was also hypotensive and was started on milrinone and epinephrine drips. ABG showed pH 7.26, PCO2 35 PO2 74. Laboratory pressure WBC 16.0, hemoglobin 10.5 and platelets 109 Sodium 141 potassium 4.4 chloride 113 bicarb is 24 BUN 14 and creatinine 0.64 and blood sugar 163. Magnesium 2.6 and total bilirubin level is 1.5 and AST 175 ALT 28 and alk phos 25. Albumin 3.1. Chest x-ray showed postoperative changes.. 05/17/2023 Patient is postoperative day 1. Currently lying in the bed. Awake alert and oriented x3. Patient was extubated this morning. Patient was on Cleviprex on and off overnight for hypotension. Patient is currently on milrinone drip. Also on insulin drip. Chest x-ray showed NG tube advanced with distal tip in the proximal to mid stomach. Mild basilar bibasilar atelectasis, mildly decreased. Stable mediastinal postoperative changes. Laboratory data showed WBC 9.9 hemoglobin 9.5 and platelets 98 Sodium 141 potassium 3.6 chloride 110 bicarb is 25 BUN 13 and creatinine 0.54 Blood sugar is 115. AST 612 ALT 51 and alk phos 22. Pulmonary and cardiology is on board. 05/18/2023 Patient is currently sitting in the chair. Postoperative day 2. No complaints of chest pain. Soreness at the surgical site. No complaints of worsening shortness of breath. Currently on oxygen via nasal cannula. Patient does complain of dizziness when she gets up. No nausea or vomiting. Patient is being continued milrinone drip. Chest x-ray showed postoperative changes stable bilateral consolidation, small effusion and reducing mild venous congestion. Laboratory data showed WBC 13.0 hemoglobin 8.6 and platelets 78. Sodium 138 potassium 3.9 chloride 106 bicarb is 25 BUN 21 creatinine 0.59. AST 398 ALT 125 alk phos 23. Lasix on hold due to thrombocytopenia. 05/19/2023 Patient is currently sitting in a chair. Awake alert and oriented x3. Dizziness is better compared to yesterday. Currently on oxygen via nasal cannula. No complaints of chest pain or tightness. No nausea vomiting abdominal pain. Also able to tolerate oral diet. Patient was started on dobutamine drip due to decreased cardiac output and is also on milrinone drip. Chest x-ray showed cardiomegaly and postoperative changes without any significant change. Laboratory data showed WBC 11.0 hemoglobin 8.3 and platelets 82 Sodium 131 potassium 4.4 chloride 102 bicarb is 25 BUN 26 and creatinine 0.62. Calcium 8.2. AST 355 ALT 223 and alk phos 41. Cardiology and pulmonary and CT surgery is on board. Current medications reviewed. 05/20/2023 patient looks comfortable, she is walking in her room. 1 chest tube output She is eating little bit but no abdominal complaints or diarrhea. She is hemodynamically stable, heart rate is controlled. Hemoglobin 8.3. Liver enzymes improving. She remains on aspirin 81 mg, metoprolol and midodrine 5 mg 3 times a day Hemoglobin A1c was 6% on 05/05/2023. We will lower her Levemir 5 units twice a day and twice daily 05/21/2023 Patient looks comfortable with no new complaints Glucose is improving and is a stable after lowering the dose of Levemir 10 mg down to 5 mg, with North 5 mg tomorrow Hemoglobin stable at 8.6, vital stable Liver enzymes are the same as of yesterday. Patient is on aspirin, midodrine 05/22/2023 pt is awake and alert , denies chest pain , no dyspnea pt has several bowel movements today her glu is on the normal side, pt denies ho DM, levemir 3 units was stopped today pt has worsending liver enz , i reviewed her medication and i suspected it is due to amiodarone and mar shows amiodarone infusion one day earlier , we will keep monitoring for now Objective - Vital Signs Vital signs: Vital Signs Temp 99.9 F H 05/22/23 16:00 Pulse 85 05/22/23 19:29 Resp 25 H 05/22/23 19:00 BP 97/59 05/22/23 19:00 Pulse Ox 93 L 05/22/23 19:00 FiO2 50 05/17/23 08:40 Intake & Output 05/22/23 05/22/23 05/23/23 06:59 18:59 06:59 Intake Total 1212 802 Output Total 1201 1650 225 Balance -225 Weight 71 kg Intake: IV 312 52 Lactated Ringers 1,000 ml 240 40 @ 20 mls/hr IV .Q24H SANKET Rx#:[id number] ns pressure bags 72 12 Oral 900 750 Output: Urine 1200 1650 225 Stool 1 Other: Voiding Method Bedside Commode Bedside Commode # Voids 1 # Bowel Movements 1 1 ABP, PAP, CO, CI - Last Documented Arterial Blood Pressure 128/57 Pulmonary Artery Pressure 36/20 Cardiac Output 4.1 Cardiac Index 2.1 - Exam GENERAL: The patient is alert and oriented x3, not in any acute distress. Well developed, well nourished. HEENT: Pupils are round and equally reacting to light. EOMI. No scleral icterus. No conjunctival pallor. Normocephalic, atraumatic. No pharyngeal erythema. No thyromegaly. CARDIOVASCULAR: S1 and S2 present. No murmurs, rubs, or gallops. PULMONARY: Chest is clear to auscultation, no wheezing , no crackles. ABDOMEN: Soft, nontender, nondistended, normoactive bowel sounds. No palpable organomegaly. MUSCULOSKELETAL: No joint swelling or deformity. EXTREMITIES: No cyanosis, clubbing, or pedal edema. NEUROLOGICAL: Gross neurological examination did not reveal any focal deficits. SKIN: No rashes. no petechiae. - Labs CBC & Chem 7: 05/22/23 05:00 05/22/23 05:00 Labs: Abnormal Lab Results - Last 24 Hours (Table) 05/22/23 05/22/23 05/22/23 Range/Units 05:00 05:00 11:59 WBC 11.2 H (3.8-10.6) k/uL RBC 2.78 L (3.80-5.40) m/uL Hgb 8.9 L (11.4-16.0) gm/dL Hct 26.9 L (34.0-46.0) % Neutrophils # 8.8 H (1.3-7.7) k/uL Sodium 130 L (137-145) mmol/L BUN 18 H (7-17) mg/dL Creatinine 0.50 L (0.52-1.04) mg/dL POC Glucose (mg/dL) 114 H (70-110) mg/dL Calcium 8.1 L (8.4-10.2) mg/dL Total Bilirubin 2.2 H (0.2-1.3) mg/dL AST 424 H (14-36) U/L ALT 440 H (4-34) U/L Total Protein 5.3 L (6.3-8.2) g/dL Albumin 3.0 L (3.5-5.0) g/dL 05/22/23 Range/Units 16:23 WBC (3.8-10.6) k/uL RBC (3.80-5.40) m/uL Hgb (11.4-16.0) gm/dL Hct (34.0-46.0) % Neutrophils # (1.3-7.7) k/uL Sodium (137-145) mmol/L BUN (7-17) mg/dL Creatinine (0.52-1.04) mg/dL POC Glucose (mg/dL) 131 H (70-110) mg/dL Calcium (8.4-10.2) mg/dL Total Bilirubin (0.2-1.3) mg/dL AST (14-36) U/L ALT (4-34) U/L Total Protein (6.3-8.2) g/dL Albumin (3.5-5.0) g/dL Assessment and Plan Assessment: Severe aortic valve stenosis status post aortic valve replacement with bioprosthetic valve and ligation of left atrial appendage. Patient is s/p surgery on 05/16/2023.Postoperative day 3. Perioperative hypotension requiring pressor support. Currently on milrinone drip. Start dobutamine drip on 05/19/2023. Was also on norepinephrine and Evaristo- Synephrine. Hyperlipidemia History of rheumatoid arthritis History of psoriasis GERD Prior history of smoking DVT prophylaxis. Plan: Patient is currently in the MICU. Sugar control, continue with insulin coverage. Monitor hemoglobin and blood pressure. GI and DVT prophylaxis. Patient will be continued on BB aspirin and statins. CT surgery and pulmonary is on board. We will continue to follow and further recommendations based on clinical course.
[2023-05-23] MEDS: ACETAMINOPHEN TAB 325 MG TAB PO PRN ×4 (04:59→18:38)
[2023-05-23 06:12] LABS: Basophils % (A) 0 %; Eosinophils # (A) 0.3 k/uL (0-0.7); Eosinophils % (A) 2 %; HCT 27.5 % (34.0-46.0); HGB 9.3 gm/dL (11.4-16.0); Hypochromasia Slight; Lymphocytes # (A) 1.7 k/uL (1.0-4.8); Lymphocytes % (A) 15 %; MCH 33.5 pg (25.0-35.0); MCHC 33.6 g/dL (31.0-37.0); MCV 99.8 fL (80.0-100.0); Macrocytosis Slight; Mean Platelet Volume 8.1; Monocytes # (A) 0.7 k/uL (0-1.0); Monocytes % (A) 6 %; Neutrophils # (A) 8.5 k/uL (1.3-7.7); Neutrophils % (A) 75 %; Platelet Count 230 k/uL (150-450); RBC 2.76 m/uL (3.80-5.40); RDW 14.3 % (11.5-15.5); WBC 11.4 k/uL (3.8-10.6)
[2023-05-23 06:30] LABS: Glucose,Whole Blood 109 mg/dL (70-110)
[2023-05-23 06:33] LABS: ALT 325 U/L (4-34); AST 153 U/L (14-36); African American GFR (CKD) >90 (>60 ml/min/1.73 sqM); Albumin 3.1 g/dL (3.5-5.0); Alkaline Phosphatase 109 U/L (38-126); Anion Gap 4 mmol/L; Blood Urea Nitrogen 10 mg/dL (7-17); Calcium 8.2 mg/dL (8.4-10.2); Carbon Dioxide 31 mmol/L (22-30); Chloride 100 mmol/L (98-107); Glucose 103 mg/dL (74-99); Non-African American GFR(CKD) >90 (>60 ml/min/1.73 sqM); Potassium 3.9 mmol/L (3.5-5.1); Sodium 135 mmol/L (137-145); Total Bilirubin 1.6 mg/dL (0.2-1.3); Total Protein 5.5 g/dL (6.3-8.2)
[2023-05-23] MEDS: INSULIN ASPART (NovoLOG) 100 UNIT/ML VIAL SQ SCH ×4 (06:41→20:26)
[2023-05-23] MEDS: MIDODRINE 5 MG TAB PO SCH ×2 (06:43→16:52)
[2023-05-23] MEDS: PANTOPRAZOLE 40 MG TABLET PO SCH (06:43)
--- NOTE | 2023-05-23 07:28 | XR ---
EXAMINATION TYPE: XR chest 2V DATE OF EXAM: 05/23/2023 5:31 AM COMPARISON: Chest radiographs from 05/22/2023 TECHNIQUE: XR chest 2V Frontal and lateral views of the chest. CLINICAL INDICATION:Female, 62 years old with history of Postoperative cardiac surgery; FINDINGS: Lungs/Pleura: No evidence of focal consolidation or pneumothorax. Blunting of the costophrenic angles is present. Pulmonary vascularity: Pulmonary vascular congestion. Heart/mediastinum: Cardiomediastinal silhouette is enlarged and stable. Post aortic valve repair amrita nges. Left atrial appendage occlusion device is present. Musculoskeletal: No acute osseous pathology. IMPRESSION: Postsurgical changes with cardiomegaly and trace bilateral pleural effusions.
[2023-05-23] MEDS ORDERED: POTASSIUM CHLORIDE ER 20 MEQ TAB.ER PO SCH (08:00)
[2023-05-23] MEDS ORDERED: FUROSEMIDE 10 MG/ML 2 ML VIAL IV STA (08:14)
[2023-05-23] MEDS: ASPIRIN 81 MG PO SCH (08:19)
[2023-05-23] MEDS: HEPARIN SODIUM,PORCINE/PF 5,000 UNIT/0.5 ML SYRINGE SQ SCH ×2 (08:19→15:10)
[2023-05-23] MEDS: METOPROLOL TARTRATE 12.5 MG TAB PO SCH ×2 (08:19→20:15)
[2023-05-23] MEDS: CLOPIDOGREL 75 MG TAB PO SCH (08:19)
[2023-05-23] MEDS: IPRATROPIUM-ALBUTEROL 3 ML NEB INHALATION SCH ×4 (08:36→20:59)
--- NOTE | 2023-05-23 09:05 | P.PN ---
Subjective Progress Note Date: 05/23/23 Principal diagnosis: Severe aortic valve stenosis. Previous medical history of hyperlipidemia, rheumatoid arthritis on Enbrel outpatient, previous tobacco dependence, mild COPD, family history heart disease, and preoperative nasal swab positive for MSSA POD #7 aortic valve replacement using 23 mm Kent Inspiris bioprosthetic valve and Abdiaziz Islas annular enlargement technique, ligation of left atrial appendage using a 35 mm AtriClip, epi-aortic ultrasound, intraoperative transesophageal echocardiogram Postoperative acute blood loss anemia and thrombocytopenia, expected given hemodilution and cardiopulmonary bypass pump Postoperative hypotension, unexpected Transaminitis, unexpected, likely due to hypoperfusion The patient was seen and examined this morning sitting up in a recliner in the intensive care unit in no acute distress. She states postoperative pain cont rolled on current medication regimen. Remains in sinus rhythm, blood pressure stable on midodrine. Has been ambulatory in the hallway. Remains on 1 LPM NC. Complains of shortness of breath at night when laying in bed. CXR, labs reviewed. No other new concerns. Objective - Vital Signs Vital signs: Vital Signs Temp 97.9 F 05/23/23 04:00 Pulse 86 05/23/23 08:36 Resp 16 05/23/23 08:36 BP 108/63 05/23/23 07:00 Pulse Ox 95 05/23/23 08:36 FiO2 50 05/17/23 08:40 Intake & Output 05/22/23 05/23/23 05/23/23 18:59 06:59 18:59 Intake Total 802 600 Output Total 1650 1935 Balance -848 1335 Weight 68.9 kg Intake: IV 52 Lactated Ringers 1,000 ml 40 @ 20 mls/hr IV .Q[facility]H [facility] Rx#:[id number] ns pressure bags 12 Oral 750 600 Output: Urine 1650 1935 Other: Voiding Method Bedside Commode Bedside Commode # Bowel Movements 1 ABP, PAP, CO, CI - Last Documented Arterial Blood Pressure 128/57 Pulmonary Artery Pressure 36/20 Cardiac Output 4.1 Cardiac Index 2.1 - Exam CONSTITUTIONAL: Appears comfortable, cooperative, no acute distress RESPIRATORY: Lungs sounds diminished bilaterally. Respirations even, nonlabored. Currently on 1 L nasal cannula with oxygen saturation 96%. Able to achieve 1000 mL on incentive spirometry. Strong nonproductive cough. CARDIOVASCULAR: S1, S2 present. Regular rate and rhythm, sinus rhythm on telemetry. Sternum stable. Palpable peripheral pulses bilaterally. Trace generalized edema present. No calf pain or tenderness noted. Heart hugger, antiembolism stockings, SCDs present. GASTROINTESTINAL: Abdomen soft, nontender, nondistended. Active bowel sounds present 4 quadrants. Tolerating diet. Positive bowel movement 05/22/23 GENITOURINARY: Continues to void clear, yellow urine. Output overnight 3585 mL last 24 hours INTEGUMENTARY: Skin is warm and dry with evidence of good perfusion. Anterior chest incision well approximated and covered with dry intact dressing NEUROLOGIC: Cranial nerves II through XII intact MUSKULOSKELETAL: Able to move all extremities, strength equal bilaterally PSYCHIATRIC: Alert and oriented to person place and time, appropriate affect, intact judgment and insight INVASIVE LINES AND TUBES: A/V epicardial pacemaker wires present, connected to generator, VVI mode with rate 50 bpm. - Allied health notes Allied health notes reviewed: nursing - Labs CBC & Chem 7: 05/23/23 05:43 05/23/23 05:43 Labs: Abnormal Lab Results - Last 24 Hours (Table) 05/22/23 05/22/23 05/23/23 Range/Units 11:59 16:23 05:43 WBC 11.4 H (3.8-10.6) k/uL RBC 2.76 L (3.80-5.40) m/uL Hgb 9.3 L (11.4-16.0) gm/dL Hct 27.5 L (34.0-46.0) % Neutrophils # 8.5 H (1.3-7.7) k/uL Sodium (137-145) mmol/L Carbon Dioxide (22-30) mmol/L Glucose (74-99) mg/dL POC Glucose (mg/dL) 114 H 131 H (70-110) mg/dL Calcium (8.4-10.2) mg/dL Total Bilirubin (0.2-1.3) mg/dL AST (14-36) U/L ALT (4-34) U/L Total Protein (6.3-8.2) g/dL Albumin (3.5-5.0) g/dL 05/23/23 Range/Units 05:43 WBC (3.8-10.6) k/uL RBC (3.80-5.40) m/uL Hgb (11.4-16.0) gm/dL Hct (34.0-46.0) % Neutrophils # (1.3-7.7) k/uL Sodium 135 L (137-145) mmol/L Carbon Dioxide 31 H (22-30) mmol/L Glucose 103 H (74-99) mg/dL POC Glucose (mg/dL) (70-110) mg/dL Calcium 8.2 L (8.4-10.2) mg/dL Total Bilirubin 1.6 H (0.2-1.3) mg/dL AST 153 H (14-36) U/L ALT 325 H (4-34) U/L Total Protein 5.5 L (6.3-8.2) g/dL Albumin 3.1 L (3.5-5.0) g/dL - Imaging and Cardiology Chest x-ray: report reviewed, image reviewed Assessment and Plan Assessment: Severe aortic valve stenosis, status post bioprosthetic aortic valve replacement with annular enlargement History of hyperlipidemia, treated, cholesterol 195, LDL 98, triglycerides 105 Rheumatoid arthritis on Enbrel outpatient Previous tobacco dependence Mild COPD, preoperative FEV1 61% of predicted Family history of heart disease Preoperative nasal swab positive for MSSA, treated Postoperative acute blood loss anemia and thrombocytopenia, expected Postoperative hypotension, unexpected Elevated liver enzymes, unexpected, likely due to hypoperfusion Paroxysmal atrial fibrillation/flutter, known common occurrence after cardiac surgery, currently in sinus rhythm Plan: Continue to maximize medical therapy with low-dose aspirin, plavix, beta daniel. Hold statin due to elevated liver enzymes Continue midodrine Wean oxygen as tolerated. Encourage incentive spirometry is 10 times every hour while awake. Bronchodilators per pulmonology Increase activity as tolerated. PT/OT/cardiac rehab following GI/DVT prophylaxis Pain control with current medication regimen Insulin management per internal medicine. Patient is not diabetic, preoperative hemoglobin A1c 6.0% Strict accurate intake and output Daily weights Will monitor daily labs and x-rays. Electrolyte replacement per protocol. Will give IV Lasix today Epicardial pacer wires discontinued, patient to remain on bedrest for 1 hour post wire removal Transfer orders placed for [address] [place] [address] cardiac stepdown unit, may transfer when bed available Discharge planning in progress, anticipate discharge to home with home care in the next 24-48 hours More recommendations to follow
--- NOTE | 2023-05-23 10:20 | P.PN ---
Subjective Progress Note Date: 05/23/23 Principal diagnosis: Status post aortic valve replacement. I am seeing this patient in consultation today 05/17/2023 status postoperative day #1 following an aortic valve replacement with aortic root enlargement and left atrial appendage ligation. Patient is a 62-year-old white female with past medical history significant for severe aortic stenosis, hyperlipidemia, psoriatic arthritis, GERD, and is a remote ex-smoker. Patient did have a preoperative spirometry which showed moderate obstructive disease with an FEV1 61% of predicted. FEV1 to FVC ratio was 64%. Patient does not follow with home mortgage disclosure act specialist. Patient had been reporting ongoing and intermittent chest discomfort over the last year. She did have a recent heart catheterization and BRENDA on April 11 which showed mild nonobstructive coronary artery disease, aneurysmal dilation of ascending aorta, 3+ aortic regurgitation, and severe aortic stenosis. The patient was scheduled for an elective open-heart which took place yesterday. The patient underwent aortic valve replacement with aortic root enlargement and left atrial appendage ligation. This was complicated by some perioperative hypotension and increased pulmonary artery pressures. The patient was given 2.7 L of crystalloid, 2 albumin, and 450 ML's of Cell Saver intraoperatively. The patient was initially placed on a combination of milrinone, epinephrine, and Evaristo-Synephrine. The patient was then transferred to the intensive care unit. Patient is currently lying in bed, intubated to the mechanical ventilator, and appears fairly comfortable. Current ventilator settings are assist control, respiratory rate 22, tidal volume 400, FiO2 50%, and a PEEP of 10. Postoperatively, the patient had combined respiratory and metabolic acidosis. Respiratory rate was then increased to 22, and the patient was given one amp of sodium bicarb. Most recent ABGs after ventilator changes show a pO2 of 259, pCO2 of 38, and pH of 7.38. This was done on a FiO2 of 80%. Patient is currently synchronous with the mechanical ventilator and sedated on propofol infusing at 10 mcg/kg/m. This is being weaned off. Currently, the patient will open her eyes to verbal stimulation, but does not follow any commands. Peak pressure is 27 and plateau pressure is 20. Postoperative chest x-ray shows endotracheal tube 4 cm from the yehuda, NG tube with a side port at the GE junction and could be advanced approximately 5 cm, bilateral pleural chest tubes, a mediastinal chest tube, and other postsurgical changes. No pneumothoraces. Patient's blood pressure is normotensive, and the Evaristo-Synephrine and epinephrine were weaned off. Actually, clevidipine had to be temporarily started for hypertension. Currently, the patient has milrinone infusing at 0.375 mcg/kg/m. Most recent CO/CI are 3.3 and 2 respectively. PA pressures are 30/19. Lactate Ringer's is also infusing at 50 ML's per hour. Urine output has been adequate in the order of 80-100 ML's per hour. Insulin is infusing per protocol. Most recent CBC has a WBC count of 8.7, hemoglobin 10.2, hematocrit 30.2, platelets 90. Mediastinal chest tube has 250 ML's of serosanguineous output. There is no air leak. Right and left pleural chest tubes are Y-d together and have 190 ML's of serosanguineous output. There is a small intermittent air leak. Postoperative BMP has sodium 141, potassium 4.4, chlo ride 113, serum bicarb 24, BUN 14, creatinine 0.64, glucose 163. Currently, we are working on weaning off the sedation in preparation for possible extubation later this morning. The patient is currently too sedated to attempt SBT at this time. Patient was reevaluated today on 05/18/2023, patient is sitting in her recliner at a bedside chair, she was successfully extubated yesterday at 10 AM. P ulmonary-nixon, the patient seems to be doing well, she is on few liters nasal cannula, does not seem to be in any distress. Her cardiac index today is 2.4, continues to have internal jugular [place]/cor this in the right IJ, she continues to have a right radial arterial line, mediastinal right and left pleural chest tubes also remained.chest x-ray showed mostly postoperative changes and bibasilar atelectasis with small pleural effusions. Labs were reviewed WBC count is 13.0 hemoglobin is 8. Platelets are 78,000.basic metabolic profile is normal renal profile is normal liver enzymes are elevated but improving compared to yesterday. Patient was reevaluated today on 05/19/2023, patient is doing fairly well, does not seem to be in any distress, she does have some postoperative pain but fairly well controlled. She is hemodynamically stable, remains in sinus rhythm, Primacor still infusing at 0.2 mcg/kg/h, she is also on a low-dose dopamine for orthostatic hypotension and poor urine output she did have significant amount of serosanguineous drainage from her left-sided chest tube over the last 24 hours roughly about 1.3 L. She remains on 6 L nasal cannula, O2 saturation is in the low 90s. There is scant is 11 hemoglobin is 8.3 left first are normal renal profile is normal liver enzymes are elevated. Chest x-ray showed cardiomegaly and postoperative changes, otherwise unremarkable seen today on 05/20/2023, patient remains in the ICU, remains on 2 L nasal cannula, she is still requiring Primacor at 0.1 mcg/kg/m, her IV fluids at KVO, patient is hemodynamically stable she does have a paced rhythm, doing better with incentive spirometry, does not seem to be in any distress. She seems to be generally weak. WBC count is 9.6 hemoglobin 8.3 electrolytes are normal renal profile is normal, liver enzymes are a bit elevated , chest x-ray showed small areas of atelectasis and small pleural effusions patient was reevaluated today on 05/21/2023, remains marginal at best, remains in the ICU, patient developed atrial fibrillation and RVR, patient was given 2 boluses of amiodarone last night. Then she had a bradycardia, she was also hypotensive requiring 2 hours of norepinephrine. Patient remains on Primacor at 0.1 mcg/kg/m, her IV fluids at KVO, her urine output is marginal. Patient had to have straight cathed 2 last night. Presently sitting at a bedside chair, does not seem to be in any distress, she seems to be hemodynamically stable.she is on 2 L nasal cannula O2 sats at 95%, blood pressure is 111/61. CVP is 10.WBC count is 9.8 hemoglobin is 8.6, electrodes are normal renal profile is normal.chest x-ray showed mostly postsurgical changes, mild pulmonary vascular congestion and small bilateral pleural effusions. Reevaluated today on 05/22/2023, patient remains in the ICU, doing fairly well, not in any distress, on room air and O2 sats is 93%, doing well with incentive spirometry achieving 1000 mL, hemodynamically stable, not receiving any more in otropes. No pressors. Patient is ambulating in the intensive care unit [facility], CVP is 11. Labs were all reviewed, basically unremarkable. Chest x- ray showed small bilateral pleural effusions and atelectasis in the left lower lobe area. Chest tubes have been removed. Progress note dated 05/23/2023. 62-year-old female who is postop day #7, status post aortic valve replacement. Patient's currently on 1 L of oxygen. She's not receiving any IV fluids. According to the nurses, she's been downgraded by cardiothoracic surgery. Currently, the patient sitting in the chair next to her bed. She's getting a breathing treatment. Current labs include a white count 11.4, hemoglobin 9.3, hematocrit 27.5, with a normal platelet count. Sodium 135, potassium 3.9, chloride 100, CO2 31, nightly 10, creatinine 0.57. Chest x-ray shows some cardiomegaly, with small bilateral effusions. Objective - Vital Signs Vital signs: Vital Signs Temp 99.1 F 05/23/23 08:00 Pulse 77 05/23/23 10:00 Resp 16 05/23/23 10:00 BP 116/69 05/23/23 09:00 Pulse Ox 94 L 05/23/23 10:00 FiO2 50 05/17/23 08:40 Intake & Output 05/22/23 05/23/23 05/23/23 18:59 06:59 18:59 Intake Total 802 600 Output Total 1650 1935 500 Balance -848 -0345 -500 Weight 68.9 kg Intake: IV 52 Lactated Ringers 1,000 ml 40 @ 20 mls/hr IV .Q24H [facility] Rx#:[id number] ns pressure bags 12 Oral 750 600 Output: Urine 1650 1935 500 Other: Voiding Method Bedside Commode Bedside Commode # Bowel Movements 1 ABP, PAP, CO, CI - Last Documented Arterial Blood Pressure 128/57 Pulmonary Artery Pressure 36/20 Cardiac Output 4.1 Cardiac Index 2.1 - Exam No acute distress, oriented 3. Currently receiving a breathing treatment. HEENT examination is grossly unremarkable. Neck supple. Full range of motion. No adenopathy thyromegaly or neck vein distention. Cardiovascular examination reveals regular rhythm rate. S1-S2 normal. No S3 or S4. No discernible murmur noted. Heart rate 77 bpm. Lungs reveal mostly clear breath sounds. A few scattered rhonchi. No wheezes or crackles. 1 L saturation is 95%. Abdomen soft bowel sounds are heard. No masses or tenderness. Extremities are intact. No cyanosis clubbing or edema. Skin is without rash or lesion. Neurologic examination is brief but nonfocal. - Labs CBC & Chem 7: 05/23/23 05:43 05/23/23 05:43 Labs: Abnormal Lab Results - Last 24 Hours (Table) 05/22/23 05/22/23 05/23/23 Range/Units 11:59 16:23 05:43 WBC 11.4 H (3.8-10.6) k/uL RBC 2.76 L (3.80-5.40) m/uL Hgb 9.3 L (11.4-16.0) gm/dL Hct 27.5 L (34.0-46.0) % Neutrophils # 8.5 H (1.3-7.7) k/uL Sodium (137-145) mmol/L Carbon Dioxide (22-30) mmol/L Glucose (74-99) mg/dL POC Glucose (mg/dL) 114 H 131 H (70-110) mg/dL Calcium (8.4-10.2) mg/dL Total Bilirubin (0.2-1.3) mg/dL AST (14-36) U/L ALT (4-34) U/L Total Protein (6.3-8.2) g/dL Albumin (3.5-5.0) g/dL 05/23/23 Range/Units 05:43 WBC (3.8-10.6) k/uL RBC (3.80-5.40) m/uL Hgb (11.4-16.0) gm/dL Hct (34.0-46.0) % Neutrophils # (1.3-7.7) k/uL Sodium 135 L (137-145) mmol/L Carbon Dioxide 31 H (22-30) mmol/L Glucose 103 H (74-99) mg/dL POC Glucose (mg/dL) (70-110) mg/dL Calcium 8.2 L (8.4-10.2) mg/dL Total Bilirubin 1.6 H (0.2-1.3) mg/dL AST 153 H (14-36) U/L ALT 325 H (4-34) U/L Total Protein 5.5 L (6.3-8.2) g/dL Albumin 3.1 L (3.5-5.0) g/dL Assessment and Plan Assessment: Postop day #7, status post aortic valve replacement, for severe aortic stenosis. The patient also had aortic root enlargement, and left atrial appendage ligation. Routine postoperative ventilator management. Postoperative hypotension, resolved. Acute blood loss anemia. Moderate COPD. Thrombocytopenia. Hyperlipidemia. Psoriatic arthritis. History gastroesophageal reflux disease. History of previous tobacco use. Plan: Plan dated 05/23/2023. The patient appears to be doing relatively well. Her chest x-ray stable. She is on 1 L of oxygen. She's postop day #7, status post aortic valve replacement for severe aortic stenosis. The patient has been downgraded by cardiothoracic surgery, and will be transferred out to the cardiac floor. We will continue to follow the patient. Labs, x-rays, and medications are all reviewed. Prognosis is guarded. Time with Patient: Less than 30
[2023-05-23 12:03] LABS: Glucose,Whole Blood 118 mg/dL (70-110)
[2023-05-23 16:38] LABS: Glucose,Whole Blood 147 mg/dL (70-110)
[2023-05-23 20:02] LABS: Glucose,Whole Blood 121 mg/dL (70-110)
[2023-05-24] MEDS: HEPARIN SODIUM,PORCINE/PF 5,000 UNIT/0.5 ML SYRINGE SQ SCH ×4 (00:03→23:01)
--- NOTE | 2023-05-24 02:33 | PN ---
PROGRESS NOTE SUBJECTIVE: Mrs. Moran underwent aortic valve replacement. She is clinically doing better, maintaining sinus rhythm, hemodynamically stable, doing decent on her incentive spirometry. OBJECTIVE: VITALS: Stable. NECK: No JVD. HEART: S1, S2 are normal, short systolic murmur noted. LUNGS: Reveal fair air entry bilaterally. ABDOMEN: Unchanged. EXTREMITIES: Lower extremity exam unchanged. PLAN: To continue current medications including incentive spirometry and pulmonary toilet. MMODL / IJN: [id number] /
[2023-05-24] MEDS: ACETAMINOPHEN TAB 325 MG TAB PO PRN ×4 (03:06→23:04)
--- NOTE | 2023-05-24 06:08 | P.PN ---
Subjective Patient is a 62-year-old female with a past medical history of hyperlipidemia, rheumatoid arthritis, GERD and prior history of smoking was admitted to the hospital for elective aortic valve replacement with a bioprosthetic valve. Patient is status post aortic valve replacement with aortic root enlargement and left atrial appendage ligation. Perioperatively patient was intubated and was transferred to MICU. Patient was also hypotensive and was started on milrinone and epinephrine drips. ABG showed pH 7.26, PCO2 35 PO2 74. Laboratory pressure WBC 16.0, hemoglobin 10.5 and platelets 109 Sodium 141 potassium 4.4 chloride 113 bicarb is 24 BUN 14 and creatinine 0.64 and blood sugar 163. Magnesium 2.6 and total bilirubin level is 1.5 and AST 175 ALT 28 and alk phos 25. Albumin 3.1. Chest x-ray showed postoperative changes.. 05/17/2023 Patient is postoperative day 1. Currently lying in the bed. Awake alert and oriented x3. Patient was extubated this morning. Patient was on Cleviprex on and off overnight for hypotension. Patient is currently on milrinone drip. Also on insulin drip. Chest x-ray showed NG tube advanced with distal tip in the proximal to mid stomach. Mild basilar bibasilar atelectasis, mildly decreased. Stable mediastinal postoperative changes. Laboratory data showed WBC 9.9 hemoglobin 9.5 and platelets 98 Sodium 141 potassium 3.6 chloride 110 bicarb is 25 BUN 13 and creatinine 0.54 Blood sugar is 115. AST 612 ALT 51 and alk phos 22. Pulmonary and cardiology is on board. 05/18/2023 Patient is currently sitting in the chair. Postoperative day 2. No complaints of chest pain. Soreness at the surgical site. No complaints of worsening shortness of breath. Currently on oxygen via nasal cannula. Patient does complain of dizziness when she gets up. No nausea or vomiting. Patient is being continued milrinone drip. Chest x-ray showed postoperative changes stable bilateral consolidation, small effusion and reducing mild venous congestion. Laboratory data showed WBC 13.0 hemoglobin 8.6 and platelets 78. Sodium 138 potassium 3.9 chloride 106 bicarb is 25 BUN 21 creatinine 0.59. AST 398 ALT 125 alk phos 23. Lasix on hold due to thrombocytopenia. 05/19/2023 Patient is currently sitting in a chair. Awake alert and oriented x3. Dizziness is better compared to yesterday. Currently on oxygen via nasal cannula. No complaints of chest pain or tightness. No nausea vomiting abdominal pain. Also able to tolerate oral diet. Patient was started on dobutamine drip due to decreased cardiac output and is also on milrinone drip. Chest x-ray showed cardiomegaly and postoperative changes without any significant change. Laboratory data showed WBC 11.0 hemoglobin 8.3 and platelets 82 Sodium 131 potassium 4.4 chloride 102 bicarb is 25 BUN 26 and creatinine 0.62. Calcium 8.2. AST 355 ALT 223 and alk phos 41. Cardiology and pulmonary and CT surgery is on board. Current medications reviewed. 05/20/2023 patient looks comfortable, she is walking in her room. 1 chest tube output She is eating little bit but no abdominal complaints or diarrhea. She is hemodynamically stable, heart rate is controlled. Hemoglobin 8.3. Liver enzymes improving. She remains on aspirin 81 mg, metoprolol and midodrine 5 mg 3 times a day Hemoglobin A1c was 6% on 05/05/2023. We will lower her Levemir 5 units twice a day and twice daily 05/21/2023 Patient looks comfortable with no new complaints Glucose is improving and is a stable after lowering the dose of Levemir 10 mg down to 5 mg, with North 5 mg tomorrow Hemoglobin stable at 8.6, vital stable Liver enzymes are the same as of yesterday. Patient is on aspirin, midodrine 05/22/2023 pt is awake and alert , denies chest pain , no dyspnea pt has several bowel movements today her glu is on the normal side, pt denies ho DM, levemir 3 units was stopped today pt has worsending liver enz , i reviewed her medication and i suspected it is due to amiodarone and mar shows amiodarone infusion one day earlier , we will keep monitoring for now 05/23/2023 Patient with known new complaints. No chest pain, no dyspnea. Her hemoglobin stable at 9.3. Glucose controlled. No need for insulin. liver Enzymes are improving Patient will be downgraded to general medical floor in selective unit Objective - Vital Signs Vital signs: Vital Signs Temp 99.1 F 05/23/23 08:00 Pulse 77 05/23/23 10:00 Resp 16 05/23/23 10:00 BP 116/69 05/23/23 09:00 Pulse Ox 94 L 05/23/23 10:00 FiO2 50 05/17/23 08:40 Intake & Output 05/22/23 05/23/23 05/23/23 18:59 06:59 18:59 Intake Total 802 600 Output Total 1650 1935 500 Balance -848 -1335 -500 Weight 68.9 kg Intake: IV 52 Lactated Ringers 1,000 ml 40 @ 20 mls/hr IV .Q24H SANKET Rx#:[id number] ns pressure bags 12 Oral 750 600 Output: Urine 1650 1935 500 Other: Voiding Method Bedside Commode Bedside Commode Bedside Commode # Bowel Movements 1 ABP, PAP, CO, CI - Last Documented Arterial Blood Pressure 128/57 Pulmonary Artery Pressure 36/20 Cardiac Output 4.1 Cardiac Index 2.1 - Exam GENERAL: The patient is alert and oriented x3, not in any acute distress. Well developed, well nourished. HEENT: Pupils are round and equally reacting to light. EOMI. No scleral icterus. No conjunctival pallor. Normocephalic, atraumatic. No pharyngeal erythema. No thyromegaly. CARDIOVASCULAR: S1 and S2 present. No murmurs, rubs, or gallops. PULMONARY: Chest is clear to auscultation, no wheezing , no crackles. ABDOMEN: Soft, nontender, nondistended, normoactive bowel sounds. No palpable organomegaly. MUSCULOSKELETAL: No joint swelling or deformity. EXTREMITIES: No cyanosis, clubbing, or pedal edema. NEUROLOGICAL: Gross neurological examination did not reveal any focal deficits. SKIN: No rashes. no petechiae. - Labs CBC & Chem 7: 05/23/23 05:43 05/23/23 05:43 Labs: Abnormal Lab Results - Last 24 Hours (Table) 05/22/23 05/23/23 05/23/23 Range/Units 16:23 05:43 05:43 WBC 11.4 H (3.8-10.6) k/uL RBC 2.76 L (3.80-5.40) m/uL Hgb 9.3 L (11.4-16.0) gm/dL Hct 27.5 L (34.0-46.0) % Neutrophils # 8.5 H (1.3-7.7) k/uL Sodium 135 L (137-145) mmol/L Carbon Dioxide 31 H (22-30) mmol/L Glucose 103 H (74-99) mg/dL POC Glucose (mg/dL) 131 H (70-110) mg/dL Calcium 8.2 L (8.4-10.2) mg/dL Total Bilirubin 1.6 H (0.2-1.3) mg/dL AST 153 H (14-36) U/L ALT 325 H (4-34) U/L Total Protein 5.5 L (6.3-8.2) g/dL Albumin 3.1 L (3.5-5.0) g/dL 05/23/23 Range/Units 12:01 WBC (3.8-10.6) k/uL RBC (3.80-5.40) m/uL Hgb (11.4-16.0) gm/dL Hct (34.0-46.0) % Neutrophils # (1.3-7.7) k/uL Sodium (137-145) mmol/L Carbon Dioxide (22-30) mmol/L Glucose (74-99) mg/dL POC Glucose (mg/dL) 118 H (70-110) mg/dL Calcium (8.4-10.2) mg/dL Total Bilirubin (0.2-1.3) mg/dL AST (14-36) U/L ALT (4-34) U/L Total Protein (6.3-8.2) g/dL Albumin (3.5-5.0) g/dL Assessment and Plan Assessment: Severe aortic valve stenosis status post aortic valve replacement with bioprosthetic valve and ligation of left atrial appendage. Patient is s/p surgery on 05/16/2023.Postoperative day 3. Perioperative hypotension requiring pressor support. Currently on milrinone drip. Start dobutamine drip on 05/19/2023. Was also on norepinephrine and Evaristo- Synephrine. Hyperlipidemia History of rheumatoid arthritis History of psoriasis GERD Prior history of smoking DVT prophylaxis. Plan: Patient is currently in the MICU. Sugar control, continue with insulin coverage. Monitor hemoglobin and blood pressure. GI and DVT prophylaxis. Patient will be continued on BB aspirin and statins. CT surgery and pulmonary is on board. We will continue to follow and further recommendations based on clinical course.
[2023-05-24 06:19] LABS: Glucose,Whole Blood 106 mg/dL (70-110)
[2023-05-24] MEDS: INSULIN ASPART (NovoLOG) 100 UNIT/ML VIAL SQ SCH ×4 (06:21→20:25)
[2023-05-24] MEDS: PANTOPRAZOLE 40 MG TABLET PO SCH (06:39)
[2023-05-24] MEDS: MIDODRINE 5 MG TAB PO SCH ×2 (06:39→16:59)
--- NOTE | 2023-05-24 08:21 | XR ---
EXAMINATION TYPE: XR chest 2V DATE OF EXAM: 05/24/2023 COMPARISON: 05/23/2023 HISTORY: Cardiac surgery TECHNIQUE: Frontal and lateral views of the chest are obtained. FINDINGS: Left atrial clip in place. Cardiac valvular prosthesis and sternotomy wires. Continued pulmonary veno us congestion with trace pleural effusions. Heart size is stable. Mediastinal structures are stable and grossly unremarkable. No evidence for hilar prominence. Degenerative changes dorsal spine. IMPRESSION: 1. Essentially stable chest.
[2023-05-24] MEDS: ASPIRIN 81 MG PO SCH (08:51)
[2023-05-24] MEDS: CLOPIDOGREL 75 MG TAB PO SCH (08:51)
[2023-05-24] MEDS: CHOLECALCIFEROL 125 MCG (5000 IU) TABLET PO SCH (08:51)
[2023-05-24] MEDS: METOPROLOL TARTRATE 12.5 MG TAB PO SCH ×2 (08:51→20:25)
[2023-05-24] MEDS: IPRATROPIUM-ALBUTEROL 3 ML NEB INHALATION SCH ×4 (08:58→20:50)
--- NOTE | 2023-05-24 09:21 | P.PN ---
Subjective Progress Note Date: 05/24/23 Principal diagnosis: Severe aortic valve stenosis. Previous medical history of hyperlipidemia, rheumatoid arthritis on Enbrel outpatient, previous tobacco dependence, mild COPD, family history heart disease, and preoperative nasal swab positive for MSSA POD #8 aortic valve replacement using 23 mm Kent Inspiris bioprosthetic valve and Abdiaziz Islas annular enlargement technique, ligation of left atrial appendage using a 35 mm AtriClip, epi-aortic ultrasound, intraoperative transesophageal echocardiogram Postoperative acute blood loss anemia and thrombocytopenia, expected given hemodilution and cardiopulmonary bypass pump Postoperative orthostatic hypotension, unexpected. Transaminitis, unexpected, likely due to hypoperfusion, improving. The patient was seen and examined in follow-up today 05/24/2023 at her bedside on the cardiac stepdown unit. Currently she is sitting up to the bedside chair, is awake, alert, oriented 3 and is in no acute apparent distress. She denies any complaints of pain, shortness of breath, nausea or vomiting or dizziness at this time, although states she does get somewhat short of breath when lying in bed. She states she feels pretty good today and is anxious to be discharged home. Oxygen saturation are 95% on room air and she is achieving 1000 mL on her incentive spirometry. Remote telemetry showing normal sinus rhythm heart rate 85 BPM. Chest x-ray was reviewed. Laboratory results remain pending. She reports she has been up ambulating in the cardiac step unit hallway with standby assistance from nursing and therapy staff and has been tolerating well. Atrial and ventricular epicardial pacemaker wires were removed yesterday without incident. Discharge planning is in place. Objective - Vital Signs Vital signs: Vital Signs Temp 98.3 F 05/24/23 08:49 Pulse 70 05/24/23 08:58 Resp 18 05/24/23 08:49 BP 96/52 05/24/23 08:49 Pulse Ox 94 L 05/24/23 08:58 FiO2 50 05/17/23 08:40 Intake & Output 05/23/23 05/24/23 05/24/23 18:59 06:59 18:59 Intake Total 780 360 Output Total 500 300 Balance -500 480 360 Weight 67.9 kg Intake: Oral 780 360 Output: Urine 500 300 Other: Voiding Method Toilet Toilet # Voids 2 1 ABP, PAP, CO, CI - Last Documented Arterial Blood Pressure 128/57 Pulmonary Artery Pressure 36/20 Cardiac Output 4.1 Cardiac Index 2.1 - Exam CONSTITUTIONAL: Appears comfortable, cooperative, no acute distress, sitting up to the bedside chair on the cardiac stepdown unit. RESPIRATORY: Lungs sounds clear throughout, diminished to her bilateral bases. Respirations are symmetrical, nonlabored. Currently on room air with oxygen saturation 95%. Able to achieve 1000 mL on incentive spirometry. Strong nonproductive cough. CARDIOVASCULAR: S1, S2 present. Regular rate and rhythm, sinus rhythm on remote telemetry, heart rate 85 bpm. Sternum stable. Palpable peripheral pulses bilaterally. Trace generalized edema present. No calf pain or tenderness noted. Heart hugger, antiembolism stockings, SCDs present. GASTROINTESTINAL: Abdomen soft, nontender, nondistended. Active bowel sounds present 4 quadrants. Tolerating diet. Passing flatus. Bowel movement yesterday 05/22/2023. GENITOURINARY: Continues to void. INTEGUMENTARY: Skin is warm and dry with evidence of good perfusion. Midline sternal chest incision well approximated and covered with dry intact dressing. NEUROLOGIC: Cranial nerves II through XII intact. No focal deficits. MUSKULOSKELETAL: Able to move all extremities, strength equal bilaterally. PSYCHIATRIC: Alert and oriented to person place and time, appropriate affect, intact judgment and insight. - Allied health notes Allied health notes reviewed: nursing - Labs CBC & Chem 7: 05/23/23 05:43 05/23/23 05:43 Labs: Abnormal Lab Results - Last 24 Hours (Table) 05/23/23 05/23/23 05/23/23 Range/Units 12:01 16:36 19:54 POC Glucose (mg/dL) 118 H 147 H 121 H (70-110) mg/dL - Imaging and Cardiology Chest x-ray: report reviewed, image reviewed Assessment and Plan Assessment: Severe aortic valve stenosis, status post bioprosthetic aortic valve replacement with annular enlargement History of hyperlipidemia, treated, cholesterol 195, LDL 98, triglycerides 105 Rheumatoid arthritis on Enbrel outpatient Previous tobacco dependence Mild COPD, preoperative FEV1 61% of predicted Family history of heart disease Preoperative nasal swab positive for MSSA, treated Postoperative acute blood loss anemia and thrombocytopenia, expected Postoperative hypotension, unexpected Elevated liver enzymes, unexpected, likely due to hypoperfusion Paroxysmal atrial fibrillation/atrial flutter, a known common occurrence after cardiac surgery, currently sinus rhythm Plan: Continue to maximize medical therapy with low-dose aspirin, Plavix, and beta daniel. Continue to hold statin due to elevated liver enzymes. Continue Midorine 5 mg by mouth twice a day with hold parameters for systolic blood pressure greater than 120 mmHg. Encourage incentive spirometry is 10 times every hour while awake. Bronchodilators per pulmonology. Increase activity as tolerated. PT/OT/cardiac rehab following. GI/DVT prophylaxis. Pain control with current medication regimen. Insulin management per internal medicine. Patient is not diabetic, preoperative hemoglobin A1c 6.0%. Continue to record strict and accurate I's and O's. Daily weights. Will monitor daily labs and chest x-rays. Electrolyte replacement per protocol. Discharge planning is in place, anticipate discharge home with home health care in the next 24 hours. More recommendations to follow based on patient's clinical course. Time with Patient: Greater than 30
--- NOTE | 2023-05-24 09:39 | P.PN ---
Subjective Progress Note Date: 05/24/23 Principal diagnosis: Status post aortic valve replacement. I am seeing this patient in consultation today 05/17/2023 status postoperative day #1 following an aortic valve replacement with aortic root enlargement and left atrial appendage ligation. Patient is a 62-year-old white female with past medical history significant for severe aortic stenosis, hyperlipidemia, psoriatic arthritis, GERD, and is a remote ex-smoker. Patient did have a preoperative spirometry which showed moderate obstructive disease with an FEV1 61% of predicted. FEV1 to FVC ratio was 64%. 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 Patient had been reporting ongoing and intermittent chest discomfort over the last year. She did have a recent heart catheterization and BRENDA on April 11 which showed mild nonobstructive coronary artery disease, aneurysmal dilation of ascending aorta, 3+ aortic regurgitation, and severe aortic stenosis. The patient was scheduled for an elective open-heart which took place yesterday. The patient underwent aortic valve replacement with aortic root enlargement and left atrial appendage ligation. This was complicated by some perioperative hypotension and increased pulmonary artery pressures. The patient was given 2.7 L of crystalloid, 2 albumin, and 450 ML's of Cell Saver intraoperatively. The patient was initially placed on a combination of milrinone, epinephrine, and Evaristo-Synephrine. The patient was then transferred to the intensive care unit. Patient is currently lying in bed, intubated to the mechanical ventilator, and appears fairly comfortable. Current ventilator settings are assist control, respiratory rate 22, tidal volume 400, FiO2 50%, and a PEEP of 10. Postoperatively, the patient had combined respiratory and metabolic acidosis. Respiratory rate was then increased to 22, and the patient was given one amp of sodium bicarb. Most recent ABGs after ventilator changes show a pO2 of 259, pCO2 of 38, and pH of 7.38. This was done on a FiO2 of 80%. Patient is currently synchronous with the mechanical ventilator and sedated on propofol infusing at 10 mcg/kg/m. This is being weaned off. Currently, the patient will open her eyes to verbal stimulation, but does not follow any commands. Peak pressure is 27 and plateau pressure is 20. Postoperative chest x-ray shows endotracheal tube 4 cm from the yehuda, NG tube with a side port at the GE junction and could be advanced approximately 5 cm, bilateral pleural chest tubes, a mediastinal chest tube, and other postsurgical changes. No pneumothoraces. Patient's blood pressure is normotensive, and the Evaristo-Synephrine and epinephrine were weaned off. Actually, clevidipine had to be temporarily started for hypertension. Currently, the patient has milrinone infusing at 0.375 mcg/kg/m. Most recent CO/CI are 3.3 and 2 respectively. PA pressures are 30/19. Lactate Ringer's is also infusing at 50 ML's per hour. Urine output has been adequate in the order of 80-100 ML's per hour. Insulin is infusing per protocol. Most recent CBC has a WBC count of 8.7, hemoglobin 10.2, hematocrit 30.2, platelets 90. Mediastinal chest tube has 250 ML's of serosanguineous output. There is no air leak. Right and left pleural chest tubes are Y-d together and have 190 ML's of serosanguineous output. There is a small intermittent air leak. Postoperative BMP has sodium 141, potassium 4.4, chlo ride 113, serum bicarb 24, BUN 14, creatinine 0.64, glucose 163. Currently, we are working on weaning off the sedation in preparation for possible extubation later this morning. The patient is currently too sedated to attempt SBT at this time. Patient was reevaluated today on 05/18/2023, patient is sitting in her recliner at a bedside chair, she was successfully extubated yesterday at 10 AM. P ulmonary-nixon, the patient seems to be doing well, she is on few liters nasal cannula, does not seem to be in any distress. Her cardiac index today is 2.4, continues to have internal jugular [place]/cor this in the right IJ, she continues to have a right radial arterial line, mediastinal right and left pleural chest tubes also remained.chest x-ray showed mostly postoperative changes and bibasilar atelectasis with small pleural effusions. Labs were reviewed WBC count is 13.0 hemoglobin is 8. Platelets are 78,000.basic metabolic profile is normal renal profile is normal liver enzymes are elevated but improving compared to yesterday. Patient was reevaluated today on 05/19/2023, patient is doing fairly well, does not seem to be in any distress, she does have some postoperative pain but fairly well controlled. She is hemodynamically stable, remains in sinus rhythm, Primacor still infusing at 0.2 mcg/kg/h, she is also on a low-dose dopamine for orthostatic hypotension and poor urine output she did have significant amount of serosanguineous drainage from her left-sided chest tube over the last 24 hours roughly about 1.3 L. She remains on 6 L nasal cannula, O2 saturation is in the low 90s. There is scant is 11 hemoglobin is 8.3 left first are normal renal profile is normal liver enzymes are elevated. Chest x-ray showed cardiomegaly and postoperative changes, otherwise unremarkable seen today on 05/20/2023, patient remains in the ICU, remains on 2 L nasal cannula, she is still requiring Primacor at 0.1 mcg/kg/m, her IV fluids at KVO, patient is hemodynamically stable she does have a paced rhythm, doing better with incentive spirometry, does not seem to be in any distress. She seems to be generally weak. WBC count is 9.6 hemoglobin 8.3 electrolytes are normal renal profile is normal, liver enzymes are a bit elevated , chest x-ray showed small areas of atelectasis and small pleural effusions patient was reevaluated today on 05/21/2023, remains marginal at best, remains in the ICU, patient developed atrial fibrillation and RVR, patient was given 2 boluses of amiodarone last night. Then she had a bradycardia, she was also hypotensive requiring 2 hours of norepinephrine. Patient remains on Primacor at 0.1 mcg/kg/m, her IV fluids at KVO, her urine output is marginal. Patient had to have straight cathed 2 last night. Presently sitting at a bedside chair, does not seem to be in any distress, she seems to be hemodynamically stable.she is on 2 L nasal cannula O2 sats at 95%, pressure is 111/61. CVP is 10.WBC count is 9.8 hemoglobin is 8.6, electrodes are normal renal profile is normal.chest x- ray showed mostly postsurgical changes, mild pulmonary vascular congestion and small bilateral pleural effusions. Reevaluated today on 05/22/2023, patient remains in the ICU, doing fairly well, not in any distress, on room air and O2 sats is 93%, doing well with incentive spirometry achieving 1000 mL, hemodynamically stable, not receiving any more inotropes. No pressors. Patient is ambulating in the intensive care unit pending sale to [facility], CVP is 11. Labs were all reviewed, basically unremarkable. Chest x- ray showed small bilateral pleural effusions and atelectasis in the left lower lobe area. Chest tubes have been removed. Progress note dated 05/23/2023. 62-year-old female who is postop day #7, status post aortic valve replacement. Patient's currently on 1 L of oxygen. She's not receiving any IV fluids. According to the nurses, she's been downgraded by cardiothoracic surgery. Currently, the patient sitting in the chair next to her bed. She's getting a breathing treatment. Current labs include a white count 11.4, hemoglobin 9.3, hematocrit 27.5, with a normal platelet count. Sodium 135, potassium 3.9, chloride 100, CO2 31, nightly 10, creatinine 0.57. Chest x-ray shows some cardiomegaly, with small bilateral effusions. Progress note dated 05/24/2023. 62-year-old female postop day #8, status post aortic valve replacement. The patient's currently on room air. She's not receiving any IV fluids. From the pulmonary standpoint, the patient is ready for discharge. The only blood work today was a glucose of 106. Chest x-ray from today is essentially unchanged, very stable. Objective - Vital Signs Vital signs: Vital Signs Temp 98.3 F 05/24/23 08:49 Pulse 68 05/24/23 09:14 Resp 18 05/24/23 08:49 BP 96/52 05/24/23 08:49 Pulse Ox 94 L 05/24/23 08:58 FiO2 50 05/17/23 08:40 Intake & Output 05/23/23 05/24/23 05/24/23 18:59 06:59 18:59 Intake Total 780 370 Output Total 500 300 Balance -500 480 370 Weight 67.9 kg Intake: IV 10 Invasive Line 6 10 Oral 780 360 Output: Urine 500 300 Other: Voiding Method Toilet Toilet Toilet # Voids 2 1 ABP, PAP, CO, CI - Last Documented Arterial Blood Pressure 128/57 Pulmonary Artery Pressure 36/20 Cardiac Output 4.1 Cardiac Index 2.1 - Exam No acute distress, oriented 3. Currently on room air. No conversational dyspnea or use of accessory muscles. HEENT examination is grossly unremarkable. Neck supple. Full range of motion. No adenopathy thyromegaly or neck vein distention. Cardiovascular examination reveals regular rhythm rate. S1-S2 normal. No S3 or S4. No discernible murmur noted. Heart rate 68 bpm. Lungs reveal mostly clear breath sounds. A few scattered rhonchi. No wheezes or crackles. Room air saturation is 94%.. Abdomen soft bowel sounds are heard. No masses or tenderness. Extremities are intact. No cyanosis clubbing or edema. Skin is without rash or lesion. Neurologic examination is brief but nonfocal. - Labs CBC & Chem 7: 05/23/23 05:43 05/23/23 05:43 Labs: Abnormal Lab Results - Last 24 Hours (Table) 05/23/23 05/23/23 05/23/23 Range/Units 12:01 16:36 19:54 POC Glucose (mg/dL) 118 H 147 H 121 H (70-110) mg/dL Assessment and Plan Assessment: Postop day #8, status post aortic valve replacement, for severe aortic stenosis. The patient also had aortic root enlargement, and left atrial appendage ligation. Routine postoperative ventilator management. Postoperative hypotension, resolved. Acute blood loss anemia. Moderate COPD. Thrombocytopenia. Hyperlipidemia. Psoriatic arthritis. History gastroesophageal reflux disease. History of previous tobacco use. Plan: Plan dated 05/23/2023. The patient appears to be doing relatively well. Her chest x-ray stable. She is on 1 L of oxygen. She's postop day #7, status post aortic valve replacement for severe aortic stenosis. The patient has been downgraded by cardiothoracic surgery, and will be transferred out to the cardiac floor. We will continue to follow the patient. Labs, x-rays, and medications are all reviewed. Prognosis is guarded. Plan dated 05/24/2023. The patient is stable, from the pulmonary standpoint, and ready for discharge. The patient's on room air. She's not having any respiratory issues including shortness of breath, cough, wheezing, chest tightness, or phlegm production. The patient is not receiving any IV fluids. Labs, x-rays, and medications are reviewed. She's postop day #8. We will leave it up to the cardiothoracic service, to determine discharge today. Prognosis is guarded. Time with Patient: Less than 30
[2023-05-24 10:08] LABS: HCT 28.4 % (34.0-46.0); HGB 9.3 gm/dL (11.4-16.0); Hypochromasia Slight; MCH 32.8 pg (25.0-35.0); MCHC 32.8 g/dL (31.0-37.0); Macrocytosis Slight; Platelet Count 252 k/uL (150-450); RBC 2.84 m/uL (3.80-5.40); RDW 14.2 % (11.5-15.5); WBC 11.6 k/uL (3.8-10.6)
[2023-05-24 10:18] LABS: ALT 235 U/L (4-34); AST 112 U/L (14-36); African American GFR (CKD) >90 (>60 ml/min/1.73 sqM); Albumin 3.3 g/dL (3.5-5.0); Alkaline Phosphatase 87 U/L (38-126); Anion Gap 9 mmol/L; Blood Urea Nitrogen 9 mg/dL (7-17); Calcium 8.4 mg/dL (8.4-10.2); Carbon Dioxide 25 mmol/L (22-30); Chloride 100 mmol/L (98-107); Glucose 121 mg/dL (74-99); Non-African American GFR(CKD) >90 (>60 ml/min/1.73 sqM); Potassium 4.2 mmol/L (3.5-5.1); Sodium 134 mmol/L (137-145); Total Bilirubin 1.3 mg/dL (0.2-1.3); Total Protein 5.9 g/dL (6.3-8.2)
--- NOTE | 2023-05-24 10:18 | P.PN ---
Subjective Patient is a 62-year-old female with a past medical history of hyperlipidemia, rheumatoid arthritis, GERD and prior history of smoking was admitted to the hospital for elective aortic valve replacement with a bioprosthetic valve. Patient is status post aortic valve replacement with aortic root enlargement and left atrial appendage ligation. Perioperatively patient was intubated and was transferred to MICU. Patient was also hypotensive and was started on milrinone and epinephrine drips. ABG showed pH 7.26, PCO2 35 PO2 74. Laboratory pressure WBC 16.0, hemoglobin 10.5 and platelets 109 Sodium 141 potassium 4.4 chloride 113 bicarb is 24 BUN 14 and creatinine 0.64 and blood sugar 163. Magnesium 2.6 and total bilirubin level is 1.5 and AST 175 ALT 28 and alk phos 25. Albumin 3.1. Chest x-ray showed postoperative changes.. 05/17/2023 Patient is postoperative day 1. Currently lying in the bed. Awake alert and oriented x3. Patient was extubated this morning. Patient was on Cleviprex on and off overnight for hypotension. Patient is currently on milrinone drip. Also on insulin drip. Chest x-ray showed NG tube advanced with distal tip in the proximal to mid stomach. Mild basilar bibasilar atelectasis, mildly decreased. Stable mediastinal postoperative changes. Laboratory data showed WBC 9.9 hemoglobin 9.5 and platelets 98 Sodium 141 potassium 3.6 chloride 110 bicarb is 25 BUN 13 and creatinine 0.54 Blood sugar is 115. AST 612 ALT 51 and alk phos 22. Pulmonary and cardiology is on board. 05/18/2023 Patient is currently sitting in the chair. Postoperative day 2. No complaints of chest pain. Soreness at the surgical site. No complaints of worsening shortness of breath. Currently on oxygen via nasal cannula. Patient does complain of dizziness when she gets up. No nausea or vomiting. Patient is being continued milrinone drip. Chest x-ray showed postoperative changes stable bilateral consolidation, small effusion and reducing mild venous congestion. Laboratory data showed WBC 13.0 hemoglobin 8.6 and platelets 78. Sodium 138 potassium 3.9 chloride 106 bicarb is 25 BUN 21 creatinine 0.59. AST 398 ALT 125 alk phos 23. Lasix on hold due to thrombocytopenia. 05/19/2023 Patient is currently sitting in a chair. Awake alert and oriented x3. Dizziness is better compared to yesterday. Currently on oxygen via nasal cannula. No complaints of chest pain or tightness. No nausea vomiting abdominal pain. Also able to tolerate oral diet. Patient was started on dobutamine drip due to decreased cardiac output and is also on milrinone drip. Chest x-ray showed cardiomegaly and postoperative changes without any significant change. Laboratory data showed WBC 11.0 hemoglobin 8.3 and platelets 82 Sodium 131 potassium 4.4 chloride 102 bicarb is 25 BUN 26 and creatinine 0.62. Calcium 8.2. AST 355 ALT 223 and alk phos 41. Cardiology and pulmonary and CT surgery is on board. Current medications reviewed. 05/20/2023 patient looks comfortable, she is walking in her room. 1 chest tube output She is eating little bit but no abdominal complaints or diarrhea. She is hemodynamically stable, heart rate is controlled. Hemoglobin 8.3. Liver enzymes improving. She remains on aspirin 81 mg, metoprolol and midodrine 5 mg 3 times a day Hemoglobin A1c was 6% on 05/05/2023. We will lower her Levemir 5 units twice a day and twice daily 05/21/2023 Patient looks comfortable with no new complaints Glucose is improving and is a stable after lowering the dose of Levemir 10 mg down to 5 mg, with North 5 mg tomorrow Hemoglobin stable at 8.6, vital stable Liver enzymes are the same as of yesterday. Patient is on aspirin, midodrine 05/22/2023 pt is awake and alert , denies chest pain , no dyspnea pt has several bowel movements today her glu is on the normal side, pt denies ho DM, levemir 3 units was stopped today pt has worsending liver enz , i reviewed her medication and i suspected it is due to amiodarone and mar shows amiodarone infusion one day earlier , we will keep monitoring for now 05/23/2023 Patient with known new complaints. No chest pain, no dyspnea. Her hemoglobin stable at 9.3. Glucose controlled. No need for insulin. liver Enzymes are improving Patient will be downgraded to general medical floor in selective unit 05/24/2023 Patient clinical condition is stable and is improving. No new issues. She is hemodynamically stable. Hemoglobin stable at 9.3. WBCs around 11. Patient is currently on aspirin 81 mg. She's have bowel movement after started on Colace. Patient is medically stable Objective - Vital Signs Vital signs: Vital Signs Temp 98.3 F 05/24/23 08:49 Pulse 68 05/24/23 09:14 Resp 18 05/24/23 08:49 BP 96/52 05/24/23 08:49 Pulse Ox 94 L 05/24/23 08:58 FiO2 50 05/17/23 08:40 Intake & Output 05/23/23 05/24/23 05/24/23 18:59 06:59 18:59 Intake Total 780 370 Output Total 500 300 Balance -500 480 370 Weight 67.9 kg Intake: IV 10 Invasive Line 6 10 Oral 780 360 Output: Urine 500 300 Other: Voiding Method Toilet Toilet Toilet # Voids 2 1 ABP, PAP, CO, CI - Last Documented Arterial Blood Pressure 128/57 Pulmonary Artery Pressure 36/20 Cardiac Output 4.1 Cardiac Index 2.1 - Exam GENERAL: The patient is alert and oriented x3, not in any acute distress. Well developed, well nourished. HEENT: Pupils are round and equally reacting to light. EOMI. No scleral icterus. No conjunctival pallor. Normocephalic, atraumatic. No pharyngeal erythema. No thyromegaly. CARDIOVASCULAR: S1 and S2 present. No murmurs, rubs, or gallops. PULMONARY: Chest is clear to auscultation, no wheezing , no crackles. ABDOMEN: Soft, nontender, nondistended, normoactive bowel sounds. No palpable organomegaly. MUSCULOSKELETAL: No joint swelling or deformity. EXTREMITIES: No cyanosis, clubbing, or pedal edema. NEUROLOGICAL: Gross neurological examination did not reveal any focal deficits. SKIN: No rashes. no petechiae. - Labs CBC & Chem 7: 05/24/23 08:53 05/23/23 05:43 Labs: Abnormal Lab Results - Last 24 Hours (Table) 05/23/23 05/23/23 05/23/23 Range/Units 12:01 16:36 19:54 WBC (3.8-10.6) k/uL RBC (3.80-5.40) m/uL Hgb (11.4-16.0) gm/dL Hct (34.0-46.0) % POC Glucose (mg/dL) 118 H 147 H 121 H (70-110) mg/dL 05/24/23 Range/Units 08:53 WBC 11.6 H (3.8-10.6) k/uL RBC 2.84 L (3.80-5.40) m/uL Hgb 9.3 L (11.4-16.0) gm/dL Hct 28.4 L (34.0-46.0) % POC Glucose (mg/dL) (70-110) mg/dL Assessment and Plan Assessment: Severe aortic valve stenosis status post aortic valve replacement with bioprosthetic valve and ligation of left atrial appendage. Patient is s/p surgery on 05/16/2023.Postoperative day 3. Perioperative hypotension requiring pressor support. Currently on milrinone drip. Start dobutamine drip on 05/19/2023. Was also on norepinephrine and Evaristo- Synephrine. Hyperlipidemia History of rheumatoid arthritis History of psoriasis GERD Prior history of smoking DVT prophylaxis. Plan: Patient is currently in the selective unit Sugar control, Patient clinically doing well GI and DVT prophylaxis. Patient will be continued on BB aspirin and statins. CT surgery and pulmonary is on board. We will continue to follow and further recommendations based on clinical course.
[2023-05-24] MEDS: DOCUSATE 100 MG CAP PO SCH ×2 (10:26→20:25)
[2023-05-24 11:26] LABS: Glucose,Whole Blood 169 mg/dL (70-110)
[2023-05-24] MEDS ORDERED: FUROSEMIDE 10 MG/ML 2 ML VIAL IV STA (11:34)
[2023-05-24] MEDS: POTASSIUM CHLORIDE ER 10 MEQ TAB.ER.PRT PO SCH (12:17)
--- NOTE | 2023-05-24 12:21 | P.PN ---
Subjective HISTORY OF PRESENT ILLNESS: Patient is postop day #8 aortic valve replacement. Patient examined this morning. She is sitting up in the chair. She denies chest pain or pressure. She denies shortness of breath. She is on room air with oxygen saturations greater than 92%. Telemetry reviewed revealing sinus mechanism. Patient has been using her incentive spirometer and has been up ambulating. PHYSICAL EXAM: VITAL SIGNS: Reviewed. GENERAL: Well-developed in no acute distress. NECK: Supple. No JVD or thyromegaly LUNGS: Respirations even and unlabored. Lungs essentially clear to auscultation bilaterally. HEART: Regular rate and rhythm. S1 and S2 heard. EXTREMITIES: Normal range of motion. No clubbing or cyanosis. Peripheral pulses intact. No lower extremity edema ASSESSMENT: Severe aortic stenosis, status post bioprosthetic aortic valve replacement Hyperlipidemia History of COPD Elevated liver enzymes Postoperative paroxysmal atrial fibrillation/flutter PLAN: Continue postoperative management per CT surgery Continue current cardiac medications Stent on hold secondary to elevated liver enzymes Increase activity as tolerated Encourage use of incentive spirometer Patient is stable for discharge home from a cardiac standpoint Follow up post discharge with Dr. Mc Nurse practitioner note has been reviewed by physician. Signing provider agrees with the documented findings, assessment, and plan of care. Objective - Vital Signs Vital signs: Vital Signs Temp 98.3 F 05/24/23 08:49 Pulse 68 05/24/23 09:14 Resp 18 05/24/23 08:49 BP 96/52 05/24/23 08:49 Pulse Ox 94 L 05/24/23 08:58 FiO2 50 05/17/23 08:40 Intake & Output 05/23/23 05/24/23 05/24/23 18:59 06:59 18:59 Intake Total 780 370 Output Total 500 300 Balance -500 480 370 Weight 67.9 kg Intake: IV 10 Invasive Line 6 10 Oral 780 360 Output: Urine 500 300 Other: Voiding Method Toilet Toilet Toilet # Voids 2 1 ABP, PAP, CO, CI - Last Documented Arterial Blood Pressure 128/57 Pulmonary Artery Pressure 36/20 Cardiac Output 4.1 Cardiac Index 2.1 - Labs CBC & Chem 7: 05/24/23 08:53 05/24/23 08:53 Labs: Abnormal Lab Results - Last 24 Hours (Table) 05/23/23 05/23/23 05/24/23 Range/Units 16:36 19:54 08:53 WBC (3.8-10.6) k/uL RBC (3.80-5.40) m/uL Hgb (11.4-16.0) gm/dL Hct (34.0-46.0) % Sodium 134 L (137-145) mmol/L Creatinine 0.48 L (0.52-1.04) mg/dL Glucose 121 H (74-99) mg/dL POC Glucose (mg/dL) 147 H 121 H (70-110) mg/dL AST 112 H (14-36) U/L ALT 235 H (4-34) U/L Total Protein 5.9 L (6.3-8.2) g/dL Albumin 3.3 L (3.5-5.0) g/dL 05/24/23 05/24/23 Range/Units 08:53 11:24 WBC 11.6 H (3.8-10.6) k/uL RBC 2.84 L (3.80-5.40) m/uL Hgb 9.3 L (11.4-16.0) gm/dL Hct 28.4 L (34.0-46.0) % Sodium (137-145) mmol/L Creatinine (0.52-1.04) mg/dL Glucose (74-99) mg/dL POC Glucose (mg/dL) 169 H (70-110) mg/dL AST (14-36) U/L ALT (4-34) U/L Total Protein (6.3-8.2) g/dL Albumin (3.5-5.0) g/dL
[2023-05-24 16:21] LABS: Glucose,Whole Blood 130 mg/dL (70-110)
[2023-05-24 19:59] LABS: Glucose,Whole Blood 133 mg/dL (70-110)
[2023-05-25] MEDS: DOCUSATE 100 MG CAP PO SCH (03:13)
[2023-05-25] MEDS: ACETAMINOPHEN TAB 325 MG TAB PO PRN (04:58)
[2023-05-25] MEDS: MIDODRINE 5 MG TAB PO SCH (04:58)
[2023-05-25] MEDS: PANTOPRAZOLE 40 MG TABLET PO SCH (04:58)
[2023-05-25 06:10] LABS: Glucose,Whole Blood 123 mg/dL (70-110)
[2023-05-25] MEDS: INSULIN ASPART (NovoLOG) 100 UNIT/ML VIAL SQ SCH (06:10)
--- NOTE | 2023-05-25 07:58 | P.PN ---
Subjective Progress Note Date: 05/25/23 Principal diagnosis: Severe aortic valve stenosis. Previous medical history of hyperlipidemia, rheumatoid arthritis on Enbrel outpatient, previous tobacco dependence, mild COPD, family history heart disease, and preoperative nasal swab positive for MSSA POD #9 aortic valve replacement using 23 mm Kent Inspiris bioprosthetic valve and Abdiaziz Islas annular enlargement technique, ligation of left atrial appendage using a 35 mm AtriClip, epi-aortic ultrasound, intraoperative transesophageal echocardiogram Postoperative acute blood loss anemia and thrombocytopenia, expected given hemodilution and cardiopulmonary bypass pump Postoperative hypotension, unexpected Transaminitis, unexpected, likely due to hypoperfusion The patient was seen and examined this morning ambulating in her room in no acute distress. She states postoperative pain controlled on current medication regimen. Remains in sinus rhythm, blood pressure stable, remains on room air. Has been ambulatory in the hallway, showered. CXR reviewed, labs pending. States she is ready to go home today. No other new concerns. Objective - Vital Signs Vital signs: Vital Signs Temp 98.2 F 05/24/23 20:00 Pulse 79 05/25/23 04:00 Resp 18 05/25/23 04:00 BP 103/59 05/25/23 04:00 Pulse Ox 91 L 05/25/23 04:00 FiO2 50 05/17/23 08:40 Intake & Output 05/24/23 05/25/23 05/25/23 18:59 06:59 18:59 Intake Total 1420 560 Output Total 200 750 Balance 1220 -190 Weight 67.3 kg Intake: IV 40 20 Invasive Line 6 40 20 Oral 1380 540 Output: Urine 200 750 Other: Voiding Method Toilet Toilet # Voids 1 ABP, PAP, CO, CI - Last Documented Arterial Blood Pressure 128/57 Pulmonary Artery Pressure 36/20 Cardiac Output 4.1 Cardiac Index 2.1 - Exam CONSTITUTIONAL: Appears comfortable, cooperative, no acute distress RESPIRATORY: Lungs sounds diminished bilaterally. Respirations even, nonlabore d. Currently on room air with oxygen saturation 92%. Able to achieve 1000 mL on incentive spirometry. Strong nonproductive cough. CARDIOVASCULAR: S1, S2 present. Regular rate and rhythm, sinus rhythm on telemetry. Sternum stable. Palpable peripheral pulses bilaterally. No edema present. No calf pain or tenderness noted. Heart hugger, antiembolism stockings, SCDs present. GASTROINTESTINAL: Abdomen soft, nontender, nondistended. Active bowel sounds present 4 quadrants. Tolerating diet. Positive bowel movement 05/23/23 GENITOURINARY: Continues to void clear, yellow urine INTEGUMENTARY: Skin is warm and dry with evidence of good perfusion. Anterior chest incision well approximated NEUROLOGIC: Cranial nerves II through XII intact MUSKULOSKELETAL: Able to move all extremities, strength equal bilaterally PSYCHIATRIC: Alert and oriented to person place and time, appropriate affect, intact judgment and insight - Allied health notes Allied health notes reviewed: nursing - Labs CBC & Chem 7: 05/24/23 08:53 05/24/23 08:53 Labs: Abnormal Lab Results - Last 24 Hours (Table) 05/24/23 05/24/23 05/24/23 Range/Units 08:53 08:53 11:24 WBC 11.6 H (3.8-10.6) k/uL RBC 2.84 L (3.80-5.40) m/uL Hgb 9.3 L (11.4-16.0) gm/dL Hct 28.4 L (34.0-46.0) % Sodium 134 L (137-145) mmol/L Creatinine 0.48 L (0.52-1.04) mg/dL Glucose 121 H (74-99) mg/dL POC Glucose (mg/dL) 169 H (70-110) mg/dL AST 112 H (14-36) U/L ALT 235 H (4-34) U/L Total Protein 5.9 L (6.3-8.2) g/dL Albumin 3.3 L (3.5-5.0) g/dL 05/24/23 05/24/23 05/25/23 Range/Units 16:19 19:55 06:04 WBC (3.8-10.6) k/uL RBC (3.80-5.40) m/uL Hgb (11.4-16.0) gm/dL Hct (34.0-46.0) % Sodium (137-145) mmol/L Creatinine (0.52-1.04) mg/dL Glucose (74-99) mg/dL POC Glucose (mg/dL) 130 H 133 H 123 H (70-110) mg/dL AST (14-36) U/L ALT (4-34) U/L Total Protein (6.3-8.2) g/dL Albumin (3.5-5.0) g/dL - Imaging and Cardiology Chest x-ray: image reviewed Assessment and Plan Assessment: Severe aortic valve stenosis, status post bioprosthetic aortic valve replacement with annular enlargement History of hyperlipidemia, treated, cholesterol 195, LDL 98, triglycerides 105 Rheumatoid arthritis on Enbrel outpatient Previous tobacco dependence Mild COPD, preoperative FEV1 61% of predicted Family history of heart disease Preoperative nasal swab positive for MSSA, treated Postoperative acute blood loss anemia and thrombocytopenia, expected Postoperative hypotension, unexpected Elevated liver enzymes, unexpected, likely due to hypoperfusion Paroxysmal atrial fibrillation/flutter, known common occurrence after cardiac surgery, currently in sinus rhythm Plan: Continue to maximize medical therapy with low-dose aspirin, plavix, beta daniel Continue midodrine Encourage incentive spirometry is 10 times every hour while awake. Bronchodilators per pulmonology Increase activity as tolerated. PT/OT/cardiac rehab following GI/DVT prophylaxis Pain control with current medication regimen Insulin management per internal medicine. Patient is not diabetic, preoperative hemoglobin A1c 6.0% Strict accurate intake and output Daily weights Will monitor daily labs and x-rays. Electrolyte replacement per protocol Discharge planning in progress, anticipate discharge to home with home care this morning More recommendations to follow
[2023-05-25 08:12] LABS: HCT 28.6 % (34.0-46.0); HGB 9.2 gm/dL (11.4-16.0); Hypochromasia Moderate; MCH 32.4 pg (25.0-35.0); MCHC 32.2 g/dL (31.0-37.0); MCV 100.6 fL (80.0-100.0); Macrocytosis Slight; Mean Platelet Volume 9.9; Platelet Count 279 k/uL (150-450); Poikilocytosis Slight; RBC 2.84 m/uL (3.80-5.40); RDW 14.6 % (11.5-15.5); WBC 10.2 k/uL (3.8-10.6)
[2023-05-25] MEDS: IPRATROPIUM-ALBUTEROL 3 ML NEB INHALATION SCH ×2 (08:16→11:36)
--- NOTE | 2023-05-25 08:30 | XR ---
EXAMINATION TYPE: XR chest 2V DATE OF EXAM: 05/25/2023 COMPARISON: 05/24/2023 HISTORY: 62-year-old female postoperative cardiac surgery TECHNIQUE: PA and lateral views FINDINGS: Median sternotomy wires are present with prosthetic aortic valve. Heart is mildly enlarged. Mild inte rstitial/vascular prominence. There are small bilateral pleural effusions with adjacent bibasilar den sity. IMPRESSION: Mild cardiomegaly. There are small pleural effusions with adjacent atelectasis and/or consolidation. Correlate for mild CHF with pulmonary vascular congestion.
[2023-05-25 08:34] VITALS: BP 106/65; PULSE 85; RESP 16; TEMP 97.4
[2023-05-25] MEDS: METOPROLOL TARTRATE 12.5 MG TAB PO SCH (08:35)
[2023-05-25] MEDS: ASPIRIN 81 MG PO SCH (08:35)
[2023-05-25] MEDS: POTASSIUM CHLORIDE ER 10 MEQ TAB.ER.PRT PO SCH (08:35)
[2023-05-25] MEDS: CLOPIDOGREL 75 MG TAB PO SCH (08:35)
[2023-05-25] MEDS: HEPARIN SODIUM,PORCINE/PF 5,000 UNIT/0.5 ML SYRINGE SQ SCH (08:37)
[2023-05-25 08:39] LABS: African American GFR (CKD) >90 (>60 ml/min/1.73 sqM); Anion Gap 6 mmol/L; Blood Urea Nitrogen 10 mg/dL (7-17); Calcium 8.7 mg/dL (8.4-10.2); Carbon Dioxide 30 mmol/L (22-30); Chloride 99 mmol/L (98-107); Glucose 102 mg/dL (74-99); Non-African American GFR(CKD) >90 (>60 ml/min/1.73 sqM); Potassium 4.5 mmol/L (3.5-5.1); Sodium 135 mmol/L (137-145)
[2023-05-25] MEDS ORDERED: FUROSEMIDE 20 MG TAB PO SCH (09:00)
--- NOTE | 2023-05-25 10:52 | P.PN ---
Subjective Patient is a 62-year-old female with a past medical history of hyperlipidemia, rheumatoid arthritis, GERD and prior history of smoking was admitted to the hospital for elective aortic valve replacement with a bioprosthetic valve. Patient is status post aortic valve replacement with aortic root enlargement and left atrial appendage ligation. Perioperatively patient was intubated and was transferred to MICU. Patient was also hypotensive and was started on milrinone and epinephrine drips. ABG showed pH 7.26, PCO2 35 PO2 74. Laboratory pressure WBC 16.0, hemoglobin 10.5 and platelets 109 Sodium 141 potassium 4.4 chloride 113 bicarb is 24 BUN 14 and creatinine 0.64 and blood sugar 163. Magnesium 2.6 and total bilirubin level is 1.5 and AST 175 ALT 28 and alk phos 25. Albumin 3.1. Chest x-ray showed postoperative changes.. 05/17/2023 Patient is postoperative day 1. Currently lying in the bed. Awake alert and oriented x3. Patient was extubated this morning. Patient was on Cleviprex on and off overnight for hypotension. Patient is currently on milrinone drip. Also on insulin drip. Chest x-ray showed NG tube advanced with distal tip in the proximal to mid stomach. Mild basilar bibasilar atelectasis, mildly decreased. Stable mediastinal postoperative changes. Laboratory data showed WBC 9.9 hemoglobin 9.5 and platelets 98 Sodium 141 potassium 3.6 chloride 110 bicarb is 25 BUN 13 and creatinine 0.54 Blood sugar is 115. AST 612 ALT 51 and alk phos 22. Pulmonary and cardiology is on board. 05/18/2023 Patient is currently sitting in the chair. Postoperative day 2. No complaints of chest pain. Soreness at the surgical site. No complaints of worsening shortness of breath. Currently on oxygen via nasal cannula. Patient does complain of dizziness when she gets up. No nausea or vomiting. Patient is being continued milrinone drip. Chest x-ray showed postoperative changes stable bilateral consolidation, small effusion and reducing mild venous congestion. Laboratory data showed WBC 13.0 hemoglobin 8.6 and platelets 78. Sodium 138 potassium 3.9 chloride 106 bicarb is 25 BUN 21 creatinine 0.59. AST 398 ALT 125 alk phos 23. Lasix on hold due to thrombocytopenia. 05/19/2023 Patient is currently sitting in a chair. Awake alert and oriented x3. Dizziness is better compared to yesterday. Currently on oxygen via nasal cannula. No complaints of chest pain or tightness. No nausea vomiting abdominal pain. Also able to tolerate oral diet. Patient was started on dobutamine drip due to decreased cardiac output and is also on milrinone drip. Chest x-ray showed cardiomegaly and postoperative changes without any significant change. Laboratory data showed WBC 11.0 hemoglobin 8.3 and platelets 82 Sodium 131 potassium 4.4 chloride 102 bicarb is 25 BUN 26 and creatinine 0.62. Calcium 8.2. AST 355 ALT 223 and alk phos 41. Cardiology and pulmonary and CT surgery is on board. Current medications reviewed. 05/20/2023 patient looks comfortable, she is walking in her room. 1 chest tube output She is eating little bit but no abdominal complaints or diarrhea. She is hemodynamically stable, heart rate is controlled. Hemoglobin 8.3. Liver enzymes improving. She remains on aspirin 81 mg, metoprolol and midodrine 5 mg 3 times a day Hemoglobin A1c was 6% on 05/05/2023. We will lower her Levemir 5 units twice a day and twice daily 05/21/2023 Patient looks comfortable with no new complaints Glucose is improving and is a stable after lowering the dose of Levemir 10 mg down to 5 mg, with North 5 mg tomorrow Hemoglobin stable at 8.6, vital stable Liver enzymes are the same as of yesterday. Patient is on aspirin, midodrine 05/22/2023 pt is awake and alert , denies chest pain , no dyspnea pt has several bowel movements today her glu is on the normal side, pt denies ho DM, levemir 3 units was stopped today pt has worsending liver enz , i reviewed her medication and i suspected it is due to amiodarone and mar shows amiodarone infusion one day earlier , we will keep monitoring for now 05/23/2023 Patient with known new complaints. No chest pain, no dyspnea. Her hemoglobin stable at 9.3. Glucose controlled. No need for insulin. liver Enzymes are improving Patient will be downgraded to general medical floor in selective unit 05/24/2023 Patient clinical condition is stable and is improving. No new issues. She is hemodynamically stable. Hemoglobin stable at 9.3. WBCs around 11. Patient is currently on aspirin 81 mg. She's have bowel movement after started on Colace. Patient is medically stable 05/25/2023 Patient is up awake and alert, she was seen walking the hallway and in her room with no difficulties. She denies any chest pain or dyspnea Vital stable. Her labs look stable as well. She was started on a small dose of Lasix 20 mg daily for concerns of pulmonary vascular congestion, mild on her chest x-ray today. With mild cardiomegaly with possible atelectasis versus consolidation. Objective - Vital Signs Vital signs: Vital Signs Temp 97.4 F L 05/25/23 08:34 Pulse 85 05/25/23 08:34 Resp 16 05/25/23 08:34 BP 106/65 05/25/23 08:34 Pulse Ox 93 L 05/25/23 08:34 FiO2 50 05/17/23 08:40 Intake & Output 05/24/23 05/25/23 05/25/23 18:59 06:59 18:59 Intake Total 1420 560 Output Total 200 750 Balance 1220 -190 Weight 67.3 kg Intake: IV 40 20 Invasive Line 6 40 20 Oral 1380 540 Output: Urine 200 750 Other: Voiding Method Toilet Toilet # Voids 1 ABP, PAP, CO, CI - Last Documented Arterial Blood Pressure 128/57 Pulmonary Artery Pressure 36/20 Cardiac Output 4.1 Cardiac Index 2.1 - Exam GENERAL: The patient is alert and oriented x3, not in any acute distress. Well developed, well nourished. HEENT: Pupils are round and equally reacting to light. EOMI. No scleral icterus. No conjunctival pallor. Normocephalic, atraumatic. No pharyngeal erythema. No thyromegaly. CARDIOVASCULAR: S1 and S2 present. No murmurs, rubs, or gallops. PULMONARY: Chest is clear to auscultation, no wheezing , no crackles. ABDOMEN: Soft, nontender, nondistended, normoactive bowel sounds. No palpable organomegaly. MUSCULOSKELETAL: No joint swelling or deformity. EXTREMITIES: No cyanosis, clubbing, or pedal edema. NEUROLOGICAL: Gross neurological examination did not reveal any focal deficits. SKIN: No rashes. no petechiae. - Labs CBC & Chem 7: 05/25/23 07:09 05/25/23 07:09 Labs: Abnormal Lab Results - Last 24 Hours (Table) 05/24/23 05/24/23 05/24/23 Range/Units 11:24 16:19 19:55 RBC (3.80-5.40) m/uL Hgb (11.4-16.0) gm/dL Hct (34.0-46.0) % MCV (80.0-100.0) fL Sodium (137-145) mmol/L Glucose (74-99) mg/dL POC Glucose (mg/dL) 169 H 130 H 133 H (70-110) mg/dL 05/25/23 05/25/23 05/25/23 Range/Units 06:04 07:09 07:09 RBC 2.84 L (3.80-5.40) m/uL Hgb 9.2 L (11.4-16.0) gm/dL Hct 28.6 L (34.0-46.0) % MCV 100.6 H (80.0-100.0) fL Sodium 135 L (137-145) mmol/L Glucose 102 H (74-99) mg/dL POC Glucose (mg/dL) 123 H (70-110) mg/dL Assessment and Plan Assessment: Severe aortic valve stenosis status post aortic valve replacement with bioprosthetic valve and ligation of left atrial appendage. Patient is s/p s urgery on 05/16/2023.Postoperative day 3. Perioperative hypotension requiring pressor support. Currently on milrinone drip. Start dobutamine drip on 05/19/2023. Was also on norepinephrine and Evaristo-Synephrine. Hyperlipidemia History of rheumatoid arthritis History of psoriasis GERD Prior history of smoking DVT prophylaxis. Plan: Patient is currently in the selective unit Sugar control, Patient clinically doing well GI and DVT prophylaxis. Patient will be continued on BB aspirin and statins. CT surgery and pulmonary is on board. We will continue to follow and further recommendations based on clinical course.
--- NOTE | 2023-05-25 11:55 | P.PN ---
Subjective Progress Note Date: 05/25/23 Principal diagnosis: Status post aortic valve replacement. I am seeing this patient in consultation today 05/17/2023 status postoperative day #1 following an aortic valve replacement with aortic root enlargement and left atrial appendage ligation. Patient is a 62-year-old white female with past medical history significant for severe aortic stenosis, hyperlipidemia, psoriatic arthritis, GERD, and is a remote ex-smoker. Patient did have a preoperative spirometry which showed moderate obstructive disease with an FEV1 61% of predicted. FEV1 to FVC ratio was 64%. Patient does not follow with rn er. Patient had been reporting ongoing and intermittent chest discomfort over the last year. She did have a recent heart catheterization and BRENDA on April 11 which showed mild nonobstructive coronary artery disease, aneurysmal dilation of ascending aorta, 3+ aortic regurgitation, and severe aortic stenosis. The patient was scheduled for an elective open-heart which took place yesterday. The patient underwent aortic valve replacement with aortic root enlargement and left atrial appendage ligation. This was complicated by some perioperative hypotension and increased pulmonary artery pressures. The patient was given 2.7 L of crystalloid, 2 albumin, and 450 ML's of Cell Saver intraoperatively. The patient was initially placed on a combination of milrinone, epinephrine, and Evaristo-Synephrine. The patient was then transferred to the intensive care unit. Patient is currently lying in bed, intubated to the mechanical ventilator, and appears fairly comfortable. Current ventilator settings are assist control, respiratory rate 22, tidal volume 400, FiO2 50%, and a PEEP of 10. Postoperatively, the patient had combined respiratory and metabolic acidosis. Respiratory rate was then increased to 22, and the patient was given one amp of sodium bicarb. Most recent ABGs after ventilator changes show a pO2 of 259, pCO2 of 38, and pH of 7.38. This was done on a FiO2 of 80%. Patient is currently synchronous with the mechanical ventilator and sedated on propofol infusing at 10 mcg/kg/m. This is being weaned off. Currently, the patient will open her eyes to verbal stimulation, but does not follow any commands. Peak pressure is 27 and plateau pressure is 20. Postoperative chest x-ray shows endotracheal tube 4 cm from the yehuda, NG tube with a side port at the GE junction and could be advanced approximately 5 cm, bilateral pleural chest tubes, a mediastinal chest tube, and other postsurgical changes. No pneumothoraces. Patient's blood pressure is normotensive, and the Evaristo-Synephrine and epinephrine were weaned off. Actually, clevidipine had to be temporarily started for hypertension. Currently, the patient has milrinone infusing at 0.375 mcg/kg/m. Most recent CO/CI are 3.3 and 2 respectively. PA pressures are 30/19. Lactate Ringer's is also infusing at 50 ML's per hour. Urine output has been adequate in the order of 80-100 ML's per hour. Insulin is infusing per protocol. Most recent CBC has a WBC count of 8.7, hemoglobin 10.2, hematocrit 30.2, platelets 90. Mediastinal chest tube has 250 ML's of serosanguineous output. There is no air leak. Right and left pleural chest tubes are Y-d together and have 190 ML's of serosanguineous output. There is a small intermittent air leak. Postoperative BMP has sodium 141, potassium 4.4, chlo ride 113, serum bicarb 24, BUN 14, creatinine 0.64, glucose 163. Currently, we are working on weaning off the sedation in preparation for possible extubation later this morning. The patient is currently too sedated to attempt SBT at this time. Patient was reevaluated today on 05/18/2023, patient is sitting in her recliner at a bedside chair, she was successfully extubated yesterday at 10 AM. P ulmonary-nixon, the patient seems to be doing well, she is on few liters nasal cannula, does not seem to be in any distress. Her cardiac index today is 2.4, continues to have internal jugular [place]/cor this in the right IJ, she continues to have a right radial arterial line, mediastinal right and left pleural chest tubes also remained.chest x-ray showed mostly postoperative changes and bibasilar atelectasis with small pleural effusions. Labs were reviewed WBC count is 13.0 hemoglobin is 8. Platelets are 78,000.basic metabolic profile is normal renal profile is normal liver enzymes are elevated but improving compared to yesterday. Patient was reevaluated today on 05/19/2023, patient is doing fairly well, does not seem to be in any distress, she does have some postoperative pain but fairly well controlled. She is hemodynamically stable, remains in sinus rhythm, Primacor still infusing at 0.2 mcg/kg/h, she is also on a low-dose dopamine for orthostatic hypotension and poor urine output she did have significant amount of serosanguineous drainage from her left-sided chest tube over the last 24 hours roughly about 1.3 L. She remains on 6 L nasal cannula, O2 saturation is in the low 90s. There is scant is 11 hemoglobin is 8.3 left first are normal renal profile is normal liver enzymes are elevated. Chest x-ray showed cardiomegaly and postoperative changes, otherwise unremarkable seen today on 05/20/2023, patient remains in the ICU, remains on 2 L nasal cannula, she is still requiring Primacor at 0.1 mcg/kg/m, her IV fluids at KVO, patient is hemodynamically stable she does have a paced rhythm, doing better with incentive spirometry, does not seem to be in any distress. She seems to be generally weak. WBC count is 9.6 hemoglobin 8.3 electrolytes are normal renal profile is normal, liver enzymes are a bit elevated , chest x-ray showed small areas of atelectasis and small pleural effusions patient was reevaluated today on 05/21/2023, remains marginal at best, remains in the ICU, patient developed atrial fibrillation and RVR, patient was given 2 boluses of amiodarone last night. Then she had a bradycardia, she was also hypotensive requiring 2 hours of norepinephrine. Patient remains on Primacor at 0.1 mcg/kg/m, her IV fluids at KVO, her urine output is marginal. Patient had to have straight cathed 2 last night. Presently sitting at a bedside chair, does not seem to be in any distress, she seems to be hemodynamically stable.she is on 2 L nasal cannula O2 sats at 95%, pressure is 111/61. CVP is 10.WBC count is 9.8 hemoglobin is 8.6, electrodes are normal renal profile is normal.chest x- ray showed mostly postsurgical changes, mild pulmonary vascular congestion and small bilateral pleural effusions. Reevaluated today on 05/22/2023, patient remains in the ICU, doing fairly well, not in any distress, on room air and O2 sats is 93%, doing well with incentive spirometry achieving 1000 mL, hemodynamically stable, not receiving any more inotropes. No pressors. Patient is ambulating in the intensive care unit [facility], CVP is 11. Labs were all reviewed, basically unremarkable. Chest x- ray showed small bilateral pleural effusions and atelectasis in the left lower lobe area. Chest tubes have been removed. Progress note dated 05/23/2023. 62-year-old female who is postop day #7, status post aortic valve replacement. Patient's currently on 1 L of oxygen. She's not receiving any IV fluids. According to the nurses, she's been downgraded by cardiothoracic surgery. Currently, the patient sitting in the chair next to her bed. She's getting a breathing treatment. Current labs include a white count 11.4, hemoglobin 9.3, hematocrit 27.5, with a normal platelet count. Sodium 135, potassium 3.9, chloride 100, CO2 31, nightly 10, creatinine 0.57. Chest x-ray shows some cardiomegaly, with small bilateral effusions. Progress note dated 05/24/2023. 62-year-old female postop day #8, status post aortic valve replacement. The patient's currently on room air. She's not receiving any IV fluids. From the pulmonary standpoint, the patient is ready for discharge. The only blood work today was a glucose of 106. Chest x-ray from today is essentially unchanged, very stable. Progress note dated 05/25/2023. 62-year-old female, postop day #9, status post aortic valve replacement. The patient's currently on room air, and not receiving any supplemental fluids. From the pulmonary standpoint, as mentioned yesterday, the patient is ready for discharge. Hopefully, she will be discharged home today. White count is 10.2, hemoglobin 9.2, hematocrit 28.6, with a normal platelet count. Sodium 135, potassium 4.5, chlorides 99, CO2 30, BUN 10, and creatinine 0.52. Chest x-ray is essentially unchanged, and does show some mild cardiomegaly, and mild pulmonary vascular congestion. Objective - Vital Signs Vital signs: Vital Signs Temp 97.4 F L 05/25/23 08:34 Pulse 85 05/25/23 08:34 Resp 16 05/25/23 08:34 BP 106/65 05/25/23 08:34 Pulse Ox 93 L 05/25/23 08:34 FiO2 50 05/17/23 08:40 Intake & Output 05/24/23 05/25/23 05/25/23 18:59 06:59 18:59 Intake Total 1420 560 Output Total 200 750 1 Balance 1220 -190 -1 Weight 67.3 kg Intake: IV 40 20 Invasive Line 6 40 20 Oral 1380 540 Output: Urine 200 750 Stool 1 Other: Voiding Method Toilet Toilet Toilet # Voids 1 ABP, PAP, CO, CI - Last Documented Arterial Blood Pressure 128/57 Pulmonary Artery Pressure 36/20 Cardiac Output 4.1 Cardiac Index 2.1 - Exam No acute distress, oriented 3. Currently on room air. No conversational dyspn ea or use of accessory muscles. HEENT examination is grossly unremarkable. Neck supple. Full range of motion. No adenopathy thyromegaly or neck vein distention. Cardiovascular examination reveals regular rhythm rate. S1-S2 normal. No S3 or S4. No discernible murmur noted. Heart rate 75 bpm. Lungs reveal mostly clear breath sounds. A few scattered rhonchi. No wheezes or crackles. Room air saturation is 95 %.. Abdomen soft bowel sounds are heard. No masses or tenderness. Extremities are intact. No cyanosis clubbing or edema. Skin is without rash or lesion. Neurologic examination is brief but nonfocal. - Labs CBC & Chem 7: 05/25/23 07:09 05/25/23 07:09 Labs: Abnormal Lab Results - Last 24 Hours (Table) 05/24/23 05/24/23 05/25/23 Range/Units 16:19 19:55 06:04 RBC (3.80-5.40) m/uL Hgb (11.4-16.0) gm/dL Hct (34.0-46.0) % MCV (80.0-100.0) fL Sodium (137-145) mmol/L Glucose (74-99) mg/dL POC Glucose (mg/dL) 130 H 133 H 123 H (70-110) mg/dL 05/25/23 05/25/23 Range/Units 07:09 07:09 RBC 2.84 L (3.80-5.40) m/uL Hgb 9.2 L (11.4-16.0) gm/dL Hct 28.6 L (34.0-46.0) % MCV 100.6 H (80.0-100.0) fL Sodium 135 L (137-145) mmol/L Glucose 102 H (74-99) mg/dL POC Glucose (mg/dL) (70-110) mg/dL Assessment and Plan Assessment: Postop day #9, status post aortic valve replacement, for severe aortic stenosis. The patient also had aortic root enlargement, and left atrial appendage ligation. Routine postoperative ventilator management. Postoperative hypotension, resolved. Acute blood loss anemia. Moderate COPD. Thrombocytopenia. Hyperlipidemia. Psoriatic arthritis. History gastroesophageal reflux disease. History of previous tobacco use. Plan: Plan dated 05/23/2023. The patient appears to be doing relatively well. Her chest x-ray stable. She is on 1 L of oxygen. She's postop day #7, status post aortic valve replacement for severe aortic stenosis. The patient has been downgraded by cardiothoracic s [facility], and will be transferred out to the cardiac floor. We will continue to follow the patient. Labs, x-rays, and medications are all reviewed. Prognosis is guarded. Plan dated 05/24/2023. The patient is stable, from the pulmonary standpoint, and ready for discharge. The patient's on room air. She's not having any respiratory issues including shortness of breath, cough, wheezing, chest tightness, or phlegm production. The patient is not receiving any IV fluids. Labs, x-rays, and medications are reviewed. She's postop day #8. We will leave it up to the cardiothoracic service, to determine discharge today. Prognosis is guarded. Plan dated 05/25/2023. The patient is hoping to be discharged home later today. She is postop day #9. The patient's currently on room air, and not requiring any supplemental fluids. Labs, x-rays, and medications are all reviewed. Overall prognosis remains guarded. She will likely end up with an office visit, couple weeks down the line. No additional recommendations are made. Time with Patient: Less than 30
[2023-05-25 12:03] LABS: Glucose,Whole Blood 114 mg/dL (70-110)
--- NOTE | 2023-05-25 12:09 | P.PN ---
Subjective HISTORY OF PRESENT ILLNESS: Patient is postop day #8 aortic valve replacement. Patient examined this morning. She is sitting up in the chair. She denies chest pain or pressure. She denies shortness of breath. She is on room air with oxygen saturations greater than 92%. Telemetry reviewed revealing sinus mechanism. Patient has been using her incentive spirometer and has been up ambulating. 05/25/2023 Patient examined this morning. She is sitting up in chair. Patient denies chest pain or pressure. She denies shortness of breath. Telemetry reveals since mechanism. Vital signs are stable. PHYSICAL EXAM: VITAL SIGNS: Reviewed. GENERAL: Well-developed in no acute distress. NECK: Supple. No JVD or thyromegaly LUNGS: Respirations even and unlabored. Lungs essentially clear to auscultation bilaterally. HEART: Regular rate and rhythm. S1 and S2 heard. EXTREMITIES: Normal range of motion. No clubbing or cyanosis. Peripheral pulses intact. No lower extremity edema ASSESSMENT: Severe aortic stenosis, status post bioprosthetic aortic valve replacement Hyperlipidemia History of COPD Elevated liver enzymes Postoperative paroxysmal atrial fibrillation/flutter PLAN: Continue postoperative management per CT surgery Continue current cardiac medications Increase activity as tolerated Encourage use of incentive spirometer Patient is stable for discharge home from a cardiac standpoint Follow up post discharge with Dr. Mc Nurse practitioner note has been reviewed by physician. Signing provider agrees with the documented findings, assessment, and plan of care. Objective - Vital Signs Vital signs: Vital Signs Temp 97.4 F L 05/25/23 08:34 Pulse 85 05/25/23 08:34 Resp 16 05/25/23 08:34 BP 106/65 05/25/23 08:34 Pulse Ox 93 L 05/25/23 08:34 FiO2 50 05/17/23 08:40 Intake & Output 05/24/23 05/25/23 05/25/23 18:59 06:59 18:59 Intake Total 1420 560 Output Total 200 750 1 Balance 1220 -190 -1 Weight 67.3 kg Intake: IV 40 20 Invasive Line 6 40 20 Oral 1380 540 Output: Urine 200 750 Stool 1 Other: Voiding Method Toilet Toilet Toilet # Voids 1 ABP, PAP, CO, CI - Last Documented Arterial Blood Pressure 128/57 Pulmonary Artery Pressure 36/20 Cardiac Output 4.1 Cardiac Index 2.1 - Labs CBC & Chem 7: 05/25/23 07:09 05/25/23 07:09 Labs: Abnormal Lab Results - Last 24 Hours (Table) 05/24/23 05/24/23 05/25/23 Range/Units 16:19 19:55 06:04 RBC (3.80-5.40) m/uL Hgb (11.4-16.0) gm/dL Hct (34.0-46.0) % MCV (80.0-100.0) fL Sodium (137-145) mmol/L Glucose (74-99) mg/dL POC Glucose (mg/dL) 130 H 133 H 123 H (70-110) mg/dL 05/25/23 05/25/23 05/25/23 Range/Units 07:09 07:09 12:01 RBC 2.84 L (3.80-5.40) m/uL Hgb 9.2 L (11.4-16.0) gm/dL Hct 28.6 L (34.0-46.0) % MCV 100.6 H (80.0-100.0) fL Sodium 135 L (137-145) mmol/L Glucose 102 H (74-99) mg/dL POC Glucose (mg/dL) 114 H (70-110) mg/dL
--- NOTE | 2023-05-25 12:23 | P.DS ---
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 surgery Do you want consulting provider notified?: Yes Consult Physician Routine Consulting Provider: Moni Oscar Consult Reason/Comments: med mgmt: Kristopher patient Do you want consulting provider notified?: Yes Primary care physician: Karan Summers [place] Hospital Course: FINAL DIAGNOSIS: Severe aortic valve stenosis, status post bioprosthetic aortic valve replacement with annular enlargement History of hyperlipidemia, treated, cholesterol 195, LDL 98, triglycerides 105 Rheumatoid arthritis on Enbrel outpatient Previous tobacco dependence Mild COPD, preoperative FEV1 61% of predicted Family history of heart disease Preoperative nasal swab positive for MSSA, treated Postoperative acute blood loss anemia and thrombocytopenia, expected Postoperative hypotension, unexpected Elevated liver enzymes, unexpected, likely due to hypoperfusion Paroxysmal atrial fibrillation/atrial flutter, a known common occurrence after cardiac surgery, currently sinus rhythm PRINCIPAL PROCEDURE: 1. Aortic valve replacement using a 23 mm Kent Inpiris bioprosthetic valve and Abdiaziz Islas annular enlargement technique 2. Ligation of the left atrial appendage using a 35 mm Atriclip 3. Epi-aortic ultrasound 4. Intraoperative transesophageal echocardiogram HISTORY OF PRESENT ILLNESS: This is a 62-year-old female patient who follows on an outpatient basis with Dr. Nury Summers for her primary care and Dr. Sterling Mc for her cardiology care. Recently, the patient has had complaints of worsening fatigue and intermittent chest discomfort, which she describes as heartburn over a 1 year period. She states that her chest discomfort is present with activity and has not been present with rest. She also denies any complaints of shortness of breath, presyncope or syncopal episodes. She underwent a trans-thoracic 2-D echocardiogram which revealed a normal LV systolic function, heavily calcified aortic valve leaflets with a mean gradient of 115 mmHg and a peak gradient of 73 mmHg consistent with severe aortic valve stenosis. The 2-D echocardiogram also showed moderate aortic valve regurgitation, and her left ventricular size and systolic function to be normal. Subsequent leak, due to the patient's symptoms and findings on her transthoracic 2-D echocardiogram the patient underwent a cardiac catheterization and transesophageal echocardiogram on 04/11/2023. The transesophageal echocardiogram demonstrated severe aortic valve stenosis involving a bicuspid aortic valve with moderate aortic valve regurgitation, moderate mitral valve regurgitation, left ventricular hypertrophy with normal left ventricular systolic function, and a PFO with [id number] shunt across the interatrial septum. The cardiac catheterization results demonstrated mild nonobstructive coronary artery disease, aneurysmal dilatation of the ascending aorta, 3+ aortic valve regurgitation and severe aortic valve stenosis. The patient was subsequently referred to Dr. Dane Tipton from cardiothoracic surgery for further evaluation and treatment recommendations. Treatment options were discussed with the patient including the surgical option, risks and benefits of surgery were discussed including the STS risk score and knowing and understanding these risks the patient wished to proceed with the surgical option. HOSPITAL COURSE: The patient was brought to the hospital on 05/16/2023, and after consent was obtained she was taken to the preoperative area, prepared in the usual fashion and subsequently taken to the operating room where Dr. Dane Tipton performed an aortic valve replacement using a 23 mm Kent Inpiris bioprosthetic valve and Abdiaziz Islas annular enlargement technique. Upon completion of the surgery the patient was transferred to the cardiovascular intensive care unit where she was recovered and monitored hemodynamically. She was extubated, all lines, tubes and supportive drips were discontinued when appropriate and she was transferred to the third floor cardiac stepdown unit for further monitoring and rehabilitation. Her oxygen was titrated down, she continued to work with physical/occupational therapy, cardiac rehabilitation, she was tolerating an oral diet, her pain was well controlled without narcotics and she was ready to be discharged home with [facility] care on postoperative day #9. She has received written and verbal instructions regarding her medications, activity restrictions, signs and symptoms requiring physician notification and [facility]. Patient Condition at Discharge: Stable Plan - Discharge Summary Discharge Rx Participant: No New Discharge Prescriptions: New Docusate [Colace] 100 mg PO BID PRN cap PRN Reason: Constipation Potassium Chloride ER [K-Dur 10] 10 meq PO DAILY #7 tab Furosemide [Lasix] 20 mg PO DAILY #7 tab Metoprolol Tartrate [Lopressor] 12.5 mg PO BID #60 tab Clopidogrel [Plavix] 75 mg PO DAILY #30 tab Acetaminophen Tab [Tylenol] 650 mg PO Q6HR PRN tab PRN Reason: Fever And/ Or Pain Aspirin 81 mg PO DAILY #30 tab Midodrine [ProAmatine] 5 mg PO AC-BID #60 tab Continue Rosuvastatin [Crestor] 20 mg PO DAILY Cholecalciferol [Vitamin D3 (125 Mcg = 5000 Iu)] 125 mcg PO Q7D Otc Pepcid 1 tab PO DAILY PRN PRN Reason: Heartburn Etanercept [Enbrel] 50 mg SQ Q7D Discontinued Mupirocin 2% Oint [Bactroban 2% Oint] 1 applic NASAL BID Discharge Medication List Cholecalciferol [Vitamin D3 (125 Mcg = 5000 Iu)] 125 mcg PO Q7D 03/30/23 [History] Etanercept [Enbrel] 50 mg SQ Q7D 03/30/23 [History] Rosuvastatin [Crestor] 20 mg PO DAILY 03/30/23 [History] Otc Pepcid 1 tab PO DAILY PRN 04/06/23 [History] Acetaminophen Tab [Tylenol] 650 mg PO Q6HR PRN tab 05/25/23 [Rx] Aspirin 81 mg PO DAILY #30 tab 05/25/23 [Rx] Clopidogrel [Plavix] 75 mg PO DAILY #30 tab 05/25/23 [Rx] Docusate [Colace] 100 mg PO BID PRN cap 05/25/23 [Rx] Furosemide [Lasix] 20 mg PO DAILY #7 tab 05/25/23 [Rx] Metoprolol Tartrate [Lopressor] 12.5 mg PO BID #60 tab 05/25/23 [Rx] Midodrine [ProAmatine] 5 mg PO AC-BID #60 tab 05/25/23 [Rx] Potassium Chloride ER [K-Dur 10] 10 meq PO DAILY #7 tab 05/25/23 [Rx] Follow up Appointment(s)/Referral(s): Wilfredo Garsia MD [STAFF PHYSICIAN] - 06/21/23 9:30 am Oksana Richard NPC [Nurse Practitioner] - 06/01/23 12:00 pm (You will be seen in the surgeon's office behind the hospital in [facility], [address] Office phone number is ) Rehab Brandon PH,Cardiac [NON-STAFF] - 4 Weeks (You will receive a phone call in approximately 4-6 weeks for evaluation for cardiac rehab) [facility], [NON-STAFF] - 1 Week ([facility] will call you to arrange a visit) Karan Summers DO [Primary Care Provider] - 06/06/23 2:45 pm Dane Tipton MD [STAFF PHYSICIAN] - 06/14/23 9:30 am Saul Mc MD [STAFF PHYSICIAN] - 06/07/23 4:00 pm Ambulatory/Diagnostic Orders: Complete Blood Count w/diff [LAB.AMB] Time Frame: 3 Days, Location: None Selected Comprehensive Metabolic Panel [LAB.AMB] Time Frame: 3 Days, Location: None Selected Activity/Diet/Wound Care/Special Instructions: DISCHARGE INSTRUCTIONS: 1. No driving for 4 weeks, or until physician gives their ok. 2. The patient should sleep in their own bed, no medical bed needed. 3. Stairs are not an issue. If the bedroom is upstairs, it is advised that the patient go up at night and down in the morning for the first week. Go slowly, using handrail and take 1 step at a time. 4. LEVAR hose are to be worn for 30 days post surgery or until physician discontinues. 5. Heart hugger is to be worn 100% of the time until physician discontinues.(except when showering) 6. No lifting, pushing, or pulling more than 10 pounds for 12 weeks. The physician will advise of any restriction changes. 7. The patient is expected to continue the prescribed walking program. 8. Continue pain control per as needed orders. 9. Continue with incentive spirometry and splinting/heart hugger until otherwise directed by the physician. 10. Must shower daily using liquid antibacterial soap 11. Routine sternal incision care. No powders, lotions, ointments on incisions. No dressings are necessary on incisions unless they are draining. Dermabond tape is to remain on sternal incision until surgeon follow-up. 12. Please call surgeon/QUICK MIXER OPERATOR for temp greater than 101 F or purulent drainage from incisions. 13. You should weigh yourself daily, record and bring log with you to follow up appointments. 14. All prescriptions given by surgeon for 30 days. Refills need to be filled through desktop support consultant/primary care physician. 15. A Red armband has been placed on the patient. It should be worn for 30 days post discharge from surgery and will be removed by the cardiac surgeons. If an ER visit is necessary, please make sure the number on the Red armband is called before going to ER. 16. You have been referred to and are expected to begin Cardiac Rehab in approximately 4-6 weeks. HOME HEALTH SERVICES TO PROVIDE: RN SKILLED HOME CARE SERVICES FOR POST-OP SURGICAL PATIENTS WITH THE FOLLOWING: Coronary Artery Bypass Surgery (CABG), Mitral Valve Replacement/Repair ( MVR), Aortic Valve Replacement/Repair (AVR) RN TO CONTINUE EDUCATION FROM ``ROAD TO A HEALTH HEART PATIENT EDUCATION MANUAL (GIVEN TO PATIENT IN THE HOSPITAL) MEDICATION RECONCILIATION WITH EDUCATION NEEDED ON FIRST HOME VISIT EMPHASIZE IMPORTANCE OF WEARING BREAST SUPPORT/HEART HUGGER ENCOURAGE USE OF INCENTIVE SPIROMETER 10 X EVERY HOUR WHILE AWAKE ENCOURAGE UTILIZATION OF LOWER EXTREMITY COMPRESSION STOCKINGS/LEVAR HOSE and ELEVATE LEGS ABOVE LEVEL OF HEART WHILE AT REST. ENCOURAGE AMBULATION 3-5x/day INCREASING TOLERATES, WHILE AVOIDING EXTREMES IN TEMPERATURE FREQUENCY: RN TO OPEN THE PATIENT WITHIN 24 HOURS OF DISCHARGE FROM THE HOSPITAL WITH TELEHEALTH INSTALLED AT [facility] [place], RN TO VISIT 2-3 X A WEEK FOR 4 WEEKS ESTABLISHED BY PATIENT NEEDS. LABORATORY: CBC, CMP TO BE DRAWN ON THE THIRD DAY HOME, (RAN STAT) FAX RESULTS TO [phone]. TELEHEALTH PARAMETERS: WEIGHT: NOTIFY MD OF WEIGHT GAIN OF 2 LBS IN 24 HOURS OR 5 LBS IN ONE WEEK HR: NOTIFY MD OF HR <55 BPM OR HR>100 BPM BP: NOTIFY MD IF BP <90/55 OR BP>140/100 O2 SAT: NOTIFY MD IF PO2<93% ON ROOM AIR SEND TELEHEALTH REPORT TO INDUSTRIAL RELATIONS ANALYST AND CARDIOVASCULAR SURGEON THE FIRST WEEK OF CARE AND THEN BI-WEEKLY. PLEASE ADDITIONALLY COMMUNICATE ANY ABNORMALS AND NEW FINDINGS TO THE SURGEONS OFFICE. Discharge Disposition: HOME WITH HOME HEALTH SERVICES
== END 2023-05-25 12:52 | disposition home health service (06) | DRG 220 ==
LOC: 2ORMAIN 05-16 05:36 → 2SICU 05-16 13:37 → 3SCARD 05-23 17:50
PROVIDERS: ADMIT Surgery; ATTEND Surgery
PROC: B24BZZ4 Ultrasonography of Heart with Aorta, Transesophageal (ICD-10-PCS; principal; 2023-05-16 08:00)
PROC: 3E033XZ Introduction of Vasopressor into Peripheral Vein, Percutaneous Approach (ICD-10-PCS; principal; 2023-05-16 08:00)
PROC: 5A1221Z Performance of Cardiac Output, Continuous (ICD-10-PCS; principal; 2023-05-16 08:00)
PROC: 02RF08N Replacement of Aortic Valve with Zooplastic Tissue, using Rapid Deployment Technique, Open Approach (ICD-10-PCS; principal; 2023-05-16 08:00)
PROC: 02L70CK Occlusion of Left Atrial Appendage with Extraluminal Device, Open Approach (ICD-10-PCS; principal; 2023-05-16 08:00)
DX: I35.2 Nonrheumatic aortic (valve) stenosis with insufficiency (principal); D62 Acute posthemorrhagic anemia; J93.82 Other air leak; J98.11 Atelectasis; Q21.12 Patent foramen ovale; E87.4 Mixed disorder of acid-base balance; J81.1 Chronic pulmonary edema; I48.92 Unspecified atrial flutter; I95.81 Postprocedural hypotension; G89.18 Other acute postprocedural pain; D69.6 Thrombocytopenia, unspecified; I11.9 Hypertensive heart disease without heart failure; R33.9 Retention of urine, unspecified; I48.0 Paroxysmal atrial fibrillation; R74.01 Elevation of levels of liver transaminase levels; R00.1 Bradycardia, unspecified; B95.61 Methicillin susceptible Staphylococcus aureus infection as the cause of diseases classified elsewhere; I44.0 Atrioventricular block, first degree; L40.50 Arthropathic psoriasis, unspecified; E78.5 Hyperlipidemia, unspecified; M06.9 Rheumatoid arthritis, unspecified; K21.9 Gastro-esophageal reflux disease without esophagitis; J44.9 Chronic obstructive pulmonary disease, unspecified; I71.21 Aneurysm of the ascending aorta, without rupture; I25.10 Atherosclerotic heart disease of native coronary artery without angina pectoris; Z87.891 Personal history of nicotine dependence; Z79.899 Other long term (current) drug therapy; Z71.3 Dietary counseling and surveillance
CPT/HCPCS: 71045; 71046; 80048; 80053; 82330; 82805; 83735; 85025; 85027; 85610; 85730; 86850; 86891; 86900; 86901; 86920; 88305; 88311; 94002; 94003; 94640; 94760

== ENCOUNTER → 2023-12-07 | Outpatient (CLI) | payer BC ==
--- NOTE | 2023-12-09 10:15 | MM ---
Reason for Exam: Screening (asymptomatic). Last mammogram was performed 14 year(s) and 7 month(s) ago. Patient History: Menarche at age 14. First Full-Term at age 20. Left ovary removed at age 47. Hysterectomy at age 47. Postmenopausal. Patient has history of breast feeding. Risk Values: Meri 5 year model risk: 1.3%. NCI Lifetime model risk: 5.3%. Prior Study Comparison: 05/13/2009 Bilateral Screening Mammogram, Unknown. Tissue Density: The breast tissue is heterogeneously dense. This may lower the sensitivity of mammography. Findings: Analyzed By CAD. There is no suspicious group of microcalcifications or new suspicious mass in either breast. Overall Assessment: Negative, BI-RAD 1 Management: Screening Mammogram of both breasts in 1 year. . Patient should continue monthly self-breast exams. A clinical breast exam by your physician is recommended on an annual basis. This exam should not preclude additional follow-up of suspicious palpable abnormalities. Note on Meri scores and lifetime risk: 1. A Meri score greater than 3% is considered moderate risk. If this is the case, consider specialist referral to assess eligibility for a risk reducing agent. 2. If overall lifetime risk for the development of breast cancer is 20% or higher, the patient may qualify for future screening with alternating mammogram and breast MRI. Electronically signed and approved by: Lavelle Lan M.D. Radiologis
== END | disposition home or self-care (01) ==
LOC: RADMAMWWP 15:23
PROVIDERS: ATTEND Family Medicine
DX: Z12.31 Encounter for screening mammogram for malignant neoplasm of breast (principal); Z78.0 Asymptomatic menopausal state
CPT/HCPCS: 77067

== ENCOUNTER → 2024-03-20 | Outpatient (CLI) | payer BC ==
[2024-03-20 15:47] LABS: Basophils # (A) 0.05 X 10*3/uL (0.00-0.10); Eosinophils # (A) 0.07 X 10*3/uL (0.04-0.35); Eosinophils % (A) 1.4 %; HCT 42.3 % (37.2-46.3); HGB 14.4 g/dL (12.0-15.0); Lymphocytes # (A) 1.48 X 10*3/uL (0.90-5.00); MCH 31.8 pg (27.0-32.0); MCV 93.4 FL (80.0-97.0); Monocytes # (A) 0.67 X 10*3/uL (0.20-1.00); Monocytes % (A) 13.6 %; NRBC Per 100 WBC 0 X 10*3/uL (0.00-0.01); Neutrophils # (A) 2.65 X 10*3/uL (1.80-7.70); Neutrophils % (A) 53.6 %; Platelet Count 224 X 10*3/uL (140-440); RBC 4.53 X 10*6/uL (4.10-5.20); WBC 4.94 X 10*3/uL (4.50-10.00)
[2024-03-20 15:52] LABS: Blood Urea Nitrogen 13.6 mg/dL (9.0-27.0); Chloride 103 mmol/L (96-109); Potassium 4.4 mmol/L (3.5-5.5); Sodium 137 mmol/L (135-145)
== END | disposition home or self-care (01) ==
LOC: LABPAT 12:17
PROVIDERS: ATTEND Internal Medicine Cardiovascular Disease
DX: Z01.812 Encounter for preprocedural laboratory examination (principal); R07.2 Precordial pain
CPT/HCPCS: 36415; 80051; 82565; 84520; 85025

== ENCOUNTER 2024-03-21 08:21 | Inpatient (IN) | payer BC ==
[2024-03-20 14:28] VITALS: BMI 26.2
[~2024-03-21 08:21] MED LIST changes: -ALPRAZolam 0.25 MG TAB PO PRN; -ASPIRIN 325 MG TAB PO STA; -BENZOCAINE SPRAY 1 CAN MUCOUS MEM ONE; -HEPARIN SODIUM 1,000 UN/ML (10ML VL) IVP ONE; -HEPARIN SODIUM 1,000 UN/ML (10ML VL) ONE; +HEPARIN SODIUM,PORCINE (1 ML) 2,500 UNIT in SODIUM CHLORIDE 0.9% 250 ML IRRIGATION PRN; +HEPARIN SODIUM,PORCINE 10,000 UNIT in SODIUM CHLORIDE 0.9% 1,000 ML IRRIGATION PRN; -IOPAMIDOL-370 100ML BTL INJ ONE; -IV FLUID CONTINUATION 300 ML IV ONE; -LIDOCAINE 1% INJ 10MG/ML (5 ML VIAL-PF) SQ ONE; -MIDAZOLAM 2 MG/2 ML VIAL IVP ONE; -SODIUM CHLORIDE 0.9% 1,000 ML in EMPTY BAG 1 BAG IV SCH; -VERAPAMIL 2.5 MG/ML 2 ML AMP ONE; -VERAPAMIL SYRINGE (5 MG/10 ML) INTRAARTER ONE; -fentaNYL (PF) 50 MCG/ML 2 ML AMP IV ONE; -fentaNYL (PF) 50 MCG/ML 2 ML AMP IVP ONE; -fentaNYL (PF) 50 MCG/ML 2 ML AMP ONE
[2024-03-21] MEDS: SODIUM CHLORIDE 0.9% 1,000 ML IV ONE (08:32)
[2024-03-21 09:07] LABS: Basophils % (A) 1 %; Eosinophils # (A) 0.1 k/uL (0-0.7); Eosinophils % (A) 2 %; HCT 42.7 % (34.0-46.0); HGB 14.6 gm/dL (11.4-16.0); Lymphocytes # (A) 1.6 k/uL (1.0-4.8); Lymphocytes % (A) 25 %; MCH 32.3 pg (25.0-35.0); MCHC 34.1 g/dL (31.0-37.0); MCV 94.6 fL (80.0-100.0); Mean Platelet Volume 8.5; Monocytes # (A) 0.5 k/uL (0-1.0); Monocytes % (A) 8 %; Neutrophils # (A) 4.1 k/uL (1.3-7.7); Neutrophils % (A) 62 %; Platelet Count 235 k/uL (150-450); RBC 4.52 m/uL (3.80-5.40); RDW 12.5 % (11.5-15.5); WBC 6.6 k/uL (3.8-10.6)
[2024-03-21 09:35] LABS: African American GFR (CKD) >90 (>60 ml/min/1.73 sqM); Anion Gap 7 mmol/L; Blood Urea Nitrogen 15 mg/dL (7-17); Calcium 9.5 mg/dL (8.4-10.2); Carbon Dioxide 25 mmol/L (22-30); Chloride 105 mmol/L (98-107); Glucose 115 mg/dL (74-99); Non-African American GFR(CKD) >90 (>60 ml/min/1.73 sqM); Sodium 137 mmol/L (137-145)
[2024-03-21 09:45] LABS: Potassium 4.6 mmol/L (3.5-5.1)
[2024-03-21] MEDS ORDERED: fentaNYL (PF) 50 MCG/ML 2 ML AMP ONE (09:59)
[2024-03-21] MEDS ORDERED: LIDOCAINE 1% INJ 10MG/ML (20 ML MDV) ONE (09:59)
[2024-03-21] MEDS ORDERED: VERAPAMIL 2.5 MG/ML 2 ML AMP ONE (09:59)
[2024-03-21] MEDS: MIDAZOLAM 2 MG/2 ML VIAL IVP ONE ×3 (10:36→12:04)
[2024-03-21] MEDS: fentaNYL (PF) 50 MCG/1 ML VIAL IVP ONE ×3 (10:36→12:11)
[2024-03-21] MEDS: LIDOCAINE 1% INJ 10MG/ML (20 ML MDV) SQ ONE (10:37)
[2024-03-21] MEDS: VERAPAMIL 2.5 MG/ML 4 ML VIAL INTRAARTER ONE (10:38)
[2024-03-21] MEDS: HEPARIN SODIUM 1,000 UN/ML (10ML VL) IVP ONE ×3 (11:04→11:45)
--- NOTE | 2024-03-21 11:55 | CC ---
CARDIAC CATHETERIZATION REPORT INDICATION: Unstable angina. This is a 63-year-old lady with history of aortic stenosis, who underwent aortic valve replacement, presented to us with 2-week symptoms of chest pain that she describes as precordial chest pressure that radiated to her neck. She was initially evaluated by her primary care physician, who felt that this did not represent GI symptoms sent to me. EKG did not reveal any acute ischemic changes. She had cardiac catheterization prior to valve replacement in March that did not reveal significant obstructive CAD. Hence, I asked her to do a treadmill stress test. She came to my office for a treadmill stress test on Tuesday and could only walk for 2 minutes on treadmill, had chest and jaw discomfort and EKG changes, and the symptoms have resolved after sublingual nitroglycerin. Due to this, I saw her back in my office on Tuesday and scheduled her for a cath today. She had been explained of risks, benefits, and alternatives, understood and accepted. PROCEDURE NOTE: After obtaining informed consent, left heart catheterization, coronary angiogram, and aortogram were performed via the right radial artery using standard Seth catheters. The patient tolerated the procedure well without any obvious immediate complications. The patient received moderate conscious sedation. Total sedation time was 35 minutes. Right radial artery access was obtained using Seldinger technique, 6-Macedonian sheath was placed. Catheters and wires were floated into the ascending aorta under fluoroscopic guidance. The patient received verapamil and 3500 units of heparin per protocol. We could not selectively image the right coronary artery. Hence, an aortic root shot was obtained. FINDINGS: 1. Hemodynamics: Left ventricular end-diastolic pressure is 24 mm. There is no significant gradient across the aortic valve. a.Aortogram was performed to locate the right coronary artery. b.Angiographic data under this right coronary artery is visualized on the aortic root shot, but I was not able to selectively engage it, and Dr. Medina, the on- call physical therapy assistant instructor, will try and engage the artery. 2. Left main coronary artery. There is an ostial stenosis right at the origin of the left main coronary artery from the aortic root, seems to be related to aortic valve replacement surgery. LAD and circumflex coronary artery had been free of significant disease. 3. Right coronary artery appears open on the aortic root shot, however, we are not able to visualize the ostium at the proximal 3rd of the right coronary artery. CONCLUSION: Severe stenosis involving the left main coronary artery related to recent aortic valve replacement surgery. PLAN: I reviewed angiographic data with Dr. Medina, the on-call physical therapy assistant instructor, who will obtain selective images of the right coronary artery and perform IVUS of the left main and decide on further course of action. MMNEO / ROSSY: [id number] /
--- NOTE | 2024-03-21 12:01 | LTR ---
Dear Karan: I performed left heart catheterization on Olamide Moran. The detailed catheterization note is enclosed with your records. This is a 63-year-old lady with history of aortic valve disease that underwent aortic valve replacement last year, who presented to you with symptoms of chest and jaw discomfort that she was concerned and referred to me for further evaluation. Patient underwent a treadmill stress test that was significantly abnormal, hence I performed cardiac catheterization that reveals significant ostial left main stenosis. We will obtain further information. We will obtain further data with an IVUS and decide on further course of action. The patient had normal coronaries prior to her bypass surgery with a normal left main coronary artery. The ostial stenosis that she developed now is probably related to her valve surgery. Thank you for giving me the privilege to participate in the care of this pleasant lady. I will keep you informed of her progress. SEBASTIAN / ROSSY: [id number] /
[2024-03-21] MEDS: IOPAMIDOL-370 200ML BTL INTRATHECA ONE (12:18)
[2024-03-21] MEDS ORDERED: RX INFO: IV CONTRAST WAS GIVEN 1 EACH MISC MISCELLANE PRN (12:32)
[2024-03-21] MEDS: ACETAMINOPHEN TAB 500 MG TAB PO STA (12:59)
[2024-03-21] MEDS: ASPIRIN 325 MG TAB PO ONE (13:01)
[2024-03-21] MEDS: SODIUM CHLORIDE 0.9% 1,000 ML in EMPTY BAG 1 BAG IV SCH (13:01)
[2024-03-21] MEDS: HEPARIN SODIUM 1,000 UN/ML (10ML VL) IV ONE (14:16)
[2024-03-21] MEDS: HEPARIN SOD,PORK IN 0.45% NACL 25,000 UNIT in 0.45% NACL 1 250ML.BAG IV SCH (14:17)
--- NOTE | 2024-03-21 14:39 | P.GSCN ---
History of Present Illness Consult date: 03/21/24 Reason for Consult: Coronary artery disease with left main disease Requesting physician: Saul Mc History of present illness: This is a 63-year-old female patient who follows on an outpatient basis with Dr. Nury Summers for her primary care and with Dr. Sterling Mc for her cardiology care. She has a past medical history significant for severe aortic valve stenosis, status post bioprosthetic aortic valve replacement with annular enlargement on May 16, 2023, hyperlipidemia, rheumatoid arthritis and psoriasis on Enbrel as an outpatient, mild COPD, family history of early onset coronary artery disease with 2 brothers being diagnosed in the early 50s, remote history of nicotine dependence quit smoking in 2006, EtOH use with drinking 2 glasses of wine per day, and paroxysmal atrial fibrillation after her open heart surgery in April 2023. The patient reports over the past 2 weeks she has been having comp laints of chest pain with activity associated with shortness of breath, pain radiating to her jaw and right upper shoulder, indigestion and heartburn, and feeling fatigued. She denies any recent fever, chills, nausea, vomiting, diarrhea, constipation, palpitations, cough, headache, hemoptysis, hematemesis, presyncope or syncope. The patient reports that the chest pain goes away with episodes of rest. 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 Brown who recommended the patient undergo a exercise stress test. On Tuesday, March 19, 2024 the patient underwent a low-level treadmill exercise stress test, she exercised for 2 minutes on Yan protocol and had chest discomfort 4 out of 10 intensity and had to take sublingual nitroglycerin. The patient had baseline STT wave changes during the stress test and had pronounced ST segment depression with activity that had worsened quite a bit compared to her stress test done in July 2023. Subsequently, due to the patient's symptoms, and poor exercise tolerance with chest pain on the treadmill and EKG changes she was advised to undergo a cardiac catheterization which was completed today by Dr. Mc. The cardiac catheterization revealed no significant gradient across aortic valve, and severe stenosis involving the left main coronary artery, which was felt by Dr. Mc to be related to the recent aortic valve replacement surgery in April 2023. The patient also underwent a transthoracic 2D echocardiogram on September 08, 2023 which demonstrated a normal size with normal systolic function, an ejection fraction of 55%, moderate left ventricular hypertrophy, moderate mitral valve regurgitation, mild prosthetic aortic valve regurgitation, and aortic valve area of 1.94 cm, a peak gradient of 20 mmHg, mean gradient of 10 mmHg, mild tricuspid valve regurgitation, physiologic pulmonic regurgitation and mildly increased pulmonary artery systolic pressure of 42 mmHg. Due to the patient's recent symptoms and findings on the cardiac catheterization a consult was placed to Dr. Omkar Jacob from cardiothoracic surgery for further evaluation and treatment recommendations including myocardial vascularization surgery. Review of Systems A review of systems was completed and was negative except as mentioned in the HPI. Past Medical History Past Medical History: Atrial Fibrillation (Postoperative paroxysmal in April 2023), Chest Pain / Angina, COPD, GERD/Reflux, Hyperlipidemia, Rheumatoid Arthritis (RA), Skin Disorder Additional Past Medical History / Comment(s): psoriasis, SOB w/exertion & fatigue, valve problem per pt. History of Any Multi-Drug Resistant Organisms: None Reported Past Surgical History: Cardiac Valve Replacement (Aortic valve replacement with annular enlargement May 16, 2023), Heart Catheterization, Hysterectomy, Orthopedic Surgery Additional Past Surgical History / Comment(s): rt knee SX, Past Anesthesia/Blood Transfusion Reactions: No Reported Reaction Past Psychological History: No Psychological Hx Reported Smoking Status: Former smoker (Quit smoking in 2006) Past Alcohol Use History: Daily (Drinks 2 glasses of wine per day) Past Drug Use History: None Reported - Past Family History Mother Family Medical History: Coronary Artery Disease (CAD) Additional Family Medical History / Comment(s): CABG Brother(s) Family Medical History: Myocardial Infarction ([place]) Additional Family Medical History / Comment(s): stents. another brother had a stroke Father Additional Family Medical History / Comment(s): Parkinson disease Medications and Allergies Home Medications Medication Instructions Recorded Confirmed Type Rosuvastatin [Crestor] 20 mg PO DAILY 03/30/23 03/20/24 History Aspirin 81 mg PO DAILY #30 tab 05/25/23 03/21/24 Rx Metoprolol Tartrate [Lopressor] 12.5 mg PO BID #60 tab 05/25/23 03/20/24 Rx Ergocalciferol [Vitamin D2 (1250 1,250 mcg PO MO 03/20/24 03/21/24 History Mcg = 23568 Iu)] Isosorbide Mononitrate [Isosorbide 30 mg PO DAILY 03/20/24 03/20/24 History Mononitrate ER] Allergies Allergy/AdvReac Type Severity Reaction Status Date / Time No Known Allergies Allergy Verified 03/21/24 08:31 Surgical - Exam Vital Signs Temp Pulse Resp BP Pulse Ox 97.9 F 56 L 16 151/76 96 03/21/24 08:37 03/21/24 08:37 03/21/24 08:37 03/21/24 08:37 03/21/24 08:37 - General well developed, well nourished, no distress, no pain - Eyes PERRL, normal ocular movement, no pale, no icteric - ENT normal pinna, normal nares, normal mucosa, no hearing loss, no congestion - Neck Neck is supple, no lymphadenopathy. no masses, no bruits, trachea midline, no venous distension - Respiratory Lung sounds essentially clear throughout, no wheezes, rhonchi or crackles. Respirations are symmetrical and nonlabored. - Cardiovascular Regular rhythm and rate. S1 and S2 present, negative for S3 or gallop. Positive systolic murmur heard best to her right sternal border. - Abdomen Abdomen is soft, nontender and nondistended. Active bowel sounds present all 4 abdominal quadrants. No guarding or rigidity. No organomegaly appreciated. - Genitourinary Deferred - Rectum Deferred - Integumentary Skin is warm and dry. No clubbing or cyanosis is present. no rash, no growths, no abnormal pigmentation - Neurologic No focal deficits. normal coordination, normal sensation - Musculoskeletal Moves all 4 extremities with equal strength bilateral. normal gait, normal posture - Psychiatric oriented to time, oriented to person, oriented to place, speech is normal, memory intact Results - Labs 03/21/24 09:01 03/21/24 09:01 Abnormal Lab Results - Last 24 Hours (Table) 03/21/24 Range/Units 09:01 Glucose 115 H (74-99) mg/dL Diabetes panel 03/21/24 Range/Units 09:01 Sodium 137 (137-145) mmol/L Potassium 4.6 (3.5-5.1) mmol/L Chloride 105 (98-107) mmol/L Carbon Dioxide 25 (22-30) mmol/L BUN 15 (7-17) mg/dL Creatinine 0.63 (0.52-1.04) mg/dL Glucose 115 H (74-99) mg/dL Calcium 9.5 (8.4-10.2) mg/dL Calcium panel 03/21/24 Range/Units 09:01 Calcium 9.5 (8.4-10.2) mg/dL Pituitary panel 03/21/24 Range/Units 09:01 Sodium 137 (137-145) mmol/L Potassium 4.6 (3.5-5.1) mmol/L Chloride 105 (98-107) mmol/L Carbon Dioxide 25 (22-30) mmol/L BUN 15 (7-17) mg/dL Creatinine 0.63 (0.52-1.04) mg/dL Glucose 115 H (74-99) mg/dL Calcium 9.5 (8.4-10.2) mg/dL Adrenal panel 03/21/24 Range/Units 09:01 Sodium 137 (137-145) mmol/L Potassium 4.6 (3.5-5.1) mmol/L Chloride 105 (98-107) mmol/L Carbon Dioxide 25 (22-30) mmol/L BUN 15 (7-17) mg/dL Creatinine 0.63 (0.52-1.04) mg/dL Glucose 115 H (74-99) mg/dL Calcium 9.5 (8.4-10.2) mg/dL Assessment and Plan Assessment: Ostial left main coronary artery disease Severe aortic valve stenosis, status post bioprosthetic aortic valve replacement with annular enlargement on May 16, 2023 History of hyperlipidemia, treated Rheumatoid arthritis, psoriasis on Enbrel outpatient Previous tobacco dependence Mild COPD Family history of heart disease Preoperative nasal swab positive for MSSA, treated Paroxysmal atrial fibrillation/atrial flutter after cardiac surgery in April 2023 ADDENDUM: 63-year-old female who is 10 months status post aortic valve replacement with root enlargement. She presents with 2 weeks of chest pain. She is found to have what appears to be a tight ostial left main stenosis. This was not previously present. This appears to be an acute finding due to the acute onset of symptoms and her ability to tolerate both the surgery and her cardiac rehab following. Case was discussed with Dr. Mc and Dr. Medina. Plan will be to wire the left main and then do IVUS and if necessary left main stenting. This may requir e Impella support. Redo coronary surgery at this time would be high risk. All of this was discussed with the patient. She is very clear that she does not want further surgery unless absolutely necessary. She is willing to undergo further interventional procedures. Plan: The patient was seen and examined at her bedside on the third floor cardiac stepdown unit in conjunction with Dr. Jacob from cardiothoracic surgery. Chart and diagnostics were reviewed. Dr. Jacob reviewed with the patient the findings on the cardiac catheterization. Treatment options discussed, no surgical intervention at this time. The patient will undergo IVUS with possible PCI of the left main. Medical management and other comorbidities per primary care service. More recommendations to follow based on patient's clinical course. Thank you Dr. Mc for this consult and we look forward to working with you in the care of this patient. I have personally seen and examined the patient, performed the documentation and the assessment and plan as written. Number of minutes spent on the visit: 30. MARJORIE Thornton
[2024-03-21 16:09] LABS: INR 1.1 (<1.2); Prothrombin Time 11.9 sec (10.0-12.5)
[2024-03-21 16:13] LABS: Partial Thromboplastin Time >200.0 sec (22.0-30.0)
[2024-03-21] MEDS: ALPRAZolam 0.25 MG TAB PO PRN (22:32)
[2024-03-21] MEDS: ATORVASTATIN 80 MG TAB PO SCH (22:32)
[2024-03-21] MEDS: METOPROLOL TARTRATE 12.5 MG TAB PO SCH (22:32)
[2024-03-22] MEDS: ASPIRIN 81 MG PO SCH (08:32)
[2024-03-22] MEDS: ISOSORBIDE MONONITRATE ER 30 MG TAB.ER.24H PO SCH (08:32)
[2024-03-22 09:19] LABS: Prothrombin Time 10.7 sec (10.0-12.5)
[2024-03-22] MEDS: HEPARIN SODIUM 1,000 UN/ML (10ML VL) IV PRN (09:26)
[2024-03-22] MEDS: PANTOPRAZOLE 40 MG TABLET PO SCH (10:31)
[2024-03-22] MEDS: NITROGLYCERIN-D5W PMX 50 MG in DEXTROSE/WATER 1 250ML.BAG IV SCH (10:32)
[2024-03-22] MEDS: ACETAMINOPHEN TAB 325 MG TAB PO PRN (12:47)
--- NOTE | 2024-03-22 14:49 | P.PN ---
Subjective Progress Note Date: 03/22/24 History of present illness: This is a 63-year-old female patient of Dr. Sterling Mc with past medical history of aortic stenosis status post aortic valve replacement April 2023. Patient presented to the office on 03/20/2024 with complaints of intermittent episodes of chest discomfort radiating to her neck. She did not have any significant obstructive coronary artery disease on previous catheterization. She underwent a stress test and chest pain went from 4-10 intensity and had to take sublingual nitroglycerin. There was baseline ST-T wave changes with pronounced ST segment depression with activity worse quite a bit since July 2023. She was subsequently scheduled for cardiac catheterization which was performed yesterday which revealed severe stenosis involving the left main coronary artery related to recent aortic valve replacement surgery. Dr. Medina performed IVUS of the left main. Subsequently, patient was seen by cardiothoracic surgery and thought that CABG would be too soon since her previous surgery. Patient is seen today on the cardiac stepdown unit. Patient developed chest pain of a 5-10 out of 10. She has been maintained on a heparin drip. Blood pressure 155/71-178/92. Heart rate in the 60s, pulse ox 95% on room air. Physical examination: Gen: This is a 63-year-old female in no acute distress. VS: reviewed HEENT: Head is atraumatic, normocephalic. Pupils equal, round. Sclerae is anicteric. NECK: Supple. No JVD. LUNGS: Clear to auscultation. No wheezes or rhonchi. No intercostal retractions. HEART: Regular rate and rhythm. No murmur. ABDOMEN: Soft No tenderness. EXTREMITIES: No pedal edema. No calf tenderness. NEUROLOGICAL: Patient is awake, alert and oriented x3. Assessment: Coronary artery disease Aortic valve replacement Abnormal treadmill stress test Uncontrolled hypertension Gastroesophageal reflux disease Plan: Continue current cardiac medications: Aspirin 81 mg daily, atorvastatin 80 mg at bedtime, metoprolol 12.5 mg twice daily, Nitrostat as needed Continue patient on heparin drip Start patient on nitroglycerin drip and discontinue Imdur Protonix added CTS consult appreciated Further recommendations to follow based upon clinical course Nurse practitioner note has been reviewed, I agree with documented findings and plan of care. Patient was seen and examined. Objective - Vital Signs Vital signs: Vital Signs Temp 97.7 F 03/22/24 08:18 Pulse 64 03/22/24 08:35 Resp 20 03/22/24 08:18 BP 155/71 03/22/24 09:19 Pulse Ox 99 03/22/24 08:18 FiO2 Intake & Output 03/21/24 03/22/24 03/22/24 18:59 06:59 18:59 Intake Total 833.803 38.335 100 Balance 833.803 38.335 100 Weight 66.4 kg Intake: IV 700 Intake, IV Titration 15.803 38.335 Amount Heparin Sod,Pork in 0.45% 15.803 38.335 NaCl 25,000 unit In 0.45 % NaCl 1 250ml.bag @ 12 UNITS/KG/HR 7.968 mls/hr IV .Q24H [facility] Rx#: [id number] Oral 118 100 Other: Voiding Method Toilet Toilet # Voids 2 - Labs CBC & Chem 7: 03/21/24 09:01 03/21/24 09:01 Labs: Abnormal Lab Results - Last 24 Hours (Table) 03/21/24 03/21/24 03/21/24 Range/Units 09:01 15:06 18:47 APTT >200.0 H* 34.6 H (22.0-30.0) sec Glucose 115 H (74-99) mg/dL
[2024-03-22] MEDS ORDERED: NITROGLYCERIN SL TABS 0.4 MG TAB SUBLINGUAL PRN (14:52)
[2024-03-22] MEDS ORDERED: ALPRAZolam 0.25 MG TAB PO PRN (14:52)
[2024-03-22] MEDS ORDERED: ALPRAZolam 0.5 MG TAB PO PRN (14:52)
[2024-03-22] MEDS: SODIUM CHLORIDE 0.9% 1,000 ML in EMPTY BAG 1 BAG IV SCH (15:36)
[2024-03-22] MEDS: ATORVASTATIN 80 MG TAB PO STA (15:36)
[2024-03-22] MEDS: ASPIRIN 325 MG TAB PO STA (15:36)
[2024-03-22 15:50] LABS: Glucose,Whole Blood 101 mg/dL (70-110)
[2024-03-22] MEDS ORDERED: VERAPAMIL 2.5 MG/ML 2 ML AMP ONE (16:07)
[2024-03-22] MEDS ORDERED: LIDOCAINE 1% INJ 10MG/ML (20 ML MDV) ONE ×2 (16:07→16:20)
[2024-03-22] MEDS ORDERED: fentaNYL (PF) 50 MCG/ML 2 ML AMP ONE (16:20)
[2024-03-22] MEDS ORDERED: HEPARIN SODIUM,PORCINE 30 ML 30 ML ONE (16:20)
[2024-03-22] MEDS: MIDAZOLAM 2 MG/2 ML VIAL IVP ONE (16:38)
[2024-03-22] MEDS: LIDOCAINE 2% (PF) 20 MG/ML 5 ML VIAL SQ ONE (16:38)
[2024-03-22] MEDS: fentaNYL (PF) 50 MCG/1 ML VIAL IVP ONE (16:38)
[2024-03-22] MEDS: VERAPAMIL 2.5 MG/ML 4 ML VIAL INTRAARTER ONE (16:40)
[2024-03-22] MEDS: HEPARIN SODIUM 1,000 UN/ML (10ML VL) IVP ONE ×2 (16:42→16:48)
[2024-03-22] MEDS: CLOPIDOGREL 75 MG TAB PO ONE (16:45)
[2024-03-22] MEDS ORDERED: CLOPIDOGREL 75 MG TAB ONE (16:51)
[2024-03-22] MEDS: ONDANSETRON 4 MG/2 ML VIAL IVP ONE (17:21)
[2024-03-22] MEDS ORDERED: ONDANSETRON 4 MG/2 ML VIAL ONE (17:43)
[2024-03-22] MEDS: SODIUM CHLORIDE 0.9% 1,000 ML IV ONE (17:59)
[2024-03-22] MEDS: IOPAMIDOL-370 200ML BTL INTRATHECA ONE (18:00)
[2024-03-22] MEDS: SODIUM CHLORIDE 0.9% 1,000 ML IV SCH (20:18)
[2024-03-22 22:25] VITALS: RESP 16
[2024-03-23] MEDS ORDERED: HEPARIN SODIUM,PORCINE (1 ML) 2,500 UNIT in SODIUM CHLORIDE 0.9% 250 ML IRRIGATION PRN (07:00)
[2024-03-23] MEDS ORDERED: HEPARIN SODIUM,PORCINE 10,000 UNIT in SODIUM CHLORIDE 0.9% 1,000 ML IRRIGATION PRN (07:00)
[2024-03-23 08:07] VITALS: BP 145/76; PULSE 61; TEMP 97.8
[2024-03-23] MEDS: CLOPIDOGREL 75 MG TAB PO SCH (09:30)
--- NOTE | 2024-03-23 13:43 | P.DS ---
Providers Date of admission: 03/21/24 08:22 Expected date of discharge: 03/23/24 Attending physician: Saul Mc Consults: 03/21/24 12:34 Consult Physician Routine Consulting Provider: Omkar Jacob Consult Reason/Comments: CAD Do you want consulting provider notified?: Yes Primary care physician: [facility] Course: History of present illness: This is a 63-year-old female patient of Dr. Sterling Mc with past medical history of aortic stenosis status post aortic valve replacement April 2023. Patient presented to the office on 03/20/2024 with complaints of intermittent episodes of chest discomfort radiating to her neck. She did not have any significant obstructive coronary artery disease on previous catheterization. She underwent a stress test and chest pain went from 4-10 intensity and had to take sublingual nitroglycerin. There was baseline ST-T wave changes with pronounced ST segment depression with activity worse quite a bit since July 2023. She was subsequently scheduled for cardiac catheterization which was performed yesterday which revealed severe stenosis involving the left main coronary artery related to recent aortic valve replacement surgery. Dr. Medina performed IVUS of the left main. Subsequently, patient was seen by cardiothoracic surgery and thought that CABG would be too soon since her previous surgery. Patient is seen today on the cardiac stepdown unit. Patient developed chest pain of a 5-10 out of 10. She has been maintained on a heparin drip. Blood pressure 155/71-178/92. Heart rate in the 60s, pulse ox 95% on room air. 03/23 Yesterday, Dr. Medina performed PCI of the left main with GOOD with plan for aggressive risk factor modification. Patient to continue dual antiplatelet therapy with aspirin and Plavix for 12 months. Nitroglycerin drip was discontinued. Vital signs have been stable with blood pressure 125/74-145/76, heart rate 61, pulse ox 95% on room air. Patient denies having any chest pain at this time no shortness of breath, no lightheadedness or dizziness. Access site has no signs of hematoma. Physical examination: Gen: This is a 63-year-old female in no acute distress. VS: reviewed HEENT: Head is atraumatic, normocephalic. Pupils equal, round. Sclerae is anicteric. NECK: Supple. No JVD. LUNGS: Clear to auscultation. No wheezes or rhonchi. No intercostal retractions. HEART: Regular rate and rhythm. No murmur. ABDOMEN: Soft No tenderness. EXTREMITIES: No pedal edema. No calf tenderness. NEUROLOGICAL: Patient is awake, alert and oriented x3. Assessment: Coronary artery disease status post PCI Aortic valve replacement Abnormal treadmill stress test Uncontrolled hypertension Gastroesophageal reflux disease Nurse practitioner note has been reviewed, I agree with documented findings and plan of care. Patient was seen and examined. Plan - Discharge Summary Discharge Rx Participant: No New Discharge Prescriptions: New Atorvastatin [Lipitor] 80 mg PO HS #90 tab Nitroglycerin Sl Tabs [Nitrostat] 0.4 mg SUBLINGUAL Q5M PRN #25 tab PRN Reason: Chest Pain Clopidogrel [Plavix] 75 mg PO DAILY #90 tablet Pantoprazole [Protonix] 40 mg PO AC-BRKFST #30 tab Continue Metoprolol Tartrate [Lopressor] 12.5 mg PO BID #60 tab Isosorbide Mononitrate [Isosorbide Mononitrate ER] 30 mg PO DAILY Aspirin 81 mg PO DAILY #30 tab Ergocalciferol [Vitamin D2 (1250 Mcg = 69353 Iu)] 1,250 mcg PO MO Discontinued Rosuvastatin [Crestor] 20 mg PO DAILY Discharge Medication List Aspirin 81 mg PO DAILY #30 tab 05/25/23 [Rx] Metoprolol Tartrate [Lopressor] 12.5 mg PO BID #60 tab 05/25/23 [Rx] Ergocalciferol [Vitamin D2 (1250 Mcg = 64124 Iu)] 1,250 mcg PO MO 03/20/24 [History] Isosorbide Mononitrate [Isosorbide Mononitrate ER] 30 mg PO DAILY 03/20/24 [History] Atorvastatin [Lipitor] 80 mg PO HS #90 tab 03/23/24 [Rx] Clopidogrel [Plavix] 75 mg PO DAILY #90 tablet 03/23/24 [Rx] Nitroglycerin Sl Tabs [Nitrostat] 0.4 mg SUBLINGUAL Q5M PRN #25 tab 03/23/24 [Rx] Pantoprazole [Protonix] 40 mg PO AC-BRKFST #30 tab 03/23/24 [Rx] Follow up Appointment(s)/Referral(s): Saul Mc MD [STAFF PHYSICIAN] - 03/31/24 9:15 am Patient Instructions/Handouts: Moderate Sedation (DC), Return to Work Instructions (GEN), After Radial Heart Catheterization (GEN) Activity/Diet/Wound Care/Special Instructions: NO DRIVING TODAY OR TOMORROW. AVOID PUSHING PULLING LIFTING GREATER THAN 5LB FOR FIVE DAYS. SIGNS OF INFECTION IE: FEVER, SWELLING OR HARD KNOT, UNUSUAL DRAINAGE OR RASH CONTACT DOCTOR TO BE EVALUATED. IF PUNCTURE BLEEDS, APPLY FIRM DIRECT PRESSURE AND GO TO ER. DO NOT DRIVE SELF. CALL 911 [address] YOU. MEDICATIONS DIRECTED BY [facility]. FALL PRECAUTIONS TODAY. AVOID IMMERSING WRIST IN STANDING WATER (TUBS, POOLS, DOING DISHES ECT FOR 3 DAYS TO AVOID RISK OF INFECTION). Discharge Disposition: HOME SELF-CARE
--- NOTE | 2024-03-28 08:19 | P.PRCINT ---
Percutaneous Coronary Int. - Percutaneous Coronary Intervention Percutaneous Coronary Intervention: PROCEDURES PERFORMED: Left coronary angiography, ultrasound guided arterial access, PCI left main with a 4.0 x 8mm Xience GOOD, post dilated with a 4.5 NC balloon, IVUS left main INDICATION: Severe left main stenosis, deemed not a good candidate for redo open heart surgery, unstable angina, NYHA class 4 symptoms with chest pain at rest and with walking a few feet CONSENT:I have discussed the risks, benefits and alternative therapies for the above-mentioned procedure and for both sedation/analgesia as well as necessary blood product administration, if indicated, as they pertain to this patient. The patient has indicated understanding and acceptance of the risks and procedures discussed. PROCEDURE: After the risks, benefits and alternatives of the above mentioned procedure explained in detail with the patient, informed consent was obtained. Patient was taken to the catheterization lab and prepped and draped in usual fashion. Ultrasound guidance was used to assess for arterial access. 1% lidocaine was used to anesthetize the right femoral area. A 6-Armenian sheath was placed in the right femoral artery using modified Seldinger technique and ultrasound guidance. The decision was made to perform PCI of the left main. Heparin was given. Left coronary angiography was performed with a 6-Armenian CLS 3.5 guide catheter. There was significant dampening noted. A 0.014 BMW wire was advanced into the distal LAD and an additional 0.014 BMW wire down the circumflex. IVUS was performed which showed normal appearance to the entire left main other than echo lucenct plaque of the ostial left main. There was an echodensity at the origin at the 7 Oclock position which may represent the bioprosthetic valve however was not impinging on the artery in any way. Reference vessel was 4.5mm. Predilation was performed with a 4.0mm NC balloon. Next a 4.0 x 8mm Xience GOOD was placed in the ostium of the left main. The stent was post dilated with a 4.5 mm NC balloon. Repeat IVUS showed excellent result with 0% residual stenosis and well expanded stent. Final angiograms were performed. Preintervention there was 95% stenosis and SABINA 3 flow and post intervention there was 0% stenosis and SABINA 3 flow. Femoral angiogram showed adequate anatomy for closure and a 6Fr angioseal was placed. The patient tolerated the procedure well. Patient was transported back to the post catheterization holding area in stable condition. Conscious Sedation: Patient was monitored under the direct supervision of myself for conscious sedation using Versed and fentanyl for a total duration of 58 minutes HEMODYNAMICS: AO: 133/69 SELECTIVE CORONARY ARTERIOGRAPHY: LEFT MAIN: The left main is a large caliber vessel which bifurcates into the LAD and circumflex. There is an ostial 95% stenosis and otherwise normal. LEFT ANTERIOR DESCENDING CORONARY ARTERY: LAD is a large caliber vessel which wraps around to the apex. There is no significant stenosis. LEFT CIRCUMFLEX CORONARY ARTERY: Left circumflex is a moderate caliber vessel without significant stenosis. RIGHT CORONARY ARTERY: The right coronary artery was not imaged. FINAL IMPRESSION: 1. CAD as described above with 95% ostial left main stenosis 2. S/p PCI left main with a 4.0 x 8mm Xience GOOD, post dilated with a 4.5 NC balloon PLAN: 1. Aggressive risk factor modification per most recent ACC/AHA guidelines. 2. Continue dual antiplatelets with aspirin and Plavix for 12 months
== END 2024-03-23 09:48 | disposition home or self-care (01) | DRG 322 ==
LOC: CATHCVL 08:21 → 3SCARD 08:22 → CATHCVL 08:22 → 3SCARD 12:13
PROVIDERS: ADMIT Internal Medicine Cardiovascular Disease; ATTEND Internal Medicine Cardiovascular Disease
PROC: B2101ZZ Fluoroscopy of Single Coronary Artery using Low Osmolar Contrast (ICD-10-PCS; principal; 2024-03-21 10:30)
PROC: 027034Z Dilation of Coronary Artery, One Artery with Drug-eluting Intraluminal Device, Percutaneous Approach (ICD-10-PCS; principal; 2024-03-21 10:30)
PROC: B240ZZ3 Ultrasonography of Single Coronary Artery, Intravascular (ICD-10-PCS; principal; 2024-03-21 10:30)
PROC: B3101ZZ Fluoroscopy of Thoracic Aorta using Low Osmolar Contrast (ICD-10-PCS; 2024-03-21 10:30)
PROC: 4A023N7 Measurement of Cardiac Sampling and Pressure, Left Heart, Percutaneous Approach (ICD-10-PCS; 2024-03-21 10:30)
PROC: B2111ZZ Fluoroscopy of Multiple Coronary Arteries using Low Osmolar Contrast (ICD-10-PCS; 2024-03-21 10:30)
DX: I25.110 Atherosclerotic heart disease of native coronary artery with unstable angina pectoris (principal); I48.92 Unspecified atrial flutter; J44.9 Chronic obstructive pulmonary disease, unspecified; M06.9 Rheumatoid arthritis, unspecified; I48.0 Paroxysmal atrial fibrillation; I35.2 Nonrheumatic aortic (valve) stenosis with insufficiency; I37.1 Nonrheumatic pulmonary valve insufficiency; I10 Essential (primary) hypertension; Z95.3 Presence of xenogenic heart valve; Z28.310 Unvaccinated for COVID-19; E78.5 Hyperlipidemia, unspecified; K21.9 Gastro-esophageal reflux disease without esophagitis; L40.9 Psoriasis, unspecified; Z79.82 Long term (current) use of aspirin; Z79.899 Other long term (current) drug therapy; Z87.891 Personal history of nicotine dependence; Z95.1 Presence of aortocoronary bypass graft
CPT/HCPCS: 76937; 80048; 85025; 85610; 85730; 92978; 93458; 93567

== ENCOUNTER 2024-09-17 10:08 | Day surgery (SDC) | payer BC, MEDICARE ==
[~2024-09-17 10:08] MED LIST changes: +ALPRAZolam 0.25 MG TAB PO PRN; +ASPIRIN 325 MG TAB PO STA; +ATORVASTATIN 80 MG TAB PO STA; +SODIUM CHLORIDE 0.9% 1,000 ML in EMPTY BAG 1 BAG IV SCH
[2024-09-17] MEDS: SODIUM CHLORIDE 0.9% 1,000 ML IV ONE (10:33)
[2024-09-17 10:52] VITALS: RESP 16; TEMP 97
[2024-09-17 11:02] LABS: Basophils # (A) 0.1 k/uL (0-0.2); Basophils % (A) 1 %; Eosinophils # (A) 0.2 k/uL (0-0.7); Eosinophils % (A) 3 %; HCT 45.3 % (34.0-46.0); HGB 14.5 gm/dL (11.4-16.0); Lymphocytes # (A) 1.2 k/uL (1.0-4.8); Lymphocytes % (A) 19 %; MCH 31.3 pg (25.0-35.0); MCHC 32.1 g/dL (31.0-37.0); MCV 97.5 fL (80.0-100.0); Mean Platelet Volume 7.4; Monocytes # (A) 0.4 k/uL (0-1.0); Monocytes % (A) 6 %; Neutrophils # (A) 4.4 k/uL (1.3-7.7); Neutrophils % (A) 69 %; Platelet Count 256 k/uL (150-450); RBC 4.65 m/uL (3.80-5.40); RDW 12.8 % (11.5-15.5); WBC 6.3 k/uL (3.8-10.6)
[2024-09-17 11:14] LABS: African American GFR (CKD) >90 (>60 ml/min/1.73 sqM); Anion Gap 8 mmol/L; Blood Urea Nitrogen 14 mg/dL (7-17); Calcium 9.5 mg/dL (8.4-10.2); Carbon Dioxide 25 mmol/L (22-30); Chloride 103 mmol/L (98-107); Glucose 109 mg/dL (74-99); Non-African American GFR(CKD) >90 (>60 ml/min/1.73 sqM); Sodium 136 mmol/L (137-145)
[2024-09-17 11:51] LABS: Potassium 4.8 mmol/L (3.5-5.1)
[2024-09-17] MEDS: fentaNYL (PF) 50 MCG/ML 2 ML AMP IVP ONE (12:05)
[2024-09-17] MEDS: MIDAZOLAM 2 MG/2 ML VIAL IVP ONE (12:05)
[2024-09-17] MEDS: LIDOCAINE 1% INJ 10MG/ML (20 ML MDV) SQ ONE (12:18)
[2024-09-17] MEDS: IOPAMIDOL-370 100ML BTL INJ ONE ×3 (12:50→12:54)
--- NOTE | 2024-09-17 14:43 | P.CARDCATH ---
Description of Procedure: PROCEDURES PERFORMED: Left heart catheterization, bilateral coronary angiography, ultrasound guided arterial access INDICATION: unstable angina, history of left main stenting, history of aortic valve replacement with CTA showing nonopacification of the proximal RCA CONSENT:I have discussed the risks, benefits and alternative therapies for the above-mentioned procedure and for both sedation/analgesia as well as necessary blood product administration, if indicated, as they pertain to this patient. The patient has indicated understanding and acceptance of the risks and procedures discussed. PROCEDURE: After the risks, benefits and alternatives of the above mentioned procedure explained in detail with the patient, informed consent was obtained. Patient was taken to the catheterization lab and prepped and draped in usual fashion. Ultrasound guidance was used to assess for arterial access. 1% lidocaine was used to anesthetize the right femoral artery. A 6-[place] sheath was placed in the right femoral artery using modified Seldinger technique and ultrasound guidance. Left coronary angiography was performed with a 6-[place] JL 4.0 catheter. there have been significant difficulty engaging the RCA on prior imaging with CTA showing RCA takeoff nearly at the cusp of the bioprosthetic aortic valve with prior aortic root enlargement surgery. Therefore angiograms were performed with pigtail catheter power injection in a number abuse. The best opacification was noted with a 6-[place] AR to guide however this was still subselective with what appeared to be 95% proximal stenosis. There was slow antegrade flow subselectively. There were [id number] collaterals and therefore no further images obtained of the RCA. A 5-[place] pigtail catheter was inserted into the left ventricle and pressure measurements were obtained. A 6-[place] Angio-Seal was placed withwith hemostasis achieved. The patient tolerated the procedure well. Patient was transported back to the post catheterization holding area in stable condition. Conscious Sedation: Patient was monitored under the direct supervision of myself for conscious sedation using Versed and fentanyl for a total duration of 36 minutes HEMODYNAMICS: aorta: 108/65 LV: 108/5, LVEDP 18, no gradient across the valve SELECTIVE CORONARY ARTERIOGRAPHY: LEFT MAIN: The left main is a large caliber vessel which bifurcates into the LAD and circumflex. There is a proximal left main stent with 90% in-stent stenosis LEFT ANTERIOR DESCENDING CORONARY ARTERY: LAD is a large caliber vessel which wraps around to the apex. There are mild luminal irregularities. LEFT CIRCUMFLEX CORONARY ARTERY: Left circumflex is a moderate caliber vessel with mild luminal irregularities. RIGHT CORONARY ARTERY: The right coronary artery is a moderate to large caliber vessel which gives off a PDA and PLV branch and is the dominant vessel. The vessel was subselectively engaged with 95% proximal stenosis. FINAL IMPRESSION: 1. CAD as described above with 90% left main in-stent stenosis, 95% proximal RCA stenosis felt related to bioprosthetic aortic valve abutting coronary arteries with left to right collaterals 2. Mildly elevated left sided filling pressures 3. No gradient across the aortic valve PLAN: 1. Aggressive risk factor modification per most recent ACC/AHA guidelines. 2. Patient with in-stent stenosis with likely cause external compression from bioprosthetic valve abutting the coronary arteries. Cardiothoracic surgery consult for possible bypass versus coronary reimplantation.
[2024-09-17 15:47] VITALS: PULSE 53
[2024-09-17 16:12] VITALS: BP 159/75
--- NOTE | 2024-09-18 12:57 | P.GSCN ---
History of Present Illness Consult date: 09/17/24 Reason for Consult: Coronary artery disease with left main disease Requesting physician: Germán Medina History of present illness: This is a 63-year-old female patient who follows on an outpatient basis with Dr. Nury Summers for her primary care and with Dr. Sterling Mc for her cardiology care. She has a past medical history significant for coronary artery disease with a 95% ostial left main stenosis, status post PCI left main in February 2024, severe aortic valve stenosis, status post bioprosthetic aortic valve replacement with annular enlargement on May 16, 2023, hyperlipidemia, rheumatoid arthritis and psoriasis on Enbrel as an outpatient, mild COPD, family history of early onset coronary artery disease with 2 brothers being diagnosed in the early 50s, remote history of nicotine dependence quit smoking in 2006, EtOH use with drinking 2 glasses of wine per day, and paroxysmal atrial fibrillation after her open heart surgery in April 2023. The patient has had complaints of progressive shortness of breath over the past 3 weeks with episodes of chest discomfort with exertion. She reports resting makes the chest pressure disappear, although this shortness of breath takes a little longer to go away. In May 20[address] the patient underwent a CT angiogram of her coronaries which revealed a patent left main stent, however the ostium of the right coronary artery could not be visualized very well. The patient denies any recent fever, chills, nausea, vomiting, diarrhea, constipation, headache, palpitations, lightheadedness, presyncope or syncope. The patient underwent a treadmill stress test and only could walk for 3-1/2 minutes before complaining of chest pain with significant EKG changes. The patient was subsequently started on Imdur at that time and was started on Ranexa. Due to the patient's recent complaints of shortness of breath, chest pressure and the results of her stress test the patient was scheduled for an elective cardiac catheterization. A cardiac catheterization was completed today by Dr. Medina which revealed coronary artery disease with a 90% left main in-stent stenosis, and a 95% proximal right coronary artery stenosis. It also showed no gradient across the aortic valve. On September 08, 2023 the patient also underwent a transthoracic 2D echocardiogram which showed a normal size and normal left ventricular systolic function with an ejection fraction of 55%, moderate mitral valve regurgitation, a bioprosthetic aortic valve with mild prosthetic valvular regurgitation, a valve area of 1.94 cm, peak gradient of 20 mmHg, a mean gradient of 10 mmHg, mild tricuspid valve regurgitation and trace pulmonic valve regurgitation. Subsequently due to the patient's findings on her heart catheterization a consult was placed to cardiothoracic surgery for further evaluation and treatment recommendations. Review of Systems A review of systems was completed was negative except as mentioned in the HPI. Past Medical History Past Medical History: Atrial Fibrillation, Coronary Artery Disease (CAD), Chest Pain / Angina, COPD, GERD/Reflux, Hyperlipidemia, Rheumatoid Arthritis (RA), Skin Disorder Additional Past Medical History / Comment(s): psoriasis, pt unaware of hx of afib. current SOB and chest pain. Rheumatoid arthritis History of Any Multi-Drug Resistant Organisms: None Reported Past Surgical History: Heart Catheterization, Heart Catheterization With Stent, Hysterectomy, Orthopedic Surgery Additional Past Surgical History / Comment(s): rt knee, aortic valve replaced 05/16/23 Past Anesthesia/Blood Transfusion Reactions: No Reported Reaction Date of Last Stent Placement:: 02/2024 Past Psychological History: No Psychological Hx Reported Smoking Status: Former smoker, Light tobacco smoker Past Alcohol Use History: Daily Past Drug Use History: None Reported - Past Family History Mother History Unknown: Yes Family Medical History: Coronary Artery Disease (CAD) Additional Family Medical History / Comment(s): CABG Brother(s) History Unknown: Yes Family Medical History: Myocardial Infarction (AR) Additional Family Medical History / Comment(s): stents. another brother had a stroke Father History Unknown: Yes Additional Family Medical History / Comment(s): Parkinson disease Medications and Allergies Home Medications Medication Instructions Recorded Confirmed Type Aspirin 81 mg PO DAILY #30 tab 05/25/23 09/17/24 Rx Metoprolol Tartrate [Lopressor] 12.5 mg PO BID #60 tab 05/25/23 09/13/24 Rx Ergocalciferol [Vitamin D2 (1250 1,250 mcg PO MO 03/20/24 09/17/24 History Mcg = 10025 Iu)] Isosorbide Mononitrate [Isosorbide 30 mg PO DAILY 03/20/24 09/13/24 History Mononitrate ER] Atorvastatin [Lipitor] 80 mg PO HS #90 tab 03/23/24 09/17/24 Rx Clopidogrel [Plavix] 75 mg PO DAILY #90 tablet 03/23/24 09/13/24 Rx Nitroglycerin Sl Tabs [Nitrostat] 0.4 mg SUBLINGUAL Q5M PRN #25 tab 03/23/24 09/17/24 Rx Pantoprazole [Protonix] 40 mg PO AC-BRKFST #30 tab 03/23/24 09/13/24 Rx Ezetimibe [Zetia] 10 mg PO HS 09/13/24 09/17/24 History Allergies Allergy/AdvReac Type Severity Reaction Status Date / Time No Known Allergies Allergy Verified 09/17/24 10:53 Surgical - Exam Vital Signs Temp Pulse Resp BP Pulse Ox 97 F L 52 L 16 143/70 97 09/17/24 10:49 09/17/24 10:49 09/17/24 10:49 09/17/24 10:49 09/17/24 10:49 - General well developed, well nourished, no distress, no pain - Eyes PERRL, normal ocular movement, no pale, no icteric - ENT normal pinna, normal nares, normal mucosa, no hearing loss, no congestion - Neck Neck is supple, no lymphadenopathy. no masses, no bruits, trachea midline, no lymphadectomy, no venous distension - Respiratory Lung sounds essentially clear throughout, no wheezes, rhonchi or crackles. Respirations are symmetrical and nonlabored. - Cardiovascular Regular rhythm and rate. S1 and S2 present, negative for S3, gallop or murmur. - Abdomen Abdomen is soft, nontender and nondistended. Active bowel sounds present all 4 abdominal quadrants. No guarding or rigidity. No organomegaly appreciated. - Genitourinary Deferred - Rectum Deferred - Integumentary Skin is warm and dry. No clubbing or cyanosis is present. no rash, no growths, no abnormal pigmentation - Neurologic No focal deficits. normal coordination, normal sensation - Musculoskeletal Moves all 4 extremities with equal strength bilateral. normal gait, normal posture - Psychiatric oriented to time, oriented to person, oriented to place, speech is normal, memory intact Results - Labs 09/17/24 10:48 09/17/24 10:48 Abnormal Lab Results - Last 24 Hours (Table) 09/17/24 Range/Units 10:48 Sodium 136 L (137-145) mmol/L Glucose 109 H (74-99) mg/dL Diabetes panel 09/17/24 Range/Units 10:48 Sodium 136 L (137-145) mmol/L Potassium 4.8 (3.5-5.1) mmol/L Chloride 103 (98-107) mmol/L Carbon Dioxide 25 (22-30) mmol/L BUN 14 (7-17) mg/dL Creatinine 0.65 (0.52-1.04) mg/dL Glucose 109 H (74-99) mg/dL Calcium 9.5 (8.4-10.2) mg/dL Calcium panel 09/17/24 Range/Units 10:48 Calcium 9.5 (8.4-10.2) mg/dL Pituitary panel 09/17/24 Range/Units 10:48 Sodium 136 L (137-145) mmol/L Potassium 4.8 (3.5-5.1) mmol/L Chloride 103 (98-107) mmol/L Carbon Dioxide 25 (22-30) mmol/L BUN 14 (7-17) mg/dL Creatinine 0.65 (0.52-1.04) mg/dL Glucose 109 H (74-99) mg/dL Calcium 9.5 (8.4-10.2) mg/dL Adrenal panel 09/17/24 Range/Units 10:48 Sodium 136 L (137-145) mmol/L Potassium 4.8 (3.5-5.1) mmol/L Chloride 103 (98-107) mmol/L Carbon Dioxide 25 (22-30) mmol/L BUN 14 (7-17) mg/dL Creatinine 0.65 (0.52-1.04) mg/dL Glucose 109 H (74-99) mg/dL Calcium 9.5 (8.4-10.2) mg/dL - Imaging Additional studies: Cardiac catheterization results reviewed. Assessment and Plan Assessment: Coronary artery disease with 90% left main in-stent stenosis, 95% proximal right coronary artery stenosis, status post left main stent in February 2024, currently on Plavix as an outpatient Severe aortic valve stenosis, status post bioprosthetic aortic valve replacement with annular enlargement on May 16, 2023 History of hyperlipidemia, treated Rheumatoid arthritis Previous tobacco dependence Mild COPD Family history of heart disease Paroxysmal atrial fibrillation/atrial flutter after cardiac surgery in April 2023 Plan: The patient was seen and examined at her bedside in the extended stay unit. Her chart and diagnostics were reviewed. Dr. Medina discussed with Dr. Omkar Jacob from cardiothoracic surgery the findings on the cardiac catheterization films. The patient is scheduled with Dr. Dane Tipton from cardiothoracic surgery as a follow-up appointment in the office on September 26, 2024 at 9:30 AM to discussed treatment options. Continue to optimize medical management with aspirin, statin and beta-daniel. If the patient was to choose a surgical option her Plavix would be held for 5 to 7 days prior to surgery. Medical m anagement other comorbidities per her primary care physician and Dr. Mc. More recommendations to follow based on patient's clinical course and when she follows up with Dr. Tipton in the office. Thank you for this consult and we look forward to working with you in the care of this patient. I have personally seen and examined the patient, performed the documentation and the assessment and plan as written. Number of minutes spent on the visit: 30. MARJORIE Thornton
== END 2024-09-17 17:17 | disposition home or self-care (01) ==
LOC: CATHCVL 10:08
PROVIDERS: ATTEND Internal Medicine
DX: I25.110 Atherosclerotic heart disease of native coronary artery with unstable angina pectoris (principal); E78.5 Hyperlipidemia, unspecified; F17.210 Nicotine dependence, cigarettes, uncomplicated; Z95.5 Presence of coronary angioplasty implant and graft; Z95.3 Presence of xenogenic heart valve; Z79.02 Long term (current) use of antithrombotics/antiplatelets; Z79.82 Long term (current) use of aspirin; Z79.899 Other long term (current) drug therapy
CPT/HCPCS: 80048; 85025; 93458; 99152; 99153; J2250; J2003; J3010; Q9967